=== PATIENT | female | born 1950 | race Caucasian/White ===

== ENCOUNTER 2019-09-03 08:31 | Outpatient (RCR) | payer MEDICARE, SELFPAY | END 2019-09-28 00:01 | LOC: SPT 08:31 | PROVIDERS: Family Provider Internal Medicine; Visit Provider Specialist | DX: Z47.1 Aftercare following joint replacement surgery (principal); Z96.652 Presence of left artificial knee joint | CPT/HCPCS: 97110 ×5; 97161; 97530 ==

== ENCOUNTER 2019-09-29 06:00 | Outpatient (RCR) | payer MEDICARE, SELFPAY | END 2019-10-29 23:59 | disposition home or self-care (01) | LOC: SPT 06:00 | PROVIDERS: Family Provider Internal Medicine; PCP Internal Medicine; Visit Provider Specialist | DX: Z47.1 Aftercare following joint replacement surgery (principal); Z96.652 Presence of left artificial knee joint | CPT/HCPCS: 97110 ==

== ENCOUNTER → 2019-10-13 12:12 | Outpatient (BNVA) | payer MEDICARE, SELFPAY | PROVIDERS: Family Provider Internal Medicine; PCP Internal Medicine; Visit Provider Specialist | DX: Z48.89 Encounter for other specified surgical aftercare (principal); Z96.652 Presence of left artificial knee joint; M25.469 Effusion, unspecified knee | CPT/HCPCS: 73560; 73565 ==

== ENCOUNTER 2019-10-30 06:00 | Outpatient (RCR) | payer MEDICARE, SELFPAY | END 2019-11-27 23:59 | disposition home or self-care (01) | LOC: SPT 06:00 | PROVIDERS: Family Provider Internal Medicine; PCP Internal Medicine; Visit Provider Specialist | DX: Z47.1 Aftercare following joint replacement surgery (principal); Z96.652 Presence of left artificial knee joint; R26.9 Unspecified abnormalities of gait and mobility; M25.362 Other instability, left knee; M25.562 Pain in left knee; M25.662 Stiffness of left knee, not elsewhere classified | CPT/HCPCS: 97110 ==

== ENCOUNTER → 2019-11-11 12:07 | Outpatient (BNVA) | payer MEDICARE, SELFPAY | PROVIDERS: Family Provider Internal Medicine; PCP Internal Medicine; Visit Provider Specialist | DX: Z48.89 Encounter for other specified surgical aftercare (principal); Z96.659 Presence of unspecified artificial knee joint; M17.0 Bilateral primary osteoarthritis of knee | CPT/HCPCS: 73560; 73565 ==

== ENCOUNTER → 2020-02-24 08:37 | Outpatient (BNVA) | payer MEDICARE, SELFPAY | PROVIDERS: Family Provider Internal Medicine; PCP Internal Medicine; Visit Provider Specialist | DX: Z96.652 Presence of left artificial knee joint (principal) | CPT/HCPCS: 73560; 73565 ==

== ENCOUNTER 2020-02-24 11:37 | Outpatient (CLI) | payer MEDICARE, SELFPAY | END 2020-02-24 11:38 | disposition home or self-care (01) | LOC: SPT 11:38 | PROVIDERS: Family Provider Internal Medicine; PCP Internal Medicine; Visit Provider Specialist | DX: Z46.89 Encounter for fitting and adjustment of other specified devices (principal); Z47.1 Aftercare following joint replacement surgery; Z96.652 Presence of left artificial knee joint | CPT/HCPCS: 73560; 73565; 97760; L1812 ==

== ENCOUNTER 2020-04-06 13:11 | Outpatient (CLI) | payer MEDICARE, SELFPAY ==
--- NOTE | 2020-04-06 13:21 | XRR_ITS ---
NOTE: Report was unsigned for reason: Order was edited. Original Signature date and time was: 04/06/20 1410 PROCEDURE INFORMATION: Exam: XR Chest, 2 Views Exam date and time: 04/06/2020 1:35 PM Age: 69 years old Clinical indication: Cough and shortness of breath; Patient HX: Cough, shortness of breath. Has had to have thoracentesis before in past; Additional info: Cough, shortness of breath TECHNIQUE: Imaging protocol: XR of the chest Views: 2 views. COMPARISON: CR Chest 1 [place] [id number] 06/08/2019 9:22 PM FINDINGS: Lungs: Unremarkable. No consolidation. Pleural space: Unremarkable. No pleural effusion. No pneumothorax. Heart/Mediastinum: Unremarkable. No cardiomegaly. Bones/joints: There is severe dorsal spine osteopenia with compression deformities. [facility] XR/XR chest 2V* [id number] IMPRESSION: 1. No acute cardiac or pulmonary findings. 2. Dorsal spine osteopenia and compression deformities
== END 2020-04-06 13:12 | disposition home or self-care (01) ==
LOC: RAD 13:17
PROVIDERS: PCP Internal Medicine; Visit Provider Specialist
DX: R05 Cough (principal); R06.02 Shortness of breath; M85.89 Other specified disorders of bone density and structure, multiple sites; M43.8X9 Other specified deforming dorsopathies, site unspecified
CPT/HCPCS: 71046

== ENCOUNTER → 2020-05-15 10:18 | Outpatient (BNVA) | payer MEDICARE, SELFPAY | PROVIDERS: PCP Internal Medicine; Visit Provider Specialist | DX: Z47.1 Aftercare following joint replacement surgery (principal); Z96.651 Presence of right artificial knee joint; E11.9 Type 2 diabetes mellitus without complications; I48.20 Chronic atrial fibrillation, unspecified; K75.81 Nonalcoholic steatohepatitis (NASH); E78.00 Pure hypercholesterolemia, unspecified; Z79.4 Long term (current) use of insulin; K90.9 Intestinal malabsorption, unspecified | CPT/HCPCS: 36415; 73560; 73565; 80053; 80061; 83036; 84443; 85025 ==

== ENCOUNTER 2020-08-03 09:52 | Outpatient (CLI) | payer MEDICARE, SELFPAY ==
--- NOTE | 2020-08-03 10:00 | CT_ITS ---
WS: [id number] CT scan of the chest with IV contrast, additional two-dimensional coronal and sagittal reconstruction was performed. 08/03/2020 Clinical Data: fsda Comparison: CTA chest, 06/08/2019. DLP: 983.[address] scans at [facility] use at least one of these dose optimization techniques: automat ed exposure control; mA and/or kV adjustment per patient size (includes targeted exams where dose is matched to clinical indication); or iterative reconstruction. Findings: The density noted in the right upper lobe on image 21 of 61 of the axial scan has not changed in siz e or configuration. This has the appearance of a small parenchymal scar. No masses or effusions are seen. The heart size is normal with no pericardial effusion. There is cor onary artery calcification. No pneumonia or pneumothorax is present. The pulmonary arterial system an d thoracic aorta demonstrate no abnormalities or dilatations. The trachea bifurcates normally into th e bronchi. There is no axillary or significant mediastinal adenopathy. The upper abdomen shows no change from before. Degenerative arthritis of the thoracic vertebral jolie s is seen. CT/CT chest w con* [id number] Impression: 1. Right upper lobe density, probably a parenchymal scar unchanged. 2. Recommend no further follow-up. 3. Negative for active cardiopulmonary disease.
[2020-08-03 10:39] LABS: Blood Urea Nitrogen 16 mg/dL (8-23)
[2020-08-03] MEDS: iohexol 300 mg/mL 100 mL Btl IV (10:52)
== END 2020-08-03 09:53 | disposition home or self-care (01) ==
PROVIDERS: PCP Internal Medicine; Visit Provider Internal Medicine
DX: M25.511 Pain in right shoulder (principal)
CPT/HCPCS: 71260; 82565; 84520; Q9967

== ENCOUNTER → 2020-09-06 09:30 | Outpatient (BNVA) | payer MEDICARE, SELFPAY | PROVIDERS: PCP Internal Medicine; Referring Provider Internal Medicine; Visit Provider Anesthesiology Pain Medicine | DX: M54.6 Pain in thoracic spine (principal); M47.814 Spondylosis without myelopathy or radiculopathy, thoracic region; Z79.891 Long term (current) use of opiate analgesic | CPT/HCPCS: 99205 ==

== ENCOUNTER → 2020-09-07 09:32 | Outpatient (BNVA) | payer MEDICARE, SELFPAY | PROVIDERS: PCP Internal Medicine; Visit Provider Internal Medicine Cardiovascular Disease | DX: E78.00 Pure hypercholesterolemia, unspecified (principal); E78.5 Hyperlipidemia, unspecified | CPT/HCPCS: 80061 ==

== ENCOUNTER → 2020-09-12 13:53 | Outpatient (BNVA) | payer MEDICARE, SELFPAY | PROVIDERS: PCP Internal Medicine; Visit Provider Anesthesiology Pain Medicine | DX: M47.814 Spondylosis without myelopathy or radiculopathy, thoracic region (principal); M54.6 Pain in thoracic spine | CPT/HCPCS: 64490; 64491; 64492; J1030; J3490 ==

== ENCOUNTER → 2020-09-26 09:38 | Outpatient (BNVA) | payer MEDICARE, SELFPAY | PROVIDERS: PCP Internal Medicine; Visit Provider Anesthesiology Pain Medicine | DX: M54.9 Dorsalgia, unspecified (principal); M54.6 Pain in thoracic spine; M47.814 Spondylosis without myelopathy or radiculopathy, thoracic region; M47.812 Spondylosis without myelopathy or radiculopathy, cervical region; M54.16 Radiculopathy, lumbar region; M54.5 Low back pain; G89.29 Other chronic pain | CPT/HCPCS: 99214 ==

== ENCOUNTER → 2020-10-20 10:55 | Outpatient (BNVA) | payer MEDICARE, SELFPAY | PROVIDERS: PCP Internal Medicine; Visit Provider Anesthesiology Pain Medicine | DX: G89.29 Other chronic pain (principal); M54.9 Dorsalgia, unspecified; M47.814 Spondylosis without myelopathy or radiculopathy, thoracic region; M47.812 Spondylosis without myelopathy or radiculopathy, cervical region; M54.16 Radiculopathy, lumbar region; M47.816 Spondylosis without myelopathy or radiculopathy, lumbar region; M48.54XA Collapsed vertebra, not elsewhere classified, thoracic region, initial encounter for fracture; X58.XXXA Exposure to other specified factors, initial encounter | CPT/HCPCS: 72114; 99214 ==

== ENCOUNTER 2020-10-20 11:51 | Outpatient (CLI) | payer MEDICARE, SELFPAY ==
--- NOTE | 2020-10-20 11:59 | XR_ITS ---
WS: [id number] LUMBAR SPINE TECHNIQUE: 5 views of the lumbar spine CLINICAL INFORMATION: M47.816 - Spondylosis without myelopathy or radiculopathy, lumbar region COMPARISON: None. FINDINGS: Five clz-iwc-gvzcxik lumbar vertebral bodies. Pedicle screw fixation L4-5. Disc space narrowing worse at L3-L4, L4-L5 and L5-S1. Slight retrolisthesis L3 on L4. Slight anterolisthesis L4 on L5. Chronic anterior wedging T11,T12 and L1 XR/XR lumbar spine min 4V [id number] IMPRESSION: 1. Pedicle screw fixation L4-5. Dorsal lateral bone graft material. Hardware a ppears in good position. Slight anterolisthesis L4 on L5. 2. Disc space narrowing worse at L3-L4 L4-L5 and L5-S1. 3. Chronic anterior wedging in the lower thoracic spine.
== END 2020-10-20 11:52 | disposition home or self-care (01) ==
LOC: RADWPI 11:56
PROVIDERS: PCP Internal Medicine; Visit Provider Anesthesiology Pain Medicine
DX: M47.816 Spondylosis without myelopathy or radiculopathy, lumbar region (principal); M48.54XA Collapsed vertebra, not elsewhere classified, thoracic region, initial encounter for fracture; X58.XXXA Exposure to other specified factors, initial encounter
CPT/HCPCS: 72114

== ENCOUNTER 2020-11-01 06:00 | Outpatient (RCR) | payer MEDICARE, SELFPAY | END 2020-11-26 23:59 | disposition home or self-care (01) | LOC: SPT 06:00 | PROVIDERS: PCP Internal Medicine; Referring Provider Anesthesiology Pain Medicine; Visit Provider Anesthesiology Pain Medicine | DX: M54.5 Low back pain (principal); G89.29 Other chronic pain | CPT/HCPCS: 97110; 97161; 97530 ==

== ENCOUNTER → 2020-11-06 08:37 | Outpatient (BNVA) | payer MEDICARE, SELFPAY | PROVIDERS: PCP Internal Medicine; Visit Provider Anesthesiology Pain Medicine | DX: G89.29 Other chronic pain (principal); M47.814 Spondylosis without myelopathy or radiculopathy, thoracic region; M47.816 Spondylosis without myelopathy or radiculopathy, lumbar region; M47.812 Spondylosis without myelopathy or radiculopathy, cervical region; M54.16 Radiculopathy, lumbar region; M54.9 Dorsalgia, unspecified | CPT/HCPCS: 99213 ==

== ENCOUNTER 2020-11-23 11:54 | Observation (INO) | payer MEDICARE, SELFPAY ==
[2020-11-23] VITALS (11 sets, daily range): BP systolic 122–172; BP diastolic 60–116; PULSE 73–91; RESP 12–18; TEMP 36.1–36.7; O2SAT 91–98; BMI 32.8
--- NOTE | 2020-11-23 12:03 | PC.NURSE ---
Spoke with the [facility] crisis center regarding pt making suicidal statements while at [facility]. Per [facility] staff, a 96 hr hold was faxed to the court but has not yet been approved. Pt told the [facility] staff that she had a plan to drive her car into something and she also has a firearm in her possession that she threatened to use. Pt refused to go to [facility] to sign a safety contract and refused any kind of treatment. Law enforcement was called to escort pt to ER for evaluation and treatment.
--- NOTE | 2020-11-23 12:09 | XR_ITS ---
WS: [id number] Exam: XR chest 1V portable [id number] Date/Time of Exam: 11/23/2020 12:09 PM Reason For Exam: Psych eval Comparison 04/06/2020. The lungs are fully expanded. There are fibrous changes in the upper right lung zones. There are no i nfiltrates or pleural effusions. Cardiomediastinal structures are unremarkable. Bony structures are i ntact. XR/XR chest 1V portable [id number] IMPRESSION: 1. Chronic interstitial changes in the upper lobe of the right lung. No acute p rocess identified.
--- NOTE | 2020-11-23 12:09 | ECG_ITS ---
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 Measurements Intervals [place] Rate: 71 P: OR: QRS: 72 QRSD: 88 T: 78 QT: 394 QTc: 429 Interpretive Statements ATRIAL FIBRILLATION ANTEROSEPTAL MYOCARDIAL INFARCTION , OF INDETERMINATE AGE [40+ ms Q WAVE IN V1-V4] Compared to ECG 11/23/2020 12:31:35 No significant changes Electronically Signed On 11-23-2020 20:08:01 REFUSE COLLECTOR by Leonardo Nix M.D. [email or web address] [email or web address]/[id number]
--- NOTE | 2020-11-23 12:17 | ECG_ITS ---
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 Measurements Intervals [place] Rate: 70 P: [place]: QRS: 57 QRSD: 87 T: 65 QT: 399 QTc: 433 Interpretive Statements ATRIAL FIBRILLATION SEPTAL MYOCARDIAL INFARCTION , PROBABLY OLD [40+ ms Q WAVE IN V1/V2] No previous ECG available for comparison Electronically Signed On 11-23-2020 20:07:34 ART HISTORY PROFESSOR by Leonardo Nix M.D. [id number]
[2020-11-23 12:48] LABS: Basophils # 0.1 10^3/uL (0.0-0.1); Basophils % 1.2 %; Eosinophils # 0.2 10^3/uL (0.0-0.8); Hematocrit 43.2 % (37.0-47.0); Hemoglobin 13.8 g/dL (11.5-15.3); Lymphocytes # 2.8 10^3/uL (0.8-4.8); Lymphocytes % 34.9 %; Mean Corpuscular HGB Conc 31.9 g/dL (30.0-36.0); Mean Corpuscular Hemoglobin 31.7 pg (28.0-34.0); Mean Corpuscular Volume 99.3 fL (81-99); Mean Platelet Volume 10.4 fL (7.4-10.4); Monocytes # 0.6 10^3/uL (0.2-0.9); Monocytes % 7.8 %; Neutrophils # 4.38 10^3/uL (1.8-7.7); Neutrophils % 53.9 %; Nucleated Red Blood Cells % 0 %; Platelet Count 207 10^3/cmm (130-400); Red Blood Count 4.35 10^6/uL (4.1-5.3); Red Cell Distribution Width 12.5 % (12.1-15.1); White Blood Count 8.1 10^3/uL (4.0-10.0)
[2020-11-23 13:02] LABS: Troponin(5th) Baseline 6 ng/L (0-10)
--- NOTE | 2020-11-23 13:04 | ED_ITS ---
HPI - Psych General: Chief Complaint: Psychiatric Symptoms Stated Complaint: DEPRESSION, SI Time Seen by Provider: 11/23/20 12:07 Source: patient Mode of arrival: other (law enforcement) Limitations: no limitations History of Present Illness: HPI Narrative: Patient is a 70-year-old female with a longstanding history of depression presents to the emergency department with complaints of suicidal ideation. She said her depression has been worsening over the last few days and today she drove all the way to [place] looking for a ditch to drive her car into. She felt she did not find any deep enough so she did not drive her car off. She also feels some prescription medications today and thought about overdosing on those medications also. She told her physical therapist who had her call behavioral health and they advised that she call mental health for help. The patient did not want to and so law enforcement was called and she was brought here to be evaluated. She developed chest pain when she arrived in the ED, about 5/10, sharp, left sided, non radiating. MD complaint: suicidal ideation Onset (ago): day(s) Duration: constant and getting worse History of same: No Relieving factors: none Exacerbating factors: other (isolation from family) Associated psychiatric symptoms: depression and suicidal ideation Associated symptoms: Reports depression and suicidal ideation; Deny auditory hallucinations, visual hallucinations, delusions or homicidal ideation Treatments prior to arrival: none If self harm: admits thoughts of self harm and has plan Review of Systems General: Reports: 10 or more systems reviewed and unremarkable except in HPI and below Const: Denies: fever(s), chills or body aches Eyes: Denies: change in vision or blurry vision ENMT: Denies: throat pain, enlarged tonsils, odynophagia, hoarseness, mouth pain or swelling of lips/tongue Card: Reports: chest pain; Denies: palpitations, irregular heart rhythm, edema or swelling of feet/ankles Resp: Denies: dyspnea, productive cough or non-productive cough GI: Denies: abdominal pain, nausea or vomiting : Denies: flank pain, difficulty voiding, dysuria, urinary frequency, urinary urgency or urinary hesitancy Musc: Denies: neck pain, back pain or extremity swelling Skin/Breast: Denies: rash, pruritus or erythema Neuro: Denies: headache(s), numbness in extremities or weakness in extremities Psych: Reports: depression and suicidal ideation; Denies: visual hallucinations, auditory hallucinations or homicidal ideation Endo: Denies: polyuria, polydipsia or tired all the time PFSH ED PFSH: Medical History (Reviewed 11/23/20 @ 13:19 by Tamanna Vaughn MD, [facility] [place]) ASHD (arteriosclerotic heart disease) Chronic episodic atrial fibrillation Encounter for weight loss counseling Discussed close follow-up due to episodes of hypoglycemia in the past when starting a weight loss program. Hypercholesterolemia Recent weight gain Surgical History Gastric bypass status for obesity H/O cataract extraction H/O hernia repair H/O tubal ligation History of oral surgery Hx of appendectomy Hx of cholecystectomy S/P knee replacement Family History (Updated 11/23/20 @ 17:05 by Jacob Sanchez MD) Father Emphysema lung Mother COPD (chronic obstructive pulmonary disease) Other CAD (coronary artery disease) CHF (congestive heart failure) Diabetes Hyperlipidemia Hypertension Social History Smoking and tobacco status: former smoker Alcohol intake: current Alcohol intake frequency: holidays/special occasions only Substance/Drug Use: current Substance/Drug use frequency: daily Substance/Drug use type: Marijuana History of recent travel: No Physical Exam Const: COMMON NORMALS: no acute distress, average body habitus, patient oriented x3, no limitations, healthy appearing, alert and well nourished HENMT: COMMON NORMALS: normocephalic, atraumatic and moist oral mucous membranes HEAD & SCALP: normocephalic and atraumatic Eye: COMMON NORMALS: Equal, round and reactive pupils present, EOMs intact bilaterally, conjunctivae normal and no scleral icterus CONJUNCTIVA: Yes conjunctivae normal PUPIL: Yes Equal, round and reactive pupils present Neck/C-Spine: COMMON NORMALS: no meningeal signs and no JVD Resp: COMMON NORMALS: normal respiratory effort, No retractions, No use of accessory muscles, clear to auscultation bilaterally and percussion normal AUSCULTATION: clear to auscultation bilaterally PERCUSSION: percussion normal Cardio: COMMON NORMALS: no JVD, regular rate, regular rhythm, S1 normal heart sound present, S2 normal heart sound present, No gallops present (Cardio), No clicks present (Cardio), No murmurs present (Cardio), No rub (Cardio) and Peripheral pulses 2+ throughout RATE: regular rate RHYTHM: regular rhythm HEART SOUNDS: S1 normal heart sound present and S2 normal heart sound present PERIPHERAL PULSES: Peripheral pulses 2+ throughout GI: COMMON NORMALS: Normal to inspection, nondistended, normoactive bowel sounds present, Soft to palpation, non-tender, No hepatosplenomegaly present, no masses and no bruits PALPATION: Yes Soft to palpation and Yes No hepatosplenomegaly present Extremity: COMMON NORMALS: normal to inspection, full ROM, capillary refill normal, no calf tenderness and no pedal edema Neuro: COMMON NORMALS: patient oriented x3 SENSORIUM/ORIENTATION: Yes alert MENINGEAL SIGNS: Yes no meningeal signs Psych: THOUGHT CONTENT: No delusions Skin: COMMON NORMALS: no rashes or lesions noted, no wounds, turgor normal, no jaundice, no petechiae and no mottling GENERAL SKIN EXAM: no rashes or lesions noted and turgor normal MDM - Psych MDM Narrative: Medical decision making narrative: 70-year-old female patient who came into the emergency department for suicidal ideation. She has a longstanding history of depression and has had suicidal thoughts most of her life. She did say that she was not going to act on her suicidal thoughts. She was evaluated by the psychiatrist and he felt she was safe to be discharged home. When she arrived in the emergency department, during evaluation she developed chest pain and so she was worked up for that. Her initial troponin was normal, however her 2-hour troponin was significantly elevated with a delta of greater than 20. She is therefore being managed as a case of a non-STEMI and is admitted to the hospital for further evaluation and management. Chest pain was difficult to control, morphine did not help, Nitropaste was not improving her pain. She had to be placed on a nitroglycerin drip. Medical Records: Attestation: I reviewed the patient's medical records. Lab Data: Attestation: I reviewed the patient's lab results. Labs: Lab Results 11/23/20 11/23/20 11/23/20 Range/Units 12:20 12:20 12:20 WBC 8.1 (4.0-10.0) 10^3/ uL RBC 4.35 (4.1-5.3) 10^6/u L Hgb 13.8 (11.5-15.3) g/dL Hct 43.2 (37.0-47.0) % MCV 99.3 H (81-99) fL MCH 31.7 (28.0-34.0) pg MCHC 31.9 (30.0-36.0) g/dL RDW 12.5 (12.1-15.1) % Plt Count 207 (130-400) 10^3/c mm MPV 10.4 (7.4-10.4) fL Neut % (Auto) 53.9 % Lymph % (Auto) 34.9 % Jones % (Auto) 7.8 % Eos % (Auto) 2.0 % Baso % (Auto) 1.2 % Neut # (Auto) 4.38 (1.8-7.7) 10^3/u L Lymph # (Auto) 2.8 (0.8-4.8) 10^3/u L Jones # (Auto) 0.6 (0.2-0.9) 10^3/u L Eos # (Auto) 0.2 (0.0-0.8) 10^3/u L Baso # (Auto) 0.1 (0.0-0.1) 10^3/u L Nucleated RBC % (a uto) 0 % Nucleated RBCs # 0.0 /100WBC Sodium 133 L (136-145) mmol/L Potassium 4.1 (3.5-5.1) mmol/L Chloride 98 (98-107) mmol/L Carbon Dioxide 25 (22-29) mmol/L Anion Gap 14.1 (5-19) BUN 15 (8-23) mg/dL Creatinine 0.7 (0.5-0.9) mg/dL GFR Calculation Not Reportable Glucose 170 H (65-115) mg/dL Calculated Osmolal ity 281 L (285-295) mOsm/k g Calcium 8.8 (8.5-10.5) mg/dL Total Bilirubin 0.3 (0.15-1.2) mg/dL AST 12 (0-32) U/L ALT 9 (0-33) U/L Alkaline Phosphata se 53 (35-105) IU/L Troponin T Baselin e 6 (0-10) ng/L Troponin T 120 Min torres martinez (0-10) ng/L Delta Troponin T (0-10) ABS# Troponin T Hi Sens 6Hr Troponin T Hi Sens 6Hr Delta Total Protein 6.4 L (6.6-8.7) g/dL Albumin 3.7 (3.5-5.2) g/dL Globulin 2.7 (1.3-4.6) g/dL TSH 2.16 (0.27-4.20) uIU/ mL Urine Color (Yellow) Urine Appearance (CLEAR) Urine pH (5-7) Ur Specific Gravit y (1.005-1.030) Urine Protein (Negative) Urine Glucose (UA) (Normal) Urine Ketones (Negative) Urine Blood (Negative) Urine Nitrate (Negative) Urine Bilirubin (Negative) Urine Urobilinogen (Negative) mg/dL Ur Leukocyte Dawna ase (Negative) Urine RBC (0-2) /hpf Urine WBC (0-5) /hpf Ur Squamous Epith Cells (0-5) /hpf Amorphous Sediment Urine Bacteria (NONE) /hpf Salicylates < 0.3 L (3-10) mg/dL Urine Opiates Scre en (Negative) ng/mL Acetaminophen 6.9 L (10-30) ug/mL Ur Barbiturates Sc reen (Negative) ng/mL Ur Phencyclidine S crn (Negative) ng/mL Ur Amphetamines Sc reen (Negative) ng/mL U Benzodiazepines Scrn (Negative) ng/mL Urine Cocaine Scre en (Negative) ng/mL U Marijuana (THC) Screen (Negative) ng/mL Ethyl Alcohol < 10 (0-10) mg/dL 11/23/20 11/23/20 11/23/20 Range/Units 13:25 13:25 14:43 WBC (4.0-10.0) 10^3/ uL RBC (4.1-5.3) 10^6/u L Hgb (11.5-15.3) g/dL Hct (37.0-47.0) % MCV (81-99) fL MCH (28.0-34.0) pg MCHC (30.0-36.0) g/dL RDW (12.1-15.1) % Plt Count (130-400) 10^3/c mm MPV (7.4-10.4) fL Neut % (Auto) % Lymph % (Auto) % Jones % (Auto) % Eos % (Auto) % Baso % (Auto) % Neut # (Auto) (1.8-7.7) 10^3/u L Lymph # (Auto) (0.8-4.8) 10^3/u L Jones # (Auto) (0.2-0.9) 10^3/u L Eos # (Auto) (0.0-0.8) 10^3/u L Baso # (Auto) (0.0-0.1) 10^3/u L Nucleated RBC % (a uto) % Nucleated RBCs # /100WBC Sodium (136-145) mmol/L Potassium (3.5-5.1) mmol/L Chloride (98-107) mmol/L Carbon Dioxide (22-29) mmol/L Anion Gap (5-19) BUN (8-23) mg/dL Creatinine (0.5-0.9) mg/dL GFR Calculation Glucose (65-115) mg/dL Calculated Osmolal ity (285-295) mOsm/k g Calcium (8.5-10.5) mg/dL Total Bilirubin (0.15-1.2) mg/dL AST (0-32) U/L ALT (0-33) U/L Alkaline Phosphata se (35-105) IU/L Troponin T Baselin e (0-10) ng/L Troponin T 120 Min torres martinez 29.54 H (0-10) ng/L Delta Troponin T 23.54 H* (0-10) ABS# Troponin T Hi Sens 6Hr Troponin T Hi Sens 6Hr Delta Total Protein (6.6-8.7) g/dL Albumin (3.5-5.2) g/dL Globulin (1.3-4.6) g/dL TSH (0.27-4.20) uIU/ mL Urine Color Yellow (Yellow) Urine Appearance Clear (CLEAR) Urine pH 6 (5-7) Ur Specific Gravit y 1.005 (1.005-1.030) Urine Protein Neg (Negative) Urine Glucose (UA) Norm (Normal) Urine Ketones Negative (Negative) Urine Blood Neg (Negative) Urine Nitrate Negative (Negative) Urine Bilirubin Neg (Negative) Urine Urobilinogen Norm (Negative) mg/dL Ur Leukocyte Dawna ase Trace H (Negative) Urine RBC None (0-2) /hpf Urine WBC 15-25 H (0-5) /hpf Ur Squamous Epith Cells Rare (0-5) /hpf Amorphous Sediment Not Reportable Urine Bacteria 4+ H (NONE) /hpf Salicylates (3-10) mg/dL Urine Opiates Scre en Negative (Negative) ng/mL Acetaminophen (10-30) ug/mL Ur Barbiturates Sc reen Negative (Negative) ng/mL Ur Phencyclidine S crn Negative (Negative) ng/mL Ur Amphetamines Sc reen Negative (Negative) ng/mL U Benzodiazepines Scrn Negative (Negative) ng/mL Urine Cocaine Scre en Negative (Negative) ng/mL U Marijuana (THC) Screen Positive H (Negative) ng/mL Ethyl Alcohol (0-10) mg/dL 11/23/20 Range/Units 18:18 WBC (4.0-10.0) 10^3/ uL RBC (4.1-5.3) 10^6/u L Hgb (11.5-15.3) g/dL Hct (37.0-47.0) % MCV (81-99) fL MCH (28.0-34.0) pg MCHC (30.0-36.0) g/dL RDW (12.1-15.1) % Plt Count (130-400) 10^3/c mm MPV (7.4-10.4) fL Neut % (Auto) % Lymph % (Auto) % Jones % (Auto) % Eos % (Auto) % Baso % (Auto) % Neut # (Auto) (1.8-7.7) 10^3/u L Lymph # (Auto) (0.8-4.8) 10^3/u L Jones # (Auto) (0.2-0.9) 10^3/u L Eos # (Auto) (0.0-0.8) 10^3/u L Baso # (Auto) (0.0-0.1) 10^3/u L Nucleated RBC % (a uto) % Nucleated RBCs # /100WBC Sodium (136-145) mmol/L Potassium (3.5-5.1) mmol/L Chloride (98-107) mmol/L Carbon Dioxide (22-29) mmol/L Anion Gap (5-19) BUN (8-23) mg/dL Creatinine (0.5-0.9) mg/dL GFR Calculation Glucose (65-115) mg/dL Calculated Osmolal ity (285-295) mOsm/k g Calcium (8.5-10.5) mg/dL Total Bilirubin (0.15-1.2) mg/dL AST (0-32) U/L ALT (0-33) U/L Alkaline Phosphata se (35-105) IU/L Troponin T Baselin e (0-10) ng/L Troponin T 120 Min torres martinez (0-10) ng/L Delta Troponin T (0-10) ABS# Troponin T Hi Sens 6Hr Cancelled Troponin T Hi Sens 6Hr Delta Cancelled Total Protein (6.6-8.7) g/dL Albumin (3.5-5.2) g/dL Globulin (1.3-4.6) g/dL TSH (0.27-4.20) uIU/ mL Urine Color (Yellow) Urine Appearance (CLEAR) Urine pH (5-7) Ur Specific Gravit y (1.005-1.030) Urine Protein (Negative) Urine Glucose (UA) (Normal) Urine Ketones (Negative) Urine Blood (Negative) Urine Nitrate (Negative) Urine Bilirubin (Negative) Urine Urobilinogen (Negative) mg/dL Ur Leukocyte Dawna ase (Negative) Urine RBC (0-2) /hpf Urine WBC (0-5) /hpf Ur Squamous Epith Cells (0-5) /hpf Amorphous Sediment Urine Bacteria (NONE) /hpf Salicylates (3-10) mg/dL Urine Opiates Scre en (Negative) ng/mL Acetaminophen (10-30) ug/mL Ur Barbiturates Sc reen (Negative) ng/mL Ur Phencyclidine S crn (Negative) ng/mL Ur Amphetamines Sc reen (Negative) ng/mL U Benzodiazepines Scrn (Negative) ng/mL Urine Cocaine Scre en (Negative) ng/mL U Marijuana (THC) Screen (Negative) ng/mL Ethyl Alcohol (0-10) mg/dL Imaging Data^: CXR: Attestation: I personally reviewed and interpreted this imaging study as follows: Radiologist's impression: [address] [address] XRay Report Signed Patient: Chiqui Rizzo #: [id number] : 9Acct#:[id number] Age/Sex: 70 / FADM Date: 11/23/20 Loc: ERRoom/Bed: Attending Dr: Ordering Provider/Ordering MD: Tamanna Vaughn MD, [facility] [place] Date of Service: 11/23/20 Procedure(s): XR chest 1V portable [id number] Accession Number(s): [id number] Report Number: [id number] WS: [id number] Exam: XR chest 1V portable [id number] Date/Time of Exam: 11/23/2020 12:09 PM Reason For Exam: Psych eval Comparison 04/06/2020. The lungs are fully expanded. There are fibrous changes in the upper right lung zones. There are no infiltrates or pleural effusions. Cardiomediastinal structures are unremarkable. Bony structures are intact. XR/XR chest 1V portable [id number] IMPRESSION: 1. Chronic interstitial changes in the upper lobe of the right lung. No acute process identified. Dictated By:Boyd Theodore DO Signed By:Coby Frederick Date/Time:11/23/20 1233 DD/ 1228 EKG Data^: EKG 1: Attestation: I personally reviewed and interpreted this EKG as follows: EKG interpretation date: 11/23/20 EKG interpretation time: 12:31 Prior EKG tracings: not available for review Interpretation: Atrial fibrillation. Heart rate [address] changes. EKG 2: Attestation: I personally reviewed and interpreted this EKG as follows: EKG interpretation date: 11/23/20 EKG interpretation time: 14:28 Prior EKG tracings: available for review Interpretation: Atrial fibrillation heart rate [address] changes. No significant change from earlier. EKG 3: Attestation: I personally reviewed and interpreted this EKG as follows: EKG interpretation date: 11/23/20 EKG interpretation time: 16:37 Prior EKG tracings: available for review Interpretation: Atrial fibrillation. Heart rate [address] changes. No significant change from earlier EKG 4: Attestation: I personally reviewed and interpreted this EKG as follows: EKG interpretation date: 11/23/20 EKG interpretation time: 18:17 Prior EKG tracings: available for review Interpretation: Atrial fibrillation. Heart rate [address] changes. No significant changes from earlier Critical Care Time Critical Care Time: Critical Care Time: Yes Total Critical Care Time: 30 Attestation: This case had a high probability of a clinically significant, sudden, or life threatening deterioration of this patient's condition which required my full and direct attention, intervention and personal management. Discharge Plan Discharge Patient Disposition: Admitted As Inpatient Admit Provider: Jacob Sanchez Clinical Impression: Non-ST elevated myocardial infarction (non-STEMI) Depression Qualifiers: Depression Type: major depressive disorder Major depression recurrence: recurrent Active/Remission status: currently active Major depression episode severity: unspecified Qualified Code(s): F33.9 - Major depressive disorder, recurrent, unspecified Condition: Stable Discharge Diet: Usual diet Discharge Activity: Increase activity as tolerated Coding Level of Care Code ED Certified Court/Medical Interpreter for Chg Fwd Exam Comprehensive
[2020-11-23 13:11] LABS: Acetaminophen 6.9 ug/mL (10-30); Alanine Aminotransferase 9 U/L (0-33); Albumin Level 3.7 g/dL (3.5-5.2); Alkaline Phosphatase 53 IU/L (35-105); Anion Gap 14.1 (5-19); Aspartate Amino Transferase 12 U/L (0-32); Blood Urea Nitrogen 15 mg/dL (8-23); Calcium 8.8 mg/dL (8.5-10.5); Carbon Dioxide 25 mmol/L (22-29); Chloride 98 mmol/L (98-107); Globulin 2.7 g/dL (1.3-4.6); Glucose 170 mg/dL (65-115); Osmolality Calculated 281 mOsm/kg (285-295); Potassium 4.1 mmol/L (3.5-5.1); Sodium 133 mmol/L (136-145); Thyroid Stimulating Hormone 2.16 uIU/mL (0.27-4.20); Total Bilirubin 0.3 mg/dL (0.15-1.2); Total Protein 6.4 g/dL (6.6-8.7)
[2020-11-23 13:12] LABS: Alcohol Level < 10 mg/dL (0-10); Salicylate < 0.3 mg/dL (3-10)
[2020-11-23] MEDS: aspirin 81 mg Chew Tablet 324 MG PO (13:47)
[2020-11-23] MEDS: nitroglycerin 1 gm/inch oint Pkt 1 INCH TOPICAL (13:51)
[2020-11-23 14:08] LABS: Amphetamines Screen Urine Negative (Negative); Barbiturates Screen Urine Negative (Negative); Benzodiazepines Screen Urine Negative (Negative); Cocaine Screen Urine Negative (Negative); Opiate Screen Urine Negative (Negative); PCP Screen Urine Negative (Negative); THC Screen Urine Positive (Negative)
--- NOTE | 2020-11-23 14:17 | ECG_ITS ---
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 Measurements Intervals [place] Rate: 79 P: [place]: QRS: 88 QRSD: 102 T: 81 QT: 386 QTc: 444 Interpretive Statements ATRIAL FIBRILLATION INDETERMINATE AXIS ANTEROLATERAL MYOCARDIAL INFARCTION , OF INDETERMINATE AGE [40+ ms Q WAVE IN I/aVL/V3-V6] Compared to ECG 11/23/2020 14:28:26 Indeterminate axis now present Myocardial infarct finding still present Electronically Signed On 11-23-2020 20:12:53 PRODUCT DEVELOPMENT DIRECTOR by Leonardo Nix M.D. [email or web address]/store/[id number]
--- NOTE | 2020-11-23 14:31 | PC.NURSE ---
EKG done at 1430 and shown to ER doctor
--- NOTE | 2020-11-23 14:32 | PC.NURSE ---
Sitter is at bedside with patient.
[2020-11-23 14:34] LABS: Glucose Urine UA Norm (Normal); Ketones Urine Negative (Negative); Protein Urine Neg (Negative); Specific Gravity, Urine 1.005 (1.005-1.030); Urine Appearance Clear (CLEAR); Urine Color Yellow (Yellow); pH Urine 6 (5-7)
[2020-11-23 14:35] LABS: Add Urine Microscopic? YES; Bilirubin Urine Neg (Negative); Blood Urine Neg (Negative); Leukocyte Esterase Urine Trace (Negative); Nitrate Urine Negative (Negative); Urobilinogen Urine Norm (Negative)
[2020-11-23 14:36] LABS: Bacteria Urine 4+ /hpf; Squamous Epithelial Cell Urine RARE /hpf (0-5); WBC Urine 15-25 /hpf (0-5)
[2020-11-23 14:37] LABS: Add Urine Culture? Yes
[2020-11-23 15:32] LABS: Troponin 5 2HR 29.54 ng/L (0-10)
[2020-11-23 15:47] LABS: Troponin 5 2HR Delta 23.54 ABS# (0-10)
--- NOTE | 2020-11-23 16:10 | P.CONIM_ITS ---
Providers/Reason for Consult Consulting Physican/Specialty*: Juan Sellers MD. Psychiatry. Reason for Consult*: Safety for discharge. Requesting Physcian: Tamanna Vaughn MD Attending Physician: Jacob Sanchez MD Primary Care Provider: Regan Contreras MD Psych Consult HPI History of Present Illness Chiqui Arias is a 70 year old female who presented to the emergency department with the following report: Chief Complaint: Psychiatric Symptoms Stated Complaint: DEPRESSION, SI Time Seen by Provider: 11/23/20 12:07 Source: patient Mode of arrival: other (law enforcement) Limitations: no limitations History of Present Illness: HPI Narrative: Patient is a 70-year-old female with a longstanding history of depression presents to the emergency department with complaints of suicidal ideation. She said her depression has been worsening over the last few days and today she drove all the way to [place] looking for a ditch to drive her car into. She felt she did not find any deep enough so she did not drive her car off. She also feels some prescription medications today and thought about overdosing on those medications also. She told her physical therapist who had her call behavioral health and they advised that she call mental health for help. The patient did not want to and so law enforcement was called and she was brought here to be evaluated. She developed chest pain when she arrived in the ED, about 5/10, sharp, left sided, non radiating. complaint: suicidal ideation Onset (ago): day(s) Duration: constant and getting worse History of same: No Relieving factors: none Exacerbating factors: other (isolation from family) Associated psychiatric symptoms: depression and suicidal ideation Associated symptoms: Reports depression and suicidal ideation; Deny auditory hallucinations, visual hallucinations, delusions or homicidal ideation Treatments prior to arrival: none If self harm: admits thoughts of self harm and has plan. A psychiatric consult was requested to evaluate these concerns and specifically see if she would be appropriate for the neuropsychiatric unit here at [facility]. Unfortunately the girl cut off for inpatient services here is 64 that was explained to the physician and Chiqui. She presents today reporting that she has struggled with depression her entire life. She reports intermittent suicidal thoughts for basically the entirety of her life. She reports that she is dealt with a 5 and not had any time she had inpatient hospitalization but she has been on medication and currently is on Cymbalta. She reports that she been dealing with medical issues and got really frustrated with how things are going and just felt tired of it and found herself going for a drive which is not unheard of but she ended up in [place]. She endorsed while in [place] that she did occasionally glance over it deep breaths are reviewed at this the road and had thoughts of driving into 1. She denies that she ever do it she reports that she has to leave things to live for and she has great fear that she would end up messing up any attempt like that and fighting herself in a worse more depressed state. The emergency room doctor reached out to her and discussed the plan which we discussed the risk benefits and alternatives of initiating Lexapro 10 mg p.o. every morning and allowing her to go home with her support she understood and agreed proceed as is documented in this note and her was also agreeable that this would be a reasonable plan and he was not fearful that she would act on these thoughts that she was just frustrated. She was having some chest pain was reported to the emergency room doctor and were being explored but we agreed that inpatient psychiatric care at a geriatric facility was not necessary at this point. Psychiatric history: As above. Substance abuse history: She reports to be a former cigarette smoker, drinks alcohol rarely maybe 1 special occasions, reports marijuana use regularly but denies any other illicit drug use history of rehab or DUIs. Family history: She denies any contributory history for the situation. Developmental history: There were no problems with the , or delivery, learned to walk and talk and met developmental milestones on time, and denies need for speech therapy, learning support, emotional support or special education classes. Psychosocial history: She reports that she lives with her and that there are no issues or problems they are financially or otherwise. Legal history: Denied. Medical history: Please see ED note for definitive details. Currently reporting chest pain. Meds Current Medications: Current Medications Generic Name Dose Route Start Last Admin Trade Name Freq PRN Reason Stop Dose Admin Diclofenac Sodium 4 applic 11/23/20 19:56 11/23/20 22:22 Diclofenac 1% To pical Gel 100 Gm TOPICAL Not Given QID@09,13,17,21 S CH Hydralazine HCl 100 mg 11/23/20 22:00 11/23/20 21:19 Hydralazine 50 M g Tablet PO 100 mg BID@0900,2200 JORGE LUIS Administration Nitroglycerin/Dext adalid 50 mg in 250 mls @ 0 mls/hr 11/23/20 18:30 11/23/20 18:[address] ip IV 5 mcg/min .Q0M JORGE LUIS 1.5 mls/hr Administration Protocol Per Protocol Insulin Aspart 0 unit 11/23/20 19:56 11/23/20 20:34 Insulin Aspart 1 00 Unit/1 Ml SUBCUT 2 unit TIDWM JORGE LUIS Administration Protocol Pantoprazole Sodiu m 40 mg 11/23/20 22:00 11/23/20 21:[address] 40 Mg Tablet PO 40 mg BID@0900,2200 JORGE LUIS Administration Ranolazine 500 mg 11/23/20 22:00 11/23/20 21:19 Ranolazine (12hr ) 500 Mg Tablet PO 500 mg BID@0900,2200 JORGE LUIS Administration PFSH NPU PFSH: Medical History ASHD (arteriosclerotic heart disease) Chronic episodic atrial fibrillation Encounter for weight loss counseling Discussed close follow-up due to episodes of hypoglycemia in the past when starting a weight loss program. Hypercholesterolemia Recent weight gain Surgical History Gastric bypass status for obesity H/O cataract extraction H/O hernia repair H/O tubal ligation History of oral surgery Hx of appendectomy Hx of cholecystectomy S/P knee replacement Family History (Updated 11/23/20 @ 17:05 by Jacob Sanchez MD) Father Emphysema lung Mother COPD (chronic obstructive pulmonary disease) Other CAD (coronary artery disease) CHF (congestive heart failure) Diabetes Hyperlipidemia Hypertension Social History Smoking and tobacco status: former smoker Alcohol intake: current Alcohol intake frequency: holidays/special occasions only Substance/Drug Use: current Substance/Drug use frequency: daily Substance/Drug use type: Marijuana History of recent travel: No Mental Status Exam MSE Comments: This is a overweight versus obese elderly white female cooperative with exam in no acute distress. Speech was decreased rate and volume. Mood described as tired affect congruent. Thought process organized. Thought content: Patient denied active suicidal or homicidal ideation, there were no delusions reported or noted, she denied any auditory or visualizations. Attention and concentration were intact and memory appeared reliable but none were formally tested. She is alert and oriented x3. Insight and judgment are fair impulse control is limited but improving. Vitals/I&O/Wt Last Vital Signs Temp 97.0 F L 11/23/20 16:00 Pulse 73 11/23/20 16:00 Resp 14 11/23/20 16:00 BP 145/116 11/23/20 16:00 Pulse Ox 97 11/23/20 16:00 11/23/20 14:59 Intake Total Output Total Balance Weight last 48 hrs Weight 97.749 kg A&P Assessment and plan (1) Suicidal ideation: Status: Acute (2) Depression: Status: Acute Qualifiers: Active/Remission status: currently active Depression Type: major depressive disorder Major depression episode severity: unspecified Major depression recurrence: recurrent Qualified Code(s): F33.9 - Major depressive disorder, recurrent, unspecified (3) Obesity (BMI 30.0-34.9): Status: Acute (4) A-fib: Status: Acute Qualifiers: Atrial fibrillation type: unspecified chronic Qualified Code(s): I48.20 - Chronic atrial fibrillation, unspecified (5) Diabetes type 2, controlled: Status: Acute Qualifiers: Diabetes mellitus long-term insulin use: with long-term use Diabetes mellitus complication status: with hyperglycemia Qualified Code(s): E11.65 - Type 2 diabetes mellitus with hyperglycemia; 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 1. Continue current medication. Recommend starting Lexapro 10 mg p.o. every mo rning. 2. Suicidal thinking is not new and although have concerns with thoughts while in [place], going for a drive is not new for her and concurs that with the assistance of some new medication that he feels she will be safe at home. 3. Recommend connecting to outpatient mental health services as she currently gets her medications just from her PCP. 4. Explore whether cannabis use has any negative elements and consider recovery services if so. 5. Agree with discharge to home without need for inpatient psychiatric services once the medical clearance for discharge is complete. Attestations NPU Medical Necessity Statement*: N/A. Please see ED doctor note for medical necessity, however no identified need for inpatient psychiatric services at this time. Make sure patient has numbers for crisis services upon discharge. Coding Level of Care Code Acute Stand In for [facility] Fwd Diagnoses Suicidal ideation R45.851 Depression F33.9 Active/Remission status: currently active Depression Type: major depressive disorder Major depression episode severity: unspecified Major depression recurrence: recurrent Obesity (BMI 30.0-34.9) E66.9 A-fib I48.20 Atrial fibrillation type: unspecified chronic Diabetes type 2, controlled E11.65; Z79.4 Diabetes mellitus long-term insulin use: with long-term use Diabetes mellitus complication status: with hyperglycemia Cannabis abuse F12.10
--- NOTE | 2020-11-23 16:42 | PC.NURSE ---
EKG done at 1640 and shown to ER doctor
[2020-11-23] MEDS: enoxaparin 100 mg/mL Syringe SUBCUT (16:48)
--- NOTE | 2020-11-23 16:58 | P.HP_ITS ---
Providers/Chief Complaint Admitting Physician: Jacob Sanchez MD Primary Care Provider: Regan Contreras MD Chief Complaint: DEPRESSION, SI History of Present Illness Chiqui Arias is a 70 year old female with past medical history of CAD, atrial fibrillation on Xarelto, [id number] type 2 diabetes mellitus, hypertension, hyperlipidemia, depression anxiety, who presents to [facility] for suicidal ideation. Patient states that she has been having suicidal ideation, because she has been having a lot of family problems, her sons have been very critical of her and very needy, so she does not take her car and drive up to [place] and drive it into a ditch, she was seen by psychiatry colleagues, and I was told by the ER physician that she was deemed that she is not a threat to her self, or threatening others, and she was going to be discharged home. Currently patient denies any active suicidal homicidal ideation, no plan, denies hearing or seeing things are not there. Her 96-hour hold was rescinded by psychiatry I was told. However when she was in the emergency room, she developed left substernal chest pain radiating to the left shoulder she describes the pain as a pressure-like pain, she was given a nitro patch, the pain improved, but is persisting to some degree, no lightheadedness, dizziness, no diaphoresis, no shortness of breath, no palpitations. She tells me that she has chest pain on and off, for some time, usually resolves with nitro. Currently she tells me that the pain is minimal, but still there, pressure-like pain, her baseline troponin was 6, heart 120 minutes 29.54 with a positive delta 14.54, EKG shows atrial fibrillation no acute ST-T wave changes, denies any alcohol use, previous history smoker, no history of methamphetamine use or cocaine use. But does report that she uses a hit of marijuana every night before she falls asleep. Review of Systems Const: Denies: fever(s), chills, fatigue or malaise Eyes: Denies: change in vision or blurry vision ENMT: Denies: nasal congestion Card: Reports: chest pain and irregular heart rhythm; Denies: edema, lightheadedness, syncope, pre-syncope or orthopnea Resp: Denies: dyspnea, productive cough, non-productive cough or wheezing GI: Denies: abdominal pain, nausea, vomiting, hematemesis, diarrhea, constipation, hematochezia or melena : Denies: flank pain, dysuria or urinary frequency Musc: Denies: neck pain or back pain Skin/Breast: Denies: rash Neuro: Denies: headache(s), dizziness or vertigo Psych: Reports: anxiety and depression; Denies: visual hallucinations, auditory hallucinations, tactile hallucinations, suicidal ideation or homicidal ideation Endo: Denies: polyuria or polydipsia Medications/Allergies Home Medications Medication Instructions Recorded Confirmed Last Taken Type aspirin 81 mg tablet,delayed 81 mg PO DAILY@0900 10/13/19 11/23/20 11/23/20 History release albuterol sulfate 90 mcg/actuation 90 mcg INHALATION Q6H PRN 02/24/20 11/23/20 Unknown History breath activated powder inhaler,sensor Shoe Inserts #1 ea 05/15/20 11/23/20 Unknown Rx nitroglycerin 0.4 mg sublingual 0.4 mg SUBLINGUAL Q5M PRN #30 tab 07/17/20 11/23/20 Unknown Rx tablet tizanidine 2 mg capsule 2 mg PO BID PRN #30 cap 10/26/20 11/23/20 11/22/20 Rx Crestor 5 mg PO DAILY@89911/23/20 11/23/20 11/23/20 History Vitamin C 1 tab PO DAILY@0911/23/20 11/23/20 11/23/20 History Voltaren 2 gm TOPICAL QID@09,,,11/23/20 11/23/20 Unknown History Xarelto 10 mg PO DAILY@219911/23/20 11/23/20 11/22/20 History duloxetine 60 mg PO DAILY@89911/23/20 11/23/20 11/23/20 History escitalopram oxalate [Lexapro] 10 mg PO DAILY #30 tab 11/23/20 Unknown Rx hydralazine 100 mg PO BID@0900,0 11/23/20 11/23/20 11/23/20 History metoprolol succinate 100 mg PO DAILY@0900 11/23/20 11/23/20 11/23/20 History multivitamin 1 tab PO DAILY@89911/23/20 11/23/20 11/23/20 History olmesartan 20 mg PO DAILY@0900 11/23/20 11/23/20 11/23/20 History pantoprazole 40 mg PO BID@0900,0 11/23/20 11/23/20 11/23/20 History ranolazine 500 mg PO BID@0900,2200 11/23/20 11/23/20 11/23/20 History Allergies Allergy/AdvReac Type Severity Reaction Status Date / Time amlodipine Allergy edema Verified 11/06/20 08:55 Sulfa (Sulfonamide Allergy ALGY-Difficulty Verified 11/06/20 08:55 Antibiotics) Breathing PFSH Acute PFSH: Medical History ASHD (arteriosclerotic heart disease) Chronic episodic atrial fibrillation Encounter for weight loss counseling Discussed close follow-up due to episodes of hypoglycemia in the past when starting a weight loss program. Hypercholesterolemia Recent weight gain Surgical History Gastric bypass status for obesity H/O cataract extraction H/O hernia repair H/O tubal ligation History of oral surgery Hx of appendectomy Hx of cholecystectomy S/P knee replacement Family History (Updated 11/23/20 @ 17:05 by Jacob Sanchez MD) Father Emphysema lung Mother COPD (chronic obstructive pulmonary disease) Other CAD (coronary artery disease) CHF (congestive heart failure) Diabetes Hyperlipidemia Hypertension Social History Smoking and tobacco status: former smoker Alcohol intake: current Alcohol intake frequency: holidays/special occasions only Substance/Drug Use: current Substance/Drug use frequency: daily Substance/Drug use type: Marijuana History of recent travel: No Vitals/I&O/Wt Last Vital Signs Temp 97.0 F L 11/23/20 11:59 Pulse 73 11/23/20 16:00 Resp 14 11/23/20 16:00 BP 145/116 11/23/20 16:00 Pulse Ox 97 11/23/20 16:00 Weight last 48 hrs Weight 97.749 kg Physical Exam Const: COMMON NORMALS: no acute distress and patient oriented x3 GENERAL APPEARANCE: cooperative and comfortable HENMT: COMMON NORMALS: normocephalic HEAD & SCALP: normocephalic Eye: COMMON NORMALS: Equal, round and reactive pupils present and EOMs intact bilaterally GENERAL EYE: appearance normal, both eyes and all related structures PUPIL: Yes Equal, round and reactive pupils present Neck/C-Spine: COMMON NORMALS: full ROM, no lymphadenopathy, no JVD and Thyroid normal THYROID: Thyroid normal Lymph: LYMPHATIC: no lymphadenopathy noted Resp: COMMON NORMALS: normal respiratory effort, No retractions, No use of accessory muscles and clear to auscultation bilaterally AUSCULTATION: clear to auscultation bilaterally Cardio: COMMON NORMALS: no JVD, regular rate, regular rhythm, S1 normal heart sound present, S2 normal heart sound present, No gallops present (Cardio), No clicks present (Cardio) and No murmurs present (Cardio) RATE: regular rate RHYTHM: regular rhythm HEART SOUNDS: S1 normal heart sound present and S2 normal heart sound present GI: COMMON NORMALS: Normal to inspection, nondistended, normoactive bowel sounds present, Soft to palpation, non-tender and No hepatosplenomegaly present PALPATION: Yes Soft to palpation and Yes No hepatosplenomegaly present Extremity: COMMON NORMALS: normal to inspection, full ROM and no pedal edema Neuro: COMMON NORMALS: patient oriented x3, CN's II-XII intact bilaterally, moves all extremities and no focal motor deficits Psych: COMMON NORMALS: mental status grossly normal, Normal thought process present and cooperative ATTITUDE: Yes calm ACTIVITY/MOTOR BEHAVIOR: Yes appropriate eye contact SPEECH: Yes normal speech THOUGHT PROCESS: Normal thought process present THOUGHT CONTENT: No Suicidality present, No Homicidality present, No delusions and No Hallucination(s) present Data : 11/23/20 12:20 11/23/20 12:20 A&P Assessment and plan (1) Unstable angina: -Cardiac catheterization in 2015: LMCA: No significant stenotic lesions LAD: Mild diffuse disease is noted in the proximal LAD with mild to moderate calcification. There is a 40% segmental narrowing in the proximal LAD Right after the second diagonal branch, there is a tubular narrowing of around 40- 50%. The second diagonal branch also was found to have an ostial narrowing of 50%. The distal artery was found to have minimal intimal irregularities LCx: Medium caliber vessel It gives off a high obtuse marginal branch which appears to be trifurcating proximally. Around the origin of the second obtuse marginal artery, there is minimal diffuse narrowing. The second obtuse marginal artery was found to have 50% ostial narrowing. The distal circumflex, which continues in the AV groove was found to have minimal intimal irregularities RCA: Medium caliber dominant vessel . Mild diffuse disease was noted throughout the vessel. Present 40% segmental narrowing, right after the second RV branch. The PLV branch was found to have multiple disease. The PDA branch appears to be a bifurcating at the mid segment. One of the bifurcation branches was found to have a 90% stenosis proximally. No other significant stenotic lesions Minimal calcification was noted in the proximal RCA -Stress testing October 2016 showed Small area of fixed perfusion defect was noted in the mid anteroseptal wall on both rest and stress images which showed moderate reversibility suggestive of small area of old myocardial infarction versus scarring surrounded by moderate area of sandor-infarct ischemia extending into the apex consistent with mid to distal LAD lesion. 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 -On aspirin, statin, Ranexa -Chest pain is typical cardiac in nature, is persistent -First troponin , second troponin 29, with a positive delta of 23.54 PLAN: -Continue aspirin, statin, Ranexa, beta-ana -Patient received therapeutic Lovenox in the emergency room, she does take Xarelto, hold off on giving her Xarelto tonight due to high risk of bleeding, monitor hemoglobin every 6 hours, either risk of bleeding with double anticoagulants, monitor for for bloody black stools, resume Xarelto at roughly noon tomorrow -Serial EKGs, serial troponins, complete chest pain -Currently chest pain is present, minimal, with Nitropaste on, may require a n itro drip if chest pain worsens or persists -I will follow 6-hour troponin, if it continues to increase, will contact cardiology -However a troponin stabilizes or decreases, will complete cardiac stress test tomorrow morning -Urine toxicology screen -N.p.o. midnight -Full code -Lovenox, Xarelto for DVT prophylaxis SCDs Status: Acute (2) Suicidal ideation: -Currently no suicidal or homicidal ideation, no plan, denies hearing or seeing things are not there -Has been seen by our psychiatry colleagues -Deemed not a threat to herself or others -96-hour hold has been rescinded -She actually was discharged from the ER by our psychiatry colleagues, but now having chest pain Status: Acute (3) GERD (gastroesophageal reflux disease): Status: Acute (4) HTN (hypertension): Status: Acute Qualifiers: Hypertension type: essential hypertension Qualified Code(s): I10 - Essential (primary) hypertension (5) Diabetes type 2, controlled: Check hemoglobin A1c, insulin sliding scale Status: Acute Qualifiers: 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: with mcc use Diabetes mellitus complication status: with hyperglycemia Qualified Code(s): E11.65 - Type 2 diabetes mellitus with hyperglycemia; Z79.4 - retirement (current) use of insulin (6) ASHD (arteriosclerotic heart disease): Status: Acute (7) Hypercholesterolemia: Status: Acute (8) Obesity (BMI 30.0-34.9): Status: Acute Attestations Medical Necessity Statement*: Patient requires hospitalization, outpatient with observation, for chest pain, NSTEMI Coding Level of Care Code Acute [facility] [employer] Fwd Diagnoses Unstable angina I20.0 Suicidal ideation R45.851 GERD (gastroesophageal reflux disease) K21.9 HTN (hypertension) I10 Hypertension type: essential hypertension Diabetes type 2, controlled E11.65; Z79.4 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
[2020-11-23] MEDS: morphine 4 mg/mL SDV 1 mL IVP (17:28)
--- NOTE | 2020-11-23 18:17 | ECG_ITS ---
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 Measurements Intervals [place] Rate: 79 P: ND: QRS: 70 QRSD: 96 T: 75 QT: 392 QTc: 451 Interpretive Statements ATRIAL FIBRILLATION ANTERIOR MYOCARDIAL INFARCTION , OF INDETERMINATE AGE [40+ ms Q WAVE AND/OR ST/T ABNORMALITY IN V3/V4] Compared to ECG 11/23/2020 16:37:28 Indeterminate axis no longer present Myocardial infarct finding still present Electronically Signed On 11-23-2020 20:13:57 NURSE LIAISON by Leonardo Nix M.D. [id number]
--- NOTE | 2020-11-23 18:21 | PC.NURSE ---
EKG done at 1820 and shown to ER doctor
[2020-11-23] MEDS: nitroglycerin drip 50 MG/250 ML PREMIX IV (18:27)
[2020-11-23 20:12] LABS: Glucose Point of Care 159 mg/dL (70-110)
[2020-11-23 20:42] LABS: Hematocrit 41.5 % (37.0-47.0); Hemoglobin 13.4 g/dL (11.5-15.3)
[2020-11-23] MEDS: pantoprazole DR 40 mg Tablet PO (21:18)
[2020-11-23] MEDS: ranolazine (12HR) 500 mg Tablet PO (21:19)
[2020-11-23] MEDS: hyDRALAzine 50 mg Tablet 100 MG PO (21:19)
[2020-11-23 21:20] LABS: NT Pro B Type Natriuretic Pept 1331 pg/mL (0-125)
[2020-11-24] VITALS (28 sets, daily range): BP systolic 104–152; BP diastolic 51–95; PULSE 72–110; RESP 0–21; TEMP 36.4–37.1; O2SAT 90–913
[2020-11-24 02:11] LABS: Basophils # 0.1 10^3/uL (0.0-0.1); Basophils % 0.9 %; Eosinophils # 0.1 10^3/uL (0.0-0.8); Eosinophils % 1.9 %; Hematocrit 39.3 % (37.0-47.0); Hemoglobin 12.7 g/dL (11.5-15.3); Lymphocytes % 39.4 %; Mean Corpuscular HGB Conc 32.3 g/dL (30.0-36.0); Mean Corpuscular Hemoglobin 31.7 pg (28.0-34.0); Mean Platelet Volume 10.5 fL (7.4-10.4); Monocytes # 0.5 10^3/uL (0.2-0.9); Monocytes % 6.9 %; Neutrophils # 3.82 10^3/uL (1.8-7.7); Neutrophils % 50.5 %; Nucleated Red Blood Cells % 0 %; Platelet Count 173 10^3/cmm (130-400); Red Blood Count 4.01 10^6/uL (4.1-5.3); Red Cell Distribution Width 12.5 % (12.1-15.1); White Blood Count 7.6 10^3/uL (4.0-10.0)
[2020-11-24 02:20] LABS: INR 1.19 (0.8-1.2)
[2020-11-24 02:32] LABS: Chol HDL Ratio 1.96 mg/dL (0.0-4.40); Cholesterol 104 mg/dL (0-200); HDL Cholesterol 53 mg/dL (60-100); LDL Cholesterol Calculated 26 mg/dL (50-129); LDL HDL Ratio 0.49 RATIO (0.00-3.22); Triglycerides 127 mg/dL (0-150)
[2020-11-24 02:33] LABS: Alanine Aminotransferase 8 U/L (0-33); Albumin Level 3.4 g/dL (3.5-5.2); Alkaline Phosphatase 46 IU/L (35-105); Aspartate Amino Transferase 15 U/L (0-32); Blood Urea Nitrogen 12 mg/dL (8-23); Carbon Dioxide 30 mmol/L (22-29); Chloride 98 mmol/L (98-107); Globulin 2.3 g/dL (1.3-4.6); Glucose 180 mg/dL (65-115); Magnesium 1.6 mg/dL (1.7-2.3); Osmolality Calculated 284 mOsm/kg (285-295); Phosphorus 3.8 mg/dL (2.5-4.5); Sodium 135 mmol/L (136-145); Total Bilirubin 0.4 mg/dL (0.15-1.2); Total Protein 5.7 g/dL (6.6-8.7)
[2020-11-24 02:36] LABS: Estmated Average Glucose 134; Hemoglobin A1C 6.3 % (4.0-6.0)
[2020-11-24 06:36] LABS: Glucose Point of Care 180 mg/dL (70-110)
--- NOTE | 2020-11-24 08:00 | PC.NURSE ---
Chest pain Pt has off and on chest pressure. on Nitro drip at 10 mcg. Increased to 15 mcg at bedside. Morphine 2 mg given IVP PRN as ordered. EKG taken. Notified
[2020-11-24] MEDS: morphine 4 mg/mL SDV 1 mL 2 MG IVP ×2 (08:03→16:26)
--- NOTE | 2020-11-24 08:13 | ECG_ITS ---
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 Measurements Intervals [place] Rate: 84 P: [place]: QRS: 2 QRSD: 101 T: 152 QT: 408 QTc: 484 Interpretive Statements ATRIAL FIBRILLATION ANTERIOR MYOCARDIAL INFARCTION, OF INDETERMINATE AGE MODERATE T-WAVE ABNORMALITY, CONSIDER LATERAL ISCHEMIA Compared to ECG 11/23/2020 18:17:33 T-wave abnormality now present Possible ischemia now present Myocardial infarct finding still present Electronically Signed On 11-25-2020 11:14:19 GROUP SEGMENT CONSULTANT by Alysa Marrufo M.D. [id number]
--- NOTE | 2020-11-24 09:00 | PC.NURSE ---
EKG Taken/[employer] Membership Advisors at bedside Pt EKG taken and noticed T wave abnormalities. Dr. Márquez at bedside. Informed him on pt's chest pain and ekg changes. Informed him pt just received 600 mg of loading Plavix as ordered by Dr. Sanchez.
[2020-11-24 09:04] LABS: Troponin(5th) Baseline 50 ng/L (0-10)
[2020-11-24] MEDS: aspirin 81 mg EC Tablet PO (09:10)
[2020-11-24] MEDS: pantoprazole DR 40 mg Tablet PO ×2 (09:10→21:51)
[2020-11-24] MEDS: multivitamin therapeutic Tablet 1 TAB PO (09:10)
[2020-11-24] MEDS: clopidogrel 300 mg Tablet 600 MG PO (09:10)
[2020-11-24] MEDS: duloxetine 60 mg Capsule PO (09:10)
[2020-11-24] MEDS: atorvastatin 40 mg Tablet 20 MG PO (09:10)
[2020-11-24] MEDS: ascorbic acid 500 mg Tablet PO (09:10)
[2020-11-24] MEDS: ranolazine (12HR) 500 mg Tablet PO ×2 (09:31→21:51)
--- NOTE | 2020-11-24 10:02 | PC.CHAP ---
Pastoral Care Encounter/Spiritual Assessment Type of Contact [] Declined cable testers helper visit [] Patient/Family/Request visit [] Outpatient visit [] Follow-up visit [] Physician referral [] Code/Alert [x] Routine visit [] Staff referral [] Actively dying [] Patient sleeping [] Family support [] [] Out of room [] Palliative care [] [] Receiving care in room [] Pre-surgical visit [] Trauma [] Long length of stay [] ICU visit [] Other: Relational/Emotional Strength [] Patient feels connected with others/family/visitors/staff [] Distress [] Loneliness/isolation [] Abandonment Spirituality of Patient [x] Person of Tejal [] Attends Caodaism of their Tejal [] Believes in Prayer [] Reads Bible or Quaker materials [] There are Spiritual issues to be addressed Die Repairer Trimmer Dies Interventions [x] Prayer [x] Active listening [x] Non-anxious presence [x] Spiritual/emotional support [] Crisis/trauma care [] Spiritual counseling [] Bereavement support [] Provided bereavement packet [] Provided Bible/devotional materials [] Provided toy/stuffed animal, coloring book to patient or family member [] Provided Communion [] Anointing/Supai [] Salvation [x] Completed spiritual assessment [] Other: Impact on Illness or Injury [] Angry [] Fearful [] Anxious [] Often cries [] Exhaustion [] Unable to work [] Unable to attend rastafarian [] Unable to walk/stand [] Unable to read [] Unable to drive [] Unable to eat/drink [] Unable to sleep [] Unable to be with family [] Patient intubated [] Other: Summary patient having issues with heart... having tests today.. Time spent with patient 15 min
--- NOTE | 2020-11-24 10:13 | ECG_ITS ---
[facility] Test Date: 2020-11-24 Pat Name: Chiqui Arias Department: Room: [facility] Gender: Female Occupational Health Rn: : 1950 Requested By: Jacob Sanchez Order Number: [id number] Elver MD: Alysa Marrufo M.D. Measurements Intervals [place] Rate: 81 P: [place]: QRS: 29 QRSD: 118 T: 158 QT: 444 QTc: 516 Interpretive Statements ATRIAL FIBRILLATION MODERATE INTRAVENTRICULAR CONDUCTION DELAY [110+ ms QRS DURATION] MODERATE T-WAVE ABNORMALITY, CONSIDER ANTEROLATERAL ISCHEMIA [-0.1+ mV T WAVE IN V3-V6] Compared to ECG 11/24/2020 08:57:53 Intraventricular conduction delay now present Myocardial infarct finding no longer present T-wave abnormality still present Possible ischemia still present Electronically Signed On 11-25-2020 11:32:25 MANAGER ENTERPRISE by Alysa Marrufo M.D. [id number]
[2020-11-24 11:17] LABS: Glucose Point of Care 180 mg/dL (70-110)
--- NOTE | 2020-11-24 12:14 | P.CONIM_ITS ---
Providers/Reason For Consult Consulting Physican/Specialty*: Jett Márquez MD/Cardiology Reason for Consult*: NSTEMI Requesting Physcian: Jacob Sanchez MD Attending Physician: Jacob Sanchez MD Primary Care Provider: Regan Contreras MD History of Present Illness History of Present Illness Chiqui Arias is a 70 year old female with PMH of coronary artery disease, atrial fibrillation on Xarelto, hypertension, diabetes who had presented to hospital with suicidal ideation. She was cleared by psychiatry, however in the ER she developed chest pain. On and off. Substernal and severe. There was troponin elevation with a significant delta of 91 at 6 hours. EKG showed anterolateral dynamic st changes but no st elevations. Patient was started on ACS protocol. ECHO showed moderately reduced LV systolic function with EF of 35-40% and hypokinesis of the apical segements with preserved function of basal segment, features consistent with LAD disease vs stress cardiomyopathy. NT Pro BNP is elevated >1300. Patient is on nitro gtt right now with resolution of chest pain. She had coronary angiogram in the past showing moderate diffuse disease and was managed medically. Review of Systems Const: Denies: fever(s), chills, fatigue or malaise Eyes: Denies: change in vision or blurry vision ENMT: Denies: nasal congestion Card: Reports: chest pain and irregular heart rhythm; Denies: edema, lightheadedness, syncope, pre-syncope or orthopnea Resp: Denies: dyspnea, productive cough, non-productive cough or wheezing GI: Denies: abdominal pain, nausea, vomiting, hematemesis, diarrhea, constipation, hematochezia or melena : Denies: flank pain, dysuria or urinary frequency Musc: Denies: neck pain or back pain Skin/Breast: Denies: rash Neuro: Denies: headache(s), dizziness or vertigo Psych: Reports: anxiety and depression; Denies: visual hallucinations, auditory hallucinations, tactile hallucinations, suicidal ideation or homicidal ideation Endo: Denies: polyuria or polydipsia Meds/Allergies Home Medications and Allergies Home Medications Medication Instructions Recorded Confirmed Last Taken Type aspirin 81 mg tablet,delayed 81 mg PO DAILY@0900 10/13/19 11/23/20 11/23/20 History release albuterol sulfate 90 mcg/actuation 90 mcg INHALATION Q6H PRN 02/24/20 11/23/20 Unknown History breath activated powder inhaler,sensor Shoe Inserts #1 ea 05/15/20 11/23/20 Unknown Rx nitroglycerin 0.4 mg sublingual 0.4 mg SUBLINGUAL Q5M PRN #30 tab 07/17/20 11/23/20 Unknown Rx tablet tizanidine 2 mg capsule 2 mg PO BID PRN #30 cap 10/26/20 11/23/20 11/22/20 Rx Crestor 5 mg PO DAILY@0900 11/23/20 11/23/20 11/23/20 History Vitamin C 1 tab PO DAILY@0900 11/23/20 11/23/20 11/23/20 History Voltaren 2 gm TOPICAL QID@,11/23/20 11/23/20 Unknown History Xarelto 10 mg PO DAILY@219911/23/20 11/23/20 11/22/20 History duloxetine 60 mg PO DAILY@0900 11/23/20 11/23/20 11/23/20 History escitalopram oxalate [Lexapro] 10 mg PO DAILY #30 tab 11/23/20 Unknown Rx hydralazine 100 mg PO BID@0900,2200 11/23/20 11/23/20 11/23/20 History metoprolol succinate 100 mg PO DAILY@0900 11/23/20 11/23/20 11/23/20 History multivitamin 1 tab PO DAILY@0900 11/23/20 11/23/20 11/23/20 History olmesartan 20 mg PO DAILY@0900 11/23/20 11/23/20 11/23/20 History pantoprazole 40 mg PO BID@0900,2200 11/23/20 11/23/20 11/23/20 History ranolazine 500 mg PO BID@0900,2200 11/23/20 11/23/20 11/23/20 History Allergies Allergy/AdvReac Type Severity Reaction Status Date / Time amlodipine Allergy edema Verified 11/06/20 08:55 Sulfa (Sulfonamide Allergy ALGY-Difficulty Verified 11/06/20 08:55 Antibiotics) Breathing Current Medications Current Medications Generic Name Dose Route Start Last Admin Trade Name Freq PRN Reason Stop Dose Admin Ascorbic Acid 500 mg 11/24/20 09:00 11/24/20 09:10 Ascorbic Acid 500 Mg Tablet PO 500 mg DAILY@0900 [facility] Administration Aspirin 81 mg 11/24/20 09:00 11/24/20 09:10 Aspirin 81 Mg Ec Tablet PO 81 mg DAILY@0900 [facility] Administration Atorvastatin Calcium 20 mg 11/24/20 09:00 11/24/20 09:10 Atorvastatin 40 Mg Tablet PO 20 mg DAILY@0900 [facility] Administration Diclofenac Sodium 4 applic 11/23/20 19:56 11/24/20 10:28 Diclofenac 1% Topical Gel 100 Gm TOPICAL Not Given QID@, [facility] Duloxetine HCl 60 mg 11/24/20 09:00 11/24/20 09:10 Duloxetine 60 Mg Capsule PO 60 mg DAILY@0900 [facility] Administration Hydralazine HCl 100 mg 11/23/20 22:00 11/24/20 10:28 Hydralazine 50 Mg Tablet PO Not Given BID@00,2199 [facility] Nitroglycerin/Dextrose 50 mg in 250 mls @ 0 mls/hr 11/23/20 18:30 11/24/20 07:59 Nitroglycerin Drip IV 15 mcg/min .Q0M [facility] 4.5 mls/hr Titration Protocol Per Protocol Insulin Aspart 0 unit 11/23/20 19:56 11/24/20 08:37 Insulin Aspart 100 Unit/1 Ml SUBCUT Not Given TIDWM [facility] Protocol Losartan Potassium 50 mg 11/24/20 09:00 11/24/20 10:28 Losartan 50 Mg Tablet PO Not Given DAILY@0900 [facility] Metoprolol Succinate 100 mg 11/24/20 09:00 11/24/20 10:28 Metoprolol Succinate Er (24 Hr) 100 Mg Tablet PO Not Given DAILY@0900 [facility] Morphine Sulfate 2 mg 11/23/20 19:56 11/24/20 08:03 Morphine 4 Mg/Ml Sdv 1 Ml IVP 2 mg Q4H PRN Administration SEVERE PAIN Multivitamins Therapeutic 1 tab 11/24/20 09:00 11/24/20 09:10 Multivitamin Therapeutic Tablet PO 1 tab DAILY@0900 [facility] Administration Pantoprazole Sodium 40 mg 11/23/20 22:00 11/24/20 09:[address] 40 Mg Tablet PO 40 mg BID@0900,2199 [facility] Administration Ranolazine 500 mg 11/23/20 22:00 11/24/20 09:31 Ranolazine (12hr) 500 Mg Tablet PO 500 mg BID@0900,2200 [facility] Administration PFSH Acute PFSH: Medical History ASHD (arteriosclerotic heart disease) Chronic episodic atrial fibrillation Encounter for weight loss counseling Discussed close follow-up due to episodes of hypoglycemia in the past when starting a weight loss program. Hypercholesterolemia Recent weight gain Surgical History Gastric bypass status for obesity H/O cataract extraction H/O hernia repair H/O tubal ligation History of oral surgery Hx of appendectomy Hx of cholecystectomy S/P knee replacement Family History Father Emphysema lung Mother COPD (chronic obstructive pulmonary disease) Other CAD (coronary artery disease) CHF (congestive heart failure) Diabetes Hyperlipidemia Hypertension Social History Smoking and tobacco status: former smoker Alcohol intake: current Alcohol intake frequency: holidays/special occasions only Substance/Drug Use: current Substance/Drug use frequency: daily Substance/Drug use type: Marijuana History of recent travel: No Vitals/I&O/Wt Last Vital Signs Temp 97.7 F 11/24/20 07:42 Pulse 95 11/24/20 11:58 Resp 14 11/24/20 11:58 BP 139/67 11/24/20 11:58 Pulse Ox 94 11/24/20 11:58 11/23/20 11/24/20 11/24/20 22:59 06:59 14:59 Intake Total 240 / 240 418.65 / 658.65 3.3 / 3.3 Output Total 0 / 0 Balance 240 / 240 418.65 / 658.65 3.3 / 3.3 Weight last 48 hrs Weight 215 lb 8 oz Physical Exam Const: COMMON NORMALS: no acute distress and patient oriented x3 HENMT: COMMON NORMALS: normocephalic HEAD & SCALP: normocephalic Neck/C-Spine: COMMON NORMALS: no JVD Resp: COMMON NORMALS: normal respiratory effort, No retractions, No use of accessory muscles and clear to auscultation bilaterally AUSCULTATION: clear to auscultation bilaterally Cardio: COMMON NORMALS: no JVD, regular rate, regular rhythm, S1 normal heart sound present and S2 normal heart sound present RATE: regular rate RHYTHM: regular rhythm HEART SOUNDS: S1 normal heart sound present and S2 normal heart sound present GI: COMMON NORMALS: Normal to inspection, nondistended, normoactive bowel sounds present, Soft to palpation, non-tender, No hepatosplenomegaly present, no masses and no bruits PALPATION: Yes Soft to palpation and Yes No hepatosplenomegaly present Extremity: COMMON NORMALS: capillary refill normal, no clubbing, cyanosis or edema, no calf tenderness and no pedal edema Neuro: COMMON NORMALS: patient oriented x3 Psych: COMMON NORMALS: mental status grossly normal A&P Assessment and plan (1) Non-ST elevated myocardial infarction (non-STEMI): Status: Acute (2) A-fib: Status: Acute Qualifiers: Atrial fibrillation type: unspecified chronic Qualified Code(s): I48.20 - Chronic atrial fibrillation, unspecified (3) GERD (gastroesophageal reflux disease): Status: Acute (4) HTN (hypertension): Status: Acute Qualifiers: Hypertension type: essential hypertension Qualified Code(s): I10 - Essential (primary) hypertension Patient has typical chest pain with troponin elevation and EKG changes. ECHO shows apical segment hypokinesis with good wall motion of basal segments, features consistent with stress cardiomyopathy vs LAD disease. We will proceed with coronary angiogram with possible percutaneous coronary intervention. NPO Alvaro Orta Thank you for involving us with care of patient. We will continue to follow. Pl ease call with questions. Coding Level of Care Code Acute Engraver Ornamental Design for Chg Fwd Diagnoses Non-ST elevated myocardial infarction (non-STEMI) I21.4 A-fib I48.20 Atrial fibrillation type: unspecified chronic GERD (gastroesophageal reflux disease) K21.9 HTN (hypertension) I10 Hypertension type: essential hypertension
--- NOTE | 2020-11-24 14:13 | ECG_ITS ---
[facility] Test Date: 2020-11-24 Pat Name: Chiqui Arias Department: Room: 101 Gender: Female Community Placement Worker: : 1950 Requested By: Jacob Sanchez Order Number: [id number] Elver MD: Alysa Marrufo M.D. Measurements Intervals [place] Rate: 75 P: [place]: QRS: 27 QRSD: 102 T: 172 QT: 452 QTc: 507 Interpretive Statements ATRIAL FIBRILLATION SEPTAL MYOCARDIAL INFARCTION [40+ ms Q WAVE IN V1/V2], OF INDETERMINATE AGE MARKED T-WAVE ABNORMALITY, CONSIDER ANTEROLATERAL ISCHEMIA [-0.5+ mV T WAVE IN I/aVL/V3-V6] Compared to ECG 11/24/2020 09:24:32 Myocardial infarct finding now present Intraventricular conduction delay no longer present T-wave abnormality still present Possible ischemia still present Electronically Signed On 11-25-2020 11:29:48 POUNCING MACHINE OPERATOR by Alysa Marrufo M.D. [id number]
[2020-11-24 14:51] LABS: Troponin 5 6HR 75.86 ng/L (0-10)
[2020-11-24 15:01] LABS: Troponin 5 6HR Delta 25.86 ng/L (0-12)
[2020-11-24] MEDS: metoprolol succinate ER (24 HR) 100 mg Tablet PO (15:42)
[2020-11-24] MEDS: losartan 50 mg Tablet PO (15:42)
--- NOTE | 2020-11-24 17:02 | ECG_ITS ---
[facility] Test Date: 2020-11-24 Pat Name: Chiqui Arias Department: Room: 101 Gender: Female Mill Oiler: : 1950 Requested By: Jacob Sanchez Order Number: [id number] Elver MD: Alysa Marrufo M.D. Measurements Intervals [place] Rate: 115 P: [place]: QRS: -32 QRSD: 105 T: 124 QT: 370 QTc: 512 Interpretive Statements ATRIAL FIBRILLATION WITH RAPID VENTRICULAR RESPONSE WITH ABERRANT CONDUCTION OR VENTRICULAR PREMATURE COMPLEXES MARKED LEFT AXIS DEVIATION [QRS AXIS < -30] LOW QRS VOLTAGE IN EXTREMITY LEADS [QRS DEFLECTION < 0.5 mV IN LIMB LEADS] MODERATE T-WAVE ABNORMALITY, CONSIDER ANTEROLATERAL ISCHEMIA Compared to ECG 11/24/2020 14:35:07 Left-axis deviation now present Low QRS voltage now present Myocardial infarct finding no longer present T-wave abnormality still present Possible ischemia still present Electronically Signed On 11-25-2020 11:25:01 BRAND PROTECTION MANAGER by Alysa Marrufo M.D. [id number]
[2020-11-24 17:13] LABS: Glucose Point of Care 168 mg/dL (70-110)
[2020-11-24] MEDS: diphenhydrAMINE 25 mg Capsule 50 MG PO (17:40)
[2020-11-24] MEDS: sodium chloride 0.9% 1,000 ML 50 ML IV (17:40)
--- NOTE | 2020-11-24 17:42 | PM.PN ---
Subjective Subjective: Interval history: patient countinued to have chest pain overnight, requiring nitro drip, chest pain is minimal with nitro now but now going into left shoulder as she describes, her 6 hour trop in over 90, stress test has been cancelled, spoke to Dr. Márquez, he rounded and saw patient, i was present, she was given loading plavix dose, decision to take her to cork slabs sawyer today was made, patient was advised if pain suddenly worsened to notify us Vitals/I&O/Wt Last Vital Signs Temp 97.5 F L 11/24/20 12:31 Pulse 95 11/24/20 11:58 Resp 14 11/24/20 16:26 BP 139/67 11/24/20 11:58 Pulse Ox 92 11/24/20 16:26 11/24/20 11/24/20 11/24/20 06:59 14:59 22:59 Intake Total 418.65 / 658.65 240.3 / 240.3 48.075 / 288.375 Balance 418.65 / 658.65 240.3 / 240.3 48.075 / 288.375 Weight last 48 hrs Weight 97.749 kg Physical Exam Const: COMMON NORMALS: no acute distress and patient oriented x3 HENMT: COMMON NORMALS: normocephalic HEAD & SCALP: normocephalic Neck/C-Spine: COMMON NORMALS: no JVD Resp: COMMON NORMALS: normal respiratory effort, No retractions, No use of accessory muscles and clear to auscultation bilaterally AUSCULTATION: clear to auscultation bilaterally Cardio: COMMON NORMALS: no JVD, regular rate, regular rhythm, S1 normal heart sound present and S2 normal heart sound present RATE: regular rate RHYTHM: regular rhythm HEART SOUNDS: S1 normal heart sound present and S2 normal heart sound present GI: COMMON NORMALS: Normal to inspection, nondistended, normoactive bowel sounds present, Soft to palpation, non-tender, No hepatosplenomegaly present, no masses and no bruits PALPATION: Yes Soft to palpation and Yes No hepatosplenomegaly present Extremity: COMMON NORMALS: capillary refill normal, no clubbing, cyanosis or edema, no calf tenderness and no pedal edema Neuro: COMMON NORMALS: patient oriented x3 Psych: COMMON NORMALS: mental status grossly normal Data : 11/24/20 01:51 11/24/20 01:51 Micro: Microbiology 11/23/20 13:25 Urine Culture - Preliminary Urine,Clean Catch Gram Negative Rods A&P Assessment and plan (1) Unstable angina: -Cardiac catheterization in 2015: LMCA: No significant stenotic lesions LAD: Mild diffuse disease is noted in the proximal LAD with mild to moderate calcification. There is a 40% segmental narrowing in the proximal LAD Right after the second diagonal branch, there is a tubular narrowing of around 40-50%. The second diagonal branch also was found to have an ostial narrowing of 50%. The distal artery was found to have minimal intimal irregularities LCx: Medium caliber vessel It gives off a high obtuse marginal branch which appears to be trifurcating proximally. Around the origin of the second obtuse marginal artery, there is minimal diffuse narrowing. The second obtuse marginal artery was found to have 50% ostial narrowing. The distal circumflex, which continues in the AV groove was found to have minimal intimal irregularities RCA: Medium caliber dominant vessel . Mild diffuse disease was noted throughout the vessel. Present 40% segmental narrowing, right after the second RV branch. The PLV branch was found to have multiple disease. The PDA branch appears to be a bifurcating at the mid segment. One of the bifurcation branches was found to have a 90% stenosis proximally. No other significant stenotic lesions Minimal calcification was noted in the proximal RCA -Stress testing October 2016 showed Small area of fixed perfusion defect was noted in the mid anteroseptal wall on both rest and stress images which showed moderate reversibility suggestive of small area of old myocardial infarction versus scarring surrounded by moderate area of sandor-infarct ischemia extending into the apex consistent with mid to distal LAD lesion. 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 -On aspirin, statin, Ranexa -Chest pain is typical cardiac in nature, is persistent -6 hour troponin elevated at 96, positive delta, ekg with st twave changes in lateral leads PLAN: -Continue aspirin, statin, Ranexa, beta-ana -plavix loading dose -hold xarelto -Serial EKGs, serial troponins, monitor for chest pain -Currently chest pain is present, minimal, withnitro drip, -to [facility] slabs [facility] today -cardiology on consult -N.p.o. -Full code - DVT prophylaxis SCDs Status: Acute (2) Suicidal ideation: -Currently no suicidal or homicidal ideation, no plan, denies hearing or seeing things are not there -Has been seen by our psychiatry colleagues -Deemed not a threat to herself or others -96-hour hold has been rescinded -She actually was discharged from the ER by our psychiatry colleagues, but now having chest pain Status: Acute (3) GERD (gastroesophageal reflux disease): Status: Acute (4) HTN (hypertension): Status: Acute Qualifiers: Hypertension type: essential hypertension Qualified Code(s): I10 - Essential (primary) hypertension (5) Diabetes type 2, controlled: Check hemoglobin A1c, insulin sliding scale Status: Acute Qualifiers: Diabetes mellitus laborer marine terminal insulin use: with penitentiary use Diabetes mellitus complication status: with hyperglycemia Qualified Code(s): E11.65 - Type 2 diabetes mellitus with hyperglycemia; Z79.4 - manager intermediate (current) use of insulin (6) ASHD (arteriosclerotic heart disease): Status: Acute (7) Hypercholesterolemia: Status: Acute (8) Obesity (BMI 30.0-34.9): Status: Acute Additional A&P Information plan for today is to monitor for chest pain, will have cardiac cath today Attestations Medical Necessity Statement*: patient requires hospitalization for chest pain proceeding to cardiac cath Coding Level of Care Code Acute Farm Labor Contractor for [facility] Fwd Diagnoses Unstable angina I20.0 Suicidal ideation R45.851 GERD (gastroesophageal reflux disease) K21.9 HTN (hypertension) I10 Hypertension type: essential hypertension Diabetes type 2, controlled E11.65; Z79.4 Diabetes mellitus penitentiary insulin use: with penitentiary use Diabetes mellitus complication status: with hyperglycemia ASHD (arteriosclerotic heart disease) I25.10 Hypercholesterolemia E78.00 Obesity (BMI 30.0-34.9) E66.9
--- NOTE | 2020-11-24 17:44 | XACV_ITS ---
Wt: 98 kg BSA: 2.20 m2 Gender: Female : 1950 Any Known Allergies: Other Exam Priority: Routine Procedure(s): Procedure Description: Diagnostic procedure Procedure Description: Coronary Angiography Procedure Description: Pressure Wire Diagnostic Cath Status: Urgent Diagnostic Findings * LM has mild luminal irregularities. * RCA has no significant stenosis. * LAD arises from the left main artery and has moderate 40-50% from proximal to mid vessel. Proximal Left Anterior Descending Coronary Artery to mLAD: Moderate 50% stenosis, MINOO: 3 flow. * pCIRC: Mild 30% stenosis, MINOO: 3 flow. * Coronary angiography shows right dominance. Interventional Findings * Procedure detail: We decided to perform FFR of proximal to mid LAD. Left main artery was engaged using XB 3.5 guide catheter. After zeroing and equalization, the pressure wire was used to cross the proximal to mid LAD stenosis and was put in distal LAD. IV adenosine was administered. FFR was recorded and gave a non ischemic value of 0.87. At this time we removed the pressure wire and final angiogram was performed. Guide catheter was removed and we used angioseal to achieve hemostasis. Patient left the cardiac cath technician in a stable condition.. Conclusions 1. There is moderate LAD stenosis. FFR is normal with no ischemia noted. 2. Presentation consistent with Stress cardiomyopathy with recent stress, apical hypokinesis with hyperkinetic basal segments. Recommendations * Continue aspirin and Xarelto. * Statin therapy. * Beta ana and AMANDA inhibitor/ARB therapy. * Will need repeat echo in 3 months. * Out patient cardiology follow up. Interventional RX Recommendation: medical therapy and/or counseling Diagnostic RX Recommendation: medical therapy and/or counseling Pressures Phase:Rest AO : 104 / 65 ( 80 ) @ 12:49:00 PM 94 / 67 ( 78 ) @ 12:50:00 PM 104 / 64 ( 80 ) @ 12:56:00 PM Clinical Evaluation EBL: 5mL-10mL Procedural Details Procedure Consent Obtained. Pre-Procedure Time Out. Identified patient by full name and date of as verbalized by the patient/guarantor. Does the consent match the physician's order: Yes. Accurate & Complete Informed Consent: Yes. Inpatient/Outpatient History & Physical on Chart: Yes. If H&P is completed, is and addenduem needed: No; If yes, is the addendum complete: N/A. Visualize and Verify Site with Patient/Guarantor: N/A. Relevant Radiology Images available: N/A. Pre-op teaching completed and patient verbalized understanding. The risks, benefits, and alternatives of sedation and/or procedure were discussed by physician. The patient agrees to continue. Procedure started. [facility] Clinical Fraility Score: 3: Managing Well. 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 Chest Pain Symptom Assessment: Typical Angina Symptoms. Cardiovascular Instability: No. Correct patient, site and procedure confirmed by cath team. PERRLA. Strong, equal hand reweaver bilaterally. Lungs clear x 5 lobes. IV Site on Arrival: 20 gauge in the right anticubital. IV Fluids: 0.9% NaCl at KVO. 0 mL infused prior to cardiac cath technician. Pre Procedural Pulses: bilateral dorsalis pedis was Doppled. Pre Procedural Pulses: bilateral posterior tibial was Doppled. Oxygen started at 2liters/min via nasal canula. bilateral groins was prepped with chloroprep then draped in the usual sterile fashion. Baseline sample Acquired. HR: 100 BPM. Physician notified. Equipment: 6F - Femoral. Cardiac Cath Pack. ACIST Manifold Kit Model BT 2000. Heparinized Saline (2 units/mL), 1000 mL bag. Kit, Micropuncture. Physician arrived. Physician scrubbed in. Immediate Pre-Procedure Time Out. Correct Patient: Yes; Correct Procedure: Yes; Correct Site: Yes; Correct Patient Position: Yes; Correct Supplies: Yes; Dried Flammable Prep: Yes; Blood Products Available: N/A;. Hemodynamic monitoring system having technical issues. [employer] system had to be rebooted at 18:32 in order for hemodynamic system to work. System is now functioning. Lidocaine 1% infiltrated to the right groin. Arterial access obtained with micropuncture set. A 5 kazakh JL4 catheter in over wire. Procedure started. Multiple views taken of left coronary artery. Catheter removed over the standard wire. A 5 kazakh JR4 catheter in over wire. Multiple views taken of right coronary artery. Catheter removed over the standard wire. Inventory is CRD 6 FR XB 3.5 GUIDE. 6 kazakh XB 3.5 guide catheter was inserted over the wire. Guide catheter out. Inventory is CRD 6FR XB4 GUIDE. 6 kazakh XB 4 guide catheter was inserted over the wire. FFR guidewire was advanced through the guide catheter to lesion in the prox LAD. An FFR value of 0.92 was obtained for a lesion located at Prox LAD. Fractional flow reserve measurements obtained. Increased dose of adenosine from 140 mcg/kg/min to 180 mcg/kg/min and remeasuring FFR. Per Dr Márquez. An FFR value of 0.87 was obtained for a lesion located at Prox LAD. FFR repositioned to prox Circ. Wire out. Guide catheter out. Groin picture taken with hand injection. A Angio-Seal VIP was successful obtaining hemostatsis at the Right Femoral artery insertion site. Lot # [id number] exp date 08/28/2021 Dr Márquez. Post Procedure: Pulses reassessed and unchanged. PERRLA. Strong, equal hand reweaver bilaterally. No VTE prophylaxis required. Medication's Wasted: Lidocaine 1% = 8 mL. Medication's Wasted: Heparin = 1000 units. Medication's Wasted: Other = Adenosine 12 mL. Total IV fluids: 75 mL. Contrast type used: Omnipaque 300 mgI/mL, 500 mL bottle. Post-op diagnosis: moderate CAD. Complications: none. Estimated blood loss: 5mL-10mL. Procedure completed. Patient transferred by bed to 1st floor. Vital chart was stopped. Access Site Site: Right Femoral artery Sheath Size: 6 Fr Hemostasis Method: Angio-Seal VIP ([place]) Hemostasis Success: Successful Procedure Medications Start: 6:17 PM Stop: 6:17 PM Medication: Versed Amount: 1 mg Route: I.V. Start: 6:17 PM Stop: 6:17 PM Medication: Fentanyl Amount: 50 mcg Route: I.V. Start: 6:38 PM Stop: 6:38 PM Medication: Versed Amount: 1 mg Route: I.V. Start: 6:42 PM Stop: 6:42 PM Medication: Fentanyl Amount: 25 mcg Route: I.V. Start: 6:45 PM Stop: 6:45 PM Medication: Fentanyl Amount: 25 mcg Route: I.V. Start: 6:46 PM Stop: 6:46 PM Medication: Versed Amount: 1 mg Route: I.V. Start: 7:12 PM Stop: 7:12 PM Medication: Versed Amount: 1 mg Route: I.V. Start: 7:34 PM Stop: 7:34 PM Medication: Fentanyl Amount: 50 mcg Route: I.V. I, the attending physician, have reviewed and verified all procedure medications. Yes, all medications given per verbal order History/Risk Factors Hypertension: Yes Dyslipidemia: Yes Peripheral Arterial Disease (PAD): No Myocardial Infarction (FL): Yes Obesity: No Renal Disease: No Prior Interventions PCI: No CABG: No Valve Surgery: No Report Signatures Finalized by Jett Márquez MD on 12/03/2020 03:05 PM
--- NOTE | 2020-11-24 18:02 | PC.NURSE ---
off unit to central lab technician
--- NOTE | 2020-11-24 18:14 | W.PM.OPSUD ---
Surgery/Procedure H&P Update DATE OF PROCEDURE: November 24, 2020 DATE H&P PERFORMED: 11/24/20 H&P UPDATE INFORMATION: I have reviewed H&P completed within last 30 days, I have examined patient prior to procedure and No changes to prior documentation PREOP DIAGNOSIS: NSTEMI PRIMARY INDICATION FOR PROCEDURE: NSTEMI PLANNED PROCEDURE: Coronary angiography with possible percutaneous coronary intervention PATIENT REASSESSED PRIOR TO SEDATION, WITH NO CHANGE NOTED: Yes PHYSICAL EXAM: alert and oriented x 3 AIRWAY EVAL/ANESTHESIA PLAN: ASA III, Risks, benefits & alternatives of sedation and/or procedure discussed and Patient agrees to continue as planned
--- NOTE | 2020-11-24 19:23 | PC.NURSE ---
Received report from WOLF Ledezma. 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
--- NOTE | 2020-11-24 19:56 | USCV_ITS ---
Chiqui Rizzo Age: 70 Gender: F : 1950 Exam Date: 11/24/2020 05:52 Ordering Phys: Jacob Sanchez MD Technologist: Marisabel Lopes Exam Location: [facility] [place] Indication: CHEST PAIN BP: 104 / 51 HR: 81 Rhythm: Sinus Technical Quality: Adequate MEASUREMENTS (Male / Female) Normal Values 2D ECHO LV Diastolic Diameter PLAX 5.0 cm 4.2 - 5.9 / 3.9 - 5.3 cm LV Systolic Diameter PLAX 2.9 cm LV Chamber Size 3.3 cm IVS Diastolic Thickness 1.0 cm 0.6 - 1.0 / 0.6 - 0.9 cm IVS Systolic Thickness 2.1 cm LVPW Diastolic Thickness 1.1 cm 0.6 - 1.0 / 0.6 - 0.9 cm LVPW Systolic Thickness 1.7 cm RV Chamber Size 3.8 cm LVOT Diameter 2.0 cm LV Ejection Fraction 2D Teich 72.6 % LV Ejection Fraction MOD 2C 43.7 % LV Ejection Fraction 2C AL 44.5 % LA Diameter 3.7 cm LA Width 3.6 cm LA Height 4.7 cm RA Width 4.3 cm RA Height 4.9 cm Aorta at Sinotubular Diameter 3.1 cm M-MODE LV Diastolic Diameter MM 5.5 cm 4.2 - 5.9 / 3.9 - 5.3 cm LV Systolic Diameter MM 3.3 cm LV Ejection Fraction MM Teich 70.5 % IVS Diastolic Thickness MM 1.4 cm 0.6 - 1.0 / 0.6 - 0.9 cm IVS Systolic Thickness MM 2.1 cm LVPW Diastolic Thickness MM 1.3 cm 0.6 - 1.0 / 0.6 - 0.9 cm LVPW Systolic Thickness MM 2.2 cm RV Diastolic Diameter MM 1.4 cm Aortic Annulus Diameter 3.6 cm LA Ao Ratio MM 1.2 MV E Point Septal Separation 0.9 cm DOPPLER AV Peak Velocity 93.0 cm/s LVOT Peak Velocity 63.0 cm/s AV Area Cont Eq vti 2.6 cm squared AV Area Cont Eq pk 2.2 cm squared MV E' Velocity 11.0 cm/s TR Peak Velocity 377.6 cm/s TR Peak Gradient 57.0 mmHg TR Mean Velocity 286.4 cm/s TR Mean Gradient 35.3 mmHg TR Velocity Time Integral 112.2 cm TV Peak E Velocity 43.0 cm/s Right Atrial Pressure 3.0 mmHg Pulmonary Artery Systolic Pressu 60.0 mmHg PV Peak Velocity 56.0 cm/s RV Acceleration Time 0.2 s RV Ejection Time 0.4 s RV AcT/ET 0.5 FINDINGS Left Ventricle Normal left ventricular size. LV systolic function is moderately reduced with EF of 35-40%. There is severe hypokinesis of apical anterolateral, apical and mid to apical inferoseptal cleaning. Basal segments move well. Right Ventricle The right ventricle is normal in size and function. Right Atrium The right atrium is normal enlarged Left Atrium The left atrium is severely enlarged Mitral Valve Mild mitral annular calcification. No significant mitral stenosis There is mild to moderate mitral regurgitation. Aortic Valve Structurally normal aortic valve without significant sclerosis or stenosis. There is no aortic regurgitation. Tricuspid Valve Structurally normal tricuspid valve without significant stenosis. Mild tricuspid regurgitation. RVSP is 55-60mmHg. This is consistent with moderate pulmonary hypertension. Pulmonic Valve Grossly normal Pericardium Normal pericardium without effusion. Aorta Normal ascending aorta dimension. CONCLUSIONS LV systolic function is moderately reduced with LV EF of 35-40%. Above mentioned regional wall motion abnormalities Mild to moderate mitral regurgitation Biatrial enlargement Moderate pulmonary hypertension is seen Mild tricuspid regurgitation is noted Compared to prior echocardiogram from 11/08/2016, LV systolic is reduced with above mentioned regional wall motion abnormalities. Patient also has moderate pulmonary hypertension. Jett Márquez MD (Electronically Signed) Final Date: 04 December 2020 14:50 S
--- NOTE | 2020-11-24 20:02 | PC.NURSE ---
Received report from WOLF Erickson in construction craft laborer. Patient received to 101. Patient is s/p [facility] with right femoral access. Sheath has been removed in construction craft laborer and angioseal deployed. Dressing to site remains c,d,i. No s/s of bleeding or hematoma formation observed. Instructed site care and restrictions. Patient verbalized understanding. Patient denies any pain at this time. Meal provided. Telemetry placed. Dr Márquez in to see patient.
[2020-11-24 20:36] LABS: Glucose Point of Care 150 mg/dL (70-110)
[2020-11-24] MEDS: hyDRALAzine 50 mg Tablet 100 MG PO (21:51)
[2020-11-25] VITALS (8 sets, daily range): BP systolic 109–125; BP diastolic 59–84; PULSE 75–83; RESP 12–16; TEMP 36.7–36.9; O2SAT 92–98
[2020-11-25 06:39] LABS: Glucose Point of Care 184 mg/dL (70-110)
[2020-11-25 07:02] LABS: INR 1.05 (0.8-1.2)
[2020-11-25 07:15] LABS: Alanine Aminotransferase 7 U/L (0-33); Albumin Level 3.3 g/dL (3.5-5.2); Alkaline Phosphatase 51 IU/L (35-105); Aspartate Amino Transferase 13 U/L (0-32); Blood Urea Nitrogen 9 mg/dL (8-23); Carbon Dioxide 29 mmol/L (22-29); Chloride 101 mmol/L (98-107); Globulin 2.4 g/dL (1.3-4.6); Glucose 186 mg/dL (65-115); Magnesium 1.6 mg/dL (1.7-2.3); Osmolality Calculated 290 mOsm/kg (285-295); Phosphorus 4.1 mg/dL (2.5-4.5); Sodium 138 mmol/L (136-145); Total Bilirubin 0.6 mg/dL (0.15-1.2); Total Protein 5.7 g/dL (6.6-8.7)
[2020-11-25 07:39] LABS: Basophils # 0.1 10^3/uL (0.0-0.1); Basophils % 0.8 %; Eosinophils # 0.1 10^3/uL (0.0-0.8); Eosinophils % 1.1 %; Hematocrit 40.1 % (37.0-47.0); Hemoglobin 13.1 g/dL (11.5-15.3); Lymphocytes # 1.9 10^3/uL (0.8-4.8); Lymphocytes % 24.3 %; Mean Corpuscular HGB Conc 32.7 g/dL (30.0-36.0); Mean Corpuscular Hemoglobin 32.3 pg (28.0-34.0); Mean Platelet Volume 10.9 fL (7.4-10.4); Monocytes # 0.8 10^3/uL (0.2-0.9); Monocytes % 9.7 %; Neutrophils # 5.08 10^3/uL (1.8-7.7); Neutrophils % 63.8 %; Nucleated Red Blood Cells % 0 %; Platelet Count 156 10^3/cmm (130-400); Red Blood Count 4.05 10^6/uL (4.1-5.3); Red Cell Distribution Width 12.7 % (12.1-15.1)
[2020-11-25] MEDS: ranolazine (12HR) 500 mg Tablet PO (08:02)
[2020-11-25] MEDS: multivitamin therapeutic Tablet 1 TAB PO (08:02)
[2020-11-25] MEDS: duloxetine 60 mg Capsule PO (08:02)
[2020-11-25] MEDS: atorvastatin 40 mg Tablet 20 MG PO (08:02)
[2020-11-25] MEDS: metoprolol succinate ER (24 HR) 100 mg Tablet PO (08:02)
[2020-11-25] MEDS: losartan 50 mg Tablet PO (08:02)
[2020-11-25] MEDS: ascorbic acid 500 mg Tablet PO (08:02)
[2020-11-25] MEDS: aspirin 81 mg EC Tablet PO (08:02)
[2020-11-25] MEDS: pantoprazole DR 40 mg Tablet PO (08:48)
[2020-11-25] MEDS: FUROsemide 10 mg/mL SDV 4mL 40 MG IVP (08:48)
[2020-11-25 11:02] LABS: Glucose Point of Care 179 mg/dL (70-110)
--- NOTE | 2020-11-25 11:50 | P.DS_ITS ---
Discharge Providers Date of Admission: 11/23/20 15:59 Date of Discharge: November 25, 2020 Attending Provider at Admission: Jacob Sanchez MD Attending Provider at Discharge: Jacob Sanchez MD Primary Care Provider: Regan Contreras MD Diagnoses at Discharge Discharge Diagnosis (1) Non-ST elevated myocardial infarction (non-STEMI): Status: Acute (2) A-fib: Status: Acute Qualifiers: Atrial fibrillation type: unspecified chronic Qualified Code(s): I48.20 - Chronic atrial fibrillation, unspecified (3) GERD (gastroesophageal reflux disease): Status: Acute (4) HTN (hypertension): Status: Acute Qualifiers: Hypertension type: essential hypertension Qualified Code(s): I10 - Essential (primary) hypertension Reason for Visit Reason for Visit: DEPRESSION, SI Hospital Course Hospital Course Chiqui Arias is a 70 year old female with past medical history of CAD, atrial fibrillation on Xarelto, gjx-xrzjvaw-fwitkowwu type 2 diabetes mellitus, hypertension, hyperlipidemia, depression anxiety, who presents to [facility] for suicidal ideation and chest pain For patient suicidal ideation: -Currently not suicidal or homicidal ideation, no plan, denies hearing or seeing things are not there -96-hour hold was rescinded -Has been seen by our psychiatry colleagues -Deemed not a threat to herself or others -continue home medications -Discharge with close follow-up with [facility], Lexapro 10 mg every evening -Seems more like patient was trying to escape her family situation due to family stressors and stressors at home, by going to [place] Unstable angina: Cardiac catheterization in 2015: LMCA: No significant stenotic lesions LAD: Mild diffuse disease is noted in the proximal LAD with mild to moderate calcification. There is a 40% segmental narrowing in the proximal LAD Right after the second diagonal branch, there is a tubular narrowing of around 40- 50%. The second diagonal branch also was found to have an ostial narrowing of 50%. The distal artery was found to have minimal intimal irregularities LCx: Medium caliber vessel It gives off a high obtuse marginal branch which appears to be trifurcating proximally. Around the origin of the second obtuse marginal artery, there is minimal diffuse narrowing. The second obtuse marginal artery was found to have 50% ostial narrowing. The distal circumflex, which continues in the AV groove was found to have minimal intimal irregularities RCA: Medium caliber dominant vessel . Mild diffuse disease was noted throughout the vessel. Present 40% segmental narrowing, right after the second RV branch. The PLV branch was found to have multiple disease. The PDA branch appears to be a bifurcating at the mid segment. One of the bifurcation branches was found to have a 90% stenosis proximally. No other significant stenotic lesions Minimal calcification was noted in the proximal RCA -Stress testing October 2016 showed Small area of fixed perfusion defect was noted in the mid anteroseptal wall on both rest and stress images which showed moderate reversibility suggestive of small area of old myocardial infarction ve rsus scarring surrounded by moderate area of sandor-infarct ischemia extending into the apex consistent with mid to distal LAD lesion. 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 -On aspirin, statin, Ranexa -Chest pain is typical cardiac in nature, is persistent -6 hour troponin elevated at 96, positive delta, ekg with st twave changes in lateral leads -Cardiology was consulted -Underwent cardiac catheterization, which showed diffuse disease, no significant obstructive disease, no stent double lesions -Her echocardiogram did show an EF of 35 to 40%, wall motion abnormalities, moderate pulmonary hypertension -Likely patient has stress-induced cardiomyopathy from psychosocial stressors -She will be discharged on aspirin, Xarelto, statin, metoprolol, olmesartan, Lasix, potassium -I have discussed with Dr. Sellers, he advised to have patient follow-up with a therapist at [facility] sooner -I have discussed stress reduction with the patient, avoid stressors, family should be aware, take a break/vacation Physical Exam Const: COMMON NORMALS: no acute distress and patient oriented x3 HENMT: COMMON NORMALS: normocephalic HEAD & SCALP: normocephalic Neck/C-Spine: COMMON NORMALS: no JVD Resp: COMMON NORMALS: normal respiratory effort, No retractions, No use of accessory muscles and clear to auscultation bilaterally AUSCULTATION: clear to auscultation bilaterally Cardio: COMMON NORMALS: no JVD, regular rate, regular rhythm, S1 normal heart sound present and S2 normal heart sound present RATE: regular rate RHYTHM: regular rhythm HEART SOUNDS: S1 normal heart sound present and S2 normal heart sound present GI: COMMON NORMALS: Normal to inspection, nondistended, normoactive bowel sounds present, Soft to palpation, non-tender, No hepatosplenomegaly present, no masses and no bruits PALPATION: Yes Soft to palpation and Yes No hepatosplenomegaly present Extremity: COMMON NORMALS: capillary refill normal, no clubbing, cyanosis or edema, no calf tenderness and no pedal edema Neuro: COMMON NORMALS: patient oriented x3 Psych: COMMON NORMALS: mental status grossly normal Discharge Data Data Completed and Pending: Completed Studies During Hospitalization Category Date Time Status XR chest 1V reed ble [id number] Urgent Exams 11/23/20 12:09 Completed CV echo complete* [id number] Routine Ultrasound 11/24/20 19:56 Completed Pending at discharge Category Date Time Status TOBACCO SIZER request for service Routin e Exams 11/24/20 17:44 Taken Sestamibi Stress Test Request Routi ne Exams 11/23/20 19:56 Stop Req Complete Blood Co unt w/Auto AM LABS Lab 11/26/20 04:00 Ordered Comprehensive Met abolic Panel AM LA BS Lab 11/26/20 04:00 Ordered Magnesium AM LABS Lab 11/26/20 04:00 Ordered Phosphorus AM LAB S Lab 11/26/20 04:00 Ordered Prothrombin Time INR AM LABS Lab 11/26/20 04:00 Ordered Labs from last 24 hours 11/25/20 11/25/20 11/25/20 10:54 06:35 04:04 WBC RBC Hgb Hct MCV MCH MCHC RDW Plt Count MPV Neut % (Auto) Lymph % (Auto) Mills % (Auto) Eos % (Auto) Baso % (Auto) Neut # (Auto) Lymph # (Auto) Mills # (Auto) Eos # (Auto) Baso # (Auto) Nucleated RBC % (a uto) Nucleated RBCs # PT 14.10 INR 1.05 Sodium Potassium Chloride Carbon Dioxide Anion Gap BUN Creatinine GFR Calculation Glucose POC Glucose 179 H 184 H Calculated Osmolal ity Calcium Phosphorus Magnesium Total Bilirubin AST ALT Alkaline Phosphata se Troponin T Hi Sens 6Hr Troponin T Hi Sens 6Hr Delta Total Protein Albumin Globulin 11/25/20 11/25/20 11/24/20 04:04 04:04 20:21 WBC 8.0 RBC 4.05 L Hgb 13.1 Hct 40.1 MCV 99.0 MCH 32.3 MCHC 32.7 RDW 12.7 Plt Count 156 MPV 10.9 H Neut % (Auto) 63.8 Lymph % (Auto) 24.3 Mills % (Auto) 9.7 Eos % (Auto) 1.1 Baso % (Auto) 0.8 Neut # (Auto) 5.08 Lymph # (Auto) 1.9 Mills # (Auto) 0.8 Eos # (Auto) 0.1 Baso # (Auto) 0.1 Nucleated RBC % (a uto) 0 Nucleated RBCs # 0.0 PT INR Sodium 138 Potassium 4.0 Chloride 101 Carbon Dioxide 29 Anion Gap 12.0 BUN 9 Creatinine 0.7 GFR Calculation Not Reportable Glucose 186 H POC Glucose 150 H Calculated Osmolal ity 290 Calcium 9.0 Phosphorus 4.1 Magnesium 1.6 L Total Bilirubin 0.6 AST 13 ALT 7 Alkaline Phosphata se 51 Troponin T Hi Sens 6Hr Troponin T Hi Sens 6Hr Delta Total Protein 5.7 L Albumin 3.3 L Globulin 2.4 11/24/20 11/24/20 17:09 14:25 WBC RBC Hgb Hct MCV MCH MCHC RDW Plt Count MPV Neut % (Auto) Lymph % (Auto) Mills % (Auto) Eos % (Auto) Baso % (Auto) Neut # (Auto) Lymph # (Auto) Mills # (Auto) Eos # (Auto) Baso # (Auto) Nucleated RBC % (a uto) Nucleated RBCs # PT INR Sodium Potassium Chloride Carbon Dioxide Anion Gap BUN Creatinine GFR Calculation Glucose POC Glucose 168 H Calculated Osmolal ity Calcium Phosphorus Magnesium Total Bilirubin AST ALT Alkaline Phosphata se Troponin T Hi Sens 6Hr 75.86 H Troponin T Hi Sens 6Hr Delta 25.86 H* Total Protein Albumin Globulin Vitals: Last Vital Signs Temp 98.4 F 11/25/20 07:15 Pulse 78 11/25/20 09:20 Resp 16 11/25/20 09:20 BP 125/84 11/25/20 08:02 Pulse Ox 94 11/25/20 09:20 Discharge Plan Discharge Patient Disposition: Home Condition: Stable Prescriptions: New Lexapro 10 mg tablet 10 mg PO DAILY Qty: 30 RF: 0 Continued (DME) Shoe Inserts See Rx Instructions .Route .MEDSUPPLY Qty: 1 RF: 0 albuterol sulfate 90 mcg/actuation aero powdr breath act w/sensor 90 mcg INHALATION Q6H PRN (Reason: Shortness Of Breath) RF: 0 aspirin [Adult Low Dose Aspirin] 81 mg tablet,delayed release (DR/EC) 81 mg PO DAILY@0900 RF: 0 methylprednisolone acetate [Depo-Medrol] 80 mg/mL suspension 80 mg Infiltration ONCE Qty: 1 RF: 0 bupivacaine (PF) 0.25 % (2.5 mg/mL) solution 2.5 mg Infiltration ONCE Qty: 1 RF: 0 nitroglycerin [Nitrostat] 0.4 mg tablet, sublingual 0.4 mg SUBLINGUAL Q5M PRN (Reason: chest pain) Qty: 30 RF: 3 tizanidine 2 mg capsule 2 mg PO BID PRN (Reason: muscle spasticity) Qty: 30 RF: 2 Vitamin C 1 tab PO DAILY@0900 RF: 0 multivitamin 1 tab PO DAILY@0900 RF: 0 metoprolol succinate 100 mg tablet extended release 24 hr 100 mg PO DAILY@0900 RF: 0 pantoprazole 40 mg tablet,delayed release (DR/EC) 40 mg PO BID@0900,2200 RF: 0 hydralazine 50 mg tablet 100 mg PO BID@0900,2199 RF: 0 olmesartan 20 mg tablet 20 mg PO DAILY@0900 RF: 0 Crestor 5 mg tablet 5 mg PO DAILY@0900 RF: 0 duloxetine 60 mg capsule,delayed release(DR/EC) 60 mg PO DAILY@0900 RF: 0 ranolazine 500 mg tablet extended release 12 hr 500 mg PO BID@0900,2200 RF: 0 Voltaren 1 % gel 2 gm TOPICAL QID@09,13,17,21 RF: 0 Xarelto 10 mg tablet 10 mg PO DAILY@2200 RF: 0 Referrals: Regan Contreras MD [Primary Care Provider] - 1-3 days Discharge Diet: Usual diet Discharge Activity: Increase activity as tolerated Patient Instructions: Depression (ED), Suicide Prevention for Geriatrics (ED) Activity Restrictions/Additional Instructions: Return for any new or worsening symptoms. Follow-up with your primary care provider within 3 days. Follow-up with your mental health provider soon as you can get in. It is important that if you have the feelings of suicidality again you either return for help or call the crisis hotline. Take the new medication as prescribed as well as your home medications. Discharge Attestations Time Spent in Discharge Care*: greater than 30 min Quality Metrics Clinical Quality Measures During this hospital stay, did patient experience: None Coding Level of Care Code Acute Oceanography Professor for Chg Fwd Diagnoses Non-ST elevated myocardial infarction (non-STEMI) I21.4 A-fib I48.20 Atrial fibrillation type: unspecified chronic GERD (gastroesophageal reflux disease) K21.9 HTN (hypertension) I10 Hypertension type: essential hypertension
--- NOTE | 2020-11-25 12:19 | P.PN_ITS ---
Subjective Subjective: Interval history: Patient is overall doing well. She denies any further chest pain. She underwent coronary angiography yesterday which did not show severe coronary artery disease. FFR of LAD was performed that was nonischemic. Vitals/I&O/Wt Last Vital Signs Temp 98.4 F 11/25/20 07:15 Pulse 78 11/25/20 09:20 Resp 16 11/25/20 09:20 BP 125/84 11/25/20 08:02 Pulse Ox 94 11/25/20 09:20 11/24/20 11/25/20 11/25/20 22:59 06:59 14:59 Intake Total 64.575 / 304.875 575.833 / 880.708 562 / 562 Output Total 240 / 240 1000 / 1000 Balance -175.425 / 64.875 575.833 / 640.708 -438 / -438 Physical Exam Const: COMMON NORMALS: no acute distress and patient oriented x3 HENMT: COMMON NORMALS: normocephalic HEAD & SCALP: normocephalic Neck/C-Spine: COMMON NORMALS: no JVD Resp: COMMON NORMALS: normal respiratory effort, No retractions, No use of accessory muscles and clear to auscultation bilaterally AUSCULTATION: clear to auscultation bilaterally Cardio: COMMON NORMALS: no JVD, regular rate, regular rhythm, S1 normal heart sound present and S2 normal heart sound present RATE: regular rate RHYTHM: regular rhythm HEART SOUNDS: S1 normal heart sound present and S2 normal h eart sound present GI: COMMON NORMALS: Normal to inspection, nondistended, normoactive bowel sounds present, Soft to palpation, non-tender, No hepatosplenomegaly present, no masses and no bruits PALPATION: Yes Soft to palpation and Yes No hepatosplenomegaly present Extremity: COMMON NORMALS: capillary refill normal, no clubbing, cyanosis or edema, no calf tenderness and no pedal edema Neuro: COMMON NORMALS: patient oriented x3 Psych: COMMON NORMALS: mental status grossly normal Data : 11/25/20 04:04 11/25/20 04:04 Micro: Microbiology 11/23/20 13:25 Urine Culture - Final Urine,Clean Catch Escherichia coli A&P Assessment and plan (1) Non-ST elevated myocardial infarction (non-STEMI): Status: Acute (2) A-fib: Status: Acute Qualifiers: Atrial fibrillation type: unspecified chronic Qualified Code(s): I48.20 - Chronic atrial fibrillation, unspecified (3) GERD (gastroesophageal reflux disease): Status: Acute (4) HTN (hypertension): Status: Acute Qualifiers: Hypertension type: essential hypertension Qualified Code(s): I10 - Essential (primary) hypertension Patient has typical chest pain with troponin elevation and EKG changes. ECHO shows apical segment hypokinesis with good wall motion of basal segments, features consistent with stress cardiomyopathy vs LAD disease. Coronary angiography performed showed moderate disease of LAD. We performed FFR of the LAD that was nonischemic. Her presentation is consistent with a stress cardiomyopathy. Continue aspirin and Xarelto. Beta-ana therapy. Statin therapy. She is requiring 1 L oxygen, will initiate low-dose Lasix. Follow-up with cardiology office. If patient stays asymptomatic today, she can be discharged home. Thank you for involving us with care of patient. We will continue to follow. Please call with questions. Attestations Medical Necessity Statement*: Care expected to cross 2 midnights. Coding Level of Care Code Acute Quarter Section Iron[facility] for [facility] Fwd Diagnoses Non-ST elevated myocardial infarction (non-STEMI) I21.4 A-fib I48.20 Atrial fibrillation type: unspecified chronic GERD (gastroesophageal reflux disease) K21.9 HTN (hypertension) I10 Hypertension type: essential hypertension
--- NOTE | 2020-11-25 16:37 | PC.NURSE ---
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 provided pt with contact # at [facility]. Educated pt on her new meds actions, dosing, timing and possible side effects. Education reinforcement to pt on disease process about stress induced Cardiomyopathy per doctor discussion today on her diagnosis. Pt verbalizes understanding. Discharge packet provided to pt.
== END 2020-11-25 16:16 | disposition home or self-care (01) ==
LOC: ER 15:44 → MEDSURG 16:21 → CSU 22:47
PROVIDERS: Internal Medicine; Admitting Provider Family Medicine; Emergency Provider Family Medicine; PCP Internal Medicine; Visit Provider Family Medicine
DX: I21.4 Non-ST elevation (NSTEMI) myocardial infarction (principal); I20.0 Unstable angina; I48.20 Chronic atrial fibrillation, unspecified; K21.9 Gastro-esophageal reflux disease without esophagitis; I10 Essential (primary) hypertension; F17.210 Nicotine dependence, cigarettes, uncomplicated; R45.851 Suicidal ideations; E11.65 Type 2 diabetes mellitus with hyperglycemia; Z79.4 Long term (current) use of insulin; E78.00 Pure hypercholesterolemia, unspecified; E66.9 Obesity, unspecified; Z68.32 Body mass index [BMI] 32.0-32.9, adult
CPT/HCPCS: 36415; 36416; 71045; 80053; 80061; 80306; 80307; 81001; 82962; 83036; 83735; 83880; 84100; 84443; 84484; 85014; 85018; 85025; 85610; 87077; 87086; 87186; 93005; 93306; 93454; 93571; 96361; 96365; 96366; 96372; 99285; C1760; C1769; C1887; C1894; G0378; J0153; J1644; J1650; J1815; J1940; J2250; J2270; J3010; J3490; J7030; Q9967

== ENCOUNTER → 2020-12-12 11:09 | Outpatient (BNVA) | payer MEDICARE, SELFPAY | PROVIDERS: PCP Internal Medicine; Visit Provider Internal Medicine Cardiovascular Disease | DX: I51.81 Takotsubo syndrome (principal); I48.20 Chronic atrial fibrillation, unspecified; E78.00 Pure hypercholesterolemia, unspecified; I25.10 Atherosclerotic heart disease of native coronary artery without angina pectoris; I31.3 Pericardial effusion (noninflammatory) | CPT/HCPCS: 80048; 83880 ==

== ENCOUNTER → 2020-12-27 09:05 | Outpatient (BNVA) | payer MEDICARE, SELFPAY | PROVIDERS: PCP Internal Medicine; Visit Provider Internal Medicine Cardiovascular Disease | DX: E11.65 Type 2 diabetes mellitus with hyperglycemia (principal); E78.00 Pure hypercholesterolemia, unspecified; I10 Essential (primary) hypertension; I51.81 Takotsubo syndrome; Z79.4 Long term (current) use of insulin | CPT/HCPCS: 80048; 83880 ==

== ENCOUNTER 2021-02-21 09:09 | Emergency (ER) | payer MEDICARE, MEDICAID, SELFPAY ==
[2021-02-21 09:20] VITALS: BP 172/83; PULSE 86; RESP 16; TEMP 36.8; O2SAT 94; BMI 33.0
--- NOTE | 2021-02-21 09:20 | XR_ITS ---
WS: [id number] Exam: XR chest 1V portable [id number] Date/Time of Exam: 02/21/2021 9:20 AM Reason For Exam: chest pain There is mild infiltrate in the left upper lobe suspicious for pneumonia. There are chronic changes i n the right upper lobe. The lungs are fully inflated. Normal cardiomediastinal structures. Regional b jax elements are intact. Monitoring leads superimpose the chest. XR/XR chest 1V portable [id number] IMPRESSION: 1. Mild left upper lobe infiltrate suspicious for pneumonia. 2. Chronic changes in the right upper lobe.
--- NOTE | 2021-02-21 09:20 | ECG_ITS ---
[facility] Test Date: 2021-02-21 Pat Name: Chiqui Arias Department: Room: Gender: Female Affiliate Marketing Coordinator: : 1950 Requested By: Ofe Young Order Number: [id number] Elver MD: Jett Márquez M.D. Measurements Intervals [place] Rate: 74 P: [place]: QRS: 73 QRSD: 96 T: 51 QT: 366 QTc: 408 Interpretive Statements ATRIAL FIBRILLATION WITH ABERRANT CONDUCTION OR VENTRICULAR PREMATURE COMPLEXES Compared to ECG 11/24/2020 17:36:15 Left-axis deviation no longer present T-wave abnormality no longer present Possible ischemia no longer present Electronically Signed On 02-21-2021 17:34:56 CDT by Jett Márquez M.D. [id number]
--- NOTE | 2021-02-21 09:35 | ED_ITS ---
HPI - Chest Pain General: Chief Complaint: Chest Pain Stated Complaint: chest pain Time Seen by Provider: 02/21/21 09:22 History of Present Illness: HPI narrative: 70-year-old female presents emergency room with complaint of chest discomfort onset while at rest. She has known history of coronary artery disease cardiology notes reviewed in 2015 she had PCTA with stenting. Follow-up stress testing in 2017 showed sandor-infarct ischemia just managed medically. Earlier this year she was admitted on a 96- hour psychiatry hold and was complaining of chest pain ultimately cardiology took her back to the angiography she did not have any significant disease mode rate diffuse disease no in-stent stenosis. She returns today complaining of chest pain. She does have some ischemic cardiomyopathy with a hypokinesis at the apex with 35 to 40% ejection fraction on most recent echocardiogram. She is diabetic hypertensive and has a history of hyperlipidemia medications reviewed. She not having any chest pain at this time. Patient did take 3 nitroglycerin this point is complaining of a headache at this time. MD complaint: chest pain Pertinent past history: coronary artery disease Onset (ago): minute(s) Timing of current episode: episodic Prior episodes: Yes Onset: during rest Pain location: left chest Severity: moderate Quality: tightness Relieving factors: nothing Exacerbating factors: nothing Associated symptoms: Reports palpitations; Deny abdominal pain, diaphoresis, dyspnea, fever(s), leg edema, nausea, sense of impending doom, syncope or vomiting Treatment prior to arrival: nitroglycerin (X3) Review of Systems Const: Denies: fever(s) or diaphoresis ENMT: Denies: throat pain, ear or mastoid pain, nasal discharge or nasal congestion Card: Reports: palpitations; Denies: syncope Resp: Denies: dyspnea GI: Denies: abdominal pain, nausea or vomiting : Denies: flank pain, difficulty voiding, dysuria, urinary frequency or urinary urgency Skin/Breast: Denies: rash or pruritus PFSH ED PFSH: Medical History ASHD (arteriosclerotic heart disease) Cannabis abuse Chronic episodic atrial fibrillation Encounter for weight loss counseling Discussed close follow-up due to episodes of hypoglycemia in the past when starting a weight loss program. Hypercholesterolemia Recent weight gain Surgical History Gastric bypass status for obesity H/O cataract extraction H/O hernia repair H/O tubal ligation History of oral surgery Hx of appendectomy Hx of cholecystectomy S/P knee replacement Family History Father Emphysema lung Mother COPD (chronic obstructive pulmonary disease) Other CAD (coronary artery disease) CHF (congestive heart failure) Diabetes Hyperlipidemia Hypertension Social History Smoking and tobacco status: former smoker Alcohol intake: current Alcohol intake frequency: holidays/special occasions only History of recent travel: No Physical Exam Const: COMMON NORMALS: no acute distress GENERAL APPEARANCE: cooperative and comfortable ORIENTATION/CONSCIOUSNESS: Yes awake, Yes oriented to person, Yes oriented to place and Yes oriented to time HENMT: COMMON NORMALS: normocephalic, atraumatic and hearing grossly normal bilaterally HEAD & SCALP: normocephalic and atraumatic Neck/C-Spine: COMMON NORMALS: no JVD Resp: COMMON NORMALS: normal respiratory effort, No retractions, No use of accessory muscles and clear to auscultation bilaterally AUSCULTATION: clear to auscultation bilaterally Cardio: COMMON NORMALS: no JVD, regular rate, regular rhythm and No murmurs present (Cardio) RATE: regular rate RHYTHM: regular rhythm GI: COMMON NORMALS: Soft to palpation and No hepatosplenomegaly present AUSCULTATION: Yes normoactive bowel sounds PALPATION: Yes Soft to palpation, No Tenderness to palpation present (GI), No Guarding due to palpation present (GI) and Yes No hepatosplenomegaly present Extremity: COMMON NORMALS: normal to inspection, capillary refill normal, no clubbing, cyanosis or edema, no calf tenderness and no pedal edema Neuro: SENSORIUM/ORIENTATION: Yes oriented to person, Yes oriented to place and Yes oriented to time Skin: COMMON NORMALS: no rashes or lesions noted GENERAL SKIN EXAM: no rashes or lesions noted Course Vital Signs: Vital signs: Vital Signs Temperature 98.3 F 02/21/21 09:20 Pulse Rate 56 L 02/21/21 14:59 Respiratory Rate 18 02/21/21 14:59 Blood Pressure 136/98 02/21/21 14:59 Pulse Oximetry 96 02/21/21 14:59 MDM - Chest Pain MDM Narrative: Medical decision making narrative: Discussed with Dr. Barrow. Patient is not having any EKG changes. Reviewed the case with her and the previous interventions. She recommended that we add amlodipine however patient has had in the past and had swelling did not want to take it again. Instead we will add isosorbide mononitrate will decrease her her hydralazine. Discharge patient patient that she was still having discomfort reviewed again with the second conversation with Dr. Roblero she still recommended as previous. Also add Carafate. Patient to return if has further problems recommend short- term follow-up with cardiology. Lab Data: Labs: Lab Results 02/21/21 02/21/21 02/21/21 Range/Units 09:45 09:45 09:45 WBC 12.6 H (4.0-10.0) 10^3/ uL RBC 4.00 L (4.1-5.3) 10^6/u L Hgb 12.8 (11.5-15.3) g/dL Hct 38.1 (37.0-47.0) % MCV 95.3 (81-99) fL MCH 32.0 (28.0-34.0) pg MCHC 33.6 (30.0-36.0) g/dL RDW 13.2 (12.1-15.1) % Plt Count 198 (130-400) 10^3/c mm MPV 10.4 (7.4-10.4) fL Neut % (Auto) 76.3 % Lymph % (Auto) 16.4 % [place] % (Auto) 6.4 % Eos % (Auto) 0.4 % Baso % (Auto) 0.3 % Neut # (Auto) 9.62 H (1.8-7.7) 10^3/u L Lymph # (Auto) 2.1 (0.8-4.8) 10^3/u L [place] # (Auto) 0.8 (0.2-0.9) 10^3/u L Eos # (Auto) 0.1 (0.0-0.8) 10^3/u L Baso # (Auto) 0.0 (0.0-0.1) 10^3/u L Nucleated RBC % (a uto) 0 % Nucleated RBCs # 0.0 /100WBC Sodium Cancelled Potassium Cancelled Chloride Cancelled Carbon Dioxide Cancelled Anion Gap Cancelled BUN Cancelled Creatinine Cancelled GFR Calculation Cancelled Glucose Cancelled Calculated Osmolal ity Cancelled Calcium Cancelled Total Bilirubin Cancelled AST Cancelled ALT Cancelled Alkaline Phosphata se Cancelled Troponin T Baselin e Cancelled Troponin T 120 Min vincenzo (0-10) ng/L Delta Troponin T (0-10) ABS# Total Protein Cancelled Albumin Cancelled Globulin Cancelled 02/21/21 02/21/21 02/21/21 Range/Units 10:30 10:30 12:30 WBC (4.0-10.0) 10^3/ uL RBC (4.1-5.3) 10^6/u L Hgb (11.5-15.3) g/dL Hct (37.0-47.0) % MCV (81-99) fL MCH (28.0-34.0) pg MCHC (30.0-36.0) g/dL RDW (12.1-15.1) % Plt Count (130-400) 10^3/c mm MPV (7.4-10.4) fL Neut % (Auto) % Lymph % (Auto) % [place] % (Auto) % Eos % (Auto) % Baso % (Auto) % Neut # (Auto) (1.8-7.7) 10^3/u L Lymph # (Auto) (0.8-4.8) 10^3/u L [place] # (Auto) (0.2-0.9) 10^3/u L Eos # (Auto) (0.0-0.8) 10^3/u L Baso # (Auto) (0.0-0.1) 10^3/u L Nucleated RBC % (a uto) % Nucleated RBCs # /100WBC Sodium 137 Potassium 4.2 Chloride 98 Carbon Dioxide 30 H Anion Gap 13.2 BUN 9 Creatinine 0.6 GFR Calculation Not Reportable Glucose 122 H Calculated Osmolal ity 284 L Calcium 9.1 Total Bilirubin 0.6 AST 11 ALT 6 Alkaline Phosphata se 80 Troponin T Baselin e 7 Troponin T 120 Min vincenzo 6.00 (0-10) ng/L Delta Troponin T -1.00 L (0-10) ABS# Total Protein 6.6 Albumin 4.1 Globulin 2.5 EKG Data^: EKG 1: EKG interpretation date: 02/21/21 EKG interpretation time: 09:30 Other EKG comments: A. fib significant artifact at the baseline. Rate is contr olled at 74. QT interval [address] changes noted EKG 2: EKG interpretation date: 02/21/21 EKG interpretation time: 12:03 Other EKG comments: A. fib with a rate of 77. QT interval 409. No acute ST changes noted rate well controlled Discharge Plan Discharge Patient Disposition: Home Clinical Impression: ASHD (arteriosclerotic heart disease), Atypical chest pain, Diabetes type 2, controlled Condition: Stable Prescriptions: New Carafate 1 gram tablet 1 g PO BID 56 Days Qty: 112 RF: 0 isosorbide mononitrate 30 mg tablet extended release 24 hr 30 mg PO DAILY Qty: 30 RF: 0 Changed hydralazine 50 mg tablet 50 mg PO BID@0900,1500,2200 Qty: 0 RF: 0 No Action nitroglycerin [Nitrostat] 0.4 mg tablet, sublingual 0.4 mg SUBLINGUAL Q5M PRN (Reason: chest pain) Qty: 30 RF: 3 Lasix 20 mg tablet 20 mg PO DIRECTED Qty: 45 RF: 3 Klor-Con 10 10 mEq tablet extended release 10 meq PO DIRECTED Qty: 45 RF: 3 pantoprazole 40 mg tablet,delayed release (DR/EC) 40 mg PO BID@0900,2200 Qty: 180 RF: 3 aspirin [Adult Low Dose Aspirin] 81 mg tablet,delayed release (DR/EC) 81 mg PO DAILY@0900 Qty: 90 RF: 3 metoprolol succinate 100 mg tablet extended release 24 hr 100 mg PO DAILY@0900 Qty: 90 RF: 3 olmesartan 20 mg tablet 20 mg PO DAILY@0900 Qty: 90 RF: 3 ranolazine 500 mg tablet extended release 12 hr 500 mg PO BID@0900,2200 Qty: 180 RF: 3 Xarelto 10 mg tablet 10 mg PO DAILY@2200 Qty: 90 RF: 3 Crestor 5 mg tablet 5 mg PO DAILY@0900 Qty: 90 RF: 3 duloxetine 60 mg capsule,delayed release(DR/EC) 60 mg PO DAILY@0900 Qty: 90 RF: 3 diclofenac sodium [Voltaren] 1 % gel 2 g TOPICAL QID@09,13,17,21 Qty: 100 RF: 3 glimepiride [Amaryl] 4 mg tablet 4 mg PO BID Qty: 180 RF: 0 Vitamin C 1 tab PO DAILY@0900 RF: 0 multivitamin 1 tab PO DAILY@0900 RF: 0 Lexapro 10 mg tablet 10 mg PO DAILY@0900 RF: 0 tizanidine 2 mg capsule 2 mg PO BEDTIME PRN (Reason: muscle spasticity) RF: 0 Discharge Orders: Discharge ED (Routine); Ordered 02/21/21 Ordered By: Mendoza Corona Referrals: Regan Contreras MD [Primary Care Provider] - Discharge Diet: Usual diet Discharge Activity: Resume usual activity Patient Instructions: Opioid Safety Activity Restrictions/Additional Instructions: Start Imdur 30 mg daily in addition to your other medications. Decrease your hydralizine to 50mg BID. We will have you follow-up with Dr. Nxi later this week or early next week, case managemnet will assist you in getting an appointmentfor an appointment. If any recurrent symptoms return to the emergency room. Coding Level of Care Code ED Manager Restaurant for [employer] Fwmichele Exam Comprehensive
[2021-02-21 09:56] LABS: Basophils % 0.3 %; Eosinophils # 0.1 10^3/uL (0.0-0.8); Eosinophils % 0.4 %; Hematocrit 38.1 % (37.0-47.0); Hemoglobin 12.8 g/dL (11.5-15.3); Lymphocytes # 2.1 10^3/uL (0.8-4.8); Lymphocytes % 16.4 %; Mean Corpuscular HGB Conc 33.6 g/dL (30.0-36.0); Mean Corpuscular Volume 95.3 fL (81-99); Mean Platelet Volume 10.4 fL (7.4-10.4); Monocytes # 0.8 10^3/uL (0.2-0.9); Monocytes % 6.4 %; Neutrophils # 9.62 10^3/uL (1.8-7.7); Neutrophils % 76.3 %; Nucleated Red Blood Cells % 0 %; Platelet Count 198 10^3/cmm (130-400); Red Cell Distribution Width 13.2 % (12.1-15.1); White Blood Count 12.6 10^3/uL (4.0-10.0)
[2021-02-21 11:07] LABS: Alanine Aminotransferase 6 U/L (0-33); Albumin Level 4.1 g/dL (3.5-5.2); Alkaline Phosphatase 80 IU/L (35-105); Anion Gap 13.2 (5-19); Aspartate Amino Transferase 11 U/L (0-32); Blood Urea Nitrogen 9 mg/dL (8-23); Calcium 9.1 mg/dL (8.5-10.5); Carbon Dioxide 30 mmol/L (22-29); Chloride 98 mmol/L (98-107); Globulin 2.5 g/dL (1.3-4.6); Glucose 122 mg/dL (65-115); Osmolality Calculated 284 mOsm/kg (285-295); Potassium 4.2 mmol/L (3.5-5.1); Sodium 137 mmol/L (136-145); Total Bilirubin 0.6 mg/dL (0.15-1.2); Total Protein 6.6 g/dL (6.6-8.7)
[2021-02-21 11:08] LABS: Troponin(5th) Baseline 7 ng/L (0-10)
--- NOTE | 2021-02-21 11:20 | ECG_ITS ---
[facility] Test Date: 2021-02-21 Pat Name: Chiqui rAias Department: Room: Gender: Female Family Law Legal Assistant: : 1950 Requested By: Ofe Young Order Number: [id number] Elver MD: Jett Márquez M.D. Measurements Intervals [place] Rate: 77 P: [place]: QRS: 44 QRSD: 103 T: 39 QT: 409 QTc: 464 Interpretive Statements ATRIAL FIBRILLATION WITH ABERRANT CONDUCTION OR VENTRICULAR PREMATURE COMPLEXES Compared to ECG 11/24/2020 17:36:15 Left-axis deviation no longer present T-wave abnormality no longer present Possible ischemia no longer present Electronically Signed On 02-21-2021 17:44:42 CDT by Jett Márquez M.D. [id number]
[2021-02-21 14:10] VITALS: BP 136/89; PULSE 82; RESP 18; O2SAT 96
[2021-02-21 14:59] VITALS: BP 136/98; PULSE 56; RESP 18; O2SAT 96
--- NOTE | 2021-02-22 09:58 | DCPLANNER ---
manager lean had message to schedule a follow up appointment for patient with heart care. manager lean called heart care, spoke with Kim, gave clinic patients information. A follow up appointment is scheduled for Friday, March 07, 2021 at 10:[address] Nix. Clinic will call patient with appointment information.
--- NOTE | 2021-04-18 07:55 | DCPLANNER ---
Patient had a follow up appointment scheduled for 03.07.[address] Nix at [facility] - patient did attend appointment.
== END 2021-02-21 15:00 | disposition home or self-care (01) ==
PROVIDERS: Physician Assistant; Emergency Provider Family Medicine; PCP Internal Medicine
DX: I25.10 Atherosclerotic heart disease of native coronary artery without angina pectoris (principal); Z87.891 Personal history of nicotine dependence; R07.9 Chest pain, unspecified; E11.9 Type 2 diabetes mellitus without complications; Z79.84 Long term (current) use of oral hypoglycemic drugs; Z79.01 Long term (current) use of anticoagulants; I48.20 Chronic atrial fibrillation, unspecified
CPT/HCPCS: 36415; 71045; 80053; 84484; 85025; 93005; 99284

== ENCOUNTER 2021-03-02 09:45 | Outpatient (CLI) | payer MEDICARE, MEDICAID, SELFPAY ==
--- NOTE | 2021-03-02 09:56 | USCV_ITS ---
Chiqui Arias Age: 70 Gender: F : 1950 Exam Date: 03/02/2021 10:26 Ordering Phys: Leonardo Nix MD ([email or web address]) Technologist: MARIANNA Exam Location: [facility] Indication: PERICARDIAL EFFUSION BP: 126 / 63 HR: 66 Rhythm: Sinus Technical Quality: Adequate MEASUREMENTS (Male / Female) Normal Values 2D ECHO LV Diastolic Diameter PLAX 4.4 cm 4.2 - 5.9 / 3.9 - 5.3 cm LV Systolic Diameter PLAX 3.1 cm IVS Diastolic Thickness 1.8 cm 0.6 - 1.0 / 0.6 - 0.9 cm IVS Systolic Thickness 2.1 cm LVPW Diastolic Thickness 1.4 cm 0.6 - 1.0 / 0.6 - 0.9 cm LVPW Systolic Thickness 1.6 cm LVOT Diameter 2.0 cm LV Ejection Fraction 2D Teich 57.6 % LV Ejection Fraction MOD 2C 51.7 % LV Ejection Fraction 2C AL 56.6 % LA Diameter 4.2 cm LA Width 4.4 cm LA Height 6.3 cm RA Width 4.3 cm RA Height 5.5 cm Aorta at Sinotubular Diameter 2.5 cm M-MODE Aortic Annulus Diameter 3.5 cm LA Ao Ratio MM 1.4 FINDINGS Left Ventricle Normal LV size with borderline normal ejection fraction 50-55%. Mild diffuse hypokinesia of the left ventricle Right Ventricle Normal right ventricular size and systolic function. Right Atrium Moderately increased right atrial size. Left Atrium Moderately increased left atrial size. Mitral Valve Mild mitral annular calcification. Aortic Valve No aortic valve stenosis. Tricuspid Valve No gross abnormalities noted Pulmonic Valve No gross abnormalities noted Pericardium No significant pericardial effusion Aorta Normal aortic annulus size. CONCLUSIONS Normal LV size with borderline normal ejection fraction 50-55%. Mild diffuse hypokinesia of the left ventricle. Moderate biatrial enlargement Mild mitral annular calcification. There is no pericardial effusion. There are no intracardiac masses. Compared to the previous study from 11/24/2020, there is significant improvement of the LV ejection fraction Dr Leonardo Nix MD [facility] (Electronically Signed) Final Date: 05 March 2021 09:41 S
== END 2021-03-02 09:46 | disposition home or self-care (01) ==
LOC: RAD 09:46
PROVIDERS: PCP Internal Medicine; Visit Provider Internal Medicine Cardiovascular Disease
DX: I31.3 Pericardial effusion (noninflammatory) (principal); I05.8 Other rheumatic mitral valve diseases
CPT/HCPCS: 93308

== ENCOUNTER → 2021-03-07 10:55 | Outpatient (BNVA) | payer MEDICARE, SELFPAY | PROVIDERS: PCP Internal Medicine; Visit Provider Internal Medicine Cardiovascular Disease | DX: R06.02 Shortness of breath (principal); I51.81 Takotsubo syndrome; I50.33 Acute on chronic diastolic (congestive) heart failure; I10 Essential (primary) hypertension | CPT/HCPCS: 80048; 83880 ==

== ENCOUNTER → 2021-04-05 09:13 | Outpatient (BNVA) | payer MEDICARE, SELFPAY | PROVIDERS: PCP Internal Medicine; Visit Provider Internal Medicine Cardiovascular Disease | DX: I25.118 Atherosclerotic heart disease of native coronary artery with other forms of angina pectoris (principal); E78.00 Pure hypercholesterolemia, unspecified; I10 Essential (primary) hypertension | CPT/HCPCS: 80048; 83880 ==

== ENCOUNTER 2021-04-26 07:00 | Outpatient (CLI) | payer MEDICARE, SELFPAY ==
--- NOTE | 2021-04-26 07:15 | MR_ITS ---
WS: [id number] MRI THORACIC SPINE WITHOUT CONTRAST TECHNIQUE: Sagittal T1, T2 and STIR imaging. Axial T2 imaging. Noncontrast imaging obtained. CLINICAL INFORMATION: severe thoracic pain COMPARISON: None. FINDINGS: Mild thoracic curve. Moderate thoracic kyphosis. Chronic anterior wedging in the mid thoracic spine. Endplate Schmorl's nodes. No acute compression fractures. Disc bulging worse lower thoracic and upper lumbar spine with small central protrusions and slight effacement of ventral thecal sac. This is mor e prominent at T10-T12. No high-grade central canal stenosis. Tiny syrinx in the central cord at T6-T11. Cord signal otherwise normal. Syrinx measures 14 mm in max imum AP dimension. Moderate facet arthropathy lower thoracic spine. Mild to moderate bony foraminal n arrowing right T6-T7, left T9-T10, bilateral T10-T11, bilateral T11-T12 right greater than left T12-L 1. Normal paravertebral soft tissues. MR/MR thoracic spin wo con* [id number] IMPRESSION: 1. Small syrinx in the thoracic cord extending from T6 through T11 with a maxi mum AP dimension of 14 mm. Cord signal is otherwise normal. 2. No high-grade central canal narrowing. 3. Moderate facet arthropathy lower thoracic spine. 4. Small disc protrusions in the lower thoracic spine at T10-T12. 5. Mild to moderate bony foraminal narrowing right T6-T7, left T9-T10, bilater al T10-T11, bilateral T11-T12 right greater than left T12-L1.
== END 2021-04-26 07:01 | disposition home or self-care (01) ==
PROVIDERS: PCP Internal Medicine; Visit Provider Internal Medicine
DX: M47.814 Spondylosis without myelopathy or radiculopathy, thoracic region (principal); M51.24 Other intervertebral disc displacement, thoracic region
CPT/HCPCS: 72146

== ENCOUNTER 2021-04-28 12:50 | Emergency (ER) | payer MEDICARE, SELFPAY ==
[2021-04-28] VITALS (11 sets, daily range): BP systolic 109–158; BP diastolic 62–93; PULSE 55–76; RESP 15–20; TEMP 36.6; O2SAT 92–97; BMI 34.8
--- NOTE | 2021-04-28 13:01 | XRR_ITS ---
PROCEDURE INFORMATION: Exam: XR Chest Exam date and time: 04/28/2021 1:01 PM Age: 70 years old Clinical indication: Chest pain/pressure. TECHNIQUE: Imaging protocol: XR of the chest. Views: 1 view. COMPARISON: CR XR chest 1V portable [id number] 02/21/2021 9:40 AM FINDINGS: Lungs: There are foci of subsegmental atelectasis or scarring in the right upper lobe. Pleural spaces: No pleural effusion.; No pneumothorax. Heart/Mediastinum: The cardiac silhouette is unchanged. No gross evidence of pneumomediastinum. Bones/joints: No gross fracture. XR/XR chest 1V portable [id number] IMPRESSION: No acute cardiopulmonary abnormality identified.
--- NOTE | 2021-04-28 13:02 | ECG_ITS ---
[facility] ED Test Date: 2021-04-28 Pat Name: Chiqui Arias Department: Room: Gender: Female Diet Attendant: : 1950 Requested By: Ofe Yuong Order Number: [id number] Elver MD: Alysa Marrufo M.D. Measurements Intervals [place] Rate: 73 P: [place]: QRS: 19 QRSD: 98 T: 45 QT: 400 QTc: 441 Interpretive Statements ATRIAL FIBRILLATION ABNORMAL RHYTHM ECG Compared to ECG 02/21/2021 12:03:49 Ventricular premature complex(es) no longer present Aberrant conduction of supraventricular beat(s) no longer present Electronically Signed On 05-03-2021 12:34:36 CDT by Alysa Marrufo M.D. [email or web address] [id number]
[2021-04-28] MEDS: aspirin 81 mg Chew Tablet 324 MG PO (14:29)
[2021-04-28] MEDS: nitroglycerin 0.4 mg sublingual Tablet SUBLINGUAL ×2 (14:30→14:35)
--- NOTE | 2021-04-28 14:30 | ED_ITS ---
HPI - Chest Pain General: Chief Complaint: Chest Pain Stated Complaint: CHEST PAINS Time Seen by Provider: 04/28/21 13:49 History of Present Illness: HPI narrative: The patient is a 70-year-old female with past medical history diabetes, hypertension, A. fib on Xarelto, neck and back pain with chronic injections and coronary artery disease with known moderate LAD stenosis. She comes to the ER complaining of left-sided chest pain that comes and squeezing episodes and last for several seconds. She is taken 4 nitroglycerin at home which did mild to moderately improve her symptoms. She had a cardiac catheterization November 24 which showed moderate LAD stenosis, likely stress cardiomyopathy, apical hypokinesis with ejection fraction of 35 to 40%. She was seen here on February 21 for chest pain again with decrease in hydralazine and started on isosorbide mononitrate. This did not change her pains and she has been having them at home. She followed up with Dr. Nix on February and an echocardiogram was done in between on March 02 which showed ejection fraction of 50 to 55%. Mild diffuse hypokinesia of the left ventricle. MD complaint: chest pain Pertinent past history: coronary artery disease Timing of current episode: episodic Onset: during rest Pain location: left chest Pain radiation: none Severity: moderate Quality: other (squeezing) Relieving factors: nothing Exacerbating factors: nothing Associated symptoms: Reports no associated symptoms; Deny abdominal pain, dyspnea or palpitations Review of Systems General: Reports: 10 or more systems reviewed and unremarkable except in HPI and below Const: Denies: fatigue Eyes: Denies: change in vision, blurry vision or eye redness ENMT: Denies: throat pain, swelling of lips/tongue, ear or mastoid pain or nasal congestion Card: Reports: chest pain; Denies: palpitations, irregular heart rhythm, edema, dyspnea on exertion or orthopnea Resp: Denies: dyspnea, productive cough or non-productive cough GI: Denies: abdominal pain, diarrhea or GI cramping : Denies: flank pain, difficulty voiding, urinary frequency or urinary urgency Musc: Denies: neck pain, back pain, extremity pain, joint pain, joint redness, limited range of motion or muscle weakness Skin/Breast: Denies: rash, pruritus, erythema, skin pain or skin tenderness Neuro: Denies: headache(s), numbness in extremities, weakness in extremities, sensory changes, difficulty walking, dizziness, confusion or Slurred speech present Psych: Denies: anxiety or depression Endo: Denies: polyuria All/Imm: Denies: urticaria, throat swelling or tongue swelling PFSH ED PFSH: Medical History ASHD (arteriosclerotic heart disease) Cannabis abuse Chronic episodic atrial fibrillation Encounter for weight loss counseling Discussed close follow-up due to episodes of hypoglycemia in the past when starting a weight loss program. Hypercholesterolemia Recent weight gain Surgical History Gastric bypass status for obesity H/O cataract extraction H/O hernia repair H/O tubal ligation History of oral surgery Hx of appendectomy Hx of cholecystectomy S/P knee replacement Family History Father Emphysema lung Mother COPD (chronic obstructive pulmonary disease) Brother Cancer Emphysema lung Lung disease Chronic kidney disease (CKD) Family/Other Cancer Stroke Other CAD (coronary artery disease) CHF (congestive heart failure) Diabetes Hyperlipidemia Hypertension Denies family history of Clotting disorder Dementia Suicide Anesthesia complication Bleeding disorder Social History Smoking and tobacco status: former smoker Alcohol intake: current Alcohol intake frequency: holidays/special occasions only History of recent travel: No Physical Exam Const: COMMON NORMALS: no acute distress, average body habitus, patient oriented x3, no limitations, healthy appearing, alert and well nourished GENERAL APPEARANCE: cooperative, comfortable, well kempt and well developed ORIENTATION/CONSCIOUSNESS: Yes awake, Yes oriented to person, Yes oriented to place and Yes oriented to time HENMT: COMMON NORMALS: normocephalic, external ears normal and Normal external nose present HEAD & SCALP: normal to inspection and normocephalic NOSE: Normal external nose present EXTERNAL EAR: Yes external ears normal MOUTH: Normal oral and palatal mucosa present THROAT: posterior oropharynx normal Eye: COMMON NORMALS: Equal, round and reactive pupils present and EOMs intact bilaterally GENERAL EYE: appearance normal, both eyes and all related s tructures PUPIL: Yes Equal, round and reactive pupils present Neck/C-Spine: COMMON NORMALS: full ROM, no lymphadenopathy, no meningeal signs and no JVD GENERAL: Yes normal visual inspection Lymph: LYMPHATIC: no lymphadenopathy noted Chest: COMMONS NORMALS: normal inspection of the chest and normal palpation of entire chest wall Resp: COMMON NORMALS: normal respiratory effort, No retractions, No use of accessory muscles, clear to auscultation bilaterally and percussion normal EFFORT & INSPECTION: Yes able to speak in complete sentences AUSCULTATION: clear to auscultation bilaterally PERCUSSION: percussion normal Cardio: COMMON NORMALS: no JVD, regular rate, S1 normal heart sound present, S2 normal heart sound present and Peripheral pulses 2+ throughout RATE: regular rate RHYTHM: abnormal rhythm (a fib. regular rate.) irregularly irregular HEART SOUNDS: S1 normal heart sound present and S2 normal heart sound present PERIPHERAL PULSES: Peripheral pulses 2+ throughout GI: COMMON NORMALS: Normal to inspection, nondistended, normoactive bowel sounds present, Soft to palpation, non-tender and no masses INSPECTION: Yes normal to inspection PALPATION: Yes Soft to palpation : COMMON NORMALS: Yes no CVA tenderness BLADDER/KIDNEY EXAM: Yes no CVA tenderness Back/Pelvis: COMMON NORMALS: no CVA tenderness, thoracic and lumbar spine normal to inspection, no thoracic nor lumbar tenderness and thoraco-lumbar ROM normal Extremity: COMMON NORMALS: normal to inspection, full ROM, capillary refill normal, no joint enlargement and no pedal edema GENERAL: Yes normal exam except as noted Neuro: COMMON NORMALS: patient oriented x3, CN's II-XII intact bilaterally, moves all extremities, no focal motor deficits, no sensory deficits noted and gait normal SENSORIUM/ORIENTATION: Yes alert, Yes oriented to person, Yes oriented to place and Yes oriented to time MENINGEAL SIGNS: Yes no meningeal signs Psych: COMMON NORMALS: mental status grossly normal, Normal thought process present, cooperative, normal affect and speech normal APPEARANCE: Yes well kempt ATTITUDE: Yes calm SPEECH: Yes normal speech THOUGHT PROCESS: Normal thought process present Skin: COMMON NORMALS: no rashes or lesions noted GENERAL SKIN EXAM: no ra shes or lesions noted Course Vital Signs: Vital signs: Vital Signs Temperature 97.8 F 04/28/21 13:07 Pulse Rate 66 04/28/21 14:45 Respiratory Rate 18 04/28/21 15:19 Blood Pressure 112/85 04/28/21 14:45 Pulse Oximetry 94 07/31/21 15:19 MDM - Chest Pain MDM Narrative: Medical decision making narrative: The patient is a 70-year-old female who comes in complaining of left-sided chest pain. Not exertional related. She has a history of broken heart syndrome and cardiac catheterization from October notes only moderate disease. Discussed with Dr. Renteria who recommended increasing the isosorbide mononitrate to 60 mg extended release tablet once a day. I also recommended with her to follow-up with the Dr. Márquez nurse practitioner next week. ER with worsening symptoms or return of chest pain at any time. Initially she was telling me she is depressed because she has chronic pain. She was not suicidal on arrival and never mentioned suicide ideations including on discharge she denied thoroughly. She is not even depressed on discharge. I said if her depression worsens she may return to the ER at anytime for evaluation. She understands and accepts Lab Data: Labs: Lab Results 04/28/21 04/28/21 04/28/21 Range/Units 14:30 14:30 14:30 WBC 8.9 (4.0-10.0) 10^3/ uL RBC 4.62 (4.1-5.3) 10^6/u L Hgb 14.4 (11.5-15.3) g/dL Hct 44.0 (37.0-47.0) % MCV 95.2 (81-99) fL MCH 31.2 (28.0-34.0) pg MCHC 32.7 (30.0-36.0) g/dL RDW 13.5 (12.1-15.1) % Plt Count 224 (130-400) 10^3/c mm MPV 10.4 (7.4-10.4) fL Neut % (Auto) 53.6 % Lymph % (Auto) 36.4 % [place] % (Auto) 7.4 % Eos % (Auto) 1.6 % Baso % (Auto) 0.8 % Neut # (Auto) 4.80 (1.8-7.7) 10^3/u L Lymph # (Auto) 3.3 (0.8-4.8) 10^3/u L [place] # (Auto) 0.7 (0.2-0.9) 10^3/u L Eos # (Auto) 0.1 (0.0-0.8) 10^3/u L Baso # (Auto) 0.1 (0.0-0.1) 10^3/u L Nucleated RBC % (a uto) 0 % Nucleated RBCs # 0.0 /100WBC D-Dimer (0-0.59) ug/mIFE U Sodium 134 L (136-145) mmol/L Potassium 4.9 (3.5-5.1) mmol/L Chloride 96 L (98-107) mmol/L Carbon Dioxide 25 (22-29) mmol/L Anion Gap 17.9 (5-19) BUN 16 (8-23) mg/dL Creatinine 0.8 (0.5-0.9) mg/dL GFR Calculation Not Reportable Glucose 106 (65-115) mg/dL Calculated Osmolal ity 280 L (285-295) mOsm/k g Calcium 9.0 (8.5-10.5) mg/dL Total Bilirubin 0.3 (0.15-1.2) mg/dL AST 19 (0-32) U/L ALT 10 (0-33) U/L Alkaline Phosphata se 74 (35-105) IU/L Troponin T Baselin e 6 (0-10) ng/L Troponin T 120 Min [place] (0-10) ng/L Delta Troponin T (0-10) ABS# NT-Pro-B Natriuret Pep 612 H (0-125) pg/mL Total Protein 6.1 L (6.6-8.7) g/dL Albumin 3.9 (3.5-5.2) g/dL Globulin 2.2 (1.3-4.6) g/dL 04/28/21 04/28/21 Range/Units 16:15 16:15 WBC (4.0-10.0) 10^3/ uL RBC (4.1-5.3) 10^6/u L Hgb (11.5-15.3) g/dL Hct (37.0-47.0) % MCV (81-99) fL MCH (28.0-34.0) pg MCHC (30.0-36.0) g/dL RDW (12.1-15.1) % Plt Count (130-400) 10^3/c mm MPV (7.4-10.4) fL Neut % (Auto) % Lymph % (Auto) % [place] % (Auto) % Eos % (Auto) % Baso % (Auto) % Neut # (Auto) (1.8-7.7) 10^3/u L Lymph # (Auto) (0.8-4.8) 10^3/u L [place] # (Auto) (0.2-0.9) 10^3/u L Eos # (Auto) (0.0-0.8) 10^3/u L Baso # (Auto) (0.0-0.1) 10^3/u L Nucleated RBC % (a uto) % Nucleated RBCs # /100WBC D-Dimer <= 0.27 (0-0.59) ug/mIFE U Sodium (136-145) mmol/L Potassium (3.5-5.1) mmol/L Chloride (98-107) mmol/L Carbon Dioxide (22-29) mmol/L Anion Gap (5-19) BUN (8-23) mg/dL Creatinine (0.5-0.9) mg/dL GFR Calculation Glucose (65-115) mg/dL Calculated Osmolal ity (285-295) mOsm/k g Calcium (8.5-10.5) mg/dL Total Bilirubin (0.15-1.2) mg/dL AST (0-32) U/L ALT (0-33) U/L Alkaline Phosphata se (35-105) IU/L Troponin T Baselin e (0-10) ng/L Troponin T 120 Min [place] 6.00 (0-10) ng/L Delta Troponin T 0 (0-10) ABS# NT-Pro-B Natriuret Pep (0-125) pg/mL Total Protein (6.6-8.7) g/dL Albumin (3.5-5.2) g/dL Globulin (1.3-4.6) g/dL Discharge Plan Discharge Patient Disposition: Home Clinical Impression: Chest pain Condition: Stable Prescriptions: New isosorbide mononitrate 60 mg tablet extended release 24 hr 60 mg PO DAILY Qty: 30 RF: 0 Discontinued isosorbide mononitrate 30 mg tablet extended release 24 hr 30 mg PO QAM RF: 0 No Action biotin 10,000 mcg capsule 10,000 mcg PO QAM RF: 0 ascorbate calcium (vitamin C) 500 mg tablet 500 mg PO QAM RF: 0 hydralazine 50 mg tablet 50 mg PO TID@,, RF: 0 hydrocodone-acetaminophen 5-325 mg tablet 1 tab PO Q8H PRN (Reason: pain) 30 Days Qty: 30 RF: 0 nitroglycerin [Nitrostat] 0.4 mg tablet, sublingual 0.4 mg SUBLINGUAL Q5M PRN (Reason: chest pain) Qty: 30 RF: 3 pantoprazole 40 mg tablet,delayed release (DR/EC) 40 mg PO BID@0900,2200 Qty: 180 RF: 3 aspirin [Adult Low Dose Aspirin] 81 mg tablet,delayed release (DR/EC) 81 mg PO DAILY@0900 Qty: 90 RF: 3 metoprolol succinate 100 mg tablet extended release 24 hr 100 mg PO DAILY@0900 Qty: 90 RF: 3 olmesartan 20 mg tablet 20 mg PO DAILY@0900 Qty: 90 RF: 3 ranolazine 500 mg tablet extended release 12 hr 500 mg PO BID@0900,2200 Qty: 180 RF: 3 Xarelto 10 mg tablet 10 mg PO DAILY@2200 Qty: 90 RF: 3 Crestor 5 mg tablet 5 mg PO DAILY@0900 Qty: 90 RF: 3 duloxetine 60 mg capsule,delayed release(DR/EC) 60 mg PO DAILY@0900 Qty: 90 RF: 3 glimepiride [Amaryl] 4 mg tablet 4 mg PO BID Qty: 180 RF: 0 multivitamin Tablet 1 tab PO QAM RF: 0 tizanidine 2 mg tablet 2 mg PO BEDTIME RF: 0 ProAir HFA 90 mcg/actuation Hfa Aerosol Inhaler 2 puff INHALATION Q6H PRN (Reason: Shortness Of Breath) RF: 0 Klor-Con 10 10 mEq tablet extended release 30 meq PO QAM RF: 0 Lasix 20 mg tablet 60 mg PO QAM RF: 0 diclofenac sodium 1 % gel 2 g TOPICAL QID@09,,17,21 PRN (Reason: Pain) RF: 0 escitalopram oxalate [Lexapro] 10 mg tablet 10 mg PO DAILY@0900 RF: 0 Discharge Orders: Discharge ED (Routine); Ordered 04/28/21 Ordered By: Abimael Mtz Referrals: Regan Contreras MD [Primary Care Provider] - Discharge Diet: Advance as tolerated Discharge Activity: Resume usual activity Patient Instructions: Chest Pain (ED), Opioid Safety Activity Restrictions/Additional Instructions: You have had chest pain. Your previous cardiac catheterization shows only moderate disease and your troponins have been normal today as well as EKGs. You have chronic atrial fibrillation which is unchanged. I have discussed with Dr. Renteria and he recommended increasing your Imdur dose to 60 mg in the morning which is an extended release tablet taken just once a day. Please continue to check your blood pressure a few times a day to make sure it is not dropping too low. If you feel lightheaded or weak please return to the ER at any time or return to the ER with any worsening symptoms at all including return of your chest pain. He recommended calling Dr. Márquez's office Friday and getting in with Liane the nurse practitioner sometime within a week. Again please return with any worsening symptoms including return of your chest pain. Coding Level of Care Code ED Assisted Living Coordinator for Hattie Toro
--- NOTE | 2021-04-28 15:02 | ECG_ITS ---
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: : 1950 Requested By: Ofe Young Order Number: [id number] Elver MD: ANTHONY CORONA Measurements Intervals [place] Rate: 52 P: TN: QRS: 23 QRSD: 100 T: 57 QT: 437 QTc: 410 Interpretive Statements ATRIAL FIBRILLATION WITH SLOW VENTRICULAR RESPONSE WITH ABERRANT CONDUCTION OR VENTRICULAR PREMATURE COMPLEXES ABNORMAL RHYTHM ECG Compared to ECG 04/28/2021 13:11:47 Ventricular premature complex(es) now present Aberrant conduction of supraventricular beat(s) now present Electronically Signed On 04-28-2021 20:30:28 CDT by ANTHONY CORONA [id number]
[2021-04-28 15:13] LABS: Basophils # 0.1 10^3/uL (0.0-0.1); Basophils % 0.8 %; Eosinophils # 0.1 10^3/uL (0.0-0.8); Eosinophils % 1.6 %; Hemoglobin 14.4 g/dL (11.5-15.3); Lymphocytes # 3.3 10^3/uL (0.8-4.8); Lymphocytes % 36.4 %; Mean Corpuscular HGB Conc 32.7 g/dL (30.0-36.0); Mean Corpuscular Hemoglobin 31.2 pg (28.0-34.0); Mean Corpuscular Volume 95.2 fL (81-99); Mean Platelet Volume 10.4 fL (7.4-10.4); Monocytes # 0.7 10^3/uL (0.2-0.9); Monocytes % 7.4 %; Neutrophils % 53.6 %; Nucleated Red Blood Cells % 0 %; Platelet Count 224 10^3/cmm (130-400); Red Blood Count 4.62 10^6/uL (4.1-5.3); Red Cell Distribution Width 13.5 % (12.1-15.1); White Blood Count 8.9 10^3/uL (4.0-10.0)
[2021-04-28 15:18] LABS: Alanine Aminotransferase 10 U/L (0-33); Albumin Level 3.9 g/dL (3.5-5.2); Alkaline Phosphatase 74 IU/L (35-105); Blood Urea Nitrogen 16 mg/dL (8-23); Carbon Dioxide 25 mmol/L (22-29); Chloride 96 mmol/L (98-107); Globulin 2.2 g/dL (1.3-4.6); Glucose 106 mg/dL (65-115); NT Pro B Type Natriuretic Pept 612 pg/mL (0-125); Osmolality Calculated 280 mOsm/kg (285-295); Sodium 134 mmol/L (136-145); Total Bilirubin 0.3 mg/dL (0.15-1.2); Total Protein 6.1 g/dL (6.6-8.7)
[2021-04-28] MEDS: morphine 4 mg/mL SDV 1 mL 2 MG IVP (15:19)
[2021-04-28 15:21] LABS: Troponin(5th) Baseline 6 ng/L (0-10)
[2021-04-28 15:42] LABS: Anion Gap 17.9 (5-19); Aspartate Amino Transferase 19 U/L (0-32); Potassium 4.9 mmol/L (3.5-5.1)
[2021-04-28 17:05] LABS: D Dimer <= 0.27 ug/mIFEU (0-0.59)
[2021-04-28 17:14] LABS: Troponin 5 2HR Delta 0 ABS# (0-10)
== END 2021-04-28 20:15 | disposition home or self-care (01) ==
PROVIDERS: Physician Assistant; Emergency Provider Family Medicine; PCP Internal Medicine
DX: R07.9 Chest pain, unspecified (principal); I48.20 Chronic atrial fibrillation, unspecified; E78.00 Pure hypercholesterolemia, unspecified; E11.9 Type 2 diabetes mellitus without complications; I10 Essential (primary) hypertension; I25.10 Atherosclerotic heart disease of native coronary artery without angina pectoris; Z79.01 Long term (current) use of anticoagulants; Z79.82 Long term (current) use of aspirin; Z87.891 Personal history of nicotine dependence; Z79.84 Long term (current) use of oral hypoglycemic drugs
CPT/HCPCS: 71045; 80053; 83880; 84484; 85025; 85378; 93005; 96374; 99284; J2270

== ENCOUNTER → 2021-05-02 08:50 | Outpatient (BNVA) | payer MEDICARE, SELFPAY | PROVIDERS: PCP Internal Medicine; Visit Provider Internal Medicine Cardiovascular Disease | DX: E78.00 Pure hypercholesterolemia, unspecified (principal); I25.118 Atherosclerotic heart disease of native coronary artery with other forms of angina pectoris | CPT/HCPCS: 80048; 83880 ==

== ENCOUNTER → 2021-05-10 11:37 | Outpatient (BNVA) | payer MEDICARE, SELFPAY | PROVIDERS: PCP Internal Medicine; Visit Provider Internal Medicine Cardiovascular Disease | DX: I25.118 Atherosclerotic heart disease of native coronary artery with other forms of angina pectoris (principal); I48.20 Chronic atrial fibrillation, unspecified; R07.9 Chest pain, unspecified | CPT/HCPCS: 80048; 83735; 83880 ==

== ENCOUNTER → 2021-05-23 11:00 | Outpatient (BNVA) | payer MEDICARE, MEDICAID, SELFPAY | PROVIDERS: PCP Internal Medicine; Referring Provider Internal Medicine; Visit Provider Anesthesiology Pain Medicine | DX: G89.29 Other chronic pain (principal); M47.814 Spondylosis without myelopathy or radiculopathy, thoracic region; M54.16 Radiculopathy, lumbar region; M47.816 Spondylosis without myelopathy or radiculopathy, lumbar region; M47.812 Spondylosis without myelopathy or radiculopathy, cervical region; Z79.891 Long term (current) use of opiate analgesic | CPT/HCPCS: 99214 ==

== ENCOUNTER → 2021-06-18 09:48 | Outpatient (BNVA) | payer MEDICARE, MEDICAID, SELFPAY | PROVIDERS: PCP Internal Medicine; Visit Provider Internal Medicine Cardiovascular Disease | DX: I25.118 Atherosclerotic heart disease of native coronary artery with other forms of angina pectoris (principal); E78.00 Pure hypercholesterolemia, unspecified; I10 Essential (primary) hypertension | CPT/HCPCS: 80048; 83880 ==

== ENCOUNTER → 2021-07-03 09:44 | Outpatient (BNVA) | payer MEDICARE, MEDICAID, SELFPAY | PROVIDERS: PCP Internal Medicine; Visit Provider Internal Medicine Cardiovascular Disease | DX: I25.118 Atherosclerotic heart disease of native coronary artery with other forms of angina pectoris (principal); E11.65 Type 2 diabetes mellitus with hyperglycemia; I48.20 Chronic atrial fibrillation, unspecified; I25.10 Atherosclerotic heart disease of native coronary artery without angina pectoris; I10 Essential (primary) hypertension | CPT/HCPCS: 80048; 83880 ==

== ENCOUNTER → 2021-09-26 11:49 | Outpatient (BNVA) | payer MEDICARE, MEDICAID, SELFPAY | PROVIDERS: PCP Internal Medicine; Visit Provider Internal Medicine | DX: E11.65 Type 2 diabetes mellitus with hyperglycemia (principal); B18.2 Chronic viral hepatitis C | CPT/HCPCS: 82550; 82607; 82746; 83036; 83550; 84443; 85651; 86140; 87902 ==

== ENCOUNTER → 2022-01-10 11:16 | Outpatient (BNVA) | payer MEDICARE, MEDICAID, SELFPAY | PROVIDERS: PCP Internal Medicine; Visit Provider Internal Medicine Cardiovascular Disease | DX: I25.118 Atherosclerotic heart disease of native coronary artery with other forms of angina pectoris (principal); E11.65 Type 2 diabetes mellitus with hyperglycemia; I11.0 Hypertensive heart disease with heart failure; I50.32 Chronic diastolic (congestive) heart failure; I48.20 Chronic atrial fibrillation, unspecified; Z79.01 Long term (current) use of anticoagulants; E78.00 Pure hypercholesterolemia, unspecified; Z87.891 Personal history of nicotine dependence; Z79.82 Long term (current) use of aspirin; Z79.84 Long term (current) use of oral hypoglycemic drugs | CPT/HCPCS: 36415; 80048; 83880; 99214 ==

== ENCOUNTER → 2022-07-18 11:09 | Outpatient (BNVA) | payer MEDICARE, MEDICAID, SELFPAY | PROVIDERS: PCP Internal Medicine; Visit Provider Internal Medicine Cardiovascular Disease | DX: I25.118 Atherosclerotic heart disease of native coronary artery with other forms of angina pectoris (principal); I48.20 Chronic atrial fibrillation, unspecified; Z79.01 Long term (current) use of anticoagulants; M54.6 Pain in thoracic spine; G89.29 Other chronic pain; E11.65 Type 2 diabetes mellitus with hyperglycemia; Z79.84 Long term (current) use of oral hypoglycemic drugs; I10 Essential (primary) hypertension; Z87.891 Personal history of nicotine dependence | CPT/HCPCS: 93005; 99214 ==

== ENCOUNTER 2022-10-26 15:17 | Emergency (ER) | payer MEDICARE, MEDICAID, SELFPAY ==
[2022-10-26] VITALS (8 sets, daily range): BP systolic 100–141; BP diastolic 64–81; PULSE 57–68; RESP 12–17; TEMP 36.6; O2SAT 92–98
--- NOTE | 2022-10-26 16:17 | ECG_ITS ---
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 Measurements Intervals [place] Rate: 56 P: 0 SC: 0 QRS: 30 QRSD: 100 T: 51 QT: 450 QTc: 435 Interpretive Statements ATRIAL FIBRILLATION WITH SLOW VENTRICULAR RESPONSE Compared to ECG 04/28/2021 14:58:20 Aberrant conduction of supraventricular beat(s) no longer present Ventricular premature complex(es) no longer present Electronically Signed On 10-27-2022 11:20:55 PENOLOGY TEACHER by Jett Márquez M.D. [id number]
[2022-10-26 17:01] LABS: Basophils # 0.1 10^3/uL (0.0-0.1); Basophils % 0.7 %; Eosinophils # 0.4 10^3/uL (0.0-0.8); Eosinophils % 4.3 %; Hematocrit 42.4 % (37.0-47.0); Hemoglobin 13.8 g/dL (11.5-15.3); Lymphocytes % 34.4 %; Mean Corpuscular HGB Conc 32.5 g/dL (30.0-36.0); Mean Corpuscular Hemoglobin 32.3 pg (28.0-34.0); Mean Corpuscular Volume 99.3 fl (81-99); Mean Platelet Volume 10.6 fL (7.4-10.4); Monocytes # 0.6 10^3/uL (0.2-0.9); Monocytes % 6.6 %; Neutrophils # 4.69 10^3/uL (1.8-7.7); Neutrophils % 53.8 %; Nucleated Red Blood Cells % 0 %; Platelet Count 205 10^3/cmm (130-400); Red Blood Count 4.27 10^6/uL (4.1-5.3); Red Cell Distribution Width 13.7 % (12.1-15.1); White Blood Count 8.7 10^3/uL (4.0-10.0)
[2022-10-26 17:27] LABS: Alanine Aminotransferase 14 U/L (0-33); Albumin Level 3.7 g/dL (3.5-5.2); Alkaline Phosphatase 77 U/L (35-105); Aspartate Amino Transferase 20 U/L (0-32); Blood Urea Nitrogen 24 mg/dL (8-23); Calcium 9.1 mg/dL (8.5-10.5); Carbon Dioxide 33 mmol/L (22-29); Chloride 95 mmol/L (98-107); Glucose 144 mg/dL (65-115); Lipase 37 U/L (13-60); Osmolality Calculated 289 mOsm/kg (285-295); Sodium 136 mmol/L (136-145); Total Bilirubin 0.3 mg/dL (0.15-1.2); Total Protein 6.7 g/dL (6.6-8.7)
[2022-10-26 17:31] LABS: Anion Gap 12.4 (5-19); Potassium 4.4 mmol/L (3.5-5.1)
--- NOTE | 2022-10-26 19:40 | XRR_ITS ---
PROCEDURE INFORMATION: Exam: XR Chest Exam date and time: 10/26/2022 8:09 PM Age: 71 years old Clinical indication: Other: Weakness TECHNIQUE: Imaging protocol: Radiologic exam of the chest. Views: 1 view. COMPARISON: CR XR chest 1V portable [id number] 04/28/2021 1:58 PM FINDINGS: Lungs: Lungs are clear bilaterally. Pleural spaces: No pleural effusion. No pneumothorax. Heart/Mediastinum: Stable mild enlargement of the cardiac silhouette. Mediastinal contours are unremarkable. Bones/joints: Unremarkable for age. XR/XR chest 1V portable [id number] IMPRESSION: 1. No acute cardiopulmonary process. 2. Incidental/nonacute findings are listed in the report.
--- NOTE | 2022-10-26 19:40 | CTR_ITS ---
PROCEDURE INFORMATION: Exam: CT Head Without Contrast Exam date and time: 10/26/2022 8:16 PM Age: 71 years old Clinical indication: Pain; Weakness, extremity; Bilateral; Headache not specified; Patient HX: Elevated BP; Additional info: Weakness, headache TECHNIQUE: Imaging protocol: Computed tomography of the head without contrast. Sagittal and coronal reformatted images were created and reviewed. Radiation optimization: All CT scans at this facility use at least one of these dose optimization techniques: automated exposure control; mA and/or kV adjustment per patient size (includes targeted exams where dose is matched to clinical indication); or iterative reconstruction. Other protocol: This patient has received 0 known CTs and 0 known cardiac nuclear medicine studies in the 12 months prior to the current study. COMPARISON: CT head wo con* [id number] 05/03/2019 1:50 AM RADIATION DOSE METRICS: Total DLP (mGy-cm): 1206.48 FINDINGS: Brain: Stable moderate atrophy of the brain parenchyma. Stable moderately decreased attenuation in the deep white matter, consistent with moderate chronic microangiopathic change. Cerebral ventricles: No ventriculomegaly. Paranasal sinuses: Visualized paranasal sinuses are clear. Mastoid air cells: Small amount of fluid in the right and left mastoid air cells. Orbital cavities: Globes and lenses, extraocular muscles, and optic nerves are intact bilaterally. No acute intraorbital abnormality. Bones/joints: No acute fracture. Soft tissues: No acute abnormality of the extracranial soft tissues. Vasculature: .Atherosclerotic changes in the visualized arteries. Small amount of air in the left cavernous sinus that may be due to a previous injection. CT/CT head wo con* [id number] IMPRESSION: 1. Acute intracranial hemorrhage or infarct. 2. Small amount of air in the left cavernous sinus that may be due to a previous injection. 3. Stable moderate atrophy of the brain parenchyma. 4. 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 5. Small amount of fluid in the right and left mastoid air cells. 6. Incidental/nonacute findings are listed in the report.
--- NOTE | 2022-10-26 19:48 | ED_ITS ---
HPI - General Adult General: Chief complaint: General Medical Stated complaint: low bp Time Seen by Provider: 10/26/22 19:16 Source: patient and family History of Present Illness: 71-year-old female with generalized weakness, and unsteadiness, for the last couple of days. She notes that her blood pressure was quite low this morning in the 60s and 70s systolic. It has normalized now. She has a history of atrial fibrillation and diastolic heart failure. She denies any fever, but notes that she has been chilled today. No increased cough. No dysuria. No focal weakness or numbness. No language problems. Onset (ago): day(s) Severity: moderate Quality: other Pain Consistency: other Relieving factors: none Exacerbating factors: none Associated symptoms: Reports confusion (Mild), decreased appetite, fevers/chills, headache(s) and weakness; Deny chest pain, cough, dyspnea, seizures, short of breath or vomiting Treatments prior to arrival: none Review of Systems Const: Reports: chills; Denies: fever(s) Eyes: Denies: change in vision ENMT: Denies: throat pain Card: Denies: chest pain Resp: Denies: dyspnea GI: Denies: vomiting Neuro: Reports: headache(s), difficulty walking, dizziness and confusion (Mild) PFSH ED PFSH: Medical History ASHD (arteriosclerotic heart disease) Cannabis abuse Chronic episodic atrial fibrillation Encounter for weight loss counseling Discussed close follow-up due to episodes of hypoglycemia in the past when starting a weight loss program. Hypercholesterolemia Recent weight gain Surgical History Gastric bypass status for obesity H/O cataract extraction H/O hernia repair H/O tubal ligation History of oral surgery Hx of appendectomy Hx of cholecystectomy S/P knee replacement Family History Father Emphysema lung Mother COPD (chronic obstructive pulmonary disease) Brother Cancer Emphysema lung Lung disease Chronic kidney disease (CKD) Family/Other Cancer Stroke Other CAD (coronary artery disease) CHF (congestive heart failure) Diabetes Hyperlipidemia Hypertension Denies family history of Clotting disorder Dementia Suicide Anesthesia complication Bleeding disorder Social History Smoking and tobacco status: former smoker Alcohol intake: current Alcohol intake frequency: holidays/special occasions only History of recent travel: No Physical Exam Const: COMMON NORMALS: alert GENERAL APPEARANCE: cooperative and frail appearing (mildly) HENMT: COMMON NORMALS: normocephalic and Normal external nose present HEAD & SCALP: normocephalic FACE & SINUS: normal facial exam and face symmetric NOSE: Normal external nose present Eye: COMMON NORMALS: Equal, round and reactive pupils present and EOMs intact bilaterally PUPIL: Yes Equal, round and reactive pupils present Neck/C-Spine: GENERAL: Yes trachea midline Chest: CHEST: Yes Symmetrical chest wall rise Resp: COMMON NORMALS: normal respiratory effort, No use of accessory muscles and clear to auscultation bilaterally AUSCULTATION: clear to auscultation bilaterally Cardio: COMMON NORMALS: regular rate RATE: regular rate RHYTHM: abnormal rhythm irregularly irregular GI: COMMON NORMALS: Normal to inspection, nondistended, normoactive bowel sounds present, Soft to palpation and non-tender PALPATION: Yes Soft to palpation Extremity: COMMON NORMALS: no pedal edema Neuro: KEYLA COMA SCALE: document GCS findings Keyla coma scale eye opening: Spontaneous Keyla coma scale verbal response: Orientated [place] coma scale motor response: Obey commands Keyla coma scale total score: 15 SENSORIUM/ORIENTATION: Yes alert CRANIAL NERVES: Yes CN normal except as noted SPEECH: speech normal MOTOR EXAM: Pronator motor function not present and Normal motor muscle tone present throughout Psych: COMMON NORMALS: mental status grossly normal and cooperative Course Vital Signs: Vital signs: Vital Signs Temperature 97.8 F 10/26/22 15:22 Pulse Rate 64 10/26/22 21:30 Respiratory Rate 15 10/26/22 21:30 Blood Pressure 119/67 10/26/22 21:30 Pulse Oximetry 95 10/26/22 21:30 Oxygen Delivery Me thod 10/26/22 19:41 [facility] - General Adult Medical Decision Making 71-year-old lady with generalized weakness. CBC is normal. BMP is not remarkable. Liver enzymes are not remarkable. Head CT shows a small amount of air in the left cavernous sinus likely due to injection. No acute intracranial infarct or hemorrhage. Urinalysis shows 1+ leukocyte esterase with 50-25 whites and 2+ bacteria. Swabs for flu and COVID are negative. Chest x-ray is negative. She is given a gram of Rocephin for the UTI here. She had a previous culture that grew E. coli that was resistant to some medications but not ceftriaxone. She will be released on cefdinir. She knows to return for worsening symptoms Lab Data 10/26/22 16:53 10/26/22 16:53 Radiology Impressions Chest X-Ray 10/26/22 19:40 IMPRESSION: 1. No acute cardiopulmonary process. 2. Incidental/nonacute findings are listed in the report. Head CT 10/26/22 19:40 IMPRESSION: 1. Acute intracranial hemorrhage or infarct. 2. Small amount of air in the left cavernous sinus that may be due to a previous injection. 3. Stable moderate atrophy of the brain parenchyma. 4. 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 5. Small amount of fluid in the right and left mastoid air cells. 6. Incidental/nonacute findings are listed in the report. Laboratory Results WBC 8.7 10^3/uL (4.0-10.0) 10/26/22 16:53 RBC 4.27 10^6/uL (4.1-5.3) 10/26/22 16:53 Hgb 13.8 g/dL (11.5-15.3) 10/26/22 16:53 Hct 42.4 % (37.0-47.0) 10/26/22 16:53 MCV 99.3 fl (81-99) H 10/26/22 16:53 MCH 32.3 pg (28.0-34.0) 10/26/22 16:53 MCHC 32.5 g/dL (30.0-36.0) 10/26/22 16:53 RDW 13.7 % (12.1-15.1) 10/26/22 16:53 Plt Count 205 10^3/cmm (130-400) 10/26/22 16:53 MPV 10.6 fL (7.4-10.4) H 10/26/22 16:53 Neut % (Auto) 53.8 % 10/26/22 16:53 Lymph % (Auto) 34.4 % 10/26/22 16:53 [place] % (Auto) 6.6 % 10/26/22 16:53 Eos % (Auto) 4.3 % 10/26/22 16:53 Baso % (Auto) 0.7 % 10/26/22 16:53 Neut # (Auto) 4.69 10^3/uL (1.8-7.7) 10/26/22 16:53 Lymph # (Auto) 3.0 10^3/uL (0.8-4.8) 10/26/22 16:53 Baldwin # (Auto) 0.6 10^3/uL (0.2-0.9) 10/26/22 16:53 Eos # (Auto) 0.4 10^3/uL (0.0-0.8) 10/26/22 16:53 Baso # (Auto) 0.1 10^3/uL (0.0-0.1) 10/26/22 16:53 Nucleated RBC % (auto) 0 % 10/26/22 16:53 Nucleated RBCs # 0.0 /100WBC 10/26/22 16:53 Sodium 136 mmol/L (136-145) 10/26/22 16:53 Potassium 4.4 mmol/L (3.5-5.1) 10/26/22 16:53 Chloride 95 mmol/L (98-107) L 10/26/22 16:53 Carbon Dioxide 33 mmol/L (22-29) H 10/26/22 16:53 Anion Gap 12.4 (5-19) 10/26/22 16:53 BUN 24 mg/dL (8-23) H 10/26/22 16:53 Creatinine 1.0 mg/dL (0.5-0.9) H 10/26/22 16:53 GFR Calculation Not Reportable 10/26/22 16:53 Glucose 144 mg/dL (65-115) H 10/26/22 16:53 Calculated Osmolality 289 mOsm/kg (285-295) 10/26/22 16:53 Calcium 9.1 mg/dL (8.5-10.5) 10/26/22 16:53 Total Bilirubin 0.3 mg/dL (0.15-1.2) 10/26/22 16:53 AST 20 U/L (0-32) 10/26/22 16:53 ALT 14 U/L (0-33) 10/26/22 16:53 Alkaline Phosphatase 77 U/L (35-105) 10/26/22 16:53 NT-Pro-B Natriuret Pep 964 pg/mL (0-125) H 10/26/22 16:53 Total Protein 6.7 g/dL (6.6-8.7) 10/26/22 16:53 Albumin 3.7 g/dL (3.5-5.2) 10/26/22 16:53 Globulin 3.0 g/dL (1.3-4.6) 10/26/22 16:53 Lipase 37 U/L (13-60) 10/26/22 16:53 Urine Color Yellow (Yellow) 10/26/22 20:00 Urine Appearance Clear (CLEAR) 10/26/22 20:00 Urine pH 6 (5-7) 10/26/22 20:00 Ur Specific [place] 1.010 (1.005-1.030) 10/26/22 20:00 Urine Protein Neg (Negative) 10/26/22 20:00 Urine Glucose (UA) Norm (Normal) 10/26/22 20:00 Urine Ketones Negative (Negative) 10/26/22 20:00 Urine Blood Neg (Negative) 10/26/22 20:00 Urine Nitrate Negative (Negative) 10/26/22 20:00 Urine Bilirubin Neg (Negative) 10/26/22 20:00 Urine Urobilinogen Neg mg/dL (Negative) 10/26/22 20:00 Ur Leukocyte Esterase 1+ (Negative) H 10/26/22 20:00 Urine RBC 0-4 /hpf (0-2) H 10/26/22 20:00 Urine WBC 15-25 /hpf (0-5) H 10/26/22 20:00 Ur Squamous Epith Cells 0-4 /hpf (0-5) H 10/26/22 20:00 Amorphous Sediment Not Reportable 10/26/22 20:00 Urine Bacteria 2+ /hpf (NONE) H 10/26/22 20:00 Urine Mucus Trace /hpf 10/26/22 20:00 Influenza Type A Ag negative (Negative) 10/26/22 21:01 Influenza Type B Ag negative (Negative) 10/26/22 21:01 SARS-CoV-2 Ag (Rapid) Negative (Negative) 10/26/22 21:01 Discharge Plan Discharge Patient Disposition: Home Clinical Impression: Urinary tract infection Condition: Stable Prescriptions: New cefdinir 300 mg capsule 300 mg PO BID Qty: 14 0RF No Action biotin 10,000 mcg capsule 10,000 mcg PO QAM ascorbate calcium (vitamin C) 500 mg tablet 500 mg PO QAM hydralazine 100 mg tablet 100 mg PO TID Qty: 270 3RF aspirin [Adult Low Dose Aspirin] 81 mg tablet,delayed release (DR/EC) 81 mg PO DAILY@0900 Qty: 90 3RF glimepiride 4 mg tablet See Rx Instructions .ROUTE .COMPLEX Qty: 180 3RF Dose Instruction: TAKE 1 TABLET BY MOUTH TWICE A DAY Rx Instructions: TAKE 1 TABLET BY MOUTH TWICE A DAY olmesartan 20 mg tablet 20 mg PO DAILY@0900 Qty: 90 3RF metoprolol succinate 100 mg tablet extended release 24 hr 100 mg PO DAILY@0900 Qty: 90 3RF ranolazine 500 mg tablet extended release 12 hr 500 mg PO BID@0900,2200 Qty: 180 3RF pantoprazole 40 mg tablet,delayed release (DR/EC) 40 mg PO BID@0900,2200 Qty: 180 3RF nitroglycerin [Nitrostat] 0.4 mg tablet, sublingual 0.4 mg SUBLINGUAL Q5M PRN (Reason: chest pain) Qty: 30 3RF Xarelto 10 mg tablet 10 mg PO DAILY@2200 Qty: 90 3RF Crestor 5 mg tablet 5 mg PO DAILY@0900 Qty: 90 3RF escitalopram oxalate 20 mg tablet 20 mg PO DAILY Qty: 90 3RF isosorbide mononitrate 60 mg tablet extended release 24 hr 60 mg PO DAILY Qty: 90 3RF Rx Instructions: 1 yr refill sent on 12/21/21 & again on 01/17/22; please update your records! duloxetine 60 mg capsule,delayed release(DR/EC) 60 mg PO DAILY@0900 Qty: 90 3RF furosemide 80 mg tablet 80 mg PO QAM Qty: 135 3RF Rx Instructions: Take 1 tab daily; *may take extra dose as needed for wt gain > 3lbs Klor-Con 10 10 mEq tablet extended release 20 meq PO QAM Qty: 180 3RF Rx Instructions: Take 2 tabs daily; *take additional dose w/Furosemide as needed for wt gain > 3lbs tizanidine 2 mg tablet 2 mg PO BEDTIME Qty: 90 1RF hydrocodone-acetaminophen 5-325 mg tablet 1 tab PO Q8H PRN (Reason: pain) 30 Days Qty: 30 0RF multivitamin Tablet 1 tab PO QAM ProAir HFA 90 mcg/actuation Hfa Aerosol Inhaler 2 puff INHALATION Q6H PRN (Reason: Shortness Of Breath) diclofenac sodium 1 % gel 2 g TOPICAL QID@09,13,17,21 PRN (Reason: Pain) Discharge Orders: Discharge ED (Routine); Ordered 10/26/22 Ordered By: Donnell Ponce Referrals: Regan Contreras MD [Primary Care Provider] - Patient Instructions: Urinary Tract Infection in Older Adults (ED), Opioid Safety, Pain Management Activity Restrictions/Additional Instructions: Stay hydrated. Monitor for fever at least 3 times daily. Treat accordingly. Return for vomiting liquids or medications, worsening weakness or lethargy despite treatment, fever greater than 100 despite 2-3 doses of antibiotics, any other concerning symptoms. Antibiotics as directed. Coding Level of Care Code ED Shredded Filler Hopper Feeder for Chg Fwd Exam Comprehensive
[2022-10-26] MEDS: sodium chloride 0.9% 1,000 ML 999 ML IV (20:01)
[2022-10-26 20:27] LABS: NT Pro B Type Natriuretic Pept 964 pg/mL (0-125)
[2022-10-26 20:31] LABS: Add Urine Microscopic? YES; Bilirubin Urine Neg (Negative); Blood Urine Neg (Negative); Glucose Urine UA Norm (Normal); Ketones Urine Negative (Negative); Leukocyte Esterase Urine 1+ (Negative); Nitrate Urine Negative (Negative); Protein Urine Neg (Negative); Urine Appearance Clear (CLEAR); Urine Color Yellow (Yellow); Urobilinogen Urine Neg (Negative); pH Urine 6 (5-7)
[2022-10-26 20:33] LABS: RBC Urine 0-4 /hpf (0-2)
[2022-10-26 20:34] LABS: Add Urine Culture? Yes; Bacteria Urine 2+ /hpf; Mucus Urine TRACE /hpf; Squamous Epithelial Cell Urine 0-4 /hpf (0-5); WBC Urine 15-25 /hpf (0-5)
[2022-10-26] MEDS: cefTRIAXone 1,000 MG in sodium chloride 0.9% (plus) 50 ML 100 MG IV (21:25)
[2022-10-26 21:30] LABS: Influenza A by IFA negative (Negative); Influenza B by IFA negative (Negative)
[2022-10-26 21:33] LABS: SARS Covid-2 Antigen Negative (Negative)
== END 2022-10-26 21:59 | disposition home or self-care (01) ==
PROVIDERS: Emergency Medicine; Emergency Provider Emergency Medicine; PCP Internal Medicine
DX: N39.0 Urinary tract infection, site not specified (principal); Z79.82 Long term (current) use of aspirin; Z79.84 Long term (current) use of oral hypoglycemic drugs; Z20.822 Contact with and (suspected) exposure to COVID-19; Z87.891 Personal history of nicotine dependence
CPT/HCPCS: 36415; 70450; 71045; 80053; 81001; 83690; 83880; 85025; 87077; 87086; 87186; 87426; 87804; 93005; 96365; 99285; J0696; J7030

== ENCOUNTER → 2022-11-01 11:58 | Outpatient (BNVA) | payer MEDICARE, MEDICAID, SELFPAY | PROVIDERS: PCP Internal Medicine; Visit Provider Family Medicine | DX: I48.20 Chronic atrial fibrillation, unspecified (principal); E11.65 Type 2 diabetes mellitus with hyperglycemia; F32.1 Major depressive disorder, single episode, moderate; I95.1 Orthostatic hypotension; I95.9 Hypotension, unspecified; I50.32 Chronic diastolic (congestive) heart failure; I25.10 Atherosclerotic heart disease of native coronary artery without angina pectoris; K21.9 Gastro-esophageal reflux disease without esophagitis; G89.29 Other chronic pain; I20.8 Other forms of angina pectoris | CPT/HCPCS: 80053; 80061; 83036; 85025 ==

== ENCOUNTER 2022-11-04 07:28 | Outpatient (CLI) | payer MEDICARE, MEDICAID, SELFPAY ==
[2022-11-04 07:33] VITALS: BMI 35.1
--- NOTE | 2022-11-04 07:35 | ECG_ITS ---
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 Interpretive Statements NAME OF STUDY: LEXISCAN SESTAMIBI STRESS TEST INDICATION: Chest Pain; ASHD RESULTS TO DANELLE KIM PROCEDURE: At the baseline, the EKG revealed atrial fibrillation with a diffuse nonspecific ST-T changes.. The baseline heart was 78 bpm with a blood pressue of 147/57 mm of Hg Lexiscan was infused over a period of 20 seconds. A total of 0.4 milligrams of Lexiscan was infused. The stress phase was continued for a total of 5 minutes. Heart rate at the end of the stress phase was 89 bpm with a blood pressure 124/69 mm of Hg. The EKG at the peak infusion revealed no significant changes. Sestamibi was injected 20 seconds after the Lexiscan infusion. Heart rate at the end of the recovery phase was 82 bpm with a blood pressure of 128/78 mm of Hg. CONCLUSION: 1. No significant EKG changes with the LexiScan infusion 2. No LexiScan induced chest pain or cardiac arrhythmia 3. Normal blood pressure and heart rate response 4. Sestamibi/sestamibi perfusion scan pending; see separate report. Electronically Signed On 11-09-2022 13:16:06 PROOF SORTER by Leonardo Nix M.D. [id number]
--- NOTE | 2022-11-04 07:35 | NMCV_ITS ---
NM tano perf SPECT r/s* [id number] Chiqui Arias Age: 71 Gender: F : 1950 Exam Date: 11/04/2022 08:28 Ordering Phys: Leonardo Nix MD ([email or web address]) Technologist: JESSICA Groves Exam Location: [facility] Indications: CORONARY ANGIOPLASTY STATUS STRESS TEST Please see separate stress test report in [facility] for full findings IMAGE PROTOCOL Rest/Stress 1 Lexiscan Day Radiopharmaceutical Dose (mCi) Administration Site Administered by Rest: Tc-99m 10.7 IV JESSICA King Sestamibi Stress:Tc-99m 32.7 IV JESSICA King Sestamibi Rest: 04-Nov-2022 60 Discovery 630 Stress: 04-Nov-2022 30 Discovery 630 0.4mg Lexiscan. Images obtained in supine and prone position. SPECT RESULTS Technical Quality: Excellent Raw Data Analysis: Normal Image Corrections: No attenuation or motion correction applied Summed Stress Score: 1 Summed Rest Score: 4 Summed Difference Score: 0 PERFUSION FINDINGS Small area of slightly decreased trace of blood was noted in the mid inferolateral region with no significant reversibility FUNCTIONAL RESULTS (calculated via Gated SPECT) Stress Image LV EF (%): 73 Stress EDV (mL):94 TID: 1.18 Stress ESV (mL):25 FUNCTIONAL FINDINGS: Segmental wall motion analysis revealing no gross wall motion normalities. The transient ischemic dilatation ratio was slightly elevated at 1.18. IMPRESSIONS 1. Myocardial perfusion imaging revealing small area of slightly decreased persistent tracer uptake in the mid inferolateral region suggestive of myocardial scarring versus attritional artifact. The elevated transient ischemic dilatation ratio, may suggest endocardial ischemia. However the positive predictive value of this finding is limited especially in the absence of any other abnormal objective findings. 2. Normal LV ejection fraction of 73%. 3. LV wall motion analysis revealing no gross wall motion abnormalities. 4. Normal LV volume. No similar previous studies are available for comparison Dr Leonardo Nix MD FACC (Electronically Signed) Final Date: 04 November 2022 13:44 S
[2022-11-04] MEDS: regadenoson 0.4 Mg/5 ml Syringe IVP (09:13)
[2022-11-04 09:30] VITALS: BP 132/84; PULSE 82
== END 2022-11-04 07:29 | disposition home or self-care (01) ==
LOC: CDL 07:30
PROVIDERS: PCP Family Medicine; Visit Provider Internal Medicine Cardiovascular Disease
DX: Z98.61 Coronary angioplasty status (principal)
CPT/HCPCS: 36415; 78452; 93017; 96374; A9500; J2785

== ENCOUNTER 2022-11-05 06:57 | Inpatient (IN) | payer MEDICARE, MEDICAID, SELFPAY ==
[2022-11-05] VITALS (12 sets, daily range): BP systolic 104–172; BP diastolic 76–122; PULSE 80–130; RESP 16–28; TEMP 37.1–38; O2SAT 89–95; BMI 34.8
--- NOTE | 2022-11-05 07:11 | ECG_ITS ---
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 [email or web address] [email or web address] [facility].[employer]/store/[id number]
--- NOTE | 2022-11-05 07:11 | XRR_ITS ---
PROCEDURE INFORMATION: Exam: XR Chest Exam date and time: 11/05/2022 7:25 AM Age: 71 years old Clinical indication: Cough and dyspnea and shortness of breath; Additional info: Dyspnea/cough TECHNIQUE: Imaging protocol: Radiologic exam of the chest. Views: 1 view. COMPARISON: CR (CHEST, ) 10/26/2022 8:09 PM FINDINGS: Lungs: Hazy interstitial infiltrates are developing in the mid and lower lung zones greater on the left side. Pleural spaces: Unremarkable. No pleural effusion. No pneumothorax. Heart/Mediastinum: The cardiac silhouette is enlarged but unchanged. Bones/joints: Unremarkable. XR/XR chest 1V portable [id number] IMPRESSION: There are developing hazy interstitial infiltrates in the mid and lower lung zones greater on the left side. Though this could be due to interstitial edema from heart failure a interstitial pneumonia should also be considered.
--- NOTE | 2022-11-05 07:40 | ED_ITS ---
Documented by User: MEHUL Stein 11/05/22 09:13 HPI - SOB/Dyspnea General: Chief Complaint: ER Hold Stated Complaint: SOB Time Seen by Provider: 11/05/22 07:08 Source: patient Mode of arrival: EMS Limitations: no limitations History of Present Illness: HPI Narrative: Patient is a 71-year-old female with an extensive medical history including CAD, HTN, DM2, GERD, HLD, atrial fibrillation currently on Xarelto, and heart failure (last echo 02/2021 with an EF of 50 to 55%) here for complaints of chest pain, shortness of breath, difficulty breathing. Patient states she had a chemical stress test yesterday and states she began feeling bad when she got home. She states she normally does not wear oxygen but had to wear her 's oxygen secondary to her shortness of breath. She states she began coughing yesterday evening. This morning she noticed a low-grade fever of 99.5. Patient states she is on many medications some of which were recently adjusted by her PCP and now states I am not sure what I am supposed to be taking . Patient was hypoxic when EMS arrived to her residence. She is currently on 3L satting around 93%. She is a-fib with RVR on the monitor currently. MD elicited complaint: shortness of breath and chest pain Pertinent past history: congestive heart failure Onset (ago): day(s) Timing: constant Severity: severe Exacerbating factors: exertion and coughing Relieving factors: oxygen Known history of: congestive heart failure Associated symptoms: Reports chest congestion, chest pain and fever(s) (reports low grade of 99.5); Deny abdominal pain, dizziness, extremity pain, hemoptysis, lightheadedness, nausea, syncope or vomiting Treatment prior to arrival: oxygen Related Data: Home oxygen amount: none Review of Systems Const: Reports: fever(s) (reports low grade of 99.5) and fatigue; Denies: chills or body aches ENMT: Denies: throat pain, odynophagia, nasal discharge or nasal congestion Card: Reports: chest pain, irregular heart rhythm (reports chronic atrial fib) and dyspnea on exertion; Denies: edema, lightheadedness, syncope or pre-syncope Resp: Reports: dyspnea, productive cough and chest congestion; Denies: wheezing or hemoptysis GI: Denies: abdominal pain, nausea, vomiting or change in bowel habits : Denies: flank pain, dysuria or hematuria Musc: Denies: neck pain, back pain, extremity pain or joint pain Skin/Breast: Denies: rash Neuro: Denies: headache(s), numbness in extremities, weakness in extremities, sensory changes or dizziness PFSH ED PFSH: Medical History (Updated 11/05/22 @ 12:10 by Mendoza Corona DO) ASHD (arteriosclerotic heart disease) Last angiogram with LAD 40-50 percent narrowing Cannabis abuse Cardiomyopathy Chronic atrial fibrillation Chronic pain Chronic thoracic back pain COPD (chronic obstructive pulmonary disease) Diabetes type 2, controlled Encounter for weight loss counseling Discussed close follow-up due to episodes of hypoglycemia in the past when starting a weight loss program. GERD (gastroesophageal reflux disease) HTN (hypertension) Hypercholesterolemia Moderate major depression Recent weight gain Surgical History Gastric bypass status for obesity H/O cataract extraction H/O hernia repair H/O tubal ligation History of back surgery History of foot surgery History of oral surgery Hx of appendectomy Hx of cholecystectomy S/P knee replacement Family History Father Emphysema lung Mother COPD (chronic obstructive pulmonary disease) Brother Cancer lung nodule Emphysema lung Lung disease Chronic kidney disease (CKD) Family/Other Cancer Nephew--jaw Stroke Other CAD (coronary artery disease) CHF (congestive heart failure) Diabetes Hyperlipidemia Hypertension Psychiatric illness Denies family history of Clotting disorder Dementia Suicide Anesthesia complication Bleeding disorder Social History (Updated 11/05/22 @ 10:16 by Galen Alcala MD) Smoking and tobacco status: former smoker Quit status (tobacco): has quit using tobacco Alcohol intake: current Alcohol intake frequency: 0-2 Drinks per Day Lives independently: Yes Household members: spouse Marital status: Number of children: 3 Current occupational status: retired and disabled History of recent travel: No Tejal/Holiness: Congregational Special tejal needs: No Physical Exam Const: COMMON NORMALS: patient oriented x3, no limitations, alert and well nourished GENERAL APPEARANCE: cooperative and in distress (acute respiratory distress with hypoxia ) ORIENTATION/CONSCIOUSNESS: Yes awake, Yes oriented to person, Yes oriented to place and Yes oriented to time HENMT: COMMON NORMALS: normocephalic and atraumatic HEAD & SCALP: normal to inspection, normocephalic and atraumatic Neck/C-Spine: COMMON NORMALS: full ROM GENERAL: Yes normal visual inspection, No anterior neck swelling and No submandibular swelling Chest: COMMONS NORMALS: normal inspection of the chest and normal palpation of entire chest wall Resp: EFFORT & INSPECTION: Yes labored, No grunting, No stridor, No retractions and Yes uses accessory muscles AUSCULTATION: rhonchi and wheezes Cardio: RATE: tachycardic RHYTHM: abnormal rhythm irregularly irregular GI: COMMON NORMALS: Normal to inspection, nondistended, normoactive bowel sounds present, Soft to palpation and non-tender PALPATION: Yes Soft to palpation Neuro: RAZ COMA SCALE: document GCS findings Raz coma scale eye opening: Spontaneous [place] coma scale verbal response: Orientated Raz coma scale motor response: Obey commands Raz coma scale total score: 15 COMMON NORMALS: patient oriented x3 SENSORIUM/ORIENTATION: Yes alert, Yes oriented to person, Yes oriented to place and Yes oriented to time Course ED course: I initiated patient's care upon arrival to the ED. Dr. Corona was made aware of status/need for admission and he will assume care at this time. ES Vital Signs: Vital signs: Vital Signs Temperature 99.5 F 11/05/22 06:57 Pulse Rate 130 H 11/05/22 10:57 Respiratory Rate 18 11/05/22 09:33 Blood Pressure 138/76 11/05/22 10:57 Pulse Oximetry 95 11/05/22 09:33 Oxygen Delivery Me thod 11/05/22 09:33 Oxygen Flow Rate 4 11/05/22 09:33 MDM - SOB/Dyspnea Medical Decision Making Care assumed by Dr. Corona ES Lab Data 11/05/22 07:25 11/05/22 07:25 Labs/Radiology: Radiology Impressions Chest X-Ray 11/05/22 07:11 IMPRESSION: There are developing hazy interstitial infiltrates in the mid and lower lung zones greater on the left side. Though this could be due to interstitial edema from heart failure a interstitial pneumonia should also be considered. Laboratory Results WBC 11.8 10^3/uL (4.0-10.0) H 11/05/22 07:25 RBC 4.08 10^6/uL (4.1-5.3) L 11/05/22 07:25 Hgb 13.4 g/dL (11.5-15.3) 11/05/22 07:25 Hct 41.0 % (37.0-47.0) 11/05/22 07:25 MCV 100.5 fl (81-99) H 11/05/22 07:25 MCH 32.8 pg (28.0-34.0) 11/05/22 07:25 MCHC 32.7 g/dL (30.0-36.0) 11/05/22 07:25 RDW 14.3 % (12.1-15.1) 11/05/22 07:25 Plt Count 156 10^3/cmm (130-400) 11/05/22 07:25 MPV 10.0 fL (7.4-10.4) 11/05/22 07:25 Neut % (Auto) 81.3 % 11/05/22 07:25 Lymph % (Auto) 11.8 % 11/05/22 07:25 [place] % (Auto) 5.4 % 11/05/22 07:25 Eos % (Auto) 0.6 % 11/05/22 07:25 Baso % (Auto) 0.4 % 11/05/22 07:25 Neut # (Auto) 9.56 10^3/uL (1.8-7.7) H 11/05/22 07:25 Lymph # (Auto) 1.4 10^3/uL (0.8-4.8) 11/05/22 07:25 [place] # (Auto) 0.6 10^3/uL (0.2-0.9) 11/05/22 07:25 Eos # (Auto) 0.1 10^3/uL (0.0-0.8) 11/05/22 07:25 Baso # (Auto) 0.1 10^3/uL (0.0-0.1) 11/05/22 07:25 Nucleated RBC % (auto) 0 % 11/05/22 07:25 Nucleated RBCs # 0.0 /100WBC 11/05/22 07:25 Specimen Type Arterial 11/05/22 08:17 Sample Site Brachial, right 11/05/22 08:17 ABG pH 7.44 (7.35-7.45) 11/05/22 08:17 ABG pCO2 40.6 mmHg (35-45) 11/05/22 08:17 ABG pO2 71.4 mmHg (80.0-100.0) L 11/05/22 08:17 ABG HCO3 27.6 mmol/L (22-26) H 11/05/22 08:17 ABG O2 Saturation 96.3 11/05/22 08:17 ABG Base Excess 3.1 mmol/L (-2.0-2.0) H 11/05/22 08:17 Adolfo Test N/a 11/05/22 08:17 A-a O2 Gradient 17.6 mmHg (5-10) H 11/05/22 08:17 Hematocrit 42.0 % (37-47) 11/05/22 08:17 Hgb O2 Saturation 93.9 % (95-100) L 11/05/22 08:17 Carboxyhemoglobin 1.8 %THgb (0.4-20.1) 11/05/22 08:17 Methemoglobin 0.6 % (0.4-1.5) 11/05/22 08:17 Total Hemoglobin 13.7 g/dL (12-16) 11/05/22 08:17 Sodium 140.0 mmol/L (131-143) 11/05/22 08:17 Potassium 3.8 mmol/L (3.5-5.0) 11/05/22 08:17 Glucose 153.0 mg/dL (70-115) H 11/05/22 08:17 Ionized Calcium 1.2 mmol/L (1.1-1.4) 11/05/22 08:17 O2 Delivery Device Nc 11/05/22 08:17 O2 Liters/Min 4.0 % 11/05/22 08:17 FiO2 36.0 % 11/05/22 08:17 Die Casting Machine Maintainer ID [email or web address] 11/05/22 08:17 Sodium 140 mmol/L (136-145) 11/05/22 07:25 Potassium 3.7 mmol/L (3.5-5.1) 11/05/22 07:25 Chloride 101 mmol/L (98-107) 11/05/22 07:25 Carbon Dioxide 26 mmol/L (22-29) 11/05/22 07:25 Anion Gap 16.7 (5-19) 11/05/22 07:25 BUN 9 mg/dL (8-23) 11/05/22 07:25 Creatinine 0.8 mg/dL (0.5-0.9) 11/05/22 07:25 GFR Calculation Not Reportable 11/05/22 07:25 Glucose 133 mg/dL (65-115) H 11/05/22 07:25 Calculated Osmolality 291 mOsm/kg (285-295) 11/05/22 07:25 Calcium 8.4 mg/dL (8.5-10.5) L 11/05/22 07:25 Magnesium 1.8 mg/dL (1.7-2.3) 11/05/22 07:25 Total Bilirubin 0.8 mg/dL (0.15-1.2) 11/05/22 07:25 AST 19 U/L (0-32) 11/05/22 07:25 ALT 11 U/L (0-33) 11/05/22 07:25 Alkaline Phosphatase 73 U/L (35-105) 11/05/22 07:25 Troponin T Baseline 22 ng/L (0-10) H 11/05/22 07:25 Troponin T 120 Minute 45.05 ng/L (0-10) H 11/05/22 09:35 Delta Troponin T 23.05 ABS# (0-10) H* 11/05/22 09:35 NT-Pro-B Natriuret Pep 3523 pg/mL (0-125) H 11/05/22 07:25 Total Protein 5.7 g/dL (6.6-8.7) L 11/05/22 07:25 Albumin 3.5 g/dL (3.5-5.2) 11/05/22 07:25 Globulin 2.2 g/dL (1.3-4.6) 11/05/22 07:25 Procalcitonin 0.05 ng/mL (0-0.5) 11/05/22 08:08 TSH 1.75 uIU/mL (0.27-4.20) 11/05/22 07:25 Urine Color Yellow (Yellow) 11/05/22 08:55 Urine Appearance Clear (CLEAR) 11/05/22 08:55 Urine pH 6 (5-7) 11/05/22 08:55 Ur Specific [place] 1.010 (1.005-1.030) 11/05/22 08:55 Urine Protein 1+ (Negative) H 11/05/22 08:55 Urine Glucose (UA) Norm (Normal) 11/05/22 08:55 Urine Ketones 1+ (Negative) H 11/05/22 08:55 Urine Blood Neg (Negative) 11/05/22 08:55 Urine Nitrate Negative (Negative) 11/05/22 08:55 Urine Bilirubin Neg (Negative) 11/05/22 08:55 Urine Urobilinogen Norm mg/dL (Negative) 11/05/22 08:55 Ur Leukocyte Esterase Negative (Negative) 11/05/22 08:55 Urine RBC 0-4 /hpf (0-2) H 11/05/22 08:55 Urine WBC 0-4 /hpf (0-5) H 11/05/22 08:55 Ur Squamous Epith Cells 10-15 /hpf (0-5) H 11/05/22 08:55 Amorphous Sediment Not Reportable 11/05/22 08:55 Urine Bacteria Trace /hpf (NONE) 11/05/22 08:55 Coarse Granular Casts 0-4 /lpf H 11/05/22 08:55 Coronavirus 229E (PCR) Not detected (NOT DETECT) 11/05/22 08:43 Human Metapneumovir PCR Detected (NOT DETECT) A 11/05/22 11:12 Entero/Rhino (PCR) Not detected (NOT DETECT) 11/05/22 11:12 SARS-CoV-2 (PCR) Not detected (NOT DETECT) 11/05/22 08:43 Discharge Plan Discharge Patient Disposition: Admitted As Inpatient Clinical Impression: Acute combined systolic and diastolic heart failure, ASHD (arteriosclerotic heart disease), HTN (hypertension), Atrial fibrillation with rapid ventricular response, Elevated troponin Condition: Stable Prescriptions: No Action biotin 10,000 mcg capsule 10,000 mcg PO QAM ascorbate calcium (vitamin C) 500 mg tablet 500 mg PO QAM Medical Marijuana See Rx Instructions .ROUTE .COMPLEX Rx Instructions: prn aspirin [Adult Low Dose Aspirin] 81 mg tablet,delayed release (DR/EC) 81 mg PO DAILY@0900 Qty: 90 3RF olmesartan 20 mg tablet 20 mg PO DAILY@0900 Qty: 90 3RF metoprolol succinate 100 mg tablet extended release 24 hr 100 mg PO DAILY@0900 Qty: 90 3RF ranolazine 500 mg tablet extended release 12 hr 500 mg PO BID@0900,2200 Qty: 180 3RF pantoprazole 40 mg tablet,delayed release (DR/EC) 40 mg PO BID@0900,2200 Qty: 180 3RF nitroglycerin [Nitrostat] 0.4 mg tablet, sublingual 0.4 mg SUBLINGUAL Q5M PRN (Reason: chest pain) Qty: 30 3RF Xarelto 10 mg tablet 10 mg PO DAILY@2200 Qty: 90 3RF Crestor 5 mg tablet 5 mg PO DAILY@0900 Qty: 90 3RF duloxetine 60 mg capsule,delayed release(DR/EC) 60 mg PO DAILY@0900 Qty: 90 3RF furosemide 80 mg tablet 80 mg PO QAM Qty: 135 3RF Rx Instructions: *may take extra dose as needed for wt gain > 3lbs Klor-Con 10 10 mEq tablet extended release 20 meq PO QAM Qty: 180 3RF Rx Instructions: *take additional dose w/Furosemide as needed for wt gain > 3lbs hydrocodone-acetaminophen 5-325 mg tablet 1 tab PO Q8H PRN (Reason: pain) 30 Days Qty: 30 0RF multivitamin Tablet 1 tab PO QAM albuterol sulfate [ProAir HFA] 90 mcg/actuation Hfa Aerosol Inhaler 2 puff INHALATION Q6H PRN (Reason: Shortness Of Breath) diclofenac sodium 1 % gel 2 g TOPICAL QID@09,13,17,21 PRN (Reason: Pain) cefdinir 300 mg capsule 300 mg PO BID Qty: 14 0RF Rx Instructions: rx filled 10/28/ 7d/s isosorbide mononitrate 60 mg tablet extended release 24 hr 60 mg PO QAM glimepiride 4 mg tablet 4 mg PO BID escitalopram oxalate 20 mg tablet 20 mg PO QAM Referrals: Bobby Ingram MD [Primary Care Provider] - Coding Level of Care Code ED Stain Wiper for Chg Fwd Documented by User: Mendoza Corona DO 11/05/22 12:10 HPI - SOB/Dyspnea General: Chief Complaint: ER Hold Stated Complaint: SOB Time Seen by Provider: 11/05/22 07:08 PFSH ED PFSH: Medical History (Updated 11/05/22 @ 12:10 by Mendoza Corona DO) ASHD (arteriosclerotic heart disease) Last angiogram with LAD 40-50 percent narrowing Cannabis abuse Cardiomyopathy Chronic atrial fibrillation Chronic pain Chronic thoracic back pain COPD (chronic obstructive pulmonary disease) Diabetes type 2, controlled Encounter for weight loss counseling Discussed close follow-up due to episodes of hypoglycemia in the past when starting a weight loss program. GERD (gastroesophageal reflux disease) HTN (hypertension) Hypercholesterolemia Moderate major depression Recent weight gain Surgical History Gastric bypass status for obesity H/O cataract extraction H/O hernia repair H/O tubal ligation History of back surgery History of foot surgery History of oral surgery Hx of appendectomy Hx of cholecystectomy S/P knee replacement Family History Father Emphysema lung Mother COPD (chronic obstructive pulmonary disease) Brother Cancer lung nodule Emphysema lung Lung disease Chronic kidney disease (CKD) Family/Other Cancer Nephew--jaw Stroke Other CAD (coronary artery disease) CHF (congestive heart failure) Diabetes Hyperlipidemia Hypertension Psychiatric illness Denies family history of Clotting disorder Dementia Suicide Anesthesia complication Bleeding disorder Social History (Updated 11/05/22 @ 10:16 by Galen Alcala MD) Smoking and tobacco status: former smoker Quit status (tobacco): has quit using tobacco Alcohol intake: current Alcohol intake frequency: 0-2 Drinks per Day Lives independently: Yes Household members: spouse Marital status: Number of children: 3 Current occupational status: retired and disabled History of recent travel: No Tejal/Holiness: Congregational Special tejal needs: No Physical Exam Neuro: RAZ COMA SCALE: document GCS findings Raz coma scale total score: 15 Course Vital Signs: Vital signs: Vital Signs Temperature 99.5 F 11/05/22 06:57 Pulse Rate 130 H 11/05/22 10:57 Respiratory Rate 18 11/05/22 09:33 Blood Pressure 138/76 11/05/22 10:57 Pulse Oximetry 95 11/05/22 09:33 Oxygen Delivery Me thod 11/05/22 09:33 Oxygen Flow Rate 4 11/05/22 09:33 MDM - SOB/Dyspnea Medical Decision Making Care assumed by Dr. Cj PAEZ Patient care handoff received from Ofe Young continuation of ED evaluation. I personally saw and evaluated patient and reperformed neil portions of E/M. Patient seen and examined and interviewed. She is still having chest pain lung sounds have crackles at the bases she appears to be in acute congestive heart failure stress test from day prior was not that significant her previous echocardiogram from 2 years ago showed an EF of 35 to 40% she was given Lasix. She has not A-fib with some moderate rapid response with a rate at most in the 120s to 130s with any kind of effort when she was just lying still in bed it was around 110. When we had started her on Cardizem also give hydralazine and labetalol for her blood pressure. She had not taken any of her morning blood pressure medications those medicines were ordered her first troponin is 22 her BNP is significantly elevated second troponin pending she is get also given morphine for her pain. Reviewed previous angiography from 2 years ago she had some 40 to 50% LAD lesions. Discussed with hospitalist orders written. After discussing the hospitalist her second troponin came back with a positive delta troponin of 23, Dr. Roberts will be addressing that. Medical Records I reviewed the patient's medical records. Lab Data I reviewed the patient's lab results. 11/05/22 07:25 11/05/22 07:25 Labs/Radiology: Radiology Impressions Chest X-Ray 11/05/22 07:11 IMPRESSION: There are developing hazy interstitial infiltrates in the mid and lower lung zones greater on the left side. Though this could be due to interstitial edema from heart failure a interstitial pneumonia should also be considered. Laboratory Results WBC 11.8 10^3/uL (4.0-10.0) H 11/05/22 07:25 RBC 4.08 10^6/uL (4.1-5.3) L 11/05/22 07:25 Hgb 13.4 g/dL (11.5-15.3) 11/05/22 07:25 Hct 41.0 % (37.0-47.0) 11/05/22 07:25 MCV 100.5 fl (81-99) H 11/05/22 07:25 MCH 32.8 pg (28.0-34.0) 11/05/22 07:25 MCHC 32.7 g/dL (30.0-36.0) 11/05/22 07:25 RDW 14.3 % (12.1-15.1) 11/05/22 07:25 Plt Count 156 10^3/cmm (130-400) 11/05/22 07:25 MPV 10.0 fL (7.4-10.4) 11/05/22 07:25 Neut % (Auto) 81.3 % 11/05/22 07:25 Lymph % (Auto) 11.8 % 11/05/22 07:25 [place] % (Auto) 5.4 % 11/05/22 07:25 Eos % (Auto) 0.6 % 11/05/22 07:25 Baso % (Auto) 0.4 % 11/05/22 07:25 Neut # (Auto) 9.56 10^3/uL (1.8-7.7) H 11/05/22 07:25 Lymph # (Auto) 1.4 10^3/uL (0.8-4.8) 11/05/22 07:25 [place] # (Auto) 0.6 10^3/uL (0.2-0.9) 11/05/22 07:25 Eos # (Auto) 0.1 10^3/uL (0.0-0.8) 11/05/22 07:25 Baso # (Auto) 0.1 10^3/uL (0.0-0.1) 11/05/22 07:25 Nucleated RBC % (auto) 0 % 11/05/22 07:25 Nucleated RBCs # 0.0 /100WBC 11/05/22 07:25 Specimen Type Arterial 11/05/22 08:17 Sample Site Brachial, right 11/05/22 08:17 ABG pH 7.44 (7.35-7.45) 11/05/22 08:17 ABG pCO2 40.6 mmHg (35-45) 11/05/22 08:17 ABG pO2 71.4 mmHg (80.0-100.0) L 11/05/22 08:17 ABG HCO3 27.6 mmol/L (22-26) H 11/05/22 08:17 ABG O2 Saturation 96.3 11/05/22 08:17 ABG Base Excess 3.1 mmol/L (-2.0-2.0) H 11/05/22 08:17 Adolfo Test N/a 11/05/22 08:17 A-a O2 Gradient 17.6 mmHg (5-10) H 11/05/22 08:17 Hematocrit 42.0 % (37-47) 11/05/22 08:17 Hgb O2 Saturation 93.9 % (95-100) L 11/05/22 08:17 Carboxyhemoglobin 1.8 %THgb (0.4-20.1) 11/05/22 08:17 Methemoglobin 0.6 % (0.4-1.5) 11/05/22 08:17 Total Hemoglobin 13.7 g/dL (12-16) 11/05/22 08:17 Sodium 140.0 mmol/L (131-143) 11/05/22 08:17 Potassium 3.8 mmol/L (3.5-5.0) 11/05/22 08:17 Glucose 153.0 mg/dL (70-115) H 11/05/22 08:17 Ionized Calcium 1.2 mmol/L (1.1-1.4) 11/05/22 08:17 O2 Delivery Device Nc 11/05/22 08:17 O2 Liters/Min 4.0 % 11/05/22 08:17 FiO2 36.0 % 11/05/22 08:17 Die Casting Machine Maintainer ID [email or web address] 11/05/22 08:17 Sodium 140 mmol/L (136-145) 11/05/22 07:25 Potassium 3.7 mmol/L (3.5-5.1) 11/05/22 07:25 Chloride 101 mmol/L (98-107) 11/05/22 07:25 Carbon Dioxide 26 mmol/L (22-29) 11/05/22 07:25 Anion Gap 16.7 (5-19) 11/05/22 07:25 BUN 9 mg/dL (8-23) 11/05/22 07:25 Creatinine 0.8 mg/dL (0.5-0.9) 11/05/22 07:25 GFR Calculation Not Reportable 11/05/22 07:25 Glucose 133 mg/dL (65-115) H 11/05/22 07:25 Calculated Osmolality 291 mOsm/kg (285-295) 11/05/22 07:25 Calcium 8.4 mg/dL (8.5-10.5) L 11/05/22 07:25 Magnesium 1.8 mg/dL (1.7-2.3) 11/05/22 07:25 Total Bilirubin 0.8 mg/dL (0.15-1.2) 11/05/22 07:25 AST 19 U/L (0-32) 11/05/22 07:25 ALT 11 U/L (0-33) 11/05/22 07:25 Alkaline Phosphatase 73 U/L (35-105) 11/05/22 07:25 Troponin T Baseline 22 ng/L (0-10) H 11/05/22 07:25 Troponin T 120 Minute 45.05 ng/L (0-10) H 11/05/22 09:35 Delta Troponin T 23.05 ABS# (0-10) H* 11/05/22 09:35 NT-Pro-B Natriuret Pep 3523 pg/mL (0-125) H 11/05/22 07:25 Total Protein 5.7 g/dL (6.6-8.7) L 11/05/22 07:25 Albumin 3.5 g/dL (3.5-5.2) 11/05/22 07:25 Globulin 2.2 g/dL (1.3-4.6) 11/05/22 07:25 Procalcitonin 0.05 ng/mL (0-0.5) 11/05/22 08:08 TSH 1.75 uIU/mL (0.27-4.20) 11/05/22 07:25 Urine Color Yellow (Yellow) 11/05/22 08:55 Urine Appearance Clear (CLEAR) 11/05/22 08:55 Urine pH 6 (5-7) 11/05/22 08:55 Ur Specific [place] 1.010 (1.005-1.030) 11/05/22 08:55 Urine Protein 1+ (Negative) H 11/05/22 08:55 Urine Glucose (UA) Norm (Normal) 11/05/22 08:55 Urine Ketones 1+ (Negative) H 11/05/22 08:55 Urine Blood Neg (Negative) 11/05/22 08:55 Urine Nitrate Negative (Negative) 11/05/22 08:55 Urine Bilirubin Neg (Negative) 11/05/22 08:55 Urine Urobilinogen Norm mg/dL (Negative) 11/05/22 08:55 Ur Leukocyte Esterase Negative (Negative) 11/05/22 08:55 Urine RBC 0-4 /hpf (0-2) H 11/05/22 08:55 Urine WBC 0-4 /hpf (0-5) H 11/05/22 08:55 Ur Squamous Epith Cells 10-15 /hpf (0-5) H 11/05/22 08:55 Amorphous Sediment Not Reportable 11/05/22 08:55 Urine Bacteria Trace /hpf (NONE) 11/05/22 08:55 Coarse Granular Casts 0-4 /lpf H 11/05/22 08:55 Coronavirus 229E (PCR) Not detected (NOT DETECT) 11/05/22 08:43 Human Metapneumovir PCR Detected (NOT DETECT) A 11/05/22 11:12 Entero/Rhino (PCR) Not detected (NOT DETECT) 11/05/22 11:12 SARS-CoV-2 (PCR) Not detected (NOT DETECT) 11/05/22 08:43 Discharge Plan Discharge Patient Disposition: Admitted As Inpatient Clinical Impression: Acute combined systolic and diastolic heart failure, ASHD (arteriosclerotic heart disease), HTN (hypertension), Atrial fibrillation with rapid ventricular response, Elevated troponin Condition: Stable Prescriptions: No Action biotin 10,000 mcg capsule 10,000 mcg PO QAM ascorbate calcium (vitamin C) 500 mg tablet 500 mg PO QAM Medical Marijuana See Rx Instructions .ROUTE .COMPLEX Rx Instructions: prn aspirin [Adult Low Dose Aspirin] 81 mg tablet,delayed release (DR/EC) 81 mg PO DAILY@0900 Qty: 90 3RF olmesartan 20 mg tablet 20 mg PO DAILY@0900 Qty: 90 3RF metoprolol succinate 100 mg tablet extended release 24 hr 100 mg PO DAILY@0900 Qty: 90 3RF ranolazine 500 mg tablet extended release 12 hr 500 mg PO BID@0900,2200 Qty: 180 3RF pantoprazole 40 mg tablet,delayed release (DR/EC) 40 mg PO BID@0900,2200 Qty: 180 3RF nitroglycerin [Nitrostat] 0.4 mg tablet, sublingual 0.4 mg SUBLINGUAL Q5M PRN (Reason: chest pain) Qty: 30 3RF Xarelto 10 mg tablet 10 mg PO DAILY@2200 Qty: 90 3RF Crestor 5 mg tablet 5 mg PO DAILY@0900 Qty: 90 3RF duloxetine 60 mg capsule,delayed release(DR/EC) 60 mg PO DAILY@0900 Qty: 90 3RF furosemide 80 mg tablet 80 mg PO QAM Qty: 135 3RF Rx Instructions: *may take extra dose as needed for wt gain > 3lbs Klor-Con 10 10 mEq tablet extended release 20 meq PO QAM Qty: 180 3RF Rx Instructions: *take additional dose w/Furosemide as needed for wt gain > 3lbs hydrocodone-acetaminophen 5-325 mg tablet 1 tab PO Q8H PRN (Reason: pain) 30 Days Qty: 30 0RF multivitamin Tablet 1 tab PO QAM albuterol sulfate [ProAir HFA] 90 mcg/actuation Hfa Aerosol Inhaler 2 puff INHALATION Q6H PRN (Reason: Shortness Of Breath) diclofenac sodium 1 % gel 2 g TOPICAL QID@09,13,17,21 PRN (Reason: Pain) cefdinir 300 mg capsule 300 mg PO BID Qty: 14 0RF Rx Instructions: rx filled 10/28/ 7d/s isosorbide mononitrate 60 mg tablet extended release 24 hr 60 mg PO QAM glimepiride 4 mg tablet 4 mg PO BID escitalopram oxalate 20 mg tablet 20 mg PO QAM Referrals: Bobby Ingram MD [Primary Care Provider] - Coding Level of Care Code ED Stain Wiper for Hattie Toro
[2022-11-05 07:50] LABS: Basophils # 0.1 10^3/uL (0.0-0.1); Basophils % 0.4 %; Eosinophils # 0.1 10^3/uL (0.0-0.8); Eosinophils % 0.6 %; Hemoglobin 13.4 g/dL (11.5-15.3); Lymphocytes # 1.4 10^3/uL (0.8-4.8); Lymphocytes % 11.8 %; Mean Corpuscular HGB Conc 32.7 g/dL (30.0-36.0); Mean Corpuscular Hemoglobin 32.8 pg (28.0-34.0); Mean Corpuscular Volume 100.5 fl (81-99); Monocytes # 0.6 10^3/uL (0.2-0.9); Monocytes % 5.4 %; Neutrophils # 9.56 10^3/uL (1.8-7.7); Neutrophils % 81.3 %; Nucleated Red Blood Cells % 0 %; Platelet Count 156 10^3/cmm (130-400); Red Blood Count 4.08 10^6/uL (4.1-5.3); Red Cell Distribution Width 14.3 % (12.1-15.1); White Blood Count 11.8 10^3/uL (4.0-10.0)
[2022-11-05] MEDS: dilTIAZem 5 mg/mL SDV 5 mL 10 MG IVP (08:03)
[2022-11-05 08:08] LABS: Troponin(5th) Baseline 22 ng/L (0-10)
[2022-11-05 08:13] LABS: Alanine Aminotransferase 11 U/L (0-33); Albumin Level 3.5 g/dL (3.5-5.2); Alkaline Phosphatase 73 U/L (35-105); Anion Gap 16.7 (5-19); Aspartate Amino Transferase 19 U/L (0-32); Blood Urea Nitrogen 9 mg/dL (8-23); Calcium 8.4 mg/dL (8.5-10.5); Carbon Dioxide 26 mmol/L (22-29); Chloride 101 mmol/L (98-107); Globulin 2.2 g/dL (1.3-4.6); Glucose 133 mg/dL (65-115); NT Pro B Type Natriuretic Pept 3523 pg/mL (0-125); Osmolality Calculated 291 mOsm/kg (285-295); Potassium 3.7 mmol/L (3.5-5.1); Sodium 140 mmol/L (136-145); Total Bilirubin 0.8 mg/dL (0.15-1.2); Total Protein 5.7 g/dL (6.6-8.7)
[2022-11-05 08:28] LABS: ABG PCO2 40.6 mmHg (35-45); ABG PH Result 7.44 (7.35-7.45); Alveolar-Arterial Oxygen Gradi 17.6 mmHg (5-10); Base Excess ABG 3.1 mmol/L (-2.0-2.0); Blood Gas Operator Identificat AMH; Blood Gas Sample Site Brachial, right; Blood Gas Sample Type Arterial; Carboxyhemoglobin 1.8 %THgb (0.4-20.1); HCO3 ABG 27.6 mmol/L (22-26); HGB O2 Sat 93.9 % (95-100); Ionized Calcium Level - ABG 1.2 mmol/L (1.1-1.4); Methemoglobin 0.6 % (0.4-1.5); Oxygen Device NC; Oxygen Saturation ABG 96.3; PO2 ABG 71.4 mmHg (80.0-100.0); Potassium Level - ABG 3.8 mmol/L (3.5-5.0); Total Hemoglobin 13.7 g/dL (12-16)
[2022-11-05] MEDS: hyDRALAzine 20 mg/mL INJ 1 mL 10 MG IVP (08:39)
[2022-11-05] MEDS: FUROsemide 10 mg/mL SDV 4mL 40 MG IVP ×2 (08:40→19:48)
[2022-11-05 08:45] LABS: Procalcitonin 0.05 ng/mL (0-0.5)
--- NOTE | 2022-11-05 09:12 | ECG_ITS ---
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 Measurements Intervals [place] Rate: 118 P: 0 DE: 0 QRS: 70 QRSD: 102 T: 56 QT: 352 QTc: 494 Interpretive Statements ATRIAL FIBRILLATION WITH RAPID VENTRICULAR RESPONSE WITH ABERRANT CONDUCTION OR VENTRICULAR PREMATURE COMPLEXES SEPTAL MYOCARDIAL INFARCTION , PROBABLY OLD [40+ ms Q WAVE IN V1/V2] Compared to ECG 11/05/2022 07:14:59 Ventricular premature complex(es) now present Aberrant conduction of supraventricular beat(s) now present Myocardial infarct finding still present Electronically Signed On 11-05-2022 18:12:40 SUPERVISOR STERILE PROCESSING by Jett Márquez M.D. [id number]
[2022-11-05] MEDS: ipratropium-albuterol 3 mL Neb INHALATION ×2 (09:26→20:22)
[2022-11-05 09:36] LABS: Bilirubin Urine Neg (Negative); Blood Urine Neg (Negative); Glucose Urine UA Norm (Normal); Ketones Urine 1+ (Negative); Leukocyte Esterase Urine Negative (Negative); Nitrate Urine Negative (Negative); Protein Urine 1+ (Negative); Urine Appearance Clear (CLEAR); Urine Color Yellow (Yellow); Urobilinogen Urine Norm (Negative); pH Urine 6 (5-7)
[2022-11-05 09:39] LABS: Add Urine Culture? No; Add Urine Microscopic? YES; Bacteria Urine TRACE /hpf; Coarse Granular Casts Urine 0-4 /lpf; RBC Urine 0-4 /hpf (0-2); WBC Urine 0-4 /hpf (0-5)
--- NOTE | 2022-11-05 09:52 | PC.PHAR ---
pt states she takes care of her own medications-pt states the dr dced her tizanidine 2mg hs filled 10/04/22 90d/s and states dr also dced hydralazine 100mg tid filled 10/18/22 90d/s-
[2022-11-05 10:06] LABS: Troponin 5 2HR 45.05 ng/L (0-10)
[2022-11-05] MEDS: metoprolol succinate ER (24 HR) 100 mg Tablet PO (10:11)
[2022-11-05] MEDS: enoxaparin 100 mg/mL Syringe SUBCUT ×2 (10:11→21:43)
--- NOTE | 2022-11-05 10:11 | P.HP_ITS ---
Providers/Chief Complaint Primary Care Provider: Bobby Ingram MD Chief Complaint: SOB History of Present Illness Chiqui Arias is a 71 year old female presenting to the emergency department with significant shortness of breath and chest discomfort. She has been evaluated for chest discomfort recently with a nuclear stress test yesterday. She states after the stress test she had worsening chest discomfort and significant shortness of breath. This seemed to come and go through the evening, but then was worse this morning. She had to use some of her husbands oxygen, feeling very short of breath. She is not for sure what her heart rate has been, but it was elevated consistent with A-fib with RVR in the emergency department. She recently had her hydralazine discontinued and her muscle relaxant discontinued by her primary care provider. She reports she now feels better after treatment given in the ER but still is short of breath. She reports she had slight temperature elevation of 99 which is unusual for her. She has been coughing, which is occasional productive. Review of Systems General: Reports: 10 or more systems reviewed and unremarkable except in HPI and below Const: Reports: fatigue; Denies: chills Eyes: Denies: change in vision ENMT: Denies: throat pain Card: Reports: chest pain Resp: Reports: dyspnea GI: Denies: abdominal pain, hematochezia or melena : Denies: flank pain Musc: Denies: neck pain Medications/Allergies Home Medications Medication Instructions Recorded Confirmed Last Taken Type aspirin 81 mg tablet,delayed 81 mg PO DAILY@0900 #90 tabs 12/20/20 11/05/22 04/28/21 09:00 Rx release (Adult Low Dose Aspirin) ascorbate calcium (vitamin C) 500 500 mg PO QAM 03/07/21 11/05/22 04/28/21 09:00 History mg tablet biotin 10,000 mcg capsule 10,000 mcg PO QAM 03/07/21 11/05/22 04/28/21 09:00 History albuterol sulfate 90 mcg/actuation 2 puff inhalation Q6H PRN 04/28/21 11/05/22 Unknown History aerosol inhaler (ProAir HFA) Shortness Of Breath diclofenac sodium 1 % topical gel 2 g topical QID@09,,17,21 PRN 04/28/21 11/05/22 Unknown History Pain multivitamin 1 tab PO QAM 04/28/21 11/05/22 04/28/21 History metoprolol succinate 100 mg 100 mg PO DAILY@0900 #90 tabs 12/13/21 11/05/22 Unknown Rx tablet,extended release 24 hr olmesartan 20 mg tablet 20 mg PO DAILY@0900 #90 tabs 12/13/21 11/05/22 Unknown Rx ranolazine 500 mg tablet,extended 500 mg PO BID@0900,2200 #180 tabs 12/17/21 11/05/22 Unknown Rx release,12 hr pantoprazole 40 mg tablet,delayed 40 mg PO BID@0900,2200 #180 tabs 12/19/21 11/05/22 Unknown Rx release nitroglycerin 0.4 mg sublingual 0.4 mg sublingual Q5M PRN chest 01/21/22 11/05/22 Unknown Rx tablet (Nitrostat) pain #30 tabs rivaroxaban 10 mg tablet (Xarelto) 10 mg PO DAILY@2200 #90 tabs 01/21/22 11/05/22 Unknown Rx rosuvastatin 5 mg tablet (Crestor) 5 mg PO DAILY@0900 #90 tabs 03/01/22 11/05/22 Unknown Rx duloxetine 60 mg capsule,delayed 60 mg PO DAILY@0900 #90 caps 05/17/22 11/05/22 Unknown Rx release furosemide 80 mg tablet 80 mg PO QAM #135 tabs 06/05/22 11/05/22 11/04/22 Rx potassium chloride 10 mEq 20 meq PO QAM #180 tabs 06/05/22 11/05/22 Unknown Rx tablet,extended release (Klor-Con) hydrocodone 5 mg-acetaminophen 325 1 tab PO Q8H PRN pain 1 month #30 08/05/22 11/05/22 Unknown Rx mg tablet tabs cefdinir 300 mg capsule 300 mg PO BID #14 caps 10/26/22 11/05/22 11/04/22 Rx finished 11/04/22 Medical Marijuana See Rx Instructions .Route .COMPLEX 11/01/22 11/05/22 Unknown History escitalopram oxalate 20 mg tablet 20 mg PO QAM 11/05/22 11/05/22 Unknown History glimepiride 4 mg tablet 4 mg PO BID 11/05/22 11/05/22 Unknown History isosorbide mononitrate 60 mg 60 mg PO QAM 11/05/22 11/05/22 Unknown History tablet,extended release 24 hr Allergies Allergy/AdvReac Type Severity Reaction Status Date / Time amlodipine Allergy edema Verified 11/05/22 09:45 Sulfa (Sulfonamide Allergy ALGY-Difficulty Verified 11/05/22 09:45 Antibiotics) Breathing PFSH Acute PFSH: Medical History (Updated 11/05/22 @ 10:23 by Galen Alcala MD) ASHD (arteriosclerotic heart disease) Last angiogram with LAD 40-50 percent narrowing Cannabis abuse Cardiomyopathy Chronic atrial fibrillation Chronic pain Chronic thoracic back pain COPD (chronic obstructive pulmonary disease) Diabetes type 2, controlled Encounter for weight loss counseling Discussed close follow-up due to episodes of hypoglycemia in the past when starting a weight loss program. GERD (gastroesophageal reflux disease) HTN (hypertension) Hypercholesterolemia Moderate major depression Recent weight gain Surgical History Gastric bypass status for obesity H/O cataract extraction H/O hernia repair H/O tubal ligation History of back surgery History of foot surgery History of oral surgery Hx of appendectomy Hx of cholecystectomy S/P knee replacement Family History Father Emphysema lung Mother COPD (chronic obstructive pulmonary disease) Brother Cancer lung nodule Emphysema lung Lung disease Chronic kidney disease (CKD) Family/Other Cancer Nephew--jaw Stroke Other CAD (coronary artery disease) CHF (congestive heart failure) Diabetes Hyperlipidemia Hypertension Psychiatric illness Denies family history of Clotting disorder Dementia Suicide Anesthesia complication Bleeding disorder Social History (Updated 11/05/22 @ 10:16 by Galen Alcala MD) Smoking and tobacco status: former smoker Quit status (tobacco): has quit using tobacco Alcohol intake: current Alcohol intake frequency: 0-2 Drinks per Day Lives independently: Yes Household members: spouse Marital status: Number of children: 3 Current occupational status: retired and disabled History of recent travel: No Tejal/Confucianism: Confucianist Special tejal needs: No Vitals/I&O/Wt Last Vital Signs Temp 99.5 F 11/05/22 06:57 Pulse 119 H 11/05/22 09:33 Resp 18 11/05/22 09:33 BP 172/122 11/05/22 06:57 Pulse Ox 95 02/07/23 09:33 O2 Del Method 11/05/22 09:33 O2 Flow Rate 4 11/05/22 09:33 Weight last 48 hrs Weight 103.873 kg Physical Exam Narrative: General exam is an anxious white female, concerned that she is not taken seriously. HEENT: Atraumatic normocephalic. Oropharynx clear and edentulous Neck is supple no lymphadenopathy thyromegaly Cardiovascular tachycardic, irregular, no audible murmur Lungs managed breath sounds bilaterally. No wheezing Abdomen is soft with positive bowel sounds. No obvious organomegaly exam was deferred Extremities no cyanosis clubbing or edema, cap refill brisk Skin no rash Neuro no obvious focal deficits. Data 11/05/22 07:25 11/05/22 07:25 Micro: Microbiology 11/05/22 08:14 Blood Culture - Preliminary Blood SPECIMEN COLLECTED 11/05/22 08:08 Blood Culture - Preliminary Blood SPECIMEN COLLECTED Other data: Recent nuclear stress test demonstrated elevated 3 times daily ratio. No large areas of reversible ischemia. EKG demonstrated atrial fibrillation with rapid ventricular rate, initially rate around 120. Normal axis. No acute changes. I reviewed this myself. Chest x-ray demonstrates interstitial changes at the bases. Borderline cardiomegaly. I reviewed this myself. ABG demonstrates pH of 7.44, PCO2 40, PO2 of 71 on 4 L Calcium 8.4 LFTs normal Troponin 22 with repeat of 45 BNP 3523 TSH which I ordered is 1.75, within normal limits Procalcitonin 0.05 Urine with 0-4 reds and 0-4 whites with 10-15 squamous Coronavirus PCR was ordered A&P Assessment and plan (1) Atrial fibrillation with rapid ventricular response: Patient presents with atrial fibrillation with rapid ventricular rate. This can certainly drive worsening heart failure, although she has a concern of recurrent chest discomfort. She had been given Cardizem. Will initiate a diltiazem drip. Titrate as needed We will go ahead and give her her home metoprolol Full admission to the [facility] for close monitoring Check TSH, magnesium (2) Acute combined systolic and diastolic heart failure: Lasix 40 mg IV given in the emergency department. Continue 40 mg IV every 12 hours, monitoring blood pressure and electrolytes closely BMP tomorrow Has associated hypoxia, requiring 4 L of oxygen. Wean as tolerated. This is likely secondary to her heart failure. (3) Chest pain: Patient has recurrent chest discomfort. She has known disease with an angiogram in 2020 demonstrating LAD disease. It was 40-50 percent at that time. Aspirin, beta-ana, continue full dose anticoagulation, statin Monitor on telemetry Nitroglycerin paste Cardiology consultation (4) COPD (chronic obstructive pulmonary disease): Doubt exacerbation currently but patient having productive sputum slight elevation in white count Budesonide twice daily DuoNebs every 6 hours Doxycycline 100 mg twice daily for possible bronchitis (5) Diabetes type 2, controlled: Initiate sliding scale insulin Qualifiers: Diabetes mellitus custodial insulin use: without custodial use Diabetes mellitus complication status: with hyperglycemia Qualified Code(s): E11.65 - Type 2 diabetes mellitus with hyperglycemia (6) Chronic low back pain: Continue patient's chronic home pain medications Plan Multiple other medical problems as addressed in past medical history Full code Lovenox for DVT prophylaxis Attestations Medical Necessity Statement*: Will need greater than 2 midnight stay for evaluation and treatment of congestive heart failure, A-fib with RVR, chest discomfort Coding Level of Care Code 62559 High MDM includes risk/complexity, reviewing test results, ordering lab/other test(s), speaking with independent historian (other than patient), independently interpretating test(s) (not separately recorded) and discussion of management or test(s) w/ other healthcare professional Diagnoses Atrial fibrillation with rapid ventricular response I48.91 Acute combined systolic and diastolic heart failure I50.41 Chest pain R07.9 COPD (chronic obstructive pulmonary disease) J44.9 Diabetes type 2, controlled E11.65 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
[2022-11-05] MEDS: pantoprazole DR 40 mg Tablet PO ×2 (10:12→21:43)
[2022-11-05] MEDS: nitroglycerin 1 gm/inch oint Pkt 1 INCH TOPICAL ×3 (10:12→23:40)
[2022-11-05] MEDS: ondansetron 2 mg/ML SDV 2 mL 4 MG IVP (10:12)
[2022-11-05] MEDS: dilTIAZem 100 MG in sodium chloride 0.9% (add-van) 100 ML IV (10:12)
[2022-11-05 10:15] LABS: Troponin 5 2HR Delta 23.05 ABS# (0-10)
[2022-11-05 10:17] LABS: Thyroid Stimulating Hormone 1.75 uIU/mL (0.27-4.20)
[2022-11-05 10:45] LABS: Adenovirus Not Detected (NOT DETECT); Chlamydia Pneumoniae Not Detected (NOT DETECT); Coronavirus 229E,HKU1,NL63,OC4 Not Detected (NOT DETECT); Human Metapneumovirus Detected (NOT DETECT); Human Rhinovirus/Enterovirus Not Detected (NOT DETECT); Influenza A Not Detected (NOT DETECT); Influenza A H1 Not Detected (NOT DETECT); Influenza A H1-2009 Not Detected (NOT DETECT); Influenza A H3 Not Detected (NOT DETECT); Influenza B Not Detected (NOT DETECT); Mycoplasma Pneumoniae Not Detected (NOT DETECT); Parainfluenza Virus Type 1 Not Detected (NOT DETECT); Parainfluenza Virus Type 2 Not Detected (NOT DETECT); Parainfluenza Virus Type 3 Not Detected (NOT DETECT); Parainfluenza Virus Type 4 Not Detected (NOT DETECT); Respiratory Syncytial Virus A Not Detected (NOT DETECT); Respiratory Syncytial Virus B Not Detected (NOT DETECT); SARS-COV-2 Not Detected (NOT DETECT)
[2022-11-05 11:12] LABS: Human Metapneumovirus Detected (NOT DETECT); Human Rhinovirus/Enterovirus Not Detected (NOT DETECT); Results from Genmark
[2022-11-05 11:14] LABS: Magnesium 1.8 mg/dL (1.7-2.3)
--- NOTE | 2022-11-05 13:12 | ECG_ITS ---
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 Measurements Intervals [place] Rate: 91 P: 0 DE: 0 QRS: 82 QRSD: 97 T: 26 QT: 380 QTc: 469 Interpretive Statements ATRIAL FIBRILLATION WITH ABERRANT CONDUCTION OR VENTRICULAR PREMATURE COMPLEXES INDETERMINATE AXIS SEPTAL MYOCARDIAL INFARCTION , PROBABLY OLD [40+ ms Q WAVE IN V1/V2] Compared to ECG 11/05/2022 10:34:30 Indeterminate axis now present Myocardial infarct finding still present Electronically Signed On 11-05-2022 18:11:12 CLAY SHOP SUPERVISOR by Jett Márquez M.D. [id number]
[2022-11-05 14:11] LABS: Troponin 5 6HR 111.7 ng/L (0-10); Troponin 5 6HR Delta 89.7 ng/L (0-12)
[2022-11-05 17:46] LABS: Glucose Point of Care 148 mg/dL (70-110)
[2022-11-05] MEDS: doxycycline 100 mg Tablet PO (17:55)
--- NOTE | 2022-11-05 19:44 | PM.CONSULT ---
Providers/Reason For Consult Consulting Physician/Specialty*: ANA Nix MD/cardiology Reason for Consult*: Patient with chest pain/shortness of breath/abnormal Myocardial perfusion imaging Requesting Physician: Dr. Alcala Attending Physician: Galen Alcala MD Primary Care Provider: Bobby Ingram MD History of Present Illness History of Present Illness Chiqui Arias is a 71 year old female with a history of chronic atrial fibrillation and heart failure is presenting with complaints of increasing shortness of breath and chest pain. Patient had a recent Myocardial perfusion imaging which was abnormal. Cardiology consult is requested for further cardiac evaluation and recommendations. This patient is known to have moderate coronary artery disease by angiogram in 2020. She also is known to have chronic atrial fibrillation and stress-induced cardiomyopathy. She has a history of chronic heart failure. She has a history of chronic chest pains. She underwent a Myocardial perfusion imaging yesterday. Since the Lexiscan infusion, she been having more or less constant chest pain. On a scale of 1-10, she grades the intensity of the chest pain at 3/10. She had a coronary angiogram 2 times in the past. The most recent one was in October 2020. She was found to have moderate disease in the left anterior descending artery. The IFR on this lesion was unremarkable. Based on this, it was opted to treat her medically at that time. The LV ejection fraction by echocardiogram was 35 to 40%. Patient has a history of chronic back pain. History of COPD/sleep apnea. Also has a history of anxiety/depressive illness. She is being followed up by the behavioral health clinic. Patient has a history of shortness of breath with exertion. But for the last few days, the symptoms are getting worse. She also has a cough with occasional productive sputum, yellowish phlegm. She had a low-grade fever yesterday. Currently she is afebrile. She was found to be in atrial fibrillation with rapid ventricular rate in the emergency room. She was started on IV Cardizem. Heart rate seems to be getting under control at this time. Review of Systems Narrative: CONSTITUTIONAL: No fever or chills. [] EYES: No blurring of vision or other visual disturbances lately. [] ENT: No hoarseness of voice, auditory disturbances or sore throat. [] CARDIOVASCULAR: As mentioned above. RESPIRATORY: Shortness of breath and cough GASTROINTESTINAL: No hematemesis or melena. GENITOURINARY: No dysuria or hematuria. INTEGUMENTARY: No skin rashes or history of skin cancer. NEURO: No transient ischemic attacks or amaurosis. PSYCHIATRIC: No history of psychosis or major depression. HEMATOLOGIC: No bleeding disorders or significant anemia. ENDOCRINE: No history of polyuria or polydipsia. MUSCULOSKELETAL: No recent joint pain or swelling. ALLERGY/IMMUNOLOGY: As mentioned above. Medications/Allergies Home Medications Medication Instructions Recorded Confirmed Last Taken Type aspirin 81 mg tablet,delayed 81 mg PO DAILY@0900 #90 tabs 12/20/20 11/05/22 04/28/21 09:00 Rx release (Adult Low Dose Aspirin) ascorbate calcium (vitamin C) 500 500 mg PO QAM 03/07/21 11/05/22 04/28/21 09:00 History mg tablet biotin 10,000 mcg capsule 10,000 mcg PO QAM 03/07/21 11/05/22 04/28/21 09:00 History albuterol sulfate 90 mcg/actuation 2 puff inhalation Q6H PRN 04/28/21 11/05/22 Unknown History aerosol inhaler (ProAir HFA) Shortness Of Breath diclofenac sodium 1 % topical gel 2 g topical QID@09,,, PRN 04/28/21 11/05/22 Unknown History Pain multivitamin 1 tab PO QAM 04/28/21 11/05/22 04/28/21 History metoprolol succinate 100 mg 100 mg PO DAILY@0900 #90 tabs 12/13/21 11/05/22 Unknown Rx tablet,extended release 24 hr olmesartan 20 mg tablet 20 mg PO DAILY@0900 #90 tabs 12/13/21 11/05/22 Unknown Rx ranolazine 500 mg tablet,extended 500 mg PO BID@0900,2200 #180 tabs 12/17/21 11/05/22 Unknown Rx release,12 hr pantoprazole 40 mg tablet,delayed 40 mg PO BID@0900,2200 #180 tabs 12/19/21 11/05/22 Unknown Rx release nitroglycerin 0.4 mg sublingual 0.4 mg sublingual Q5M PRN chest 01/21/22 11/05/22 Unknown Rx tablet (Nitrostat) pain #30 tabs rivaroxaban 10 mg tablet (Xarelto) 10 mg PO DAILY@2200 #90 tabs 01/21/22 11/05/22 Unknown Rx rosuvastatin 5 mg tablet (Crestor) 5 mg PO DAILY@0900 #90 tabs 03/01/22 11/05/22 Unknown Rx duloxetine 60 mg capsule,delayed 60 mg PO DAILY@0900 #90 caps 05/17/22 11/05/22 Unknown Rx release furosemide 80 mg tablet 80 mg PO QAM #135 tabs 06/05/22 11/05/22 11/04/22 Rx potassium chloride 10 mEq 20 meq PO QAM #180 tabs 06/05/22 11/05/22 Unknown Rx tablet,extended release (Klor-Con) hydrocodone 5 mg-acetaminophen 325 1 tab PO Q8H PRN pain 1 month #30 08/05/22 11/05/22 Unknown Rx mg tablet tabs cefdinir 300 mg capsule 300 mg PO BID #14 caps 10/26/22 11/05/22 11/04/22 Rx finished 11/04/22 Medical Marijuana See Rx Instructions .Route .COMPLEX 11/01/22 11/05/22 Unknown History escitalopram oxalate 20 mg tablet 20 mg PO QAM 11/05/22 11/05/22 Unknown History glimepiride 4 mg tablet 4 mg PO BID 11/05/22 11/05/22 Unknown History isosorbide mononitrate 60 mg 60 mg PO QAM 11/05/22 11/05/22 Unknown History tablet,extended release 24 hr Allergies Allergy/AdvReac Type Severity Reaction Status Date / Time amlodipine Allergy edema Verified 11/05/22 09:45 Sulfa (Sulfonamide Allergy ALGY-Difficulty Verified 11/05/22 09:45 Antibiotics) Breathing Current Medications Generic Name Dose Route Start Last Admin Trade Name Freq PRN Reason Stop Dose Admin Doxycycline Monohydrate 100 mg 11/05/22 18:00 11/05/22 17:55 Doxycycline 100 Mg Tablet PO 100 mg BID [facility] Administration Protocol Diltiazem HCl 100 mg/ Sodium 100 mls @ 0 mls/hr 11/05/22 09:00 11/05/22 12:09 Chloride IV 10 mg/hr .Q0M JORGE LUIS 10 mls/hr Titration Protocol Per Protocol Insulin Human Lispro 0 unit 11/05/22 17:30 11/05/22 18:00 Insulin Lispro 100 Unit/1 Ml SUBCUT Not Given WM&BEDTIME JORGE LUIS Protocol Nitroglycerin 1 inch 11/05/22 10:15 11/05/22 17:55 Nitroglycerin 1 Gm/Inch Oint Pkt TOPICAL 1 inch Q6H JORGE LUIS Administration PFSH Acute PFSH: Medical History (Updated 11/06/22 @ 06:35 by Leonardo Nix MD) ASHD (arteriosclerotic heart disease) Last angiogram with LAD 40-50 percent narrowing Cannabis abuse Cardiomyopathy Chronic atrial fibrillation Chronic pain Chronic thoracic back pain COPD (chronic obstructive pulmonary disease) Diabetes type 2, controlled Encounter for weight loss counseling Discussed close follow-up due to episodes of hypoglycemia in the past when starting a weight loss program. GERD (gastroesophageal reflux disease) HTN (hypertension) Hypercholesterolemia Moderate major depression Recent weight gain Surgical History Gastric bypass status for obesity H/O cataract extraction H/O hernia repair H/O tubal ligation History of back surgery History of foot surgery History of oral surgery Hx of appendectomy Hx of cholecystectomy S/P knee replacement Family History Father Emphysema lung Mother COPD (chronic obstructive pulmonary disease) Brother Cancer lung nodule Emphysema lung Lung disease Chronic kidney disease (CKD) Family/Other Cancer Nephew--jaw Stroke Other CAD (coronary artery disease) CHF (congestive heart failure) Diabetes Hyperlipidemia Hypertension Psychiatric illness Denies family history of Clotting disorder Dementia Suicide Anesthesia complication Bleeding disorder Social History (Updated 11/05/22 @ 10:16 by Galen Alcala MD) Smoking and tobacco status: former smoker Quit status (tobacco): has quit using tobacco Alcohol intake: current Alcohol intake frequency: 0-2 Drinks per Day Lives independently: Yes Household members: spouse Marital status: Number of children: 3 Current occupational status: retired and disabled History of recent travel: No Tejal/Sabianism: Shinto Special tejal needs: No Vitals/I&O/Wt Last Vital Signs Temp 99.5 F 11/05/22 06:57 Pulse 95 11/05/22 17:56 Resp 28 H 11/05/22 17:56 BP 130/93 11/05/22 17:56 Pulse Ox 89 L 11/05/22 17:56 O2 Del Method 11/05/22 17:53 O2 Flow Rate 3 11/05/22 16:00 11/05/22 11/05/22 11/05/22 06:59 14:59 22:59 Intake Total 9.75 / 9.75 Balance 9.75 / 9.75 Weight last 48 hrs Weight 229 lb Weight 229 lb Physical Exam Narrative: GENERAL: The patient is alert and oriented times three. Not in any acute distress. Somewhat anxious HEENT: No significant pallor, icterus or lymphadenopathy.Oral cavity: There are no mucous membrane lesions. NECK: Trachea appears to be central. No masses noted. No JVD or thyromegaly appreciated. RESPIRATORY: Chest is symmetrical. No intercostals muscle retraction or any accessory muscle activation. There is no chest wall tenderness. Breath sounds are heard bilaterally. Scattered coarse crackles and occasional expiratory wheeze BREASTS: Deferred. HEART: The heart sounds are normal. No S3 or S4. Short systolic murmur in the left sternal border. No pericardial rub ABDOMEN: No vessel pulsations or distention. No tenderness. No organomegaly appreciated. Bowel sounds are normally heard. : Deferred. RECTAL: Deferred. LYMPHATIC: No lymphadenopathy noted in the neck. EXTREMITIES: No edema or cyanosis. No clubbing. MUSCULOSKELETAL: No acute joint deformities or swelling SKIN: There are no significant rashes or ecchymosis NEUROPSYCHIATRIC: The patient is alert and oriented x3. Appears to be in a good mood. No tremors or rigidity noted. Data 11/05/22 07:25 11/05/22 07:25 Other Labs: Laboratory Last Values WBC 11.0 10^3/uL (4.0-10.0) H 11/06/22 04:26 RBC 4.23 10^6/uL (4.1-5.3) 11/06/22 04:26 Hgb 13.7 g/dL (11.5-15.3) 11/06/22 04:26 Hct 42.2 % (37.0-47.0) 11/06/22 04:26 MCV 99.8 fl (81-99) H 11/06/22 04:26 MCH 32.4 pg (28.0-34.0) 11/06/22 04:26 MCHC 32.5 g/dL (30.0-36.0) 11/06/22 04:26 RDW 14.1 % (12.1-15.1) 11/06/22 04:26 Plt Count 139 10^3/cmm (130-400) 11/06/22 04:26 MPV 10.5 fL (7.4-10.4) H 11/06/22 04:26 Neut % (Auto) 77.1 % 11/06/22 04:26 Lymph % (Auto) 15.2 % 11/06/22 04:26 Nye % (Auto) 6.9 % 11/06/22 04:26 Eos % (Auto) 0.0 % 11/06/22 04:26 Baso % (Auto) 0.3 % 11/06/22 04:26 Neut # (Auto) 8.48 10^3/uL (1.8-7.7) H 11/06/22 04:26 Lymph # (Auto) 1.7 10^3/uL (0.8-4.8) 11/06/22 04:26 Nye # (Auto) 0.8 10^3/uL (0.2-0.9) 11/06/22 04:26 Eos # (Auto) 0.0 10^3/uL (0.0-0.8) 11/06/22 04:26 Baso # (Auto) 0.0 10^3/uL (0.0-0.1) 11/06/22 04:26 Nucleated RBC % (auto) 0 % 11/06/22 04: Nucleated RBCs # 0.0 /100WBC 11/06/22 04:26 Specimen Type Arterial 11/05/22 08:17 Sample Site Brachial, right 11/05/22 08:17 ABG pH 7.44 (7.35-7.45) 11/05/22 08:17 ABG pCO2 40.6 mmHg (35-45) 11/05/22 08:17 ABG pO2 71.4 mmHg (80.0-100.0) L 11/05/22 08:17 ABG HCO3 27.6 mmol/L (22-26) H 11/05/22 08:17 ABG O2 Saturation 96.3 11/05/22 08:17 ABG Base Excess 3.1 mmol/L (-2.0-2.0) H 11/05/22 08:17 Adolfo Test N/a 11/05/22 08:17 A-a O2 Gradient 17.6 mmHg (5-10) H 11/05/22 08:17 Hematocrit 42.0 % (37-47) 11/05/22 08:17 Hgb O2 Saturation 93.9 % (95-100) L 11/05/22 08:17 Carboxyhemoglobin 1.8 %THgb (0.4-20.1) 11/05/22 08:17 Methemoglobin 0.6 % (0.4-1.5) 11/05/22 08:17 Total Hemoglobin 13.7 g/dL (12-16) 11/05/22 08:17 Sodium 140.0 mmol/L (131-143) 11/05/22 08:17 Potassium 3.8 mmol/L (3.5-5.0) 11/05/22 08:17 Glucose 153.0 mg/dL (70-115) H 11/05/22 08:17 Ionized Calcium 1.2 mmol/L (1.1-1.4) 11/05/22 08:17 O2 Delivery Device Nc 11/05/22 08:17 O2 Liters/Min 4.0 % 11/05/22 08:17 FiO2 36.0 % 11/05/22 08:17 Certified Neurodiagnostic Technologist ID [facility] 11/05/22 08:17 Sodium 139 mmol/L (136-145) 11/06/22 04:26 Potassium 4.0 mmol/L (3.5-5.1) 11/06/22 04:26 Chloride 99 mmol/L (98-107) 11/06/22 04:26 Carbon Dioxide 26 mmol/L (22-29) 11/06/22 04:26 Anion Gap 18.0 (5-19) 11/06/22 04:26 BUN 13 mg/dL (8-23) 11/06/22 04:26 Creatinine 0.9 mg/dL (0.5-0.9) 11/06/22 04:26 GFR Calculation Not Reportable 11/06/22 04:26 Glucose 209 mg/dL (65-115) H 11/06/22 04:26 POC Glucose 191 mg/dL (70-110) H 11/05/22 20:37 Calculated Osmolality 294 mOsm/kg (285-295) 11/06/22 04:26 Calcium 8.5 mg/dL (8.5-10.5) 11/06/22 04:26 Magnesium 1.9 mg/dL (1.7-2.3) 11/06/22 04:26 Total Bilirubin 0.8 mg/dL (0.15-1.2) 11/05/22 07:25 AST 19 U/L (0-32) 11/05/22 07:25 ALT 11 U/L (0-33) 11/05/22 07:25 Alkaline Phosphatase 73 U/L (35-105) 11/05/22 07:25 Troponin T Baseline 22 ng/L (0-10) H 11/05/22 07:25 Troponin T 120 Minute 45.05 ng/L (0-10) H 11/05/22 09:35 Delta Troponin T 23.05 ABS# (0-10) H* 11/05/22 09:35 Troponin T Hi Sens 6Hr 111.7 ng/L (0-10) H 11/05/22 13:45 Troponin T Hi Sens 6Hr Delta 89.7 ng/L (0-12) H* 11/05/22 13:45 NT-Pro-B Natriuret Pep 3523 pg/mL (0-125) H 11/05/22 07:25 Total Protein 5.7 g/dL (6.6-8.7) L 11/05/22 07:25 Albumin 3.5 g/dL (3.5-5.2) 11/05/22 07:25 Globulin 2.2 g/dL (1.3-4.6) 11/05/22 07:25 Procalcitonin 0.05 ng/mL (0-0.5) 11/05/22 08:08 TSH 1.75 uIU/mL (0.27-4.20) 11/05/22 07:25 Urine Color Yellow (Yellow) 11/05/22 08:55 Urine Appearance Clear (CLEAR) 11/05/22 08:55 Urine pH 6 (5-7) 11/05/22 08:55 Ur Specific [place] 1.010 (1.005-1.030) 11/05/22 08:55 Urine Protein 1+ (Negative) H 11/05/22 08:55 Urine Glucose (UA) Norm (Normal) 11/05/22 08:55 Urine Ketones 1+ (Negative) H 11/05/22 08:55 Urine Blood Neg (Negative) 11/05/22 08:55 Urine Nitrate Negative (Negative) 11/05/22 08:55 Urine Bilirubin Neg (Negative) 11/05/22 08:55 Urine Urobilinogen Norm mg/dL (Negative) 11/05/22 08:55 Ur Leukocyte Esterase Negative (Negative) 11/05/22 08:55 Urine RBC 0-4 /hpf (0-2) H 11/05/22 08:55 Urine WBC 0-4 /hpf (0-5) H 11/05/22 08:55 Ur Squamous Epith Cells 10-15 /hpf (0-5) H 11/05/22 08:55 Amorphous Sediment Not Reportable 11/05/22 08:55 Urine Bacteria Trace /hpf (NONE) 11/05/22 08:55 Coarse Granular Casts 0-4 /lpf H 11/05/22 08:55 Coronavirus 229E (PCR) Not detected (NOT DETECT) 11/05/22 08:43 Human Metapneumovir PCR Detected (NOT DETECT) A 11/05/22 11:12 Entero/Rhino (PCR) Not detected (NOT DETECT) 11/05/22 11:12 SARS-CoV-2 (PCR) Not detected (NOT DETECT) 11/05/22 08:43 Micro: Microbiology 11/05/22 08:14 Blood Culture - Preliminary Blood SPECIMEN COLLECTED 11/05/22 08:08 Blood Culture - Preliminary Blood SPECIMEN COLLECTED EKG 1: My Interpretation: The EKG showed atrial fibrillation with a controlled ventricular response rate. Occasional PVCs. Diffuse nonspecific T wave changes. Poor R wave progression. Possible old anteroseptal GA A&P Assessment and plan (1) Atherosclerotic heart disease of [place] coronary artery with unstable angina pectoris: Patient is clinical features are suggestive of a non-ST elevation myocardial infarction. She also has some evidence of decompensated heart failure. We will hold off on the oral anticoagulation. Started on subcu Lovenox, beta-blockers, Plavix and other medications In view of the worsening chest pain, patient may benefit from a repeat cardiac catheterization to further evaluate the coronary status and decide on further management. The risk of bleeding, hematoma, vascular injury, myocardial infarction, tano we will hold ardial perforation, malignant cardiac arrhythmias ,CVA, renal failure and other concomitant complications were explained in detail. Patient understood this well and consented to proceed. (2) Atrial fibrillation with rapid ventricular response: Patient is on long-term oral anticoagulant. According to her, she has not taken the medication for the last couple of days. We will keep her n.p.o. Consider cardiac catheterization tomorrow. (3) Acute on chronic congestive heart failure: We will treat with IV diuretics and other symptomatic measures. Try to optimize medical treatment. A repeat echocardiogram would be helpful to reevaluate the LV ejection fraction (4) Hypercholesterolemia: Continue on the current management. Follow-up evaluation as scheduled. (5) COPD (chronic obstructive pulmonary disease): Continue on the bronchodilator treatment Plan Based on the results of the above tests and the patient's clinical progress, further recommendations will be made. Thank you for the opportunity to evaluate this patient make these recommendations Consult Attestations Medical Necessity Statement: Stay Coding Level of Care Code 52788 Diagnoses Atherosclerotic heart disease of [place] coronary artery with unstable angina pectoris I25.110 Atrial fibrillation with rapid ventricular response I48.91 Acute on chronic congestive heart failure I50.9 Hypercholesterolemia E78.00 COPD (chronic obstructive pulmonary disease) J44.9 Time Spent (min) 65
[2022-11-05] MEDS: dilTIAZem 100 MG in sodium chloride 0.9% (add-van) 100 ML 10 MG IV (19:51)
[2022-11-05] MEDS: budesonide 0.5 mg/2 mL Neb INHALATION (20:22)
[2022-11-05 20:43] LABS: Glucose Point of Care 191 mg/dL (70-110)
[2022-11-05] MEDS: insulin lispro 100 unit/1 mL SUBCUT (21:13)
[2022-11-06] VITALS (21 sets, daily range): BP systolic 100–145; BP diastolic 56–84; PULSE 63–101; RESP 14–24; TEMP 36.6–36.8; O2SAT 90–100
[2022-11-06] MEDS: ipratropium-albuterol 3 mL Neb INHALATION ×6 (03:03→23:04)
[2022-11-06 05:04] LABS: Basophils % 0.3 %; Hematocrit 42.2 % (37.0-47.0); Hemoglobin 13.7 g/dL (11.5-15.3); Lymphocytes # 1.7 10^3/uL (0.8-4.8); Lymphocytes % 15.2 %; Mean Corpuscular HGB Conc 32.5 g/dL (30.0-36.0); Mean Corpuscular Hemoglobin 32.4 pg (28.0-34.0); Mean Corpuscular Volume 99.8 fl (81-99); Mean Platelet Volume 10.5 fL (7.4-10.4); Monocytes # 0.8 10^3/uL (0.2-0.9); Monocytes % 6.9 %; Neutrophils # 8.48 10^3/uL (1.8-7.7); Neutrophils % 77.1 %; Nucleated Red Blood Cells % 0 %; Platelet Count 139 10^3/cmm (130-400); Red Blood Count 4.23 10^6/uL (4.1-5.3); Red Cell Distribution Width 14.1 % (12.1-15.1)
[2022-11-06] MEDS: dilTIAZem 100 MG in sodium chloride 0.9% (add-van) 100 ML 10 MG IV (05:05)
[2022-11-06] MEDS: sodium chloride 0.9% 1,000 ML 50 ML IV (05:07)
[2022-11-06] MEDS: nitroglycerin 1 gm/inch oint Pkt 1 INCH TOPICAL (05:10)
[2022-11-06 05:23] LABS: Blood Urea Nitrogen 13 mg/dL (8-23); Calcium 8.5 mg/dL (8.5-10.5); Carbon Dioxide 26 mmol/L (22-29); Chloride 99 mmol/L (98-107); Glucose 209 mg/dL (65-115); Magnesium 1.9 mg/dL (1.7-2.3); Osmolality Calculated 294 mOsm/kg (285-295); Sodium 139 mmol/L (136-145)
--- NOTE | 2022-11-06 06:26 | USCV_ITS ---
Chiqui Arias Age: 71 Gender: F : 1950 Exam Date: 11/06/2022 09:36 Ordering Phys: Leonardo Nix MD ([email or web address]) Technologist: MARIANNA Exam Location: [facility] [place] Indication: UAP, CARDIOMYOPATHY, CHRONIC HEART FAILURE BP: 148 / 90 HR: 99 Rhythm: Atrial fibrillation Technical Quality: Suboptimal MEASUREMENTS (Male / Female) Normal Values 2D ECHO LVOT Diameter 2.0 cm LV Ejection Fraction MOD 2C 37.0 % LV Ejection Fraction 2C AL 37.5 % LA Diameter 3.5 cm LA Width 3.6 cm LA Height 5.0 cm RA Width 4.0 cm RA Height 4.6 cm Aorta at Sinotubular Diameter 2.2 cm IVC Diameter 1.4 cm M-MODE Aortic Annulus Diameter 3.6 cm LA Ao Ratio MM 1.0 MV E Point Septal Separation 0.7 cm DOPPLER AV Peak Velocity 111.0 cm/s LVOT Peak Velocity 54.7 cm/s AV Area Cont Eq vti 1.7 cm squared AV Area Cont Eq pk 1.6 cm squared MV Peak Velocity 141.0 cm/s MV Area PHT 6.3 cm squared MV E' Velocity 75.5 cm/s Mitral E to MV E' Ratio 11.1 Mitral E to LV E' Lateral Ratio 9.9 Mitral E to LV E' Septal Ratio 12.7 TR Peak Velocity 221.6 cm/s TR Peak Gradient 19.6 mmHg TR Mean Velocity 200.4 cm/s TR Mean Gradient 15.9 mmHg TR Velocity Time Integral 64.3 cm TV Peak E Velocity 63.0 cm/s Right Atrial Pressure 3.0 mmHg Pulmonary Artery Systolic Pressu 22.6 mmHg PV Peak Velocity 113.0 cm/s RV Acceleration Time 0.1 s RV Ejection Time 0.3 s RV AcT/ET 0.3 FINDINGS Left Ventricle Moderate diffuse hypokinesia of the LV apex. LV ejection fraction around 40% Right Ventricle Right Atrium Mildly increased right atrial size. Left Atrium Mildly increased left atrial size. Mitral Valve Mild mitral annular calcification. Mild-moderate mitral valve regurgitation. Aortic Valve Thickened aortic valve. Tricuspid Valve Trace to mild tricuspid valve regurgitation. Pulmonic Valve Pulmonic valve not well visualized. Pericardium No pericardial effusion. Aorta Normal aortic annulus size. IVC Inferior vena cava not visualized. CONCLUSIONS Moderate diffuse hypokinesia of the LV apex. LV ejection fraction around 40%. Mild biatrial enlargement. Mild mitral annular calcification. Trace to mild tricuspid valve regurgitation. Mild-moderate mitral valve regurgitation. Thickened aortic valve. There is no pericardial effusion. There are no intracardiac masses. Compared to the study from 03/02/2021, the LV ejection fraction has dropped from 50- 55% to 40%. Dr Leonardo Nix MD FAC (Electronically Signed) Final Date: 06 November 2022 13:00 S
[2022-11-06 07:36] LABS: Glucose Point of Care 204 mg/dL (70-110)
[2022-11-06] MEDS: budesonide 0.5 mg/2 mL Neb INHALATION ×2 (08:11→20:27)
--- NOTE | 2022-11-06 09:05 | P.PN_ITS ---
Subjective Subjective: Chiqui is short of breath this morning. She is wheezing more. Occasional cough. Occasional productivity of sputum. Medications: Reviewed: Yes Vitals/I&O/Wt Last Vital Signs Temp 98.1 F 11/06/22 07:24 Pulse 92 11/06/22 08:12 Resp 14 11/06/22 08:12 BP 138/83 11/06/22 07:24 Pulse Ox 100 11/06/22 08:18 O2 Del Method 11/06/22 08:12 O2 Flow Rate 6 11/06/22 08:12 11/05/22 11/06/22 11/06/22 22:59 06:59 14:59 Intake Total 77 / 86.75 92.333 / 179.083 Output Total 350 / 350 Balance 77 / 86.75 92.333 / 179.083 -350 / -350 Weight last 48 hrs Weight 103.873 kg Weight 103.873 kg Physical Exam Narrative: General exam appears to have moderate respiratory distress, ins and outs not impressive with 170 negative Neck is supple no lymphadenopathy thyromegaly Cardiovascular tachycardic, irregular, no audible murmur Lungs diminished air movement bilaterally with bilateral wheezing Abdomen is soft with positive bowel sounds. No obvious organomegaly Extremities no cyanosis clubbing or edema, cap refill brisk Skin no rash Data 11/06/22 04:26 11/06/22 04:26 Micro: Microbiology 11/05/22 08:14 Blood Culture - Preliminary Blood NEGATIVE TO DATE 11/05/22 08:08 Blood Culture - Preliminary Blood NEGATIVE TO DATE A&P Assessment and plan (1) Atrial fibrillation with rapid ventricular response: Patient presents with atrial fibrillation with rapid ventricular rate. This can certainly drive worsening heart failure, although she has a concern of recurrent chest discomfort. She is still on a Cardizem drip. Wean as p.o. medicine takes effect Continue her metoprolol 100 mg daily Diltiazem 30 mg every 6 hours We will go ahead and give her her home metoprolol TSH and magnesium checked and normal (2) Acute combined systolic and diastolic heart failure: Lasix 40 mg IV given in the emergency department. With worsening of breathing increase Lasix to 80 mg IV every 12 hours Low-dose IV fluids was given in preparation for angiogram today. Discontinue those currently. (3) Chest pain: Patient has recurrent chest discomfort. She has known disease with an angiogram in 2020 demonstrating LAD disease. It was 40-50 percent at that time. Aspirin, beta-ana, continue full dose anticoagulation, statin, nitroglycerin paste Elevation his troponin is consistent with non-ST elevation myocardial infarction Monitor on telemetry Appreciate cardiology consultation, angiogram planned (4) COPD (chronic obstructive pulmonary disease): Patient with Brink pneumonia virus in her sputum. She is wheezing more. 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 Nix. Attestations Medical Necessity Statement*: Needs continued hospitalization for treatment of COPD exacerbation with steroids, frequent nebs, and further work-up of chest pain with angiogram. Also adjustment of medications for A-fib with RVR. 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
[2022-11-06] MEDS: dilTIAZem 30 mg Tablet PO ×3 (09:13→21:03)
[2022-11-06] MEDS: metoprolol succinate ER (24 HR) 100 mg Tablet PO (09:13)
[2022-11-06] MEDS: duloxetine 60 mg Capsule PO (09:13)
[2022-11-06] MEDS: doxycycline 100 mg Tablet PO ×2 (09:13→18:35)
[2022-11-06] MEDS: losartan 50 mg Tablet PO (09:14)
[2022-11-06] MEDS: FUROsemide 10 mg/mL SDV 4mL 80 MG IVP ×2 (09:14→21:03)
[2022-11-06] MEDS: atorvastatin 40 mg Tablet 20 MG PO (09:14)
[2022-11-06] MEDS: HYDROcodone-acetaminophen 5-325 mg Tablet 1 TAB PO (11:25)
[2022-11-06] MEDS: clopidogrel 300 mg Tablet PO (11:27)
[2022-11-06] MEDS: potassium chloride ER 20 mEq Tablet PO (11:27)
[2022-11-06 11:50] LABS: Glucose Point of Care 224 mg/dL (70-110)
--- NOTE | 2022-11-06 13:18 | ECG_ITS ---
[facility] Test Date: 2022-11-06 Pat Name: Chiqui Arias Department: Room: 104 Gender: Female Director Of Physician Practices: : 1950 Requested By: Galen Albarado Order Number: [id number] Elver MD: Leonardo Nix M.D. Measurements Intervals Dixon Rate: 88 P: 0 UT: 0 QRS: 42 QRSD: 98 T: 141 QT: 385 QTc: 467 Interpretive Statements ATRIAL FIBRILLATION WITH ABERRANT CONDUCTION OR VENTRICULAR PREMATURE COMPLEXES SEPTAL MYOCARDIAL INFARCTION , OF INDETERMINATE AGE [40+ ms Q WAVE IN V1/V2] Compared to ECG 11/05/2022 14:44:01 Indeterminate axis no longer present Myocardial infarct finding still present Electronically Signed On 11-07-2022 0:18:14 PUBLICATIONS DISTRIBUTION CLERK by Leonardo Nix M.D. [email or web address]
[2022-11-06] MEDS: dilTIAZem 100 MG in sodium chloride 0.9% (add-van) 100 ML IV (15:12)
[2022-11-06 17:10] LABS: Glucose Point of Care 367 mg/dL (70-110)
--- NOTE | 2022-11-06 18:08 | P.PN_ITS ---
Subjective Subjective: Patient is complaining of cough and shortness of breath. She is requiring 6 L of oxygen by nasal cannula to maintain the O2 saturation above 90%. May have some occasional chest pain. No fever or chills. No other specific complaints. Medications: Medication Review Details: Current Medications Acetaminophen (Acetaminophen 325 Mg Tablet) 650 mg PO Q6H PRN PRN Reason: Mild/Mod Pain Or Temp >/= 101 Hydrocodone Bitart/Acetaminophen (Hydrocodone-Acetaminophen 5-325 Mg Tablet) 1 tab PO Q8H PRN PRN Reason: pain Last Admin: 11/06/22 11:25 Dose: 1 tab Albuterol/Ipratropium (Ipratropium-Albuterol 3 Ml Neb) 3 ml INHALATION Q4H.RESPIRATORY JORGE LUIS Last Admin: 11/06/22 15:30 Dose: 3 ml Aspirin (Aspirin 81 Mg Ec Tablet) 81 mg PO DAILY@0900 [facility] Last Admin: 11/06/22 09:25 Dose: Not Given Atorvastatin Calcium (Atorvastatin 40 Mg Tablet) 20 mg PO DAILY@0900 [facility] Last Admin: 11/06/22 09:14 Dose: 20 mg Budesonide (Budesonide 0.5 Mg/2 Ml Neb) 0.5 mg INHALATION BID.RESPIRATORY JORGE LUIS Last Admin: 11/06/22 08:11 Dose: 0.5 mg Dextrose (Dextrose 50% Syringe 50 Ml) 25 ml IVP ONCE PRN; Protocol PRN Reason: hypoglycemia protocol Dextrose (Dextrose 50% Syringe 50 Ml) 50 ml IVP PRN PRN; Protocol PRN Reason: hypoglycemia protocol Diltiazem HCl (Diltiazem 30 Mg Tablet) 30 mg PO Q6H [facility] Last Admin: 11/06/22 14:42 Dose: 30 mg Doxycycline Monohydrate (Doxycycline 100 Mg Tablet) 100 mg PO BID JORGE LUIS; Protocol Last Admin: 11/06/22 09:13 Dose: 100 mg Duloxetine HCl (Duloxetine 60 Mg Capsule) 60 mg PO DAILY@0900 [facility] Last Admin: 11/06/22 09:13 Dose: 60 mg Enoxaparin Sodium (Enoxaparin 100 Mg/Ml Syringe) 100 mg SUBCUT Q12H JORGE LUIS Last Admin: 11/06/22 11:06 Dose: Not Given Furosemide (Furosemide 10 Mg/Ml Sdv 4ml) 80 mg IVP Q12H JORGE LUIS Last Admin: 11/06/22 09:14 Dose: 80 mg Glucagon (Glucagon 1 Mg/Ml Inj 1 Ml) 1 mg IM ONCE PRN; Protocol PRN Reason: Adult Acute Hypoglycemia Prot. Diltiazem HCl 100 mg/ Sodium (Chloride) 100 mls @ 0 mls/hr IV .Q0M [facility]; Protocol Last Admin: 11/06/22 15:12 Dose: 5 mg/hr, 5 mls/hr Dextrose (D5w) 500 mls @ 100 mls/hr IV ONCE PRN; Protocol PRN Reason: Adult Acute Hypoglycemia Prot Insulin Human Lispro (Insulin Lispro 100 Unit/1 Ml) 0 unit SUBCUT WM&BEDTIME [facility]; Protocol Last Admin: 11/06/22 14:25 Dose: Not Given Losartan Potassium (Losartan 50 Mg Tablet) 50 mg PO DAILY@0900 [facility] Last Admin: 11/06/22 09:14 Dose: 50 mg Metoprolol Succinate (Metoprolol Succinate Er (24 Hr) 100 Mg Tablet) 100 mg PO DAILY@0900 [facility] Last Admin: 11/06/22 09:13 Dose: 100 mg Nitroglycerin (Nitroglycerin 1 Gm/Inch Oint Pkt) 1 inch TOPICAL Q6H [facility] Last Admin: 11/06/22 05:10 Dose: 1 inch Ondansetron HCl (Ondansetron 2 Mg/Ml Sdv 2 Ml) 4 mg IVP Q6H PRN PRN Reason: vomiting, or N/V if npo Pantoprazole Sodium (Pantoprazole Dr 40 Mg Tablet) 40 mg PO BID@0900,2200 [facility] Last Admin: 11/06/22 11:24 Dose: Not Given Potassium Chloride (Potassium Chloride Er 20 Meq Tablet) 20 meq PO QAM [facility] Last Admin: 11/06/22 11:19 Dose: Not Given Prednisone (Prednisone 20 Mg Tablet) 40 mg PO DAILY [facility] Vitals/I&O/Wt Last Vital Signs Temp 98.0 F 11/06/22 11:23 Pulse 63 11/06/22 16:00 Resp 18 11/06/22 16:00 BP 101/56 11/06/22 16:00 Pulse Ox 92 11/06/22 16:00 O2 Del Method 11/06/22 16:00 O2 Flow Rate 5 11/06/22 15:30 11/06/22 11/06/22 11/06/22 06:59 14:59 22:59 Intake Total 92.333 / 179.083 64.333 / 64.333 1125.958 / 1190.291 Output Total 350 / 350 Balance 92.333 / 179.083 -285.667 / -259.501 5504.958 / 840.291 Weight last 48 hrs Weight 229 lb Weight 229 lb Physical Exam Narrative: GENERAL: The patient is alert and oriented times three. Not in any acute distress. Somewhat anxious HEENT: No significant pallor, icterus or lymphadenopathy.Oral cavity: There are no mucous membrane lesions. NECK: Trachea appears to be central. No masses noted. No JVD or thyromegaly appreciated. RESPIRATORY: Chest is symmetrical. No intercostals muscle retraction or any accessory muscle activation. There is no chest wall tenderness. Breath sounds are heard bilaterally, with diminished intensity of breath sounds at the bases. scattered coarse crackles and occasional expiratory wheeze BREASTS: Deferred. HEART: The heart sounds are normal. No S3 or S4. Short systolic murmur in the left sternal border. No pericardial rub ABDOMEN: No vessel pulsations or distention. No tenderness. No organomegaly appreciated. Bowel sounds are normally heard. : Deferred. RECTAL: Deferred. LYMPHATIC: No lymphadenopathy noted in the neck. EXTREMITIES: No edema or cyanosis. No clubbing. MUSCULOSKELETAL: No acute joint deformities or swelling SKIN: There are no significant rashes or ecchymosis NEUROPSYCHIATRIC: The patient is alert and oriented x3. Appears to be in a good mood. No tremors or rigidity noted. Data 11/06/22 04:26 11/06/22 04:26 Other Labs: Laboratory Last Values WBC 11.0 10^3/uL (4.0-10.0) H 11/06/22 04:26 RBC 4.23 10^6/uL (4.1-5.3) 11/06/22 04:26 Hgb 13.7 g/dL (11.5-15.3) 11/06/22 04:26 Hct 42.2 % (37.0-47.0) 11/06/22 04:26 MCV 99.8 fl (81-99) H 11/06/22 04:26 MCH 32.4 pg (28.0-34.0) 11/06/22 04:26 MCHC 32.5 g/dL (30.0-36.0) 11/06/22 04:26 RDW 14.1 % (12.1-15.1) 11/06/22 04:26 Plt Count 139 10^3/cmm (130-400) 11/06/22 04:26 MPV 10.5 fL (7.4-10.4) H 11/06/22 04:26 Neut % (Auto) 77.1 % 11/06/22 04:26 Lymph % (Auto) 15.2 % 11/06/22 04:26 [place] % (Auto) 6.9 % 11/06/22 04:26 Eos % (Auto) 0.0 % 11/06/22 04:26 Baso % (Auto) 0.3 % 11/06/22 04:26 Neut # (Auto) 8.48 10^3/uL (1.8-7.7) H 11/06/22 04:26 Lymph # (Auto) 1.7 10^3/uL (0.8-4.8) 11/06/22 04:26 [place] # (Auto) 0.8 10^3/uL (0.2-0.9) 11/06/22 04:26 Eos # (Auto) 0.0 10^3/uL (0.0-0.8) 11/06/22 04:26 Baso # (Auto) 0.0 10^3/uL (0.0-0.1) 11/06/22 04:26 Nucleated RBC % (auto) 0 % 11/06/22 04:26 Nucleated RBCs # 0.0 /100WBC 11/06/22 04:26 Specimen Type Arterial 11/05/22 08:17 Sample Site Brachial, right 11/05/22 08:17 ABG pH 7.44 (7.35-7.45) 11/05/22 08:17 ABG pCO2 40.6 mmHg (35-45) 11/05/22 08:17 ABG pO2 71.4 mmHg (80.0-100.0) L 11/05/22 08:17 ABG HCO3 27.6 mmol/L (22-26) H 11/05/22 08:17 ABG O2 Saturation 96.3 11/05/22 08:17 ABG Base Excess 3.1 mmol/L (-2.0-2.0) H 11/05/22 08:17 Adolfo Test N/a 11/05/22 08:17 A-a O2 Gradient 17.6 mmHg (5-10) H 11/05/22 08:17 Hematocrit 42.0 % (37-47) 11/05/22 08:17 Hgb O2 Saturation 93.9 % (95-100) L 11/05/22 08:17 Carboxyhemoglobin 1.8 %THgb (0.4-20.1) 11/05/22 08:17 Methemoglobin 0.6 % (0.4-1.5) 11/05/22 08:17 Total Hemoglobin 13.7 g/dL (12-16) 11/05/22 08:17 Sodium 140.0 mmol/L (131-143) 11/05/22 08:17 Potassium 3.8 mmol/L (3.5-5.0) 11/05/22 08:17 Glucose 153.0 mg/dL (70-115) H 11/05/22 08:17 Ionized Calcium 1.2 mmol/L (1.1-1.4) 11/05/22 08:17 O2 Delivery Device Nc 11/05/22 08:17 O2 Liters/Min 4.0 % 11/05/22 08:17 FiO2 36.0 % 11/05/22 08:17 Corrections Specialist ID Amh 11/05/22 08:17 Sodium 139 mmol/L (136-145) 11/06/22 04:26 Potassium 4.0 mmol/L (3.5-5.1) 11/06/22 04:26 Chloride 99 mmol/L (98-107) 11/06/22 04:26 Carbon Dioxide 26 mmol/L (22-29) 11/06/22 04:26 Anion Gap 18.0 (5-19) 11/06/22 04:26 BUN 13 mg/dL (8-23) 11/06/22 04:26 Creatinine 0.9 mg/dL (0.5-0.9) 11/06/22 04:26 GFR Calculation Not Reportable 11/06/22 04:26 Glucose 209 mg/dL (65-115) H 11/06/22 04:26 POC Glucose 367 mg/dL (70-110) H 11/06/22 17:02 Calculated Osmolality 294 mOsm/kg (285-295) 11/06/22 04:26 Calcium 8.5 mg/dL (8.5-10.5) 11/06/22 04:26 Magnesium 1.9 mg/dL (1.7-2.3) 11/06/22 04:26 Total Bilirubin 0.8 mg/dL (0.15-1.2) 11/05/22 07:25 AST 19 U/L (0-32) 11/05/22 07:25 ALT 11 U/L (0-33) 11/05/22 07:25 Alkaline Phosphatase 73 U/L (35-105) 11/05/22 07:25 Troponin T Baseline 22 ng/L (0-10) H 11/05/22 07:25 Troponin T 120 Minute 45.05 ng/L (0-10) H 11/05/22 09:35 Delta Troponin T 23.05 ABS# (0-10) H* 11/05/22 09:35 Troponin T Hi Sens 6Hr 111.7 ng/L (0-10) H 11/05/22 13:45 Troponin T Hi Sens 6Hr Delta 89.7 ng/L (0-12) H* 11/05/22 13:45 NT-Pro-B Natriuret Pep 3523 pg/mL (0-125) H 11/05/22 07:25 Total Protein 5.7 g/dL (6.6-8.7) L 11/05/22 07:25 Albumin 3.5 g/dL (3.5-5.2) 11/05/22 07:25 Globulin 2.2 g/dL (1.3-4.6) 11/05/22 07:25 Procalcitonin 0.05 ng/mL (0-0.5) 11/05/22 08:08 TSH 1.75 uIU/mL (0.27-4.20) 11/05/22 07:25 Urine Color Yellow (Yellow) 11/05/22 08:55 Urine Appearance Clear (CLEAR) 11/05/22 08:55 Urine pH 6 (5-7) 11/05/22 08:55 Ur Specific [place] 1.010 (1.005-1.030) 11/05/22 08:55 Urine Protein 1+ (Negative) H 11/05/22 08:55 Urine Glucose (UA) Norm (Normal) 11/05/22 08:55 Urine Ketones 1+ (Negative) H 11/05/22 08:55 Urine Blood Neg (Negative) 11/05/22 08:55 Urine Nitrate Negative (Negative) 11/05/22 08:55 Urine Bilirubin Neg (Negative) 11/05/22 08:55 Urine Urobilinogen Norm mg/dL (Negative) 11/05/22 08:55 Ur Leukocyte Esterase Negative (Negative) 11/05/22 08:55 Urine RBC 0-4 /hpf (0-2) H 11/05/22 08:55 Urine WBC 0-4 /hpf (0-5) H 11/05/22 08:55 Ur Squamous Epith Cells 10-15 /hpf (0-5) H 11/05/22 08:55 Amorphous Sediment Not Reportable 11/05/22 08:55 Urine Bacteria Trace /hpf (NONE) 11/05/22 08:55 Coarse Granular Casts 0-4 /lpf H 11/05/22 08:55 Coronavirus 229E (PCR) Not detected (NOT DETECT) 11/05/22 08:43 Human Metapneumovir PCR Detected (NOT DETECT) A 11/05/22 11:12 Entero/Rhino (PCR) Not detected (NOT DETECT) 11/05/22 11:12 SARS-CoV-2 (PCR) Not detected (NOT DETECT) 11/05/22 08:43 Micro: Microbiology 11/05/22 08:14 Blood Culture - Preliminary Blood NEGATIVE TO DATE 11/05/22 08:08 Blood Culture - Preliminary Blood NEGATIVE TO DATE A&P Assessment and plan (1) Atherosclerotic heart disease of [place] coronary artery with unstable angina pectoris: Patient is clinical features are suggestive of a non-ST elevation myocardial infarction. She also has some evidence of decompensated heart failure. We will hold off on the oral anticoagulation. Started on subcu Lovenox, beta-blockers, Plavix and other medications In view of the worsening chest pain, patient may benefit from a repeat cardiac catheterization to further evaluate the coronary status and decide on further management. The risk of bleeding, hematoma, vascular injury, myocardial infarction, tano we will hold ardial perforation, malignant cardiac arrhythmias ,CVA, renal failure and other concomitant complications were explained in detail. Patient understood this well and consented to proceed. Because of her worsening oxygenation, we may hold off on this till the respiratory status could stabilize (2) Atrial fibrillation with rapid ventricular response: May continue on the subcu Lovenox for the time being. Other medications may be continued. (3) Acute on chronic congestive heart failure: We will treat with IV diuretics and other symptomatic measures. Try to optimize medical treatment. The repeat echocardiogram revealed an LV ejection fraction of around 40%. We will continue to optimize the medical treatment. May consider Entresto (4) Hypercholesterolemia: Continue on the current management. Follow-up evaluation as scheduled. (5) COPD (chronic obstructive pulmonary disease): Continue on the bronchodilator treatment and the antibiotics. Careful IV diuresis also may be continued Plan Discussed with Dr. Alcala. Hold off on the angiogram for the time being. If the respiratory status improve, consider the angiogram tomorrow Attestations Medical Necessity Statement*: Patient requires continued hospital stay for close monitoring and further management Coding Level of Care Code 85745 Diagnoses Atherosclerotic heart disease of [place] coronary artery with unstable angina pectoris I25.110 Atrial fibrillation with rapid ventricular response I48.91 Acute on chronic congestive heart failure I50.9 Hypercholesterolemia E78.00 COPD (chronic obstructive pulmonary disease) J44.9
[2022-11-06] MEDS: insulin lispro 100 unit/1 mL SUBCUT ×2 (18:36→23:03)
--- NOTE | 2022-11-06 19:41 | PC.NURSE ---
Sumit thorne stopped at 1921. Patient rate is in the 60s
[2022-11-06 22:14] LABS: Glucose Point of Care 247 mg/dL (70-110)
[2022-11-06] MEDS: enoxaparin 100 mg/mL Syringe SUBCUT (23:02)
[2022-11-07] VITALS (26 sets, daily range): BP systolic 86–125; BP diastolic 47–84; PULSE 65–102; RESP 14–23; TEMP 36.6–37; O2SAT 91–97
[2022-11-07] MEDS: pantoprazole DR 40 mg Tablet PO ×3 (00:15→23:26)
[2022-11-07] MEDS: dilTIAZem 30 mg Tablet PO (03:07)
[2022-11-07 04:07] LABS: Basophils % 0.1 %; Hematocrit 36.9 % (37.0-47.0); Lymphocytes # 0.9 10^3/uL (0.8-4.8); Lymphocytes % 11.2 %; Mean Corpuscular HGB Conc 32.5 g/dL (30.0-36.0); Mean Corpuscular Volume 98.4 fl (81-99); Mean Platelet Volume 10.8 fL (7.4-10.4); Monocytes # 0.5 10^3/uL (0.2-0.9); Monocytes % 6.6 %; Neutrophils # 6.32 10^3/uL (1.8-7.7); Neutrophils % 81.6 %; Nucleated Red Blood Cells % 0 %; Platelet Count 148 10^3/cmm (130-400); Red Blood Count 3.75 10^6/uL (4.1-5.3); Red Cell Distribution Width 13.6 % (12.1-15.1); White Blood Count 7.8 10^3/uL (4.0-10.0)
[2022-11-07] MEDS: ipratropium-albuterol 3 mL Neb INHALATION ×5 (04:14→20:31)
[2022-11-07 04:20] LABS: Blood Urea Nitrogen 26 mg/dL (8-23); Calcium 8.9 mg/dL (8.5-10.5); Carbon Dioxide 28 mmol/L (22-29); Chloride 96 mmol/L (98-107); Glucose 206 mg/dL (65-115); Magnesium 1.9 mg/dL (1.7-2.3); Osmolality Calculated 291 mOsm/kg (285-295); Sodium 135 mmol/L (136-145)
[2022-11-07] MEDS: potassium chloride ER 20 mEq Tablet PO (05:55)
[2022-11-07 06:02] LABS: Glucose Point of Care 208 mg/dL (70-110)
--- NOTE | 2022-11-07 07:12 | P.PN_ITS ---
Subjective Subjective: Chiqui reports she is breathing much easier. Less wheezing. She is still short of breath when she gets up and around. No chest discomfort overnight. Plan is for angiogram today. Medications: Reviewed: Yes Vitals/I&O/Wt Last Vital Signs Temp 98.6 F 11/07/22 03:19 Pulse 67 11/07/22 06:00 Resp 16 11/07/22 04:05 BP 91/47 11/07/22 03:19 Pulse Ox 96 11/07/22 04:05 O2 Del Method 11/07/22 04:05 O2 Flow Rate 5 11/07/22 04:05 11/06/22 11/07/22 11/07/22 22:59 06:59 14:59 Intake Total 1268.375 / 1332.708 Output Total 340 / 690 Balance 928.375 / 642.708 Weight last 48 hrs Weight 103.873 kg Physical Exam Narrative: General exam appears no respiratory distress today Neck is supple no lymphadenopathy thyromegaly Cardiovascular tachycardic, irregular, no audible murmur Lungs much improved air movement, minimal wheezing Abdomen is soft with positive bowel sounds. No obvious organomegaly Extremities no cyanosis clubbing or edema, cap refill brisk Skin no rash Data 11/07/22 02:49 11/07/22 02:49 Micro: Microbiology 11/05/22 08:14 Blood Culture - Preliminary Blood NEGATIVE TO DATE 11/05/22 08:08 Blood Culture - Preliminary Blood NEGATIVE TO DATE A&P Assessment and plan (1) Atrial fibrillation with rapid ventricular response: Patient presents with atrial fibrillation with rapid ventricular rate. This can certainly drive worsening heart failure, although she has a concern of recurrent chest discomfort. Cardizem drip was able to be weaned off yesterday. She was placed on oral Cardizem. We will convert this to extended release Cardizem today Continue her metoprolol 100 mg daily TSH and magnesium checked and normal Rate currently under good control this morning. (2) Acute combined systolic and diastolic heart failure: Was placed on Lasix 80 mg IV twice daily yesterday secondary to concern of worsening failure. Blood pressure somewhat soft this morning. Patient appears much improved. Planning on angiogram today. Hold Lasix dose this morning and reassess pressures during angiogram. Following angiogram might need to restart Lasix depending on pressures CBC and BMP tomorrow to watch for any anemia post angiogram, kidney injury. (3) Chest pain: Patient has had recurrent chest discomfort. She has known disease with an angiogram in 2020 demonstrating LAD disease. It was 40-50 percent at that time. Continue aspirin, beta-ana, continue full dose anticoagulation, statin. Nitroglycerin paste discontinued secondary to lower blood pressures Elevation his troponin is consistent with non-ST elevation myocardial infarction Monitor on telemetry Appreciate cardiology consultation, angiogram planned today Discussed in detail with cardiology today. (4) COPD (chronic obstructive pulmonary disease): Patient with [place] pneumonia virus in her sputum. Currently having COPD exacerb ation. 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 Nix. Attestations Medical Necessity Statement*: Needs continued hospitalization for definitive evaluation of non-ST elevation myocardial infarction. Coding Level of Care Code 78612 High MDM includes risk/complexity, reviewing test results, ordering lab/other test(s) and discussion of management or test(s) w/ other healthcare professional Diagnoses Atrial fibrillation with rapid ventricular response I48.91 Acute combined systolic and diastolic heart failure I50.41 Chest pain R07.9 COPD (chronic obstructive pulmonary disease) J44.9 Diabetes type 2, controlled E11.65 Diabetes mellitus terminal operations supervisor insulin use: without terminal operations supervisor use Diabetes mellitus complication status: with hyperglycemia Chronic low back pain M54.5; G89.29 Time Spent (min) 31
[2022-11-07] MEDS: budesonide 0.5 mg/2 mL Neb INHALATION ×2 (07:57→20:31)
[2022-11-07] MEDS: nitroglycerin 1 gm/inch oint Pkt 1 INCH TOPICAL (09:22)
[2022-11-07] MEDS: dilTIAZem ER (24HR) 120 mg Capsule PO (09:23)
[2022-11-07] MEDS: doxycycline 100 mg Tablet PO ×2 (09:23→18:23)
[2022-11-07] MEDS: predniSONE 20 mg Tablet 40 MG PO (09:23)
[2022-11-07] MEDS: duloxetine 60 mg Capsule PO (09:23)
[2022-11-07] MEDS: atorvastatin 40 mg Tablet 20 MG PO (09:23)
[2022-11-07] MEDS: metoprolol succinate ER (24 HR) 100 mg Tablet PO (09:24)
--- NOTE | 2022-11-07 10:07 | PM.PN ---
Subjective Subjective: The patient is feeling better. Her breathing also seems to be better today. She is currently on 4 L of oxygen by nasal cannula. She is able to lie flat in the bed. Medications: Medication Review Details: Current Medications Acetaminophen (Acetaminophen 325 Mg Tablet) 650 mg PO Q6H PRN PRN Reason: Mild/Mod Pain Or Temp >/= 101 Hydrocodone Bitart/Acetaminophen (Hydrocodone-Acetaminophen 5-325 Mg Tablet) 1 tab PO Q8H PRN PRN Reason: pain Last Admin: 11/06/22 11:25 Dose: 1 tab Albuterol/Ipratropium (Ipratropium-Albuterol 3 Ml Neb) 3 ml INHALATION Q4H.RESPIRATORY JORGE LUIS Last Admin: 11/07/22 07:57 Dose: 3 ml Aspirin (Aspirin 81 Mg Ec Tablet) 81 mg PO DAILY@0900 [facility] Last Admin: 11/07/22 09:27 Dose: Not Given Atorvastatin Calcium (Atorvastatin 40 Mg Tablet) 20 mg PO DAILY@0900 [facility] Last Admin: 11/07/22 09:23 Dose: 20 mg Budesonide (Budesonide 0.5 Mg/2 Ml Neb) 0.5 mg INHALATION BID.RESPIRATORY JORGE LUIS Last Admin: 11/07/22 07:57 Dose: 0.5 mg Dextrose (Dextrose 50% Syringe 50 Ml) 25 ml IVP ONCE PRN; Protocol PRN Reason: hypoglycemia protocol Dextrose (Dextrose 50% Syringe 50 Ml) 50 ml IVP PRN PRN; Protocol PRN Reason: hypoglycemia protocol Diltiazem HCl (Diltiazem Er (24hr) 120 Mg Capsule) 120 mg PO DAILY JORGE LUIS Last Admin: 11/07/22 09:23 Dose: 120 mg Doxycycline Monohydrate (Doxycycline 100 Mg Tablet) 100 mg PO BID JORGE LUIS; Protocol Last Admin: 11/07/22 09:23 Dose: 100 mg Duloxetine HCl (Duloxetine 60 Mg Capsule) 60 mg PO DAILY@0900 [facility] Last Admin: 11/07/22 09:23 Dose: 60 mg Enoxaparin Sodium (Enoxaparin 100 Mg/Ml Syringe) 100 mg SUBCUT Q12H JORGE LUIS Last Admin: 11/07/22 09:28 Dose: Not Given Glucagon (Glucagon 1 Mg/Ml Inj 1 Ml) 1 mg IM ONCE PRN; Protocol PRN Reason: Adult Acute Hypoglycemia Prot. Dextrose (D5w) 500 mls @ 100 mls/hr IV ONCE PRN; Protocol PRN Reason: Adult Acute Hypoglycemia Prot Insulin Human Lispro (Insulin Lispro 100 Unit/1 Ml) 0 unit SUBCUT WM&BEDTIME [facility]; Protocol Last Admin: 11/07/22 09:27 Dose: Not Given Metoprolol Succinate (Metoprolol Succinate Er (24 Hr) 100 Mg Tablet) 100 mg PO DAILY@0900 [facility] Last Admin: 11/07/22 09:24 Dose: 100 mg Nitroglycerin (Nitroglycerin 1 Gm/Inch Oint Pkt) 1 inch TOPICAL Q6H [facility] Last Admin: 11/07/22 09:22 Dose: 1 inch Ondansetron HCl (Ondansetron 2 Mg/Ml Sdv 2 Ml) 4 mg IVP Q6H PRN PRN Reason: vomiting, or N/V if npo Pantoprazole Sodium (Pantoprazole Dr 40 Mg Tablet) 40 mg PO BID@0900,2200 [facility] Last Admin: 11/07/22 09:27 Dose: 40 mg Potassium Chloride (Potassium Chloride Er 20 Meq Tablet) 20 meq PO QAM [facility] Last Admin: 11/07/22 05:55 Dose: 20 meq Prednisone (Prednisone 20 Mg Tablet) 40 mg PO DAILY [facility] Last Admin: 11/07/22 09:23 Dose: 40 mg Vitals/I&O/Wt Last Vital Signs Temp 98 F 11/07/22 07:27 Pulse 78 11/07/22 08:03 Resp 18 11/07/22 07:58 BP 99/62 11/07/22 07:27 Pulse Ox 96 11/07/22 07:58 O2 Del Method 11/07/22 07:58 O2 Flow Rate 4 11/07/22 07:58 11/06/22 11/07/22 11/07/22 22:59 06:59 14:59 Intake Total 1268.375 / 1332.708 240 / 240 Output Total 340 / 690 Balance 928.375 / 642.708 240 / 240 Weight last 48 hrs Weight 229 lb Physical Exam Narrative: GENERAL: The patient is alert and oriented times three. Not in any acute distress. Somewhat anxious HEENT: No significant pallor, icterus or lymphadenopathy.Oral cavity: There are no mucous membrane lesions. NECK: Trachea appears to be central. No masses noted. No JVD or thyromegaly appreciated. RESPIRATORY: Chest is symmetrical. No intercostals muscle retraction or any accessory muscle activation. There is no chest wall tenderness. Breath sounds are heard bilaterally, with diminished intensity of breath sounds at the bases. Few scattered coarse crackles and occasional expiratory wheeze BREASTS: Deferred. HEART: The heart sounds are normal. No S3 or S4. Short systolic murmur in the left sternal border. No pericardial rub ABDOMEN: No vessel pulsations or distention. No tenderness. No organomegaly appreciated. Bowel sounds are normally heard. : Deferred. RECTAL: Deferred. LYMPHATIC: No lymphadenopathy noted in the neck. EXTREMITIES: No edema or cyanosis. No clubbing. MUSCULOSKELETAL: No acute joint deformities or swelling SKIN: There are no significant rashes or ecchymosis NEUROPSYCHIATRIC: The patient is alert and oriented x3. Appears to be in a good mood. No tremors or rigidity noted. Data 11/07/22 02:49 11/07/22 02:49 Other Labs: Laboratory Last Values WBC 7.8 10^3/uL (4.0-10.0) 11/07/22 02:49 RBC 3.75 10^6/uL (4.1-5.3) L 11/07/22 02:49 Hgb 12.0 g/dL (11.5-15.3) 11/07/22 02:49 Hct 36.9 % (37.0-47.0) L 11/07/22 02:49 MCV 98.4 fl (81-99) 11/07/22 02:49 MCH 32.0 pg (28.0-34.0) 11/07/22 02:49 MCHC 32.5 g/dL (30.0-36.0) 11/07/22 02:49 RDW 13.6 % (12.1-15.1) 11/07/22 02:49 Plt Count 148 10^3/cmm (130-400) 11/07/22 02:49 MPV 10.8 fL (7.4-10.4) H 11/07/22 02:49 Neut % (Auto) 81.6 % 11/07/22 02:49 Lymph % (Auto) 11.2 % 11/07/22 02:49 [place] % (Auto) 6.6 % 11/07/22 02:49 Eos % (Auto) 0.0 % 11/07/22 02:49 Baso % (Auto) 0.1 % 11/07/22 02:49 Neut # (Auto) 6.32 10^3/uL (1.8-7.7) 11/07/22 02:49 Lymph # (Auto) 0.9 10^3/uL (0.8-4.8) 11/07/22 02:49 [place] # (Auto) 0.5 10^3/uL (0.2-0.9) 11/07/22 02:49 Eos # (Auto) 0.0 10^3/uL (0.0-0.8) 11/07/22 02:49 Baso # (Auto) 0.0 10^3/uL (0.0-0.1) 11/07/22 02:49 Nucleated RBC % (auto) 0 % 11/07/22 02:49 Nucleated RBCs # 0.0 /100WBC 11/07/22 02:49 Specimen Type Arterial 11/05/22 08:17 Sample Site Brachial, right 11/05/22 08:17 ABG pH 7.44 (7.35-7.45) 11/05/22 08:17 ABG pCO2 40.6 mmHg (35-45) 11/05/22 08:17 ABG pO2 71.4 mmHg (80.0-100.0) L 11/05/22 08:17 ABG HCO3 27.6 mmol/L (22-26) H 11/05/22 08:17 ABG O2 Saturation 96.3 11/05/22 08:17 ABG Base Excess 3.1 mmol/L (-2.0-2.0) H 11/05/22 08:17 Adolfo Test N/a 11/05/22 08:17 A-a O2 Gradient 17.6 mmHg (5-10) H 11/05/22 08:17 Hematocrit 42.0 % (37-47) 11/05/22 08:17 Hgb O2 Saturation 93.9 % (95-100) L 11/05/22 08:17 Carboxyhemoglobin 1.8 %THgb (0.4-20.1) 11/05/22 08:17 Methemoglobin 0.6 % (0.4-1.5) 11/05/22 08:17 Total Hemoglobin 13.7 g/dL (12-16) 11/05/22 08:17 Sodium 140.0 mmol/L (131-143) 11/05/22 08:17 Potassium 3.8 mmol/L (3.5-5.0) 11/05/22 08:17 Glucose 153.0 mg/dL (70-115) H 11/05/22 08:17 Ionized Calcium 1.2 mmol/L (1.1-1.4) 11/05/22 08:17 O2 Delivery Device Nc 11/05/22 08:17 O2 Liters/Min 4.0 % 11/05/22 08:17 FiO2 36.0 % 11/05/22 08:17 Die Drawing Checker ID Amh 11/05/22 08:17 Sodium 135 mmol/L (136-145) L 11/07/22 02:49 Potassium 4.0 mmol/L (3.5-5.1) 11/07/22 02:49 Chloride 96 mmol/L (98-107) L 11/07/22 02:49 Carbon Dioxide 28 mmol/L (22-29) 11/07/22 02:49 Anion Gap 15.0 (5-19) 11/07/22 02:49 BUN 26 mg/dL (8-23) H 11/07/22 02:49 Creatinine 1.0 mg/dL (0.5-0.9) H 11/07/22 02:49 GFR Calculation Not Reportable 11/07/22 02:49 Glucose 206 mg/dL (65-115) H 11/07/22 02:49 POC Glucose 208 mg/dL (70-110) H 11/07/22 05:54 Calculated Osmolality 291 mOsm/kg (285-295) 11/07/22 02:49 Calcium 8.9 mg/dL (8.5-10.5) 11/07/22 02:49 Magnesium 1.9 mg/dL (1.7-2.3) 11/07/22 02:49 Total Bilirubin 0.8 mg/dL (0.15-1.2) 11/05/22 07:25 AST 19 U/L (0-32) 11/05/22 07:25 ALT 11 U/L (0-33) 11/05/22 07:25 Alkaline Phosphatase 73 U/L (35-105) 11/05/22 07:25 Troponin T Baseline 22 ng/L (0-10) H 11/05/22 07:25 Troponin T 120 Minute 45.05 ng/L (0-10) H 11/05/22 09:35 Delta Troponin T 23.05 ABS# (0-10) H* 11/05/22 09:35 Troponin T Hi Sens 6Hr 111.7 ng/L (0-10) H 11/05/22 13:45 Troponin T Hi Sens 6Hr Delta 89.7 ng/L (0-12) H* 11/05/22 13:45 NT-Pro-B Natriuret Pep 3523 pg/mL (0-125) H 11/05/22 07:25 Total Protein 5.7 g/dL (6.6-8.7) L 11/05/22 07:25 Albumin 3.5 g/dL (3.5-5.2) 11/05/22 07:25 Globulin 2.2 g/dL (1.3-4.6) 11/05/22 07:25 Procalcitonin 0.05 ng/mL (0-0.5) 11/05/22 08:08 TSH 1.75 uIU/mL (0.27-4.20) 11/05/22 07:25 Urine Color Yellow (Yellow) 11/05/22 08:55 Urine Appearance Clear (CLEAR) 11/05/22 08:55 Urine pH 6 (5-7) 11/05/22 08:55 Ur Specific [place] 1.010 (1.005-1.030) 11/05/22 08:55 Urine Protein 1+ (Negative) H 11/05/22 08:55 Urine Glucose (UA) Norm (Normal) 11/05/22 08:55 Urine Ketones 1+ (Negative) H 11/05/22 08:55 Urine Blood Neg (Negative) 11/05/22 08:55 Urine Nitrate Negative (Negative) 11/05/22 08:55 Urine Bilirubin Neg (Negative) 11/05/22 08:55 Urine Urobilinogen Norm mg/dL (Negative) 11/05/22 08:55 Ur Leukocyte Esterase Negative (Negative) 11/05/22 08:55 Urine RBC 0-4 /hpf (0-2) H 11/05/22 08:55 Urine WBC 0-4 /hpf (0-5) H 11/05/22 08:55 Ur Squamous Epith Cells 10-15 /hpf (0-5) H 11/05/22 08:55 Amorphous Sediment Not Reportable 11/05/22 08:55 Urine Bacteria Trace /hpf (NONE) 11/05/22 08:55 Coarse Granular Casts 0-4 /lpf H 11/05/22 08:55 Coronavirus 229E (PCR) Not detected (NOT DETECT) 11/05/22 08:43 Human Metapneumovir PCR Detected (NOT DETECT) A 11/05/22 11:12 Entero/Rhino (PCR) Not detected (NOT DETECT) 11/05/22 11:12 SARS-CoV-2 (PCR) Not detected (NOT DETECT) 11/05/22 08:43 Micro: Microbiology 11/05/22 08:14 Blood Culture - Preliminary Blood NEGATIVE TO DATE 11/05/22 08:08 Blood Culture - Preliminary Blood NEGATIVE TO DATE A&P Assessment and plan (1) Atherosclerotic heart disease of [place] coronary artery with unstable angina pectoris: Patient is clinical features are suggestive of a non-ST elevation myocardial infarction. She also has some evidence of decompensated heart failure. We will hold off on the oral anticoagulation. Started on subcu Lovenox, beta-blockers, Plavix and other medications In view of the worsening chest pain, patient may benefit from a repeat cardiac catheterization to further evaluate the coronary status and decide on further management. The risk of bleeding, hematoma, vascular injury, myocardial infarction, tano we will hold ardial perforation, malignant cardiac arrhythmias ,CVA, renal failure and other concomitant complications were explained in detail. Patient understood this well and consented to proceed. Currently the respiratory status seems to be stable. Discussed with Dr. Roberts. It was thought to be appropriate to go ahead with the procedure. We will try to go ahead and do this sometime today. She will be kept n.p.o. after nearly morning breakfast (2) Atrial fibrillation with rapid ventricular response: May continue on the subcu Lovenox for the time being. Other medications may be continued. (3) Acute on chronic congestive heart failure: We will treat with IV diuretics and other symptomatic measures. Try to optimize medical treatment. The repeat echocardiogram revealed an LV ejection fraction of around 40%. We will continue to optimize the medical treatment. May consider Entresto. Lasix is on hold today (4) Hypercholesterolemia: Continue on the current management. Follow-up evaluation as scheduled. (5) COPD (chronic obstructive pulmonary disease): Continue on the bronchodilator treatment and the antibiotics. Careful IV diuresis also may be continued Plan Based on the patient's clinical progress and the results of the above, further recommendations will be made. Attestations Medical Necessity Statement*: Patient requires continued hospital stay for close monitoring and further management Coding Level of Care Code 60451 Diagnoses Atherosclerotic heart disease of [place] coronary artery with unstable angina pectoris I25.110 Atrial fibrillation with rapid ventricular response I48.91 Acute on chronic congestive heart failure I50.9 Hypercholesterolemia E78.00 COPD (chronic obstructive pulmonary disease) J44.9
[2022-11-07 12:34] LABS: Glucose Point of Care 243 mg/dL (70-110)
[2022-11-07] MEDS: HYDROcodone-acetaminophen 5-325 mg Tablet 1 TAB PO ×2 (13:21→21:40)
--- NOTE | 2022-11-07 16:09 | XACV_ITS ---
Exam Room: 2 Ht: 173 cm Wt: 104 kg BSA: 2.27 m2 Gender: Female : 1950 Any Known Allergies: Other Exam Priority: Routine Procedure(s): Procedure Description: Diagnostic procedure Procedure Description: Left Heart Catheterization Procedure Description: Left ventriculography Procedure Description: Coronary Angiography Procedure Description: Pressure Wire Boyd CAMPOS; Diagnostic Cath Status: Urgent Diagnostic Findings * Left main is a medium caliber vessel with no significant stenotic lesions. * The left anterior descending artery is a medium caliber vessel which appears to taper off towards the LV apex. The proximal segment of the artery, at the takeoff of the first septal patient observer, was found to have around 50% segmental narrowing. The mid segment of the artery was found to have 20 to 30% diffuse irregular narrowing. Around the takeoff of the second diagonal branch, there was a long tubular narrowing of around 50% starting from the takeoff of the second diagonal branch. The ostium of the second diagonalbranch was found to have around 50% stenosis.. * The circumflex artery is a medium caliber vessel which was found to have tubular narrowing of around 50% at the mid segment. The first obtuse marginal has a high takeoff. The second obtuse marginal branch was found to have ostial narrowing of around 90%. It is relatively small caliber vessel. The distal circumflex was found to have minimal intimal irregularities.. * The right coronary artery is a medium to large caliber dominant vessel which was found to have moderate diffuse calcification in the proximal and the mid segment. There is around 20 to 30% diffuse irregular narrowing in this area. The PLV and the PDA branches also were found to have minimal intimal irregularities. The distal PDA was found to be bifurcating. One of the bifurcation branches were found to have around 50% tubular narrowing, proximally.. PCI LVEF Assessed: Yes Interventional Findings * I was asked to perform an IFR of the proximal LAD and proximal circumflex. The IFR of the proximal LAD is 1.03. The IFR of the proximal circumflex is 0.98. Conclusions 1. 71-year-old white female with history of chronic atrial fibrillation, congestive heart failure, cardiomyopathy, high blood pressure, dyslipidemia and multiple other medical problems, presents with complaints of chest pain and shortness of breath. She was found to be in atrial fibrillation with rapid ventricular rate and congestive heart failure. Her troponin T was found to be elevated with Significant delta. Possibility of non-ST elevation myocardial infarction complicated with heart failure was considered. Her LV ejection fraction was around 40% by echocardiogram. In order to further evaluate her coronary status, a cardiac catheterization was recommended. Patient underwent left heart catheterization with the left and right coronary angiogram and LV angiogram today. The findings are as follows. 2. Moderate disease in the proximal to mid LAD. Moderate disease in the mid circumflex artery. Mild to moderate diffuse disease in the other vessels. Moderate to heavy calcification in the proximal to mid segment of the left anterior descending artery and the right coronary artery. In view of the patient's presenting symptoms and the abnormal objective findings, to further evaluate the functional significance of the LAD and the circumflex artery lesions, an IFR was thought to be appropriate. I reviewed and discussed the cardiac catheterization data with Dr. Mcintosh. Dr. Mcintosh agreed with this plan and took over further management this patient at this point. . Diagnostic RX Recommendation: other cardiac therapy w/o CABG/PCI Ventriculography Ejection Fraction: 40.0 % LV EDP: 28 mmHg Left Ventriculography Findings: * The LV gram was performed in the HALLMAN view. The study was of suboptimal quality. Diffuse hypokinesia of the anteroapical region was noted. LV ejection fraction was around 40 to 45%. The LVEDP was 25 mmHg which went up to 28 following the LV angiogram. No severe mitral valve prolapse or mitral regurgitation were noted. Pressures Phase:Rest AO : 86 / 68 ( 76 ) @ 4:51:00 PM 81 / 63 ( 71 ) @ 4:52:00 PM 107 / 81 ( 94 ) @ 4:54:00 PM 107 / 81 ( 93 ) @ 4:57:00 PM 179 / 46 ( 64 ) @ 5:00:00 PM 103 / 76 ( 89 ) @ 5:01:00 PM 131 / 71 ( 93 ) @ 5:05:00 PM 130 / 71 ( 94 ) @ 5:05:00 PM 110 / 69 ( 86 ) @ 5:15:00 PM LV : 126 / 6 / 25 @ 5:04:00 PM 126 / 12 / 28 @ 5:04:00 PM 124 / 10 / 27 @ 5:05:00 PM Valves Phase:DefaultPhase AV : 0.0 @ 5:33:27 PM 0.0 @ 5:33:27 PM AV Mean Gradient: 0.0 @ 5:33:27 PM 0.0 @ 5:33:27 PM Clinical Evaluation EBL: 5mL-10mL Procedural Details Procedure Consent Obtained. Admit Source: In Patient. Pre-Procedure Time Out. Identified patient by full name and date of as verbalized by the patient/guarantor. Does the consent match the physician's order: Yes. Accurate & Complete Informed Consent: Yes. Inpatient/Outpatient History & Physical on Chart: Yes. If H&P is completed, is and addenduem needed: No; If yes, is the addendum complete: N/A. Visualize and Verify Site with Patient/Guarantor: N/A. Relevant Radiology Images available: Yes. Pre-op teaching completed and patient verbalized understanding. The risks, benefits, and alternatives of sedation and/or procedure were discussed by physician. The patient agrees to continue. Procedure started. Physician arrived. PERRLA. Strong, equal hand assembly line supervisor bilaterally. Lungs clear x 5 lobes. IV Site on Arrival: 18 gauge in the right anticubital. IV Fluids: 0.9% NaCl at KVO. 200 mL infused prior to dairy lab technician. Pre Procedural Pulses: right radial was 1+. Oxygen started at 3liters/min via nasal canula. right groin was prepped with chloroprep then draped in the usual sterile fashion. right radial was prepped with chloroprep then draped in the usual sterile fashion. Garment Worker Indications: ACS > 24 hours. Chest Pain Symptom Assessment: Atypical Angina. Correct patient, site and procedure confirmed by cath team. Current diagnosis: NSTEMI. Baseline sample Acquired. HR: 102 BPM. Physician scrubbed in. Immediate Pre-Procedure Time Out. Correct Patient: Yes; Correct Procedure: Yes; Correct Site: Yes; Correct Patient Position: Yes; Correct Supplies: Yes; Dried Flammable Prep: Yes; Blood Products Available: N/A;. Lidocaine 1% infiltrated to the right groin. Arterial access obtained with micropuncture set. A 5 greek JL4 catheter in over wire. Multiple views taken of left coronary artery. Physician review of cine films. Catheter removed over the exchange wire. A 5 greek JR4 catheter in over wire. Multiple views taken of right coronary artery. Catheter removed over the exchange wire. A 5 greek Angled Pig catheter in over wire. EDP Sample taken: LV 126/6,25; HR: 93 BPM; SpO2: 94%. LV gram performed in HALLMAN @ 10 mL/second for a total of 20 mL. EDP Sample taken: LV 126/12,28; HR: 90 BPM; SpO2: 93%. Pullback taken: LV 124/10,27; AO 131/71(93); Mean: 0mmHg, Peak to Peak: 0mmHg, SEP: 22sec/min; HR: 91 BPM; SpO2: 93%. Catheter removed over the exchange wire. Physician review of cine films. Physician scrubbed out. Dr. Mcintosh scrubbed in. Sheath upsized to a 6 Fr. 6 greek XB 3 guide catheter was inserted over the wire. FFR guidewire was advanced through the guide catheter to lesion in the prox LAD. IFR Results: 1.03. Wire redirected to the CX. IFR Results: 0.98. Wire out. Guide catheter out. A Suture was successful obtaining hemostatsis at the Right Femoral artery insertion site. Sheath(s) sutured into position with 2-0 silk and sterile 4x4's and Op-site applied over the site. No oozing or signs and symptoms of hematoma noted. Arterial sheath flushed and connected to tranducer and pressure bag with heparinized saline. Post Procedure: Pulses reassessed and unchanged. PERRLA. Strong, equal hand assembly line supervisor bilaterally. No VTE prophylaxis required. Medication's Wasted: Verapamil = 5 mg. Medication's Wasted: Nitro = 50 mg. Medication's Wasted: Heparin = 3500 units. Total IV fluids: 175 mL. Complications: None. Estimated blood loss: 5mL-10mL. Responsiveness - Normal response to verbal stimuli; alert and oriented, PERRLA. Airway - Unaffected, no intervention required; spontaneous ventilation. Vital chart was stopped. Circulation: W/N/L, pulses unchanged. Nausea/Vomiting: No. Procedure completed. Patient transferred by bed to 1st floor. Access Site Site: Right Femoral artery Sheath Size: 5 Fr Hemostasis Method: Suture Hemostasis Success: Successful Procedure Medications Start: 4:32 PM Stop: 4:32 PM Medication: Fentanyl Amount: 50 mcg Route: I.V. Start: 4:36 PM Stop: 4:36 PM Medication: Versed Amount: 1 mg Route: I.V. Start: 4:45 PM Stop: 4:45 PM Medication: Versed Amount: 1 mg Route: I.V. Start: 4:48 PM Stop: 4:48 PM Medication: Versed 1 mg and Fentanyl 25 mcg Amount: 1 Route: I.V. Start: 4:51 PM Stop: 4:51 PM Medication: 0.9% Saline Amount: 250 ml Route: I.V. bolus Start: 5:02 PM Stop: 5:02 PM Medication: Versed Amount: 1 mg Route: I.V. Start: 5:18 PM Stop: 5:18 PM Medication: Versed Amount: 1 mg Route: I.V. Start: 4:46 PM Stop: 4:46 PM Medication: Heparin Amount: 1500 units Route: I.V. Start: 5:23 PM Stop: 5:23 PM Medication: Fentanyl Amount: 25 mcg Route: I.V. I, the attending physician, have reviewed and verified all procedure medications. Yes, all medications given per verbal order History/Risk Factors Hypertension: Yes Dyslipidemia: Yes Peripheral Arterial Disease (PAD): No Myocardial Infarction (PA): No Obesity: No Renal Disease: No Tobacco Use: Former Prior Interventions PCI: No CABG: No Valve Surgery: No Report Signatures Diagnostic Workflow Finalized by Dr Leonardo Nix MD [facility] on 11/08/2022 03:43 PM Interventional Workflow Finalized by Dr. Dariel Mcintosh MD on 11/07/2022 05:41 PM
--- NOTE | 2022-11-07 16:30 | W.PM.OPSUD ---
Surgery/Procedure H&P Update DATE OF PROCEDURE: November 07, 2022 DATE H&P PERFORMED: 11/05/22 H&P UPDATE INFORMATION: I have reviewed H&P completed within last 30 days, I have examined patient prior to procedure and No changes to prior documentation PREOP DIAGNOSIS: NSTEMI PRIMARY INDICATION FOR PROCEDURE: NSTEMI/CHF PLANNED PROCEDURE: Operation Date: 11/06/22 16:30 Proposed Procedures p Cardiac Catheterization with coronary angiogram and poss pci(Not Applicable) - Leonardo Nix MD PATIENT REASSESSED PRIOR TO SEDATION, WITH NO CHANGE NOTED: Yes PHYSICAL EXAM: alert, oriented x 3, clear to auscultation bilaterally (occasional coarse crackles and expiratory wheeze), regular rate & rhythm and operative site marked AIRWAY EVAL/ANESTHESIA PLAN: normal airway, see other exam findings, ASA III, Monitored Anesthesia, Local Anesthesia, Risks, benefits & alternatives of sedation and/or procedure discussed and Patient agrees to continue as planned
[2022-11-07] MEDS: sodium chloride 0.9% 1,000 ML 100 ML IV (18:23)
[2022-11-07 19:50] LABS: Partial Thromboplastin Time 32.1 SECONDS (23.9-36.7)
--- NOTE | 2022-11-07 20:31 | PC.NURSE ---
Instructed patient on sheath removal and expectations. Patient verbalized undertanding. Initiated sheath removal per protocol at 2005. Hemostasis achieved immediately. No s/s of bleeding or hematoma formation observed. Pressure maintained for 20min. Cover site with 2x2 and bio-occlusive dressing. Patient tolerated procedure well. Instructed patient on site care and restrictions. Patient verbalized complete understanding.
[2022-11-07 21:09] LABS: Glucose Point of Care 401 mg/dL (70-110)
[2022-11-07] MEDS: insulin lispro 100 unit/1 mL SUBCUT (21:34)
[2022-11-08] VITALS (35 sets, daily range): BP systolic 99–131; BP diastolic 62–88; PULSE 73–120; RESP 13–29; TEMP 36.4–37.3; O2SAT 80–99
[2022-11-08] MEDS: ipratropium-albuterol 3 mL Neb INHALATION ×5 (00:22→21:01)
[2022-11-08 04:04] LABS: Hematocrit 35.4 % (37.0-47.0); Hemoglobin 11.7 g/dL (11.5-15.3); Lymphocytes # 0.6 10^3/uL (0.8-4.8); Mean Corpuscular HGB Conc 33.1 g/dL (30.0-36.0); Mean Corpuscular Hemoglobin 32.3 pg (28.0-34.0); Mean Corpuscular Volume 97.8 fl (81-99); Mean Platelet Volume 10.7 fL (7.4-10.4); Monocytes # 0.3 10^3/uL (0.2-0.9); Monocytes % 4.9 %; Neutrophils # 5.38 10^3/uL (1.8-7.7); Neutrophils % 84.9 %; Nucleated Red Blood Cells % 0 %; Platelet Count 146 10^3/cmm (130-400); Red Blood Count 3.62 10^6/uL (4.1-5.3); Red Cell Distribution Width 13.6 % (12.1-15.1); White Blood Count 6.3 10^3/uL (4.0-10.0)
[2022-11-08 04:27] LABS: Anion Gap 15.4 (5-19); Blood Urea Nitrogen 32 mg/dL (8-23); Calcium 8.6 mg/dL (8.5-10.5); Carbon Dioxide 26 mmol/L (22-29); Chloride 95 mmol/L (98-107); Glucose 305 mg/dL (65-115); Magnesium 1.9 mg/dL (1.7-2.3); Osmolality Calculated 292 mOsm/kg (285-295); Potassium 4.4 mmol/L (3.5-5.1); Sodium 132 mmol/L (136-145)
[2022-11-08 06:11] LABS: Glucose Point of Care 283 mg/dL (70-110)
[2022-11-08] MEDS: potassium chloride ER 20 mEq Tablet PO (06:20)
--- NOTE | 2022-11-08 06:28 | PC.NURSE ---
Patient c/o increased sob with wheezing and developing cough with horse sounding voice. Informed Dr Alcala and received telephone order for Lasix 80mg IVP x1 now. RBVO
[2022-11-08] MEDS: FUROsemide 10 mg/mL SDV 10mL 80 MG IVP (06:37)
--- NOTE | 2022-11-08 09:58 | P.PN_ITS ---
Subjective Subjective: The patient is feeling better. The chest pain is almost subsided. She had some respiratory difficulty this morning but after the nebulizer treatment, she is feeling much better. Medications: Medication Review Details: Current Medications Acetaminophen (Acetaminophen 325 Mg Tablet) 650 mg PO Q6H PRN PRN Reason: Mild/Mod Pain Or Temp >/= 101 Hydrocodone Bitart/Acetaminophen (Hydrocodone-Acetaminophen 5-325 Mg Tablet) 1 tab PO Q8H PRN PRN Reason: pain Last Admin: 11/07/22 21:40 Dose: 1 tab Albuterol/Ipratropium (Ipratropium-Albuterol 3 Ml Neb) 3 ml INHALATION Q4H.RESPIRATORY JORGE LUIS Last Admin: 11/08/22 09:05 Dose: 3 ml Alprazolam (Alprazolam 0.5 Mg Tablet) 0.25 mg PO TID PRN PRN Reason: ANXIETY Aspirin (Aspirin 81 Mg Ec Tablet) 81 mg PO DAILY@0900 [facility] Last Admin: 11/07/22 09:27 Dose: Not Given Atorvastatin Calcium (Atorvastatin 40 Mg Tablet) 20 mg PO DAILY@0900 [facility] Last Admin: 11/07/22 09:23 Dose: 20 mg Budesonide (Budesonide 0.5 Mg/2 Ml Neb) 0.5 mg INHALATION BID.RESPIRATORY JORGE LUIS Last Admin: 11/08/22 09:05 Dose: Not Given Dextrose (Dextrose 50% Syringe 50 Ml) 25 ml IVP ONCE PRN; Protocol PRN Reason: hypoglycemia protocol Dextrose (Dextrose 50% Syringe 50 Ml) 50 ml IVP PRN PRN; Protocol PRN Reason: hypoglycemia protocol Diltiazem HCl (Diltiazem Er (24hr) 120 Mg Capsule) 120 mg PO DAILY [facility] Last Admin: 11/07/22 09:23 Dose: 120 mg Doxycycline Monohydrate (Doxycycline 100 Mg Tablet) 100 mg PO BID [facility]; Protocol Last Admin: 11/07/22 18:23 Dose: 100 mg Duloxetine HCl (Duloxetine 60 Mg Capsule) 60 mg PO DAILY@0900 [facility] Last Admin: 11/07/22 09:23 Dose: 60 mg Glucagon (Glucagon 1 Mg/Ml Inj 1 Ml) 1 mg IM ONCE PRN; Protocol PRN Reason: Adult Acute Hypoglycemia Prot. Dextrose (D5w) 500 mls @ 100 mls/hr IV ONCE PRN; Protocol PRN Reason: Adult Acute Hypoglycemia Prot Sodium Chloride (Sodium Chloride 0.9%) 1,000 mls @ 100 mls/hr IV .Q10H [facility] Last Infusion: 11/08/22 05:00 Dose: Infused Insulin Human Lispro (Insulin Lispro 100 Unit/1 Ml) 0 unit SUBCUT WM&BEDTIME [facility]; Protocol Last Admin: 11/07/22 21:34 Dose: 14 unit Metoprolol Succinate (Metoprolol Succinate Er (24 Hr) 100 Mg Tablet) 100 mg PO DAILY@0900 [facility] Last Admin: 11/07/22 09:24 Dose: 100 mg Nitroglycerin (Nitroglycerin 1 Gm/Inch Oint Pkt) 1 inch TOPICAL Q6H [facility] Last Admin: 11/08/22 06:00 Dose: Not Given Ondansetron HCl (Ondansetron 2 Mg/Ml Sdv 2 Ml) 4 mg IVP Q6H PRN PRN Reason: vomiting, or N/V if npo Pantoprazole Sodium (Pantoprazole Dr 40 Mg Tablet) 40 mg PO BID@0900,2200 [facility] Last Admin: 11/07/22 23:26 Dose: 40 mg Potassium Chloride (Potassium Chloride Er 20 Meq Tablet) 20 meq PO QAM [facility] Last Admin: 11/08/22 06:20 Dose: 20 meq Prednisone (Prednisone 20 Mg Tablet) 40 mg PO DAILY [facility] Last Admin: 11/07/22 09:23 Dose: 40 mg Vitals/I&O/Wt Last Vital Signs Temp 98.9 F 11/08/22 03:47 Pulse 82 11/08/22 09:07 Resp 18 11/08/22 09:07 BP 114/64 11/08/22 03:47 Pulse Ox 98 11/08/22 09:07 O2 Del Method 11/08/22 09:07 O2 Flow Rate 1 11/08/22 09:07 11/07/22 11/08/22 11/08/22 22:59 06:59 14:59 Intake Total 120 / 360 1120 / 1480 240 / 240 Output Total 640 / 640 Balance 120 / 360 480 / 840 240 / 240 Physical Exam Narrative: GENERAL: The patient is alert and oriented times three. Not in any acute distress. HEENT: No significant pallor, icterus or lymphadenopathy.Oral cavity: There are no mucous membrane lesions. NECK: Trachea appears to be central. No masses noted. No JVD or thyromegaly appreciated. RESPIRATORY: Chest is symmetrical. No intercostals muscle retraction or any accessory muscle activation. There is no chest wall tenderness. Breath sounds are heard bilaterally. No rales or rhonchi heard. No evidence of any consolidation. BREASTS: Deferred. HEART: The heart sounds are normal. No S3 or S4. No significant murmurs. No pericardial rub ABDOMEN: No vessel pulsations or distention. No tenderness. No organomegaly appreciated. Bowel sounds are normally heard. : Deferred. RECTAL: Deferred. LYMPHATIC: No lymphadenopathy noted in the neck. EXTREMITIES: The right groin has no hematoma or bleeding MUSCULOSKELETAL: No acute joint deformities or swelling SKIN: There are no significant rashes or ecchymosis NEUROPSYCHIATRIC: The patient is alert and oriented x3. Appears to be in a good mood. No tremors or rigidity noted. Data 11/08/22 03:45 11/08/22 03:45 Other Labs: Laboratory Last Values WBC 6.3 10^3/uL (4.0-10.0) 11/08/22 03:45 RBC 3.62 10^6/uL (4.1-5.3) L 11/08/22 03:45 Hgb 11.7 g/dL (11.5-15.3) 11/08/22 03:45 Hct 35.4 % (37.0-47.0) L 11/08/22 03:45 MCV 97.8 fl (81-99) 11/08/22 03:45 MCH 32.3 pg (28.0-34.0) 11/08/22 03:45 MCHC 33.1 g/dL (30.0-36.0) 11/08/22 03:45 RDW 13.6 % (12.1-15.1) 11/08/22 03:45 Plt Count 146 10^3/cmm (130-400) 11/08/22 03:45 MPV 10.7 fL (7.4-10.4) H 11/08/22 03:45 Neut % (Auto) 84.9 % 11/08/22 03:45 Lymph % (Auto) 10.0 % 11/08/22 03:45 [place] % (Auto) 4.9 % 11/08/22 03:45 Eos % (Auto) 0.0 % 11/08/22 03:45 Baso % (Auto) 0.0 % 11/08/22 03:45 Neut # (Auto) 5.38 10^3/uL (1.8-7.7) 11/08/22 03:45 Lymph # (Auto) 0.6 10^3/uL (0.8-4.8) L 11/08/22 03:45 [place] # (Auto) 0.3 10^3/uL (0.2-0.9) 11/08/22 03:45 Eos # (Auto) 0.0 10^3/uL (0.0-0.8) 11/08/22 03:45 Baso # (Auto) 0.0 10^3/uL (0.0-0.1) 11/08/22 03:45 Nucleated RBC % (auto) 0 % 11/08/22 03:45 Nucleated RBCs # 0.0 /100WBC 11/08/22 03:45 APTT 32.1 SECONDS (23.9-36.7) 11/07/22 19:30 Specimen Type Arterial 11/05/22 08:17 Sample Site Brachial, right 11/05/22 08:17 ABG pH 7.44 (7.35-7.45) 11/05/22 08:17 ABG pCO2 40.6 mmHg (35-45) 11/05/22 08:17 ABG pO2 71.4 mmHg (80.0-100.0) L 11/05/22 08:17 ABG HCO3 27.6 mmol/L (22-26) H 11/05/22 08:17 ABG O2 Saturation 96.3 11/05/22 08:17 ABG Base Excess 3.1 mmol/L (-2.0-2.0) H 11/05/22 08:17 Adolfo Test N/a 11/05/22 08:17 A-a O2 Gradient 17.6 mmHg (5-10) H 11/05/22 08:17 Hematocrit 42.0 % (37-47) 11/05/22 08:17 Hgb O2 Saturation 93.9 % (95-100) L 11/05/22 08:17 Carboxyhemoglobin 1.8 %THgb (0.4-20.1) 11/05/22 08:17 Methemoglobin 0.6 % (0.4-1.5) 11/05/22 08:17 Total Hemoglobin 13.7 g/dL (12-16) 11/05/22 08:17 Sodium 140.0 mmol/L (131-143) 11/05/22 08:17 Potassium 3.8 mmol/L (3.5-5.0) 11/05/22 08:17 Glucose 153.0 mg/dL (70-115) H 11/05/22 08:17 Ionized Calcium 1.2 mmol/L (1.1-1.4) 11/05/22 08:17 O2 Delivery Device Nc 11/05/22 08:17 O2 Liters/Min 4.0 % 11/05/22 08:17 FiO2 36.0 % 11/05/22 08:17 Instructional Aide ID Amh 11/05/22 08:17 Sodium 132 mmol/L (136-145) L 11/08/22 03:45 Potassium 4.4 mmol/L (3.5-5.1) 11/08/22 03:45 Chloride 95 mmol/L (98-107) L 11/08/22 03:45 Carbon Dioxide 26 mmol/L (22-29) 11/08/22 03:45 Anion Gap 15.4 (5-19) 11/08/22 03:45 BUN 32 mg/dL (8-23) H 11/08/22 03:45 Creatinine 1.0 mg/dL (0.5-0.9) H 11/08/22 03:45 GFR Calculation Not Reportable 11/08/22 03:45 Glucose 305 mg/dL (65-115) H 11/08/22 03:45 POC Glucose 283 mg/dL (70-110) H 11/08/22 06:03 Calculated Osmolality 292 mOsm/kg (285-295) 11/08/22 03:45 Calcium 8.6 mg/dL (8.5-10.5) 11/08/22 03:45 Magnesium 1.9 mg/dL (1.7-2.3) 11/08/22 03:45 Total Bilirubin 0.8 mg/dL (0.15-1.2) 11/05/22 07:25 AST 19 U/L (0-32) 11/05/22 07:25 ALT 11 U/L (0-33) 11/05/22 07:25 Alkaline Phosphatase 73 U/L (35-105) 11/05/22 07:25 Troponin T Baseline 22 ng/L (0-10) H 11/05/22 07:25 Troponin T 120 Minute 45.05 ng/L (0-10) H 11/05/22 09:35 Delta Troponin T 23.05 ABS# (0-10) H* 11/05/22 09:35 Troponin T Hi Sens 6Hr 111.7 ng/L (0-10) H 11/05/22 13:45 Troponin T Hi Sens 6Hr Delta 89.7 ng/L (0-12) H* 11/05/22 13:45 NT-Pro-B Natriuret Pep 3523 pg/mL (0-125) H 11/05/22 07:25 Total Protein 5.7 g/dL (6.6-8.7) L 11/05/22 07:25 Albumin 3.5 g/dL (3.5-5.2) 11/05/22 07:25 Globulin 2.2 g/dL (1.3-4.6) 11/05/22 07:25 Procalcitonin 0.05 ng/mL (0-0.5) 11/05/22 08:08 TSH 1.75 uIU/mL (0.27-4.20) 11/05/22 07:25 Urine Color Yellow (Yellow) 11/05/22 08:55 Urine Appearance Clear (CLEAR) 11/05/22 08:55 Urine pH 6 (5-7) 11/05/22 08:55 Ur Specific [place] 1.010 (1.005-1.030) 11/05/22 08:55 Urine Protein 1+ (Negative) H 11/05/22 08:55 Urine Glucose (UA) Norm (Normal) 11/05/22 08:55 Urine Ketones 1+ (Negative) H 11/05/22 08:55 Urine Blood Neg (Negative) 11/05/22 08:55 Urine Nitrate Negative (Negative) 11/05/22 08:55 Urine Bilirubin Neg (Negative) 11/05/22 08:55 Urine Urobilinogen Norm mg/dL (Negative) 11/05/22 08:55 Ur Leukocyte Esterase Negative (Negative) 11/05/22 08:55 Urine RBC 0-4 /hpf (0-2) H 11/05/22 08:55 Urine WBC 0-4 /hpf (0-5) H 11/05/22 08:55 Ur Squamous Epith Cells 10-15 /hpf (0-5) H 11/05/22 08:55 Amorphous Sediment Not Reportable 11/05/22 08:55 Urine Bacteria Trace /hpf (NONE) 11/05/22 08:55 Coarse Granular Casts 0-4 /lpf H 11/05/22 08:55 Coronavirus 229E (PCR) Not detected (NOT DETECT) 11/05/22 08:43 Human Metapneumovir PCR Detected (NOT DETECT) A 11/05/22 11:12 Entero/Rhino (PCR) Not detected (NOT DETECT) 11/05/22 11:12 SARS-CoV-2 (PCR) Not detected (NOT DETECT) 11/05/22 08:43 A&P Assessment and plan (1) Atherosclerotic heart disease of [place] coronary artery with unstable angina pectoris: Patient had the cardiac catheterization yesterday. She was found to have mode rate disease in the left anterior sending artery and circumflex artery. IFR of these lesions were found to be around 1. Based on this, it was decided to treat her medically. (2) Atrial fibrillation with rapid ventricular response: Lovenox may be discontinued and be restarted on the Eliquis tomorrow (3) Acute on chronic congestive heart failure: Patient may be carefully treated with diuretics. Once the blood pressure improves, we may try to start her on the Entresto Since her blood pressure is running soft, I may hold off on this for the time being. Consider the Entresto as an outpatient. Apparently this patient had a some hypotensive episodes with hydralazine. (4) Hypercholesterolemia: Continue on the current management. Follow-up evaluation as scheduled. (5) COPD (chronic obstructive pulmonary disease): Continue on the bronchodilator treatment and the antibiotics. Careful IV diu resis also may be continued Plan May continue on the other current treatment as it is. Attestations Medical Necessity Statement*: Deferred to the primary Coding Level of Care Code 51521 Diagnoses Atherosclerotic heart disease of [place] coronary artery with unstable angina pectoris I25.110 Atrial fibrillation with rapid ventricular response I48.91 Acute on chronic congestive heart failure I50.9 Hypercholesterolemia E78.00 COPD (chronic obstructive pulmonary disease) J44.9
[2022-11-08] MEDS: aspirin 81 mg EC Tablet PO (10:15)
[2022-11-08] MEDS: metoprolol succinate ER (24 HR) 100 mg Tablet PO (10:15)
[2022-11-08] MEDS: dilTIAZem ER (24HR) 120 mg Capsule PO (10:15)
[2022-11-08] MEDS: atorvastatin 40 mg Tablet 20 MG PO (10:16)
[2022-11-08] MEDS: doxycycline 100 mg Tablet PO ×2 (10:16→18:02)
[2022-11-08] MEDS: duloxetine 60 mg Capsule PO (10:16)
[2022-11-08] MEDS: pantoprazole DR 40 mg Tablet PO ×2 (10:17→21:14)
[2022-11-08] MEDS: insulin lispro 100 unit/1 mL SUBCUT ×3 (10:17→20:20)
[2022-11-08] MEDS: predniSONE 20 mg Tablet 40 MG PO (10:17)
[2022-11-08 11:28] LABS: Glucose Point of Care 340 mg/dL (70-110)
--- NOTE | 2022-11-08 11:34 | PC.SOCIAL ---
IMM update IMM updated with patient and family at bedside. Copy Pg 2 provided. Verbalized an understanding. Initialled, dated, timed, and placed in chart.
[2022-11-08] MEDS: nitroglycerin 1 gm/inch oint Pkt 1 INCH TOPICAL ×3 (12:25→23:08)
--- NOTE | 2022-11-08 12:34 | PM.PN ---
Subjective Subjective: Candace reports she still feels weak and has some shortness of breath. Overall better than before. Angiogram results were discussed with her. Medications: Reviewed: Yes Vitals/I&O/Wt Last Vital Signs Temp 97.5 F L 11/08/22 08:00 Pulse 107 H 11/08/22 12:00 Resp 20 H 11/08/22 12:00 BP 131/80 11/08/22 12:00 Pulse Ox 94 11/08/22 12:00 O2 Del Method 11/08/22 12:00 O2 Flow Rate 1 11/08/22 12:00 11/07/22 11/08/22 11/08/22 22:59 06:59 14:59 Intake Total 120 / 360 1120 / 1480 240 / 240 Output Total 640 / 640 Balance 120 / 360 480 / 840 240 / 240 Physical Exam Narrative: General exam appears no respiratory distress today Neck is supple no lymphadenopathy thyromegaly Cardiovascular tachycardic, irregular, no audible murmur Lungs improved aeration. Occasional wheeze Abdomen is soft with positive bowel sounds. No obvious organomegaly Extremities no cyanosis clubbing or edema, cap refill brisk Skin no rash Data 11/08/22 03:45 11/08/22 03:45 A&P Assessment and plan (1) Atrial fibrillation with rapid ventricular response: Patient presents with atrial fibrillation with rapid ventricular rate. This can certainly drive worsening heart failure, although she has a concern of recurrent chest discomfort. Cardizem drip was able to be weaned off . She has been placed on extended release Cardizem Continue her metoprolol 100 mg daily TSH and magnesium checked and normal Rate currently under good control Resume her Xarelto (2) Acute combined systolic and diastolic heart failure: Lasix 80 mg IV x1 given this morning. Change to Lasix 40 mg p.o. daily starting tomorrow Angiogram was performed yesterday demonstrating no flow-limiting lesions BMP tomorrow, to check for any renal toxicity (3) Chest pain: Patient has had recurrent chest discomfort. She has known disease with an angiogram in 2020 demonstrating LAD disease. It was 40-50 percent at that time. Continue aspirin, beta-ana, continue full dose anticoagulation, statin. Nitroglycerin paste discontinued secondary to lower blood pressures Elevation his troponin is likely type II elevation considering angiogram results Monitor on telemetry Reviewed details and potential discharge plan with cardiology. They would like to see the patient in approximately 10 days, Liane Sanz. Lasix 40 mg p.o. daily can be initiated at discharge. (4) COPD (chronic obstructive pulmonary disease): Patient with [place] pneumonia virus in her sputum. Currently having COPD exacerbation. Continue prednisone 40 mg daily Continue DuoNeb to every 4 hours Budesonide twice daily Continue doxycycline Wean oxygen as tolerated. She is still requiring 1 L. (5) Diabetes type 2, controlled: Continue sliding scale insulin Qualifiers: Diabetes mellitus penitentiary insulin use: without penitentiary use Diabetes mellitus complication status: with hyperglycemia Qualified Code(s): E11.65 - Type 2 diabetes mellitus with hyperglycemia (6) Chronic low back pain: Continue patient's chronic home pain medications Plan Multiple other medical problems as addressed in past medical history Full code Lovenox for DVT prophylaxis Case discussed today with Dr. Nix. Jesus Medical Necessity Statement*: Needs continued hospitalization for pulmonary toilet, considering shortness of breath, close follow-up. Likely discharge tomorrow. Diagnoses Atrial fibrillation with rapid ventricular response I48.91 Acute combined systolic and diastolic heart failure I50.41 Chest pain R07.9 COPD (chronic obstructive pulmonary disease) J44.9 Diabetes type 2, controlled E11.65 Diabetes mellitus penitentiary insulin use: without terminal operator use Diabetes mellitus complication status: with hyperglycemia Chronic low back pain M54.5; G89.29
[2022-11-08 17:08] LABS: Glucose Point of Care 78 mg/dL (70-110)
[2022-11-08 20:12] LABS: Glucose Point of Care 181 mg/dL (70-110)
[2022-11-08] MEDS: rivaroxaban 10 mg Tablet PO (20:19)
[2022-11-08] MEDS: budesonide 0.5 mg/2 mL Neb INHALATION (21:01)
[2022-11-09] VITALS (35 sets, daily range): BP systolic 112–153; BP diastolic 71–100; PULSE 72–108; RESP 9–28; TEMP 36.6–36.9; O2SAT 80–98
[2022-11-09 04:31] LABS: Anion Gap 19.3 (5-19); Blood Urea Nitrogen 32 mg/dL (8-23); Calcium 9.3 mg/dL (8.5-10.5); Carbon Dioxide 25 mmol/L (22-29); Chloride 97 mmol/L (98-107); Glucose 265 mg/dL (65-115); Osmolality Calculated 300 mOsm/kg (285-295); Potassium 4.3 mmol/L (3.5-5.1); Sodium 137 mmol/L (136-145)
[2022-11-09] MEDS: potassium chloride ER 20 mEq Tablet PO (06:03)
[2022-11-09] MEDS: nitroglycerin 1 gm/inch oint Pkt 1 INCH TOPICAL ×3 (06:04→18:32)
[2022-11-09 06:13] LABS: Glucose Point of Care 297 mg/dL (70-110)
[2022-11-09] MEDS: ipratropium-albuterol 3 mL Neb INHALATION ×4 (08:14→19:36)
[2022-11-09] MEDS: budesonide 0.5 mg/2 mL Neb INHALATION ×2 (08:14→19:36)
[2022-11-09] MEDS: insulin lispro 100 unit/1 mL SUBCUT ×4 (09:17→21:10)
[2022-11-09] MEDS: metoprolol succinate ER (24 HR) 100 mg Tablet PO (09:18)
[2022-11-09] MEDS: FUROsemide 40 mg Tablet PO (09:19)
[2022-11-09] MEDS: predniSONE 20 mg Tablet 40 MG PO (09:19)
[2022-11-09] MEDS: duloxetine 60 mg Capsule PO (09:19)
[2022-11-09] MEDS: atorvastatin 40 mg Tablet 20 MG PO (09:20)
[2022-11-09] MEDS: aspirin 81 mg EC Tablet PO (09:21)
[2022-11-09] MEDS: dilTIAZem ER (24HR) 120 mg Capsule PO (09:22)
[2022-11-09] MEDS: metOLazone 5 MG Tablet 2.5 MG PO ×2 (09:33→10:11)
[2022-11-09] MEDS: pantoprazole DR 40 mg Tablet PO ×2 (09:33→21:10)
[2022-11-09] MEDS: doxycycline 100 mg Tablet PO ×2 (09:34→18:31)
[2022-11-09 12:05] LABS: Glucose Point of Care 318 mg/dL (70-110)
--- NOTE | 2022-11-09 13:51 | P.PN_ITS ---
Subjective Subjective: Patient was seen this morning, she is quite teary this morning, she continues to feel weak, she tells me that she does feel short of breath, she does not know how she got this way, everything is overwhelming, she tells me that she does not feel down depressed or sad, but does feel overwhelmed, she is worried about her heart, she is worried about going home, she has a lot of stressors at home she has no support structure around her, she is worried that she still needs oxygen, she just does not feel her normal self Vitals/I&O/Wt Last Vital Signs Temp 98.5 F 11/09/22 03:11 Pulse 85 11/09/22 11:43 Resp 25 H 11/09/22 11:43 BP 126/91 11/09/22 11:43 Pulse Ox 96 11/09/22 11:43 O2 Del Method 11/09/22 11:43 O2 Flow Rate 1 11/09/22 11:43 11/08/22 11/09/22 11/09/22 22:59 06:59 14:59 Intake Total 225 / 830 245 / 245 Balance 225 / 830 245 / 245 Physical Exam Const: COMMON NORMALS: no acute distress and patient oriented x3 Resp: COMMON NORMALS: normal respiratory effort, No retractions and No use of accessory muscles AUSCULTATION: crackles and wheezes Cardio: COMMON NORMALS: regular rate, regular rhythm, S1 normal heart sound present and S2 normal heart sound present RATE: regular rate RHYTHM: regular rhythm HEART SOUNDS: S1 normal heart sound present and S2 normal heart sound present GI: COMMON NORMALS: Normal to inspection, nondistended, normoactive bowel sounds present and non-tender Extremity: COMMON NORMALS: no pedal edema Neuro: COMMON NORMALS: patient oriented x3 Psych: COMMON NORMALS: mental status grossly normal Data 11/08/22 03:45 11/09/22 03:15 A&P Assessment and plan (1) Atrial fibrillation with rapid ventricular response: Patient presents with atrial fibrillation with rapid ventricular rate. This can certainly drive worsening heart failure, although she has a concern of recurrent chest discomfort. Continue p.o. Cardizem Continue her metoprolol 100 mg daily TSH and magnesium checked and normal Rate currently under good control Continue home Xarelto Xarelto (2) Acute combined systolic and diastolic heart failure: Continue Lasix 40 mg p.o. daily 1 dose of metolazone 2.5 mg Angiogram was performed yesterday demonstrating no flow-limiting lesions BMP tomorrow, to check for any renal toxicity (3) Chest pain: Patient has had recurrent chest discomfort. She has known disease with an angiogram in 2020 demonstrating LAD disease. It was 40-50 percent at that time. Continue aspirin, beta-ana, continue full dose anticoagulation, statin. Nitroglycerin paste discontinued secondary to lower blood pressures Elevation his troponin is likely type II elevation considering angiogram results Monitor on telemetry Reviewed details and potential discharge plan with cardiology. They would like to see the patient in approximately 10 days, Liane Sanz. Lasix 40 mg p.o. daily can be initiated at discharge. (4) COPD (chronic obstructive pulmonary disease): Patient with [place] pneumonia virus in her sputum. Currently having COPD exacerbation. Continue prednisone 40 mg daily Continue DuoNeb to every 4 hours Budesonide twice daily Continue doxycycline Wean oxygen as tolerated. She is still requiring 1 L. (5) Diabetes type 2, controlled: Continue sliding scale insulin Qualifiers: Diabetes mellitus long term care phlebotomist insulin use: without long term care phlebotomist use Diabetes mellitus complication status: with hyperglycemia Qualified Code(s): E11.65 - Type 2 diabetes mellitus with hyperglycemia (6) Chronic low back pain: Continue patient's chronic home pain medications Plan Multiple other medical problems as addressed in past medical history Full code Lovenox for DVT prophylaxis Case discussed today with Dr. Nix. Plan for today continue to ice his add metolazone, continue steroids, wean oxygen, PT OT evaluation Attestations Medical Necessity Statement*: Patient requires hospitalization for COPD exacerbation, CHF exacerbation, chest pain,, Coding Level of Care Code 63699 Diagnoses Atrial fibrillation with rapid ventricular response I48.91 Acute combined systolic and diastolic heart failure I50.41 Chest pain R07.9 COPD (chronic obstructive pulmonary disease) J44.9 Diabetes type 2, controlled E11.65 Diabetes mellitus long term care phlebotomist insulin use: without [facility] use Diabetes mellitus complication status: with hyperglycemia Chronic low back pain M54.5; G89.29
--- NOTE | 2022-11-09 17:36 | PC.OT ---
OT evaluation completed, services not indicated at this time, nursing notified.
[2022-11-09 18:11] LABS: Glucose Point of Care 226 mg/dL (70-110)
[2022-11-09] MEDS: insulin glargine 100 units/1 mL 5 UNIT SUBCUT (18:31)
[2022-11-09 20:32] LABS: Glucose Point of Care 326 mg/dL (70-110)
[2022-11-09] MEDS: rivaroxaban 10 mg Tablet PO (21:10)
[2022-11-10] VITALS (30 sets, daily range): BP systolic 112–156; BP diastolic 64–87; PULSE 73–119; RESP 12–22; TEMP 36.6–37.3; O2SAT 84–97
[2022-11-10] MEDS: nitroglycerin 1 gm/inch oint Pkt 1 INCH TOPICAL ×5 (00:21→23:50)
[2022-11-10 02:46] LABS: Basophils % 0.4 %; Eosinophils % 0.1 %; Hematocrit 41.5 % (37.0-47.0); Hemoglobin 12.9 g/dL (11.5-15.3); Lymphocytes # 1.6 10^3/uL (0.8-4.8); Lymphocytes % 19.5 %; Mean Corpuscular HGB Conc 31.1 g/dL (30.0-36.0); Mean Corpuscular Hemoglobin 32.4 pg (28.0-34.0); Mean Corpuscular Volume 104.3 fl (81-99); Mean Platelet Volume 10.5 fL (7.4-10.4); Monocytes # 0.6 10^3/uL (0.2-0.9); Monocytes % 6.9 %; Neutrophils # 5.88 10^3/uL (1.8-7.7); Neutrophils % 72.4 %; Nucleated Red Blood Cells % 0 %; Platelet Count 196 10^3/cmm (130-400); Red Blood Count 3.98 10^6/uL (4.1-5.3); Red Cell Distribution Width 13.9 % (12.1-15.1); White Blood Count 8.1 10^3/uL (4.0-10.0)
[2022-11-10 03:11] LABS: NT Pro B Type Natriuretic Pept 11512 pg/mL (0-125); Procalcitonin 0.08 ng/mL (0-0.5)
[2022-11-10 03:22] LABS: Blood Urea Nitrogen 28 mg/dL (8-23); C Reactive Protein 16.4 mg/L (0.0-4.9); Calcium 9.4 mg/dL (8.5-10.5); Carbon Dioxide 23 mmol/L (22-29); Chloride 94 mmol/L (98-107); Glucose 125 mg/dL (65-115); Osmolality Calculated 281 mOsm/kg (285-295); Sodium 132 mmol/L (136-145)
[2022-11-10 03:29] LABS: Anion Gap 19.7 (5-19); Potassium 4.7 mmol/L (3.5-5.1)
[2022-11-10 04:11] LABS: Slide Review Slide Review Perform
[2022-11-10] MEDS: potassium chloride ER 20 mEq Tablet PO (05:06)
[2022-11-10] MEDS: insulin glargine 100 units/1 mL 5 UNIT SUBCUT (06:22)
[2022-11-10 06:38] LABS: Glucose Point of Care 161 mg/dL (70-110)
[2022-11-10] MEDS: ipratropium-albuterol 3 mL Neb INHALATION ×4 (07:46→19:35)
[2022-11-10] MEDS: budesonide 0.5 mg/2 mL Neb INHALATION ×2 (07:46→19:35)
[2022-11-10] MEDS: insulin lispro 100 unit/1 mL SUBCUT ×3 (08:00→21:27)
[2022-11-10] MEDS: FUROsemide 40 mg Tablet PO (08:01)
[2022-11-10] MEDS: duloxetine 60 mg Capsule PO (09:00)
[2022-11-10] MEDS: dilTIAZem ER (24HR) 120 mg Capsule PO (09:00)
[2022-11-10] MEDS: doxycycline 100 mg Tablet PO (09:00)
[2022-11-10] MEDS: pantoprazole DR 40 mg Tablet PO ×2 (09:01→21:26)
[2022-11-10] MEDS: metoprolol succinate ER (24 HR) 100 mg Tablet PO (09:01)
[2022-11-10] MEDS: atorvastatin 40 mg Tablet 20 MG PO (09:01)
[2022-11-10] MEDS: predniSONE 20 mg Tablet 40 MG PO (09:02)
[2022-11-10] MEDS: aspirin 81 mg EC Tablet PO (09:02)
--- NOTE | 2022-11-10 10:23 | PC.SOCIAL ---
IMM IMM updated, copy given to patient and copy added to chart.
--- NOTE | 2022-11-10 10:55 | CTR_ITS ---
PROCEDURE INFORMATION: Exam: CTA Chest With Contrast Exam date and time: 11/10/2022 11:48 AM Age: 72 years old Clinical indication: Shortness of breath; Additional info: SOB, weheezing TECHNIQUE: Imaging protocol: Computed tomographic angiography of the chest with contrast. 3D rendering (Not supervised by radiologist): MIP and/or 3D reconstructed images were created by the technologist. Radiation optimization: All CT scans at this facility use at least one of these dose optimization techniques: automated exposure control; mA and/or kV adjustment per patient size (includes targeted exams where dose is matched to clinical indication); or iterative reconstruction. Contrast material: OMNI 350; Contrast volume: 100 ml; Contrast route: INTRAVENOUS (IV); Other protocol: This patient has received 2 known CTs and 0 known cardiac nuclear medicine studies in the 12 months prior to the current study. COMPARISON: CTA Chest-Pulmonary Emb [id number] 06/08/2019 10:24 PM RADIATION DOSE METRICS: Total DLP (mGy-cm): 457.6 FINDINGS: Pulmonary arteries: The pulmonary arteries are adequately opacified for evaluation to the subsegmental level. There is no filling defect to suggest embolism. Aorta: There is mild aortic atherosclerotic disease. Lungs: There is moderate severity ill-defined bilateral central lung predominant ground-glass opacity superimposed upon mild chronic stable patchy reticular and platelike opacity in the anterior upper lungs (present since 08/03/2020). Some component of atelectasis is present in the lower lungs. Pleural spaces: Moderate left simple pleural effusion. No pneumothorax. Heart: There is moderate cardiac enlargement. There is no pericardial effusion. Coronary arteries: There is severe coronary artery calcification. Lymph nodes: Right hilar lymph node measures 3.2 x 2.7 cm. This is new since 2020. Left hilar lymph node measures 2.3 x 1.3 cm on series 6, image 213. There are multiple normal size upper mediastinal lymph nodes. No axillary lymphadenopathy. Stomach and bowel: There is a suture line in the mid gastric body with a gastric band surrounding the gastric fundus, moderately narrowing the lumen. The band is positioned approximately 5 cm distal to the gastric cardia. This finding is stable since 08/03/2020. Bones/joints: Bones are unremarkable. Soft tissues: The extrathoracic soft tissues are unremarkable. CT/CT angio chest PE protcl [id number] IMPRESSION: 1. No pulmonary embolism. 2. Acute on chronic bilateral pulmonary opacity. Probable pulmonary edema versus infection superimposed upon chronic scarring in the upper lungs. Subsegmental atelectasis is also present. 3. Bilateral hilar lymphadenopathy, greater on the right, new since 2019. This may be reactive, neoplastic, or related to CHF. 4. Moderate left pleural effusion. 5. Cardiac enlargement and severe coronary calcification. 6. Malpositioned gastric band surrounding the gastric fundus, stable since 08/03/2020.
[2022-11-10 10:58] LABS: Glucose Point of Care 173 mg/dL (70-110)
[2022-11-10] MEDS: iohexol 350 mg/mL 500 mL Btl (per mL) IV (11:55)
--- NOTE | 2022-11-10 13:41 | PM.PN ---
Subjective Subjective: Patient continues to complain of shortness of breath, wheezing, shortness of breath or exertion, no chest pain, no palpitations, but does feel generalized weakness, malaise Vitals/I&O/Wt Last Vital Signs Temp 99.1 F 11/10/22 09:07 Pulse 87 11/10/22 11:15 Resp 16 11/10/22 11:15 BP 136/87 11/10/22 09:07 Pulse Ox 92 11/10/22 11:15 O2 Del Method 11/10/22 11:15 O2 Flow Rate 1 11/10/22 11:15 11/09/22 11/10/22 11/10/22 22:59 06:59 14:59 Intake Total 830 / 1320 480 / 480 Balance 830 / 1320 480 / 480 Physical Exam Const: COMMON NORMALS: no acute distress and patient oriented x3 Resp: COMMON NORMALS: normal respiratory effort, No retractions and No use of accessory muscles AUSCULTATION: crackles Cardio: COMMON NORMALS: regular rate, regular rhythm, S1 normal heart sound present and S2 normal heart sound present RATE: regular rate RHYTHM: regular rhythm HEART SOUNDS: S1 normal heart sound present and S2 normal heart sound present GI: COMMON NORMALS: Normal to inspection, nondistended, normoactive bowel sounds present and non-tender Extremity: COMMON NORMALS: no pedal edema Neuro: COMMON NORMALS: patient oriented x3 Psych: COMMON NORMALS: mental status grossly normal Data 11/10/22 02:25 11/10/22 02:25 Micro: Microbiology 11/05/22 08:14 Blood Culture - Final Blood NO GROWTH AFTER 5 DAYS 11/05/22 08:08 Blood Culture - Final Blood NO GROWTH AFTER 5 DAYS A&P Assessment and plan (1) Atrial fibrillation with rapid ventricular response: Overall clinically improving, heart rates better controlled Patient presents with atrial fibrillation with rapid ventricular rate. This can certainly drive worsening heart failure, although she has a concern of recurrent chest discomfort. Continue p.o. Cardizem Continue her metoprolol 100 mg daily TSH and magnesium checked and normal Rate currently under good control Continue home Xarelto Xarelto (2) Acute combined systolic and diastolic heart failure: - Continues to have elevated BNP evidence of fluid overload CT angiogram shows pulmonary edema, with bilateral pleural effusions -Switch to Lasix 40 IV twice daily, with metolazone once daily, daily dosing -Need to continually diuresis, monitor output monitor creatinine monitor BNP -Fluid restrictions 1500 cc (3) Chest pain: Patient has had recurrent chest discomfort. She has known disease with an angiogram in 2020 demonstrating LAD disease. It was 40-50 percent at that time. Continue aspirin, beta-ana,, statin. Nitroglycerin paste discontinued secondary to lower blood pressures Elevation his troponin is likely type II elevation considering angiogram results Monitor on telemetry Status post coronary angiography, no obstructive CAD. Cardiology they would like to see the patient in approximately 10 days, Liane Sanz. (4) COPD (chronic obstructive pulmonary disease): Patient with [place] pneumonia virus in her sputum. Currently having COPD exacerbation. Continue prednisone 40 mg daily Continue DuoNeb to every 4 hours Budesonide twice daily Continue doxycycline Wean oxygen as tolerated. She is still requiring 1 L. (5) Diabetes type 2, controlled: Continue sliding scale insulin Qualifiers: Diabetes mellitus fci insulin use: without buttermaker continuous churn use Diabetes mellitus complication status: with hyperglycemia Qualified Code(s): E11.65 - Type 2 diabetes mellitus with hyperglycemia (6) Chronic low back pain: Continue patient's chronic home pain medications (7) Bilateral pleural effusion: - Will consider thoracocentesis based on clinical progress (8) Opacity of lung on imaging study: - Bilateral pulmonary opacities seen on CT scan, could be fluid, could be malignant -We will adequately diuresis, have her follow with pulm as outpatient -Unlikely to be infectious as no significant Pro-Ricky or CRP elevation leukocytosis afebrile (9) Bilateral hilar adenopathy syndrome: - Will need to refer to hematology oncology and pulmonary as outpatient for further evaluation (10) Gastric band slippage: - Seen on CT scan -Possibly due to aspiration pneumonitis? -Speech therapy eval, aspiration precautions (11) Aspiration pneumonia: (12) Aspiration pneumonitis: Plan Concerns for aspiration pneumonitis aspiration pneumonia, currently on steroids switch to Augmentin Full code Lovenox for DVT prophylaxis Case discussed today with Dr. Nix. Plan for today continue to ice his add metolazone, continue steroids, wean oxygen, PT OT evaluation Attestations Medical Necessity Statement*: Patient requires hospitalization for acute on chronic systolic CHF exacerbation, fluid overload pulmonary edema requiring further diuresis, evidence of possible aspiration pneumonia aspiration pneumonitis Diagnoses Atrial fibrillation with rapid ventricular response I48.91 Acute combined systolic and diastolic heart failure I50.41 Chest pain R07.9 COPD (chronic obstructive pulmonary disease) J44.9 Diabetes type 2, controlled E11.65 Diabetes mellitus buttermaker continuous churn insulin use: without fci use Diabetes mellitus complication status: with hyperglycemia Chronic low back pain M54.5; G89.29 Bilateral pleural effusion J90 Opacity of lung on imaging study R91.8 Bilateral hilar adenopathy syndrome R59.0 Gastric band slippage K95.09 Aspiration pneumonia J69.0 Aspiration pneumonitis J69.0
[2022-11-10 17:08] LABS: Glucose Point of Care 509 mg/dL (70-110)
[2022-11-10] MEDS: FUROsemide 10 mg/mL SDV 4mL 40 MG IVP (17:33)
[2022-11-10] MEDS: metOLazone 5 MG Tablet PO (17:34)
[2022-11-10] MEDS: amoxicillin-clav 875-125 mg Tablet 1 TAB PO (17:34)
[2022-11-10 20:20] LABS: Glucose Point of Care 422 mg/dL (70-110)
[2022-11-10] MEDS: HYDROcodone-acetaminophen 5-325 mg Tablet 1 TAB PO (21:25)
[2022-11-10] MEDS: rivaroxaban 10 mg Tablet PO (21:26)
[2022-11-11] VITALS (17 sets, daily range): BP systolic 114–145; BP diastolic 68–79; PULSE 73–111; RESP 14–22; TEMP 36.6–37.3; O2SAT 92–98
[2022-11-11 05:11] LABS: Basophils % 0.2 %; Eosinophils % 0.1 %; Hematocrit 38.5 % (37.0-47.0); Hemoglobin 12.6 g/dL (11.5-15.3); Lymphocytes # 1.8 10^3/uL (0.8-4.8); Lymphocytes % 18.5 %; Mean Corpuscular HGB Conc 32.7 g/dL (30.0-36.0); Mean Corpuscular Hemoglobin 31.4 pg (28.0-34.0); Mean Platelet Volume 10.8 fL (7.4-10.4); Monocytes # 0.7 10^3/uL (0.2-0.9); Monocytes % 7.7 %; Neutrophils # 6.79 10^3/uL (1.8-7.7); Neutrophils % 71.8 %; Nucleated Red Blood Cells % 0 %; Platelet Count 205 10^3/cmm (130-400); Red Blood Count 4.01 10^6/uL (4.1-5.3); Red Cell Distribution Width 13.2 % (12.1-15.1); White Blood Count 9.5 10^3/uL (4.0-10.0)
[2022-11-11] MEDS: FUROsemide 10 mg/mL SDV 4mL 40 MG IVP ×2 (05:18→17:38)
[2022-11-11] MEDS: potassium chloride ER 20 mEq Tablet PO (05:19)
[2022-11-11] MEDS: nitroglycerin 1 gm/inch oint Pkt 1 INCH TOPICAL (05:20)
[2022-11-11 05:36] LABS: Blood Urea Nitrogen 26 mg/dL (8-23); Calcium 9.4 mg/dL (8.5-10.5); Carbon Dioxide 31 mmol/L (22-29); Chloride 90 mmol/L (98-107); Glucose 236 mg/dL (65-115); Osmolality Calculated 286 mOsm/kg (285-295); Sodium 132 mmol/L (136-145)
[2022-11-11] MEDS: insulin glargine 100 units/1 mL 5 UNIT SUBCUT (06:10)
[2022-11-11 06:15] LABS: Glucose Point of Care 258 mg/dL (70-110)
[2022-11-11] MEDS: budesonide 0.5 mg/2 mL Neb INHALATION ×2 (07:30→20:34)
[2022-11-11] MEDS: ipratropium-albuterol 3 mL Neb INHALATION ×4 (07:30→20:35)
[2022-11-11] MEDS: insulin lispro 100 unit/1 mL SUBCUT ×4 (07:51→20:04)
[2022-11-11] MEDS: atorvastatin 40 mg Tablet 20 MG PO (09:04)
[2022-11-11] MEDS: duloxetine 60 mg Capsule PO (09:05)
[2022-11-11] MEDS: metoprolol succinate ER (24 HR) 100 mg Tablet PO (09:05)
[2022-11-11] MEDS: aspirin 81 mg EC Tablet PO (09:05)
[2022-11-11] MEDS: dilTIAZem ER (24HR) 120 mg Capsule PO (09:05)
[2022-11-11] MEDS: amoxicillin-clav 875-125 mg Tablet 1 TAB PO ×2 (09:05→17:38)
[2022-11-11] MEDS: pantoprazole DR 40 mg Tablet PO ×2 (09:05→20:04)
[2022-11-11] MEDS: predniSONE 20 mg Tablet 40 MG PO (09:08)
[2022-11-11 11:06] LABS: Glucose Point of Care 289 mg/dL (70-110)
[2022-11-11] MEDS: benzonatate 100 mg Capsule PO ×2 (14:18→20:04)
--- NOTE | 2022-11-11 14:23 | P.PN_ITS ---
Subjective Subjective: Today she feels her breathing was worse. She had a lot of rattling in her chest. During my visit she is also having a coughing spell. She otherwise does not have chest pain. Worked with therapy. Medications: Reviewed: Yes Medication Review Details: Current Medications Acetaminophen (Acetaminophen 325 Mg Tablet) 650 mg PO Q6H PRN PRN Reason: Mild/Mod Pain Or Temp >/= 101 Hydrocodone Bitart/Acetaminophen (Hydrocodone-Acetaminophen 5-325 Mg Tablet) 1 tab PO Q8H PRN PRN Reason: pain Last Admin: 11/07/22 21:40 Dose: 1 tab Albuterol/Ipratropium (Ipratropium-Albuterol 3 Ml Neb) 3 ml INHALATION Q4H.RESPIRATORY JORGE LUIS Last Admin: 11/08/22 09:05 Dose: 3 ml Alprazolam (Alprazolam 0.5 Mg Tablet) 0.25 mg PO TID PRN PRN Reason: ANXIETY Aspirin (Aspirin 81 Mg Ec Tablet) 81 mg PO DAILY@0900 [facility] Last Admin: 11/07/22 09:27 Dose: Not Given Atorvastatin Calcium (Atorvastatin 40 Mg Tablet) 20 mg PO DAILY@0900 [facility] Last Admin: 11/07/22 09:23 Dose: 20 mg Budesonide (Budesonide 0.5 Mg/2 Ml Neb) 0.5 mg INHALATION BID.RESPIRATORY [facility] Last Admin: 11/08/22 09:05 Dose: Not Given Dextrose (Dextrose 50% Syringe 50 Ml) 25 ml IVP ONCE PRN; Protocol PRN Reason: hypoglycemia protocol Dextrose (Dextrose 50% Syringe 50 Ml) 50 ml IVP PRN PRN; Protocol PRN Reason: hypoglycemia protocol Diltiazem HCl (Diltiazem Er (24hr) 120 Mg Capsule) 120 mg PO DAILY [facility] Last Admin: 11/07/22 09:23 Dose: 120 mg Doxycycline Monohydrate (Doxycycline 100 Mg Tablet) 100 mg PO BID [facility]; Protocol Last Admin: 11/07/22 18:23 Dose: 100 mg Duloxetine HCl (Duloxetine 60 Mg Capsule) 60 mg PO DAILY@0900 [facility] Last Admin: 11/07/22 09:23 Dose: 60 mg Glucagon (Glucagon 1 Mg/Ml Inj 1 Ml) 1 mg IM ONCE PRN; Protocol PRN Reason: Adult Acute Hypoglycemia Prot. Dextrose (D5w) 500 mls @ 100 mls/hr IV ONCE PRN; Protocol PRN Reason: Adult Acute Hypoglycemia Prot Sodium Chloride (Sodium Chloride 0.9%) 1,000 mls @ 100 mls/hr IV .Q10H [facility] Last Infusion: 11/08/22 05:00 Dose: Infused Insulin Human Lispro (Insulin Lispro 100 Unit/1 Ml) 0 unit SUBCUT WM&BEDTIME [facility]; Protocol Last Admin: 11/07/22 21:34 Dose: 14 unit Metoprolol Succinate (Metoprolol Succinate Er (24 Hr) 100 Mg Tablet) 100 mg PO DAILY@0900 [facility] Last Admin: 11/07/22 09:24 Dose: 100 mg Nitroglycerin (Nitroglycerin 1 Gm/Inch Oint Pkt) 1 inch TOPICAL Q6H [facility] Last Admin: 11/08/22 06:00 Dose: Not Given Ondansetron HCl (Ondansetron 2 Mg/Ml Sdv 2 Ml) 4 mg IVP Q6H PRN PRN Reason: vomiting, or N/V if npo Pantoprazole Sodium (Pantoprazole Dr 40 Mg Tablet) 40 mg PO BID@0900,2200 [facility] Last Admin: 11/07/22 23:26 Dose: 40 mg Potassium Chloride (Potassium Chloride Er 20 Meq Tablet) 20 meq PO QAM [facility] Last Admin: 11/08/22 06:20 Dose: 20 meq Prednisone (Prednisone 20 Mg Tablet) 40 mg PO DAILY [facility] Last Admin: 11/07/22 09:23 Dose: 40 mg Vitals/I&O/Wt Last Vital Signs Temp 98.0 F 11/11/22 07:55 Pulse 106 H 11/11/22 11:40 Resp 18 11/11/22 11:40 BP 137/77 11/11/22 11:40 Pulse Ox 92 11/11/22 11:40 O2 Del Method 11/11/22 11:40 O2 Flow Rate 1 11/11/22 11:25 11/10/22 11/11/22 11/11/22 22:59 06:59 14:59 Intake Total 500 / 1580 840 / 840 Output Total 1900 / 1900 1850 / 1850 Balance 500 / 1580 -1900 / -320 -1010 / -1010 Physical Exam Narrative: Up in chair. Const: COMMON NORMALS: patient oriented x3 and alert GENERAL APPEARANCE: cooperative ORIENTATION/CONSCIOUSNESS: Yes awake HENMT: COMMON NORMALS: oropharynx normal Neck/C-Spine: COMMON NORMALS: no JVD Resp: COMMON NORMALS: normal respiratory effort AUSCULTATION: wheezes (Faint during cough) Cardio: COMMON NORMALS: no JVD, regular rhythm, S1 normal heart sound present, S2 normal heart sound present and No murmurs present (Cardio) RHYTHM: regular rhythm HEART SOUNDS: S1 normal heart sound present and S2 normal heart sound present GI: COMMON NORMALS: Normal to inspection, nondistended, normoactive bowel sounds present, Soft to palpation and non-tender PALPATION: Yes Soft to palpation Extremity: COMMON NORMALS: no joint enlargement and no pedal edema Neuro: COMMON NORMALS: patient oriented x3 and moves all extremities SENSORIUM/ORIENTATION: Yes alert Skin: COMMON NORMALS: no rashes or lesions noted GENERAL SKIN EXAM: no rashes or lesions noted Data 11/11/22 04:12 11/11/22 04:12 Micro: Microbiology 11/10/22 09:11 Sputum Culture - Preliminary Sputum - Expectorated Sputum Gram Negative Rods A&P Assessment and plan (1) COPD (chronic obstructive pulmonary disease): Still dyspneic, having bothersome cough. Cough is not helping her produce phlegm. Discussed with her antitussive. Add Tessalon Perles. Does not feel better. Requiring oxygen on review of vitals. Also with tachycardia. Continue DuoNebs, budesonide. Doxycycline. Continue prednisone. If not improving switch to IV steroid. CBC results appreciated. Vital signs reviewed. Patient with metapneumovirus in her sputum. Currently having COPD exacerbation. Prior hospitalist notes reviewed. (2) Atrial fibrillation with rapid ventricular response: Some worsening tachycardia with COPD exacerbation. Increase Cardizem dose to 180 mg daily. Vitals reviewed. Continue her metoprolol 100 mg daily Reviewed potassium, prior labs reviewed with TSH and magnesium checked and normal Continue home Xarelto (3) Acute combined systolic and diastolic heart failure: Volume status appears to be improving. Continue Lasix 40 mg IV twice daily. Monitor intake and output. Is in negative balance. Requested to measure weights. Monitor renal function and potassium and bicarb with IV diuresis. Requested BMP follow-up. Metolazone has been discontinued. -Need to continually diuresis, monitor output monitor creatinine monitor BNP -Fluid restrictions 1500 cc (4) Chest pain: Patient has had recurrent chest discomfort. She has known disease with an angiogram in 2020 demonstrating LAD disease. It was 40-50 percent at that time. Continue aspirin, beta-ana,, statin. Nitroglycerin paste discontinued secondary to lower blood pressures Elevation his troponin is likely type II elevation considering angiogram results Monitor on telemetry Status post coronary angiography, no obstructive CAD. Cardiology they would like to see the patient in approximately 10 days, Liane Sanz. Discussed with cardiology. (5) Diabetes type 2, controlled: Continue sliding scale insulin Qualifiers: Diabetes mellitus complication status: with hyperglycemia Diabetes mellitus mcfp insulin use: without mcfp use Qualified Code(s): E11.65 - Type 2 diabetes mellitus with hyperglycemia (6) Chronic low back pain: Continue patient's chronic home pain medications (7) Bilateral pleural effusion: - Will consider thoracocentesis based on clinical progress (8) Opacity of lung on imaging study: - Bilateral pulmonary opacities seen on CT scan, could be fluid, could be malignant -We will adequately diuresis, have her follow with pulm as outpatient -Unlikely to be infectious as no significant Pro-Ricky or CRP elevation leukocytosis afebrile (9) Bilateral hilar adenopathy syndrome: - Will need to refer to hematology oncology and pulmonary as outpatient for fu rther evaluation (10) Gastric band slippage: - Seen on CT scan Stable from 2019. Follow-up with PCP (11) Aspiration pneumonia: Question of possible aspiration. Continue Augmentin. ST note reviewed. She did well with speech apart from some difficulty with mastication due to poorly fitting dentures. Should be less likely for ongoing aspiration. (12) Aspiration pneumonitis: Plan Full code Lovenox for DVT prophylaxis Attestations Medical Necessity Statement*: Continue admission for assessment management of COPD exacerbation, optimization of control of A-fib with RVR. Diagnoses COPD (chronic obstructive pulmonary disease) J44.9 Atrial fibrillation with rapid ventricular response I48.91 Acute combined systolic and diastolic heart failure I50.41 Chest pain R07.9 Diabetes type 2, controlled E11.65 Diabetes mellitus complication status: with hyperglycemia Diabetes mellitus mcfp insulin use: without longwall headgate operator use Chronic low back pain M54.5; G89.29 Bilateral pleural effusion J90 Opacity of lung on imaging study R91.8 Bilateral hilar adenopathy syndrome R59.0 Gastric band slippage K95.09 Aspiration pneumonia J69.0 Aspiration pneumonitis J69.0
[2022-11-11 16:30] LABS: Glucose Point of Care 342 mg/dL (70-110)
[2022-11-11] MEDS: rivaroxaban 10 mg Tablet PO (20:04)
[2022-11-11 20:06] LABS: Glucose Point of Care 455 mg/dL (70-110)
[2022-11-12] VITALS (16 sets, daily range): BP systolic 110–146; BP diastolic 65–79; PULSE 87–138; RESP 12–21; TEMP 36.6–36.8; O2SAT 93–95
[2022-11-12 03:43] LABS: Blood Urea Nitrogen 29 mg/dL (8-23); Calcium 9.6 mg/dL (8.5-10.5); Carbon Dioxide 35 mmol/L (22-29); Chloride 86 mmol/L (98-107); Glucose 173 mg/dL (65-115); NT Pro B Type Natriuretic Pept 6893 pg/mL (0-125); Osmolality Calculated 286 mOsm/kg (285-295); Sodium 133 mmol/L (136-145)
[2022-11-12] MEDS: ipratropium-albuterol 3 mL Neb INHALATION ×4 (04:47→20:00)
[2022-11-12 06:24] LABS: Glucose Point of Care 200 mg/dL (70-110)
[2022-11-12] MEDS: potassium chloride ER 20 mEq Tablet PO (06:28)
[2022-11-12] MEDS: benzonatate 100 mg Capsule PO ×2 (06:28→17:37)
[2022-11-12] MEDS: FUROsemide 10 mg/mL SDV 4mL 40 MG IVP ×2 (06:29→17:37)
[2022-11-12] MEDS: insulin glargine 100 units/1 mL 5 UNIT SUBCUT (06:29)
[2022-11-12] MEDS: amoxicillin-clav 875-125 mg Tablet 1 TAB PO ×2 (08:32→17:37)
[2022-11-12] MEDS: duloxetine 60 mg Capsule PO (08:32)
[2022-11-12] MEDS: insulin lispro 100 unit/1 mL SUBCUT ×3 (08:32→21:43)
[2022-11-12] MEDS: dilTIAZem ER (24HR) 180 mg Capsule PO (08:38)
[2022-11-12] MEDS: aspirin 81 mg EC Tablet PO (08:38)
[2022-11-12] MEDS: pantoprazole DR 40 mg Tablet PO ×2 (08:39→21:43)
[2022-11-12] MEDS: atorvastatin 40 mg Tablet 20 MG PO (08:39)
[2022-11-12] MEDS: predniSONE 20 mg Tablet 40 MG PO (08:39)
[2022-11-12] MEDS: metoprolol succinate ER (24 HR) 100 mg Tablet PO (08:39)
--- NOTE | 2022-11-12 08:58 | PC.SOCIAL ---
Imm update Imm updated at bedside. Copy of page 2 provided. Patient verbalized understanding. Copy in chart initialed, dated and timed.
[2022-11-12 10:46] LABS: Glucose Point of Care 263 mg/dL (70-110)
[2022-11-12 17:05] LABS: Glucose Point of Care 172 mg/dL (70-110)
[2022-11-12] MEDS: ALPRAZolam 0.5 mg Tablet 0.25 MG PO (17:37)
[2022-11-12] MEDS: budesonide 0.5 mg/2 mL Neb INHALATION (20:00)
--- NOTE | 2022-11-12 20:05 | P.PN_ITS ---
Subjective Subjective: She is still coughing, still feels dyspneic, states he definitely does not feel ready to return home today. Cliff Price are helping with cough. Medications: Reviewed: Yes Medication Review Details: Current Medications Acetaminophen (Acetaminophen 325 Mg Tablet) 650 mg PO Q6H PRN PRN Reason: Mild/Mod Pain Or Temp >/= 101 Hydrocodone Bitart/Acetaminophen (Hydrocodone-Acetaminophen 5-325 Mg Tablet) 1 tab PO Q8H PRN PRN Reason: pain Last Admin: 11/07/22 21:40 Dose: 1 tab Albuterol/Ipratropium (Ipratropium-Albuterol 3 Ml Neb) 3 ml INHALATION Q4H.RESPIRATORY JORGE LUIS Last Admin: 11/08/22 09:05 Dose: 3 ml Alprazolam (Alprazolam 0.5 Mg Tablet) 0.25 mg PO TID PRN PRN Reason: ANXIETY Aspirin (Aspirin 81 Mg Ec Tablet) 81 mg PO DAILY@0900 [facility] Last Admin: 11/07/22 09:27 Dose: Not Given Atorvastatin Calcium (Atorvastatin 40 Mg Tablet) 20 mg PO DAILY@0900 [facility] Last Admin: 11/07/22 09:23 Dose: 20 mg Budesonide (Budesonide 0.5 Mg/2 Ml Neb) 0.5 mg INHALATION BID.RESPIRATORY [facility] Last Admin: 11/08/22 09:05 Dose: Not Given Dextrose (Dextrose 50% Syringe 50 Ml) 25 ml IVP ONCE PRN; Protocol PRN Reason: hypoglycemia protocol Dextrose (Dextrose 50% Syringe 50 Ml) 50 ml IVP PRN PRN; Protocol PRN Reason: hypoglycemia protocol Diltiazem HCl (Diltiazem Er (24hr) 120 Mg Capsule) 120 mg PO DAILY [facility] Last Admin: 11/07/22 09:23 Dose: 120 mg Doxycycline Monohydrate (Doxycycline 100 Mg Tablet) 100 mg PO BID [facility]; Protocol Last Admin: 11/07/22 18:23 Dose: 100 mg Duloxetine HCl (Duloxetine 60 Mg Capsule) 60 mg PO DAILY@0900 [facility] Last Admin: 11/07/22 09:23 Dose: 60 mg Glucagon (Glucagon 1 Mg/Ml Inj 1 Ml) 1 mg IM ONCE PRN; Protocol PRN Reason: Adult Acute Hypoglycemia Prot. Dextrose (D5w) 500 mls @ 100 mls/hr IV ONCE PRN; Protocol PRN Reason: Adult Acute Hypoglycemia Prot Sodium Chloride (Sodium Chloride 0.9%) 1,000 mls @ 100 mls/hr IV .Q10H [facility] Last Infusion: 11/08/22 05:00 Dose: Infused Insulin Human Lispro (Insulin Lispro 100 Unit/1 Ml) 0 unit SUBCUT WM&BEDTIME [facility]; Protocol Last Admin: 11/07/22 21:34 Dose: 14 unit Metoprolol Succinate (Metoprolol Succinate Er (24 Hr) 100 Mg Tablet) 100 mg PO DAILY@0900 [facility] Last Admin: 11/07/22 09:24 Dose: 100 mg Nitroglycerin (Nitroglycerin 1 Gm/Inch Oint Pkt) 1 inch TOPICAL Q6H [facility] Last Admin: 11/08/22 06:00 Dose: Not Given Ondansetron HCl (Ondansetron 2 Mg/Ml Sdv 2 Ml) 4 mg IVP Q6H PRN PRN Reason: vomiting, or N/V if npo Pantoprazole Sodium (Pantoprazole Dr 40 Mg Tablet) 40 mg PO BID@0900,2200 [facility] Last Admin: 11/07/22 23:26 Dose: 40 mg Potassium Chloride (Potassium Chloride Er 20 Meq Tablet) 20 meq PO QAM [facility] Last Admin: 11/08/22 06:20 Dose: 20 meq Prednisone (Prednisone 20 Mg Tablet) 40 mg PO DAILY [facility] Last Admin: 11/07/22 09:23 Dose: 40 mg Vitals/I&O/Wt Last Vital Signs Temp 98.3 F 11/12/22 19:05 Pulse 109 H 11/12/22 20:00 Resp 16 11/12/22 20:00 BP 146/79 11/12/22 19:05 Pulse Ox 94 11/12/22 20:00 O2 Del Method 11/12/22 20:00 O2 Flow Rate 1 11/12/22 20:00 11/12/22 11/12/22 11/12/22 06:59 14:59 22:59 Intake Total 240 / 1560 840 / 840 240 / 1080 Output Total 1150 / 5250 1200 / 1200 600 / 1800 Balance -910 / -3690 -360 / -360 -360 / -720 Weight last 48 hrs Weight 97.341 kg Physical Exam Narrative: Up in chair. Const: COMMON NORMALS: patient oriented x3 and alert GENERAL APPEARANCE: cooperative ORIENTATION/CONSCIOUSNESS: Yes awake HENMT: COMMON NORMALS: oropharynx normal Neck/C-Spine: COMMON NORMALS: no JVD Resp: COMMON NORMALS: normal respiratory effort AUSCULTATION: no wheezes and diminished lung sounds Cardio: COMMON NORMALS: no JVD, regular rhythm, S1 normal heart sound present, S2 normal heart sound present and No murmurs present (Cardio) RHYTHM: regular rhythm HEART SOUNDS: S1 normal heart sound present and S2 normal heart sound present GI: COMMON NORMALS: Normal to inspection, nondistended, normoactive bowel sounds present, Soft to palpation and non-tender PALPATION: Yes Soft to palpation Extremity: COMMON NORMALS: no joint enlargement and no pedal edema Neuro: COMMON NORMALS: patient oriented x3 and moves all extremities SENSORIUM/ORIENTATION: Yes alert Skin: COMMON NORMALS: no rashes or lesions noted GENERAL SKIN EXAM: no rashes or lesions noted Data 11/11/22 04:12 11/12/22 02:59 Micro: Microbiology 11/10/22 09:11 Sputum Culture - Final Sputum - Expectorated Sputum Klebsiella pneumonia esbl A&P Assessment and plan (1) COPD (chronic obstructive pulmonary disease): He sounds slightly better today. She is still requiring oxygen. Continue prednisone. As she does tend to be improving, will not change to IV steroids for now, reassess in the morning. Possible discharge in the morning if continues to improve. Continue DuoNebs, budesonide. Doxycycline. Continue prednisone. If Patient with metapneumovirus in her sputum. Currently having COPD exacerbation. Prior hospitalist notes reviewed. (2) Atrial fibrillation with rapid ventricular response: Some worsening tachycardia with COPD exacerbation. Increase Cardizem dose to 180 mg daily. Vitals reviewed. Continue her metoprolol 100 mg daily Reviewed potassium, prior labs reviewed with TSH and magnesium checked and normal Continue home Xarelto (3) Acute combined systolic and diastolic heart failure: Stop IV Lasix. Switch to oral 80 mg daily. Monitor intake and output. Is in negative balance. Continue GABRIELLA, measure weights. Follow-up chest x-ray. Monitor renal function and potassium and bicarb with IV diuresis. Requested BMP follow-up. Metolazone has been discontinued. -Need to continually diuresis, monitor output monitor creatinine monitor BNP -Fluid restrictions 1500 cc (4) Chest pain: Patient has had recurrent chest discomfort. She has known disease with an angiogram in 2020 demonstrating LAD disease. It was 40-50 percent at that time. Continue aspirin, beta-ana,, statin. Nitroglycerin paste discontinued secondary to lower blood pressures Elevation his troponin is likely type II elevation considering angiogram results Monitor on telemetry Status post coronary angiography, no obstructive CAD. Cardiology they would like to see the patient in approximately 10 days, Liane Sanz. Discussed with cardiology. (5) Diabetes type 2, controlled: Continue sliding scale insulin Qualifiers: Diabetes mellitus long distance operator insulin use: without half-way use Diabetes mellitus complication status: with hyperglycemia Qualified Code(s): E11.65 - Type 2 diabetes mellitus with hyperglycemia (6) Chronic low back pain: Continue patient's chronic home pain medications (7) Bilateral pleural effusion: - Will consider thoracocentesis based on clinical progress Follow-up chest x-ray requested. (8) Opacity of lung on imaging study: - Bilateral pulmonary opacities seen on CT scan, could be fluid, could be malignant -We will adequately diuresis, have her follow with pulm as outpatient -Unlikely to be infectious as no significant Pro-Ricky or CRP elevation leukocyto sis afebrile (9) Bilateral hilar adenopathy syndrome: - Will need to refer to hematology oncology and pulmonary as outpatient for further evaluation (10) Gastric band slippage: - Seen on CT scan Stable from 2019. Follow-up with PCP (11) Aspiration pneumonia: Question of possible aspiration. Continue Augmentin. ST note reviewed. She did well with speech apart from some difficulty with mastication due to poorly fitting dentures. Should be less likely for ongoing aspiration. (12) Aspiration pneumonitis: Plan Full code Lovenox for DVT prophylaxis Attestations Medical Necessity Statement*: Continue admission for assessment management of COPD exacerbation, reassessment of his atrial fibrillation, and de-escalation of diuretic, switch to oral, preparation for discharge. Diagnoses COPD (chronic obstructive pulmonary disease) J44.9 Atrial fibrillation with rapid ventricular response I48.91 Acute combined systolic and diastolic heart failure I50.41 Chest pain R07.9 Diabetes type 2, controlled E11.65 Diabetes mellitus half-way insulin use: without long distance operator use Diabetes mellitus complication status: with hyperglycemia Chronic low back pain M54.5; G89.29 Bilateral pleural effusion J90 Opacity of lung on imaging study R91.8 Bilateral hilar adenopathy syndrome R59.0 Gastric band slippage K95.09 Aspiration pneumonia J69.0 Aspiration pneumonitis J69.0
[2022-11-12 20:35] LABS: Glucose Point of Care 308 mg/dL (70-110)
[2022-11-12] MEDS: rivaroxaban 10 mg Tablet PO (21:43)
[2022-11-12] MEDS: ondansetron 2 mg/ML SDV 2 mL 4 MG IVP (21:51)
[2022-11-13] VITALS (15 sets, daily range): BP systolic 129–171; BP diastolic 71–90; PULSE 81–116; RESP 15–22; TEMP 36.3–37.4; O2SAT 93–99
--- NOTE | 2022-11-13 06:00 | XRR_ITS ---
PROCEDURE INFORMATION: Exam: XR Chest Exam date and time: 11/13/2022 6:20 AM Age: 72 years old Clinical indication: Shortness of breath; Additional info: Hypoxia TECHNIQUE: Imaging protocol: Radiologic exam of the chest. Views: 1 view. COMPARISON: CR XR chest 1V portable [id number] 11/05/2022 7:25 AM FINDINGS: Lungs: There is no consolidation. Opacities in both lungs visible on 11/05/2022 have resolved. Pleural spaces: There is no pleural effusion or pneumothorax. Heart/Mediastinum: The cardiac silhouette is within normal limits of size given AP technique. Bones/joints: There is mild degenerative disease at both shoulders. No acute fracture. XR/XR chest 1V portable [id number] IMPRESSION: 1. No acute findings. 2. Pulmonary opacity visible on 11/05/2022 has resolved.
[2022-11-13] MEDS: insulin glargine 100 units/1 mL 5 UNIT SUBCUT (06:19)
[2022-11-13] MEDS: potassium chloride ER 20 mEq Tablet PO (06:19)
[2022-11-13] MEDS: FUROsemide 40 mg Tablet 80 MG PO (06:19)
[2022-11-13 06:20] LABS: Glucose Point of Care 219 mg/dL (70-110)
[2022-11-13] MEDS: ipratropium-albuterol 3 mL Neb INHALATION ×3 (07:16→21:19)
[2022-11-13] MEDS: budesonide 0.5 mg/2 mL Neb INHALATION ×2 (07:16→21:18)
[2022-11-13 08:13] LABS: Blood Urea Nitrogen 37 mg/dL (8-23); Calcium 9.5 mg/dL (8.5-10.5); Carbon Dioxide 36 mmol/L (22-29); Chloride 85 mmol/L (98-107); Glucose 233 mg/dL (65-115); Osmolality Calculated 298 mOsm/kg (285-295); Sodium 136 mmol/L (136-145)
[2022-11-13] MEDS: duloxetine 60 mg Capsule PO (08:19)
[2022-11-13] MEDS: dilTIAZem ER (24HR) 180 mg Capsule PO (08:19)
[2022-11-13] MEDS: amoxicillin-clav 875-125 mg Tablet 1 TAB PO ×2 (08:19→18:08)
[2022-11-13] MEDS: aspirin 81 mg EC Tablet PO (08:19)
[2022-11-13] MEDS: predniSONE 20 mg Tablet 40 MG PO (08:20)
[2022-11-13] MEDS: atorvastatin 40 mg Tablet 20 MG PO (08:20)
[2022-11-13] MEDS: benzonatate 100 mg Capsule PO (08:20)
[2022-11-13] MEDS: metoprolol succinate ER (24 HR) 100 mg Tablet PO (08:20)
[2022-11-13] MEDS: insulin lispro 100 unit/1 mL SUBCUT ×4 (08:21→21:29)
[2022-11-13] MEDS: pantoprazole DR 40 mg Tablet PO ×2 (08:21→19:45)
[2022-11-13] MEDS: metoprolol tartrate 1 mg/1 mL SDV 5 mL 2.5 MG IVP (10:42)
[2022-11-13 11:36] LABS: Glucose Point of Care 308 mg/dL (70-110)
[2022-11-13] MEDS: ondansetron 2 mg/ML SDV 2 mL 4 MG IVP ×2 (12:03→18:56)
[2022-11-13] MEDS: dilTIAZem 5 mg/mL SDV 5 mL 10 MG IVP (12:14)
[2022-11-13 12:47] LABS: Magnesium 1.6 mg/dL (1.7-2.3)
--- NOTE | 2022-11-13 13:34 | PC.NURSE ---
at 1050 pt's heart rate noted to be 150's (afib).bp stable.pt sitting in chair.dr amin notified.he ordered 2.5 mg metoprolol to be given iv push.this was given as ordered.heart rate came down to 100-120's.but at 1200,heart rate increased to 150-160's while pt was on bedside commode .pt c/o nausea..zofran given.dr amin notified and he ordered 10 mg cardizem iv push.this was given at 1210.heart rate came down to below 110.bp stable.
--- NOTE | 2022-11-13 17:08 | P.PN_ITS ---
Subjective Subjective: States she is feeling generally weak, with difficulty breathing, coughing, wheezing, very miserable. Sits up in bed, leans forward in tripod position, coughing, cannot catch her breath. Tachypneic. Medications: Reviewed: Yes Medication Review Details: Current Medications Acetaminophen (Acetaminophen 325 Mg Tablet) 650 mg PO Q6H PRN PRN Reason: Mild/Mod Pain Or Temp >/= 101 Hydrocodone Bitart/Acetaminophen (Hydrocodone-Acetaminophen 5-325 Mg Tablet) 1 tab PO Q8H PRN PRN Reason: pain Last Admin: 11/07/22 21:40 Dose: 1 tab Albuterol/Ipratropium (Ipratropium-Albuterol 3 Ml Neb) 3 ml INHALATION Q4H.RESPIRATORY JORGE LUIS Last Admin: 11/08/22 09:05 Dose: 3 ml Alprazolam (Alprazolam 0.5 Mg Tablet) 0.25 mg PO TID PRN PRN Reason: ANXIETY Aspirin (Aspirin 81 Mg Ec Tablet) 81 mg PO DAILY@0900 [facility] Last Admin: 11/07/22 09:27 Dose: Not Given Atorvastatin Calcium (Atorvastatin 40 Mg Tablet) 20 mg PO DAILY@0900 [facility] Last Admin: 11/07/22 09:23 Dose: 20 mg Budesonide (Budesonide 0.5 Mg/2 Ml Neb) 0.5 mg INHALATION BID.RESPIRATORY [facility] Last Admin: 11/08/22 09:05 Dose: Not Given Dextrose (Dextrose 50% Syringe 50 Ml) 25 ml IVP ONCE PRN; Protocol PRN Reason: hypoglycemia protocol Dextrose (Dextrose 50% Syringe 50 Ml) 50 ml IVP PRN PRN; Protocol PRN Reason: hypoglycemia protocol Diltiazem HCl (Diltiazem Er (24hr) 120 Mg Capsule) 120 mg PO DAILY [facility] Last Admin: 11/07/22 09:23 Dose: 120 mg Doxycycline Monohydrate (Doxycycline 100 Mg Tablet) 100 mg PO BID [facility]; Protocol Last Admin: 11/07/22 18:23 Dose: 100 mg Duloxetine HCl (Duloxetine 60 Mg Capsule) 60 mg PO DAILY@0900 [facility] Last Admin: 11/07/22 09:23 Dose: 60 mg Glucagon (Glucagon 1 Mg/Ml Inj 1 Ml) 1 mg IM ONCE PRN; Protocol PRN Reason: Adult Acute Hypoglycemia Prot. Dextrose (D5w) 500 mls @ 100 mls/hr IV ONCE PRN; Protocol PRN Reason: Adult Acute Hypoglycemia Prot Sodium Chloride (Sodium Chloride 0.9%) 1,000 mls @ 100 mls/hr IV .Q10H [facility] Last Infusion: 11/08/22 05:00 Dose: Infused Insulin Human Lispro (Insulin Lispro 100 Unit/1 Ml) 0 unit SUBCUT WM&BEDTIME [facility]; Protocol Last Admin: 11/07/22 21:34 Dose: 14 unit Metoprolol Succinate (Metoprolol Succinate Er (24 Hr) 100 Mg Tablet) 100 mg PO DAILY@0900 [facility] Last Admin: 11/07/22 09:24 Dose: 100 mg Nitroglycerin (Nitroglycerin 1 Gm/Inch Oint Pkt) 1 inch TOPICAL Q6H [facility] Last Admin: 11/08/22 06:00 Dose: Not Given Ondansetron HCl (Ondansetron 2 Mg/Ml Sdv 2 Ml) 4 mg IVP Q6H PRN PRN Reason: vomiting, or N/V if npo Pantoprazole Sodium (Pantoprazole Dr 40 Mg Tablet) 40 mg PO BID@0900,2200 [facility] Last Admin: 11/07/22 23:26 Dose: 40 mg Potassium Chloride (Potassium Chloride Er 20 Meq Tablet) 20 meq PO QAM [facility] Last Admin: 11/08/22 06:20 Dose: 20 meq Prednisone (Prednisone 20 Mg Tablet) 40 mg PO DAILY [facility] Last Admin: 11/07/22 09:23 Dose: 40 mg Vitals/I&O/Wt Last Vital Signs Temp 98.2 F 11/13/22 16:00 Pulse 106 H 11/13/22 16:00 Resp 20 H 11/13/22 16:00 BP 154/90 11/13/22 16:00 Pulse Ox 98 11/13/22 16:00 O2 Del Method 11/13/22 16:00 O2 Flow Rate 1 11/13/22 15:52 11/13/22 11/13/22 11/13/22 06:59 14:59 22:59 Intake Total 360 / 360 Output Total 1350 / 3550 Balance -1350 / -2350 360 / 360 Weight last 48 hrs Weight 96.071 kg Weight 97.341 kg Physical Exam Narrative: Leaning forward in bed, tripod position, coughing, dyspneic. Crying. Const: COMMON NORMALS: patient oriented x3 and alert GENERAL APPEARANCE: cooperative ORIENTATION/CONSCIOUSNESS: Yes awake HENMT: COMMON NORMALS: oropharynx normal Neck/C-Spine: COMMON NORMALS: no JVD Resp: EFFORT & INSPECTION: Yes tachypneic, Yes labored, Yes Actively coughing, Yes retractions and Yes uses accessory muscles AUSCULTATION: diminished lung sounds and other (Coarse breath sounds) Cardio: COMMON NORMALS: no JVD, regular rhythm, S1 normal heart sound present, S2 normal heart sound present and No murmurs present (Cardio) RHYTHM: regular rhythm HEART SOUNDS: S1 normal heart sound present and S2 normal heart sound present GI: COMMON NORMALS: Normal to inspection, nondistended, normoactive bowel sounds present, Soft to palpation and non-tender PALPATION: Yes Soft to palpation Extremity: COMMON NORMALS: no joint enlargement and no pedal edema Neuro: COMMON NORMALS: patient oriented x3 and moves all extremities SENSORIUM/ORIENTATION: Yes alert Skin: COMMON NORMALS: no rashes or lesions noted GENERAL SKIN EXAM: no rashes or lesions noted Data 11/11/22 04:12 11/13/22 07:31 Micro: Microbiology 11/10/22 09:11 Sputum Culture - Final Sputum - Expectorated Sputum Klebsiella pneumonia esbl A&P Assessment and plan (1) COPD (chronic obstructive pulmonary disease): Oxygenation is not worse, but subjectively and on examination appears to be doing worse. No wheezing. Slightly diminished sounds, coarse breath, but feels quite short of breath, tachypneic, tripoding. Requested Xopenex. Additionally sitting up in bed causes her heart rate to go to 140s-150s with atrial fibrillation and then persisting 120s-130s causing her to feel even worse. Chest x-ray results reviewed, resolution of pulmonary opacity. This appears to be mostly bronchial/COPD. Requested additional as needed Xopenex nebs. Will change to IV steroid. 60 mg IV Solu-Medrol. Requires close monitoring for further respiratory deterioration as well as cardiac monitoring and optimization of symptomatic A-fib with RVR. Continue prednisone. As she does tend to be improving, will not change to IV steroids for now, reassess in the morning. Possible discharge in the morning if continues to improve. Continue DuoNebs, budesonide. Doxycycline. Patient with metapneumovirus in her sputum. Currently having COPD exacerbation. (2) Atrial fibrillation with rapid ventricular response: Just sitting up in bed to get her heart rate going to 147 150 stay there for a while, subsequently persisting in 120s-130s, making her feel even worse. Given a dose of 2.5 mg metoprolol push IV x1 with transient mild improvement, but tachycardia persists on reassessment. Then given additional portion of 10 mg IV Cardizem. Requested magnesium level. Reviewed. Appreciated low at 1.6. Will give magnesium replacement. Follow-up morning chemistry and magnesium requested. Cardizem dose was increased to 180 mg every 24 hours. Depending on response, blood pressures, may need to increase further. Continue her metoprolol 100 mg daily Continue home Xarelto (3) Acute combined systolic and diastolic heart failure: Switched to to oral 80 mg Lasix daily. Monitor intake and output. Is in negative balance. Noted mild JOSHUA, creatinine up to 1.3. Reassess creatinine in the morning. Will hold diuretic for now, resume if no further worsening of renal function. Continue GABRIELLA, measure weights. Metolazone has been discontinued. -Need to continually diuresis, monitor output monitor creatinine monitor BNP -Fluid restrictions 1500 cc (4) Chest pain: So far without recurrence. Patient has had recurrent chest discomfort. She has known disease with an angiogram in 2020 demonstrating LAD disease. It was 40-50 percent at that time. Continue aspirin, beta-ana,, statin. Nitroglycerin paste discontinued iker forrest to lower blood pressures Elevation his troponin is likely type II elevation considering angiogram results Monitor on telemetry Status post coronary angiography, no obstructive CAD. Cardiology they would like to see the patient in approximately 10 days, Liane Sanz. (5) Diabetes type 2, controlled: Continue sliding scale insulin Qualifiers: Diabetes mellitus correction insulin use: without correction use Diabetes mellitus complication status: with hyperglycemia Qualified Code(s): E11.65 - Type 2 diabetes mellitus with hyperglycemia (6) Chronic low back pain: Continue patient's chronic home pain medications (7) Bilateral pleural effusion: - Will consider thoracocentesis based on clinical progress Follow-up chest x-ray requested. (8) Opacity of lung on imaging study: - Bilateral pulmonary opacities seen on CT scan, could be fluid, could be angie gnant -We will adequately diuresis, have her follow with pulm as outpatient -Unlikely to be infectious as no significant Pro-Ricky or CRP elevation leukocytosis afebrile (9) Bilateral hilar adenopathy syndrome: - Will need to refer to hematology oncology and pulmonary as outpatient for further evaluation (10) Gastric band slippage: - Seen on CT scan Stable from 2019. Follow-up with PCP (11) Aspiration pneumonia: Question of possible aspiration. Continue Augmentin. ST note reviewed. She did well with speech apart from some difficulty with mastication due to poorly fitting dentures. Should be less likely for ongoing a spiration. (12) Aspiration pneumonitis: Plan Full code Lovenox for DVT prophylaxis Attestations Medical Necessity Statement*: Continue admission for treatment of COPD exacerbation with respiratory distress, A-fib with RVR. Diagnoses COPD (chronic obstructive pulmonary disease) J44.9 Atrial fibrillation with rapid ventricular response I48.91 Acute combined systolic and diastolic heart failure I50.41 Chest pain R07.9 Diabetes type 2, controlled E11.65 Diabetes mellitus correction insulin use: without supervisor intermediates use Diabetes mellitus complication status: with hyperglycemia Chronic low back pain M54.5; G89.29 Bilateral pleural effusion J90 Opacity of lung on imaging study R91.8 Bilateral hilar adenopathy syndrome R59.0 Gastric band slippage K95.09 Aspiration pneumonia J69.0 Aspiration pneumonitis J69.0
[2022-11-13 17:17] LABS: Glucose Point of Care 278 mg/dL (70-110)
[2022-11-13] MEDS: magnesium sulfate premix 2 GM/50 ML PIGGYBACK IV (18:07)
[2022-11-13] MEDS: rivaroxaban 10 mg Tablet PO (19:46)
[2022-11-13] MEDS: ALPRAZolam 0.5 mg Tablet 0.25 MG PO (19:46)
[2022-11-13 20:45] LABS: Glucose Point of Care 385 mg/dL (70-110)
[2022-11-14] VITALS (7 sets, daily range): BP systolic 113–159; BP diastolic 62–92; PULSE 75–97; RESP 14–23; TEMP 36.6–36.7; O2SAT 94–100
[2022-11-14 02:54] LABS: Anion Gap 17.9 (5-19); Blood Urea Nitrogen 39 mg/dL (8-23); Calcium 9.2 mg/dL (8.5-10.5); Carbon Dioxide 36 mmol/L (22-29); Chloride 82 mmol/L (98-107); Glucose 321 mg/dL (65-115); Magnesium 2.2 mg/dL (1.7-2.3); Osmolality Calculated 296 mOsm/kg (285-295); Potassium 3.9 mmol/L (3.5-5.1); Sodium 132 mmol/L (136-145)
[2022-11-14] MEDS: insulin glargine 100 units/1 mL 5 UNIT SUBCUT (05:34)
[2022-11-14] MEDS: potassium chloride ER 20 mEq Tablet PO (05:34)
[2022-11-14 06:19] LABS: Glucose Point of Care 295 mg/dL (70-110)
[2022-11-14] MEDS: atorvastatin 40 mg Tablet 20 MG PO (08:50)
[2022-11-14] MEDS: aspirin 81 mg EC Tablet PO (08:50)
[2022-11-14] MEDS: amoxicillin-clav 875-125 mg Tablet 1 TAB PO (08:50)
[2022-11-14] MEDS: duloxetine 60 mg Capsule PO (08:50)
[2022-11-14] MEDS: metoprolol succinate ER (24 HR) 100 mg Tablet PO (08:51)
[2022-11-14] MEDS: dilTIAZem ER (24HR) 180 mg Capsule PO (08:51)
[2022-11-14] MEDS: pantoprazole DR 40 mg Tablet PO (09:01)
[2022-11-14 11:32] LABS: Glucose Point of Care 429 mg/dL (70-110)
[2022-11-14] MEDS: insulin lispro 100 unit/1 mL SUBCUT (12:02)
[2022-11-14] MEDS: ALPRAZolam 0.5 mg Tablet 0.25 MG PO (12:43)
--- NOTE | 2022-11-14 14:18 | PC.NURSE ---
discharged home with spouse. belongings sent home with pt. IVs removed and cathlons intact.
--- NOTE | 2022-11-14 15:11 | PC.SOCIAL ---
IMM updated IMM dated and initialed and copy given to patient
--- NOTE | 2022-11-14 22:16 | P.DS_ITS ---
Discharge Providers Date of Admission: 11/05/22 17:30 Date of Discharge: November 14, 2022 Attending Provider at Admission: Galen Alcala MD Attending Provider at Discharge: Norberto Medina Primary Care Provider: Bobby Atkinson MD Diagnoses at Discharge Discharge Diagnosis (1) COPD (chronic obstructive pulmonary disease): Status: Acute (2) Atrial fibrillation with rapid ventricular response: Status: Acute (3) Acute combined systolic and diastolic heart failure: Status: Acute (4) Chest pain: Status: Acute (5) Diabetes type 2, controlled: Status: Acute Qualifiers: Diabetes mellitus complication status: with hyperglycemia Diabetes mellitus keno terminal operator insulin use: without keno terminal operator use Qualified Code(s): E11.65 - Type 2 diabetes mellitus with hyperglycemia (6) Chronic low back pain: Status: Acute (7) Bilateral pleural effusion: Status: Acute (8) Opacity of lung on imaging study: Status: Acute (9) Bilateral hilar adenopathy syndrome: Status: Acute (10) Gastric band slippage: Status: Acute (11) Aspiration pneumonia: Status: Acute (12) Aspiration pneumonitis: Status: Acute Reason for Visit Reason for Visit: SOB Hospital Course Hospital Course 72-year-old lady was admitted at presenting with chest pain and shortness of breath, with finding of abnormal stress test, was assessed by cardiology, underwent assessment including coronary angiography which showed nonobstructive CAD not significant enough by FFR to stent, with recommendation for continued management medically. Was found to have A-fib with RVR , Improving with treatment and doing well with metoprolol 100 mg twice daily and diltiazem 180 mg daily. Hospitalization complicated by shortness of breath and hypoxia with new oxygen requirement during pneumonia and COPD. Received treatment with Levaquin, initially oral steroids, but this had to be increased to IV steroids transiently, breathing treatments. With consideration of aspiration pneumonia was assessed by speech therapy. In the hospital received Augmentin. Additionally received diuretics including brief course of metolazone for systolic and diastolic CHF exacerbation. On TTE EF found newly decreased to 40%, moderate diffuse hypokinesia of the LV apex. Mild biatrial enlargement. Trace TVR. Mild to moderate MVR. Thickened aortic valve. Additionally assessed by CT angiogram chest which showed no PE, acute on chronic bilateral pulmonary opacity. Probable pulmonary edema versus infection super imposed upon chronic scarring in left lungs. Subsegmental atelectasis. Bilateral hilar lymphadenopathy, greater on the right side, new since 2020. May be reactive, neoplastic or related to CHF. Moderate left pleural effusion. Cardiac enlargement and severe coronary calcification. Malpositioned gastric band surrounding the gastric fundus, stable since 2020. With treatment her condition improved, shortness of breath significantly improved. She weaned off oxygen down to room air. Reassessment chest x-ray showed resolution of opacities and pleural effusion. He is noted to have some worsening renal function and thus Lasix dose is de- escalating down to 40 mg. She is asked to stop diclofenac, avoid NSAIDs. Please follow-up respiratory function, recovery from pneumonia and COPD, volume status, as well as renal function. Please follow-up atrial fibrillation control. Please reassess hilar lymphadenopathy. Follow-up regarding slipped gastric band. Follow-up regarding other chronic problems including diabetes, low back pain, anxiety. Physical Exam Narrative: Today she is sitting up in chair. Reports she is feeling much much better. Reports she is breathing quite easier. Denies cough. Has weaned off oxygen. Feels much stronger. Feels ready to go home. Const: COMMON NORMALS: patient oriented x3 and alert GENERAL APPEARANCE: cooperative ORIENTATION/CONSCIOUSNESS: Yes awake HENMT: COMMON NORMALS: oropharynx normal Neck/C-Spine: COMMON NORMALS: no JVD Resp: COMMON NORMALS: normal respiratory effort and clear to auscultation bilaterally EFFORT & INSPECTION: Yes able to speak in complete sentences AUSCULTATION: clear to auscultation bilaterally and no wheezes Cardio: COMMON NORMALS: no JVD, regular rhythm, S1 normal heart sound present, S2 normal heart sound present and No murmurs present (Cardio) RHYTHM: regular rhythm HEART SOUNDS: S1 normal heart sound present and S2 normal heart sound present GI: COMMON NORMALS: Normal to inspection, nondistended, normoactive bowel sounds present, Soft to palpation and non-tender PALPATION: Yes Soft to palpation Extremity: COMMON NORMALS: no joint enlargement and no pedal edema Neuro: COMMON NORMALS: patient oriented x3 and moves all extremities SENSORIUM/ORIENTATION: Yes alert Skin: COMMON NORMALS: no rashes or lesions noted GENERAL SKIN EXAM: no rashes or lesions noted Discharge Data Studies Completed and Pending Completed Studies During Hospitalization Category Date Time Status CT angio chest PE protcl [id number] Stat Cat Scan 11/10/22 10:55 Completed [employer] request for service Routine Exams 11/07/22 16:09 Completed XR chest 1V portable [id number] Routine Exams 11/13/22 06:00 Completed XR chest 1V portable [id number] Stat Exams 11/05/22 07:11 Completed CV. echo complete* [id number] Routine Ultrasound 11/06/22 06:26 Completed Radiology Impressions Chest CTA 11/10/22 10:55 IMPRESSION: 1. No pulmonary embolism. 2. Acute on chronic bilateral pulmonary opacity. Probable pulmonary edema versus infection superimposed upon chronic scarring in the upper lungs. Subsegmental atelectasis is also present. 3. Bilateral hilar lymphadenopathy, greater on the right, new since 2019. This may be reactive, neoplastic, or related to CHF. 4. Moderate left pleural effusion. 5. Cardiac enlargement and severe coronary calcification. 6. Malpositioned gastric band surrounding the gastric fundus, stable since 08/03/2020. Chest X-Ray 11/13/22 06:00 IMPRESSION: 1. No acute findings. 2. Pulmonary opacity visible on 11/05/2022 has resolved. Laboratory Results WBC 9.5 10^3/uL (4.0-10.0) 11/11/22 04:12 RBC 4.01 10^6/uL (4.1-5.3) L 11/11/22 04:12 Hgb 12.6 g/dL (11.5-15.3) 11/11/22 04:12 Hct 38.5 % (37.0-47.0) 11/11/22 04:12 MCV 96.0 fl (81-99) D 11/11/22 04:12 MCH 31.4 pg (28.0-34.0) 11/11/22 04:12 MCHC 32.7 g/dL (30.0-36.0) D 11/11/22 04:12 RDW 13.2 % (12.1-15.1) 11/11/22 04:12 Plt Count 205 10^3/cmm (130-400) 11/11/22 04:12 MPV 10.8 fL (7.4-10.4) H 11/11/22 04:12 Neut % (Auto) 71.8 % 11/11/22 04:12 Lymph % (Auto) 18.5 % 11/11/22 04:12 Colbert % (Auto) 7.7 % 11/11/22 04:12 Eos % (Auto) 0.1 % 11/11/22 04:12 Baso % (Auto) 0.2 % 11/11/22 04:12 Neut # (Auto) 6.79 10^3/uL (1.8-7.7) 11/11/22 04:12 Lymph # (Auto) 1.8 10^3/uL (0.8-4.8) 11/11/22 04:12 Colbert # (Auto) 0.7 10^3/uL (0.2-0.9) 11/11/22 04:12 Eos # (Auto) 0.0 10^3/uL (0.0-0.8) 11/11/22 04:12 Baso # (Auto) 0.0 10^3/uL (0.0-0.1) 11/11/22 04:12 Nucleated RBC % (auto) 0 % 11/11/22 04:12 Nucleated RBCs # 0.0 /100WBC 11/11/22 04:12 APTT 32.1 SECONDS (23.9-36.7) 11/07/22 19:30 Specimen Type Arterial 11/05/22 08:17 Sample Site Brachial, right 11/05/22 08:17 ABG pH 7.44 (7.35-7.45) 11/05/22 08:17 ABG pCO2 40.6 mmHg (35-45) 11/05/22 08:17 ABG pO2 71.4 mmHg (80.0-100.0) L 11/05/22 08:17 ABG HCO3 27.6 mmol/L (22-26) H 11/05/22 08:17 ABG O2 Saturation 96.3 11/05/22 08:17 ABG Base Excess 3.1 mmol/L (-2.0-2.0) H 11/05/22 08:17 Adolfo Test N/a 11/05/22 08:17 A-a O2 Gradient 17.6 mmHg (5-10) H 11/05/22 08:17 Hematocrit 42.0 % (37-47) 11/05/22 08:17 Hgb O2 Saturation 93.9 % (95-100) L 11/05/22 08:17 Carboxyhemoglobin 1.8 %THgb (0.4-20.1) 11/05/22 08:17 Methemoglobin 0.6 % (0.4-1.5) 11/05/22 08:17 Total Hemoglobin 13.7 g/dL (12-16) 11/05/22 08:17 Sodium 140.0 mmol/L (131-143) 11/05/22 08:17 Potassium 3.8 mmol/L (3.5-5.0) 11/05/22 08:17 Glucose 153.0 mg/dL (70-115) H 11/05/22 08:17 Ionized Calcium 1.2 mmol/L (1.1-1.4) 11/05/22 08:17 O2 Delivery Device Nc 11/05/22 08:17 O2 Liters/Min 4.0 % 11/05/22 08:17 FiO2 36.0 % 11/05/22 08:17 Yard Jockey ID Amh 11/05/22 08:17 Sodium 132 mmol/L (136-145) L 11/14/22 01:58 Potassium 3.9 mmol/L (3.5-5.1) 11/14/22 01:58 Chloride 82 mmol/L (98-107) L 11/14/22 01:58 Carbon Dioxide 36 mmol/L (22-29) H 11/14/22 01:58 Anion Gap 17.9 (5-19) 11/14/22 01:58 BUN 39 mg/dL (8-23) H 11/14/22 01:58 Creatinine 1.5 mg/dL (0.5-0.9) H 11/14/22 01:58 GFR Calculation Not Reportable 11/14/22 01:58 Glucose 321 mg/dL (65-115) H 11/14/22 01:58 POC Glucose 429 mg/dL (70-110) H 11/14/22 10:57 Calculated Osmolality 296 mOsm/kg (285-295) H 11/14/22 01:58 Calcium 9.2 mg/dL (8.5-10.5) 11/14/22 01:58 Magnesium 2.2 mg/dL (1.7-2.3) 11/14/22 01:58 Total Bilirubin 0.8 mg/dL (0.15-1.2) 11/05/22 07:25 AST 19 U/L (0-32) 11/05/22 07:25 ALT 11 U/L (0-33) 11/05/22 07:25 Alkaline Phosphatase 73 U/L (35-105) 11/05/22 07:25 Troponin T Baseline 22 ng/L (0-10) H 11/05/22 07:25 Troponin T 120 Minute 45.05 ng/L (0-10) H 11/05/22 09:35 Delta Troponin T 23.05 ABS# (0-10) H* 11/05/22 09:35 Troponin T Hi Sens 6Hr 111.7 ng/L (0-10) H 11/05/22 13:45 Troponin T Hi Sens 6Hr Delta 89.7 ng/L (0-12) H* 11/05/22 13:45 C-Reactive Protein 16.4 mg/L (0.0-4.9) H 11/10/22 02:25 C-Reactive Protein Cancelled 11/10/22 02:25 NT-Pro-B Natriuret Pep 6893 pg/mL (0-125) H 11/12/22 02:59 Total Protein 5.7 g/dL (6.6-8.7) L 11/05/22 07:25 Albumin 3.5 g/dL (3.5-5.2) 11/05/22 07:25 Globulin 2.2 g/dL (1.3-4.6) 11/05/22 07:25 Procalcitonin 0.08 ng/mL (0-0.5) 11/10/22 02:25 TSH 1.75 uIU/mL (0.27-4.20) 11/05/22 07:25 Urine Color Yellow (Yellow) 11/05/22 08:55 Urine Appearance Clear (CLEAR) 11/05/22 08:55 Urine pH 6 (5-7) 11/05/22 08:55 Ur Specific [place] 1.010 (1.005-1.030) 11/05/22 08:55 Urine Protein 1+ (Negative) H 11/05/22 08:55 Urine Glucose (UA) Norm (Normal) 11/05/22 08:55 Urine Ketones 1+ (Negative) H 11/05/22 08:55 Urine Blood Neg (Negative) 11/05/22 08:55 Urine Nitrate Negative (Negative) 11/05/22 08:55 Urine Bilirubin Neg (Negative) 11/05/22 08:55 Urine Urobilinogen Norm mg/dL (Negative) 11/05/22 08:55 Ur Leukocyte Esterase Negative (Negative) 11/05/22 08:55 Urine RBC 0-4 /hpf (0-2) H 11/05/22 08:55 Urine WBC 0-4 /hpf (0-5) H 11/05/22 08:55 Ur Squamous Epith Cells 10-15 /hpf (0-5) H 11/05/22 08:55 Amorphous Sediment Not Reportable 11/05/22 08:55 Urine Bacteria Trace /hpf (NONE) 11/05/22 08:55 Coarse Granular Casts 0-4 /lpf H 11/05/22 08:55 Coronavirus 229E (PCR) Not detected (NOT DETECT) 11/05/22 08:43 Human Metapneumovir PCR Detected (NOT DETECT) A 11/05/22 11:12 Entero/Rhino (PCR) Not detected (NOT DETECT) 11/05/22 11:12 SARS-CoV-2 (PCR) Not detected (NOT DETECT) 11/05/22 08:43 Vitals Last Vital Signs Temp 98.0 F 11/14/22 12:00 Pulse 97 11/14/22 12:00 Resp 21 H 11/14/22 12:00 BP 159/92 11/14/22 12:00 Pulse Ox 96 11/14/22 13:58 O2 Del Method 11/14/22 12:00 O2 Flow Rate 1 11/14/22 04:00 Discharge Plan Discharge Patient Disposition: Home Condition: Stable Prescriptions: New levofloxacin 750 mg tablet 750 mg PO DAILY Qty: 4 0RF prednisone 10 mg tablet See Rx Instructions .ROUTE .COMPLEX Qty: 20 0RF Rx Instructions: 3 tab daily for 3 days, then 2 tab for 3 days, then 1 tab for 3 days, then 1/2 tab for 3 days. diltiazem HCl 180 mg capsule,extended release 24 hr 180 mg PO DAILY Qty: 90 0RF Continued biotin 10,000 mcg capsule 10,000 mcg PO QAM ascorbate calcium (vitamin C) 500 mg tablet 500 mg PO QAM Medical Marijuana See Rx Instructions .ROUTE .COMPLEX Rx Instructions: prn aspirin [Adult Low Dose Aspirin] 81 mg tablet,delayed release (DR/EC) 81 mg PO DAILY@0900 Qty: 90 3RF metoprolol succinate 100 mg tablet extended release 24 hr 100 mg PO DAILY@0900 Qty: 90 3RF ranolazine 500 mg tablet extended release 12 hr 500 mg PO BID@0900,2200 Qty: 180 3RF pantoprazole 40 mg tablet,delayed release (DR/EC) 40 mg PO BID@0900,2200 Qty: 180 3RF nitroglycerin [Nitrostat] 0.4 mg tablet, sublingual 0.4 mg SUBLINGUAL Q5M PRN (Reason: chest pain) Qty: 30 3RF Xarelto 10 mg tablet 10 mg PO DAILY@2200 Qty: 90 3RF Crestor 5 mg tablet 5 mg PO DAILY@0900 Qty: 90 3RF duloxetine 60 mg capsule,delayed release(DR/EC) 60 mg PO DAILY@0900 Qty: 90 3RF Klor-Con 10 10 mEq tablet extended release 20 meq PO QAM Qty: 180 3RF Rx Instructions: *take additional dose w/Furosemide as needed for wt gain > 3lbs hydrocodone-acetaminophen 5-325 mg tablet 1 tab PO Q8H PRN (Reason: pain) 30 Days Qty: 30 0RF multivitamin Tablet 1 tab PO QAM albuterol sulfate [ProAir HFA] 90 mcg/actuation Hfa Aerosol Inhaler 2 puff INHALATION Q6H PRN (Reason: Shortness Of Breath) isosorbide mononitrate 60 mg tablet extended release 24 hr 60 mg PO QAM glimepiride 4 mg tablet 4 mg PO BID escitalopram oxalate 20 mg tablet 20 mg PO QAM Changed furosemide 80 mg tablet 40 mg PO QAM Qty: 135 3RF Rx Instructions: *may take extra dose as needed for wt gain > 3lbs Held olmesartan 20 mg tablet 20 mg PO DAILY@0900 Qty: 90 3RF Hold Instructions: Resume on 11/28/22. Discontinued diclofenac sodium 1 % gel 2 g TOPICAL QID@09,13,17,21 PRN (Reason: Pain) cefdinir 300 mg capsule 300 mg PO BID Qty: 14 0RF Rx Instructions: rx filled 10/28/22 7d/s Discharge Orders: Discharge Order (Routine); Ordered 11/14/22 Ordered By: Norberto Medina Other Ambulatory Orders: Basic Metabolic Panel (Routine) Timeframe: 20221118 Facility: [facility] - Location: Lab - Main Lab Ordered By: Norberto Medina Referrals: Liane Sanz FNP [Nurse Practitioner] - 1 week Bobby Atkinson MD [Primary Care Provider] - 11/18/22 11:15 am (You have a follow up appointment with Dr atkinson on Nov.18 at 11:15. If you are not able to keep this appointment please contact the clinic to arrange your follow up care.) Discharge Diet: As Directed and Diabetic Discharge Activity: Increase activity as tolerated and As per PT/OT instructions Patient Instructions: Heart Failure (GEN), A-fib (Atrial Fibrillation) (GEN), Acute Kidney Injury (GEN), Urinary Tract Infection in Women (GEN), Aspiration Pneumonia (GEN), COPD (Chronic Obstructive Pulmonary Disease) (GEN), Chronic Lung Disease and Infection Prevention (GEN), Coronary Artery Disease in Women (GEN), Urinary Tract Infection in Older Adults (GEN), Diabetes and Nutrition (GEN), Prevent Cardiovascular Disease (GEN), CHF Stoplight, COPD Stoplight, Opioid Safety Activity Restrictions/Additional Instructions: Let us know in case you change your mind about home health. Maintain strict aspiration precautions. Follow-up with your primary doctor for reassessment for resolution of COPD exacerbation, aspiration pneumonia, CHF exacerbation, for reassessment of coronary artery disease. Continue 1500 mL daily fluid restriction. Have your primary doctor follow-up your kidney function for reassessment of acute kidney injury. Please stop diclofenac and avoid any NSAIDs as a day contribute to kidney injury. Follow-up with your primary doctor for reassessment of enlarged lymph nodes in bilateral hilar regions of your lungs. Discussed follow-up with lung specialist. Follow-up with your primary doctor regarding slipped gastric band which appears stable from 2019. Discharge Attestations Time Spent in Discharge Care*: greater than 30 min Quality Metrics Clinical Quality Measures [ No reported AMI, CVA or VTE this stay] Coding Level of Care Code Acute Code for Chg Fwd Diagnoses COPD (chronic obstructive pulmonary disease) J44.9 Atrial fibrillation with rapid ventricular response I48.91 Acute combined systolic and diastolic heart failure I50.41 Chest pain R07.9 Diabetes type 2, controlled E11.65 Diabetes mellitus complication status: with hyperglycemia Diabetes mellitus group home insulin use: without keno terminal operator use Chronic low back pain M54.5; G89.29 Bilateral pleural effusion J90 Opacity of lung on imaging study R91.8 Bilateral hilar adenopathy syndrome R59.0 Gastric band slippage K95.09 Aspiration pneumonia J69.0 Aspiration pneumonitis J69.0
== END 2022-11-14 14:16 | disposition home or self-care (01) | DRG 286 ==
LOC: ER 12:10 → CSU 23:08
PROVIDERS: Family Medicine; Internal Medicine Cardiovascular Disease; Physician Assistant; Admitting Provider Internal Medicine; Emergency Provider Family Medicine; PCP Family Medicine; Visit Provider Internal Medicine
PROC: 4A023N7 Measurement of Cardiac Sampling and Pressure, Left Heart, Percutaneous Approach (ICD-10-PCS; principal; 2022-11-07 16:30)
DX: I11.0 Hypertensive heart disease with heart failure (principal); I50.43 Acute on chronic combined systolic (congestive) and diastolic (congestive) heart failure; J69.0 Pneumonitis due to inhalation of food and vomit; J44.1 Chronic obstructive pulmonary disease with (acute) exacerbation; I48.20 Chronic atrial fibrillation, unspecified; K95.09 Other complications of gastric band procedure; E11.65 Type 2 diabetes mellitus with hyperglycemia; G89.29 Other chronic pain; M54.50 Low back pain, unspecified; I25.10 Atherosclerotic heart disease of native coronary artery without angina pectoris; I34.0 Nonrheumatic mitral (valve) insufficiency; Y73.8 Miscellaneous gastroenterology and urology devices associated with adverse incidents, not elsewhere classified; R59.0 Localized enlarged lymph nodes; Z79.82 Long term (current) use of aspirin; E78.00 Pure hypercholesterolemia, unspecified; Z88.2 Allergy status to sulfonamides; F41.9 Anxiety disorder, unspecified; G47.33 Obstructive sleep apnea (adult) (pediatric); I42.8 Other cardiomyopathies; Z87.891 Personal history of nicotine dependence; Z98.84 Bariatric surgery status; F32.9 Major depressive disorder, single episode, unspecified; F12.10 Cannabis abuse, uncomplicated; Z79.84 Long term (current) use of oral hypoglycemic drugs; Z79.891 Long term (current) use of opiate analgesic; Z79.01 Long term (current) use of anticoagulants; Z79.51 Long term (current) use of inhaled steroids
CPT/HCPCS: 36415; 36416; 36600; 71045; 71275; 80048; 80051; 80053; 81001; 82330; 82805; 82962; 83735; 83880; 84145; 84443; 84484; 85025; 85730; 86140; 87040; 87070; 87077; 87186; 87635; 87801; 92523; 92610; 93005; 93306; 93458; 93571; 93572; 94640; 94760; 96365; 96366; 96372; 96374; 96375; 96376; 97116; 97161; 97165; 97530; 99152; 99153; 99285; C1769; C1887; C1894; J0360; J1644; J1650; J1815; J1940; J2250; J2405; J2930; J3010; J3475; J3490; J7030; J7512; J7626; Q9967

== ENCOUNTER 2022-11-18 07:34 | Outpatient (CLI) | payer MEDICARE, MEDICAID, SELFPAY ==
[2022-11-18 08:43] LABS: Blood Urea Nitrogen 45 mg/dL (8-23); Calcium 9.1 mg/dL (8.5-10.5); Carbon Dioxide 29 mmol/L (22-29); Chloride 84 mmol/L (98-107); Glucose 225 mg/dL (65-115); Osmolality Calculated 281 mOsm/kg (285-295); Sodium 126 mmol/L (136-145)
[2022-11-18 08:48] LABS: Anion Gap 17.9 (5-19); Potassium 4.9 mmol/L (3.5-5.1)
== END 2022-11-18 07:35 | disposition home or self-care (01) ==
LOC: LAB 07:37
PROVIDERS: Internal Medicine; PCP Family Medicine; Visit Provider Family Medicine
DX: N17.9 Acute kidney failure, unspecified (principal)
CPT/HCPCS: 36415; 80048

== ENCOUNTER → 2022-11-22 11:20 | Outpatient (BNVA) | payer MEDICARE, MEDICAID, SELFPAY | PROVIDERS: PCP Family Medicine; Visit Provider Family Medicine | DX: N17.9 Acute kidney failure, unspecified (principal); E11.65 Type 2 diabetes mellitus with hyperglycemia; I50.40 Unspecified combined systolic (congestive) and diastolic (congestive) heart failure; E87.1 Hypo-osmolality and hyponatremia; J69.0 Pneumonitis due to inhalation of food and vomit; I48.20 Chronic atrial fibrillation, unspecified; F32.1 Major depressive disorder, single episode, moderate; L29.9 Pruritus, unspecified | CPT/HCPCS: 80053; 83036 ==

== ENCOUNTER 2022-11-29 12:17 | Emergency (ER) | payer MEDICARE, MEDICAID, SELFPAY ==
[2022-11-29 12:25] VITALS: BP 145/76; PULSE 74; RESP 18; TEMP 36.8; O2SAT 94
[2022-11-29 13:55] LABS: Basophils % 0.3 %; Eosinophils # 0.1 10^3/uL (0.0-0.8); Eosinophils % 1.4 %; Hematocrit 38.6 % (37.0-47.0); Hemoglobin 12.8 g/dL (11.5-15.3); Lymphocytes # 2.2 10^3/uL (0.8-4.8); Lymphocytes % 30.4 %; Mean Corpuscular HGB Conc 33.2 g/dL (30.0-36.0); Mean Corpuscular Hemoglobin 32.3 pg (28.0-34.0); Mean Corpuscular Volume 97.5 fl (81-99); Mean Platelet Volume 10.1 fL (7.4-10.4); Monocytes # 0.4 10^3/uL (0.2-0.9); Monocytes % 6.2 %; Neutrophils # 4.34 10^3/uL (1.8-7.7); Neutrophils % 61.3 %; Nucleated Red Blood Cells % 0 %; Platelet Count 127 10^3/cmm (130-400); Red Blood Count 3.96 10^6/uL (4.1-5.3); Red Cell Distribution Width 14.5 % (12.1-15.1); White Blood Count 7.1 10^3/uL (4.0-10.0)
[2022-11-29 14:24] LABS: Alanine Aminotransferase 14 U/L (0-33); Albumin Level 3.1 g/dL (3.5-5.2); Alkaline Phosphatase 66 U/L (35-105); Aspartate Amino Transferase 17 U/L (0-32); Blood Urea Nitrogen 8 mg/dL (8-23); Calcium 8.4 mg/dL (8.5-10.5); Carbon Dioxide 29 mmol/L (22-29); Chloride 99 mmol/L (98-107); Creatinine Clr Calc Pharmacy 67.2784; Globulin 2.3 g/dL (1.3-4.6); Glucose 253 mg/dL (65-115); NT Pro B Type Natriuretic Pept 1186 pg/mL (0-125); Osmolality Calculated 293 mOsm/kg (285-295); Sodium 138 mmol/L (136-145); Total Bilirubin 0.3 mg/dL (0.15-1.2); Total Protein 5.4 g/dL (6.6-8.7)
[2022-11-29 14:25] LABS: Anion Gap 14.3 (5-19); Potassium 4.3 mmol/L (3.5-5.1)
--- NOTE | 2022-11-29 14:54 | XRR_ITS ---
PROCEDURE INFORMATION: Exam: XR Chest Exam date and time: 11/29/2022 3:02 PM Age: 72 years old Clinical indication: Shortness of breath; Additional info: Chest pain. She is having shortness of breath with activity but denies orthopnea. She states she has a full sensation in her chest that is chronic and unchanged. TECHNIQUE: Imaging protocol: Radiologic exam of the chest. Views: 1 view. COMPARISON: CR XR chest 1V portable [id number] 11/13/2022 6:20 AM FINDINGS: Lungs: Unremarkable. No consolidation. Pleural spaces: Unremarkable. No pleural effusion. No pneumothorax. Heart/Mediastinum: Unremarkable. No cardiomegaly. Bones/joints: Unremarkable. XR/XR chest 1V portable [id number] IMPRESSION: No acute findings.
--- NOTE | 2022-11-29 15:06 | W.ED.GENADLT ---
Documented by User: Dulce Mckay MD 11/29/22 22:20 HPI - General Adult General: Chief complaint: General Medical Stated complaint: Vaisler sent for fluid retention Time Seen by Provider: 11/29/22 14:15 Source: patient Mode of arrival: ambulatory History of Present Illness: 72-year-old female who comes in complaining of depression over her chronic medical ailments. She has a history of congestive heart failure, hypertension, chronic pain, atrial fibrillation, coronary artery disease. She states that she has been having increasing abdominal swelling due to fluid retention. On Friday she had gained 3 pounds that she took 2 of her 40 mg Lasix. She weighed herself the following day and she had gained an additional 3 pounds. She took 2 more Lasix that day. She states today she feels like her abdomen is more distended. She has not really weighed herself. She is having shortness of breath with activity but denies orthopnea. She states she has a full sensation in her chest that is chronic and unchanged. She is having abdominal swelling but no peripheral edema. She had a recent admission for pneumonia. She denies cough. She denies fever. She states she is depressed and thinks about suicide but does not have a definite plan. She has had no previous psychiatric admissions. Per her , she cries all the time. She states she does not want to live any longer. She is requesting to be admitted to a psychiatric facility. Review of Systems Narrative: See HPI PFS ED PFSH: Medical History ASHD (arteriosclerotic heart disease) Last angiogram with LAD 40-50 percent narrowing Cannabis abuse Cardiomyopathy Chronic atrial fibrillation Chronic pain Chronic thoracic back pain COPD (chronic obstructive pulmonary disease) Diabetes type 2, controlled Encounter for weight loss counseling Discussed close follow-up due to episodes of hypoglycemia in the past when starting a weight loss program. GERD (gastroesophageal reflux disease) HTN (hypertension) Hypercholesterolemia Moderate major depression Recent weight gain Surgical History Gastric bypass status for obesity H/O cataract extraction H/O hernia repair H/O tubal ligation History of back surgery History of foot surgery History of oral surgery Hx of appendectomy Hx of cholecystectomy S/P knee replacement Family History Father Emphysema lung Mother COPD (chronic obstructive pulmonary disease) Brother Cancer lung nodule Emphysema lung Lung disease Chronic kidney disease (CKD) Family/Other Cancer Nephew--jaw Stroke Other CAD (coronary artery disease) CHF (congestive heart failure) Diabetes Hyperlipidemia Hypertension Psychiatric illness Denies family history of Clotting disorder Dementia Suicide Anesthesia complication Bleeding disorder Social History (Updated 11/22/22 @ 10:34 by María Fernandez LPN) Smoking and tobacco status: former smoker Quit status (tobacco): has quit using tobacco Alcohol intake: current Alcohol intake frequency: 0-2 Drinks per Day Lives independently: Yes Household members: spouse Marital status: Number of children: 3 Current occupational status: retired and disabled Tejal/Amish: Nondenominational Special tejal needs: No Physical Exam Const: COMMON NORMALS: no acute distress, patient oriented x3 and well nourished HENMT: COMMON NORMALS: normocephalic, atraumatic, Normal external nose present and moist oral mucous membranes HEAD & SCALP: normocephalic and atraumatic NOSE: Normal external nose present Eye: COMMON NORMALS: Equal, round and reactive pupils present, EOMs intact bilaterally, conjunctivae normal and no scleral icterus CONJUNCTIVA: Yes conjunctivae normal PUPIL: Yes Equal, round and reactive pupils present Neck/C-Spine: OTHER: Supple, no JVD Resp: OTHER: Breath sounds are clear bilaterally. Cardio: OTHER: Irregularly irregular. GI: OTHER: Moderate abdominal distention, soft, nontender Extremity: OTHER: Trace edema bilaterally, no calf tenderness. Neuro: COMMON NORMALS: patient oriented x3 and moves all extremities Psych: OTHER: Patient has a depressed affect, cries easily, admits to having suicidal thoughts but no definite plan. She denies homicidal ideations. She is not having any hallucinations or delusions. Skin: OTHER: No rash noted Course Reevaluation(s): Reevaluation #1: Patient continues to be resting comfortably. Serial troponins have been negative. EKGs continued to show atrial fibrillation which is chronic and stable for the patient. Patient is awaiting psychiatric placement. She is medically clear for psychiatric transfer. Time: 22:20 Vital Signs: Vital signs: Vital Signs Temperature 98.2 F 11/29/22 12:25 Pulse Rate 70 11/30/22 09:31 Respiratory Rate 18 11/30/22 09:31 Blood Pressure 111/79 11/30/22 09:36 Pulse Oximetry 97 11/30/22 09:31 Oxygen Delivery Me thod 11/30/22 08:46 MDM - General Adult Medical Decision Making 72-year-old female with multiple chronic medical problems who comes in today stating that she does not feel like living any longer because of her chronic medical problems. She has had at least a 6 pound weight gain over the past 3 to 4 days not responding to Lasix and does not feel like she has any reason to continue living. Patient's laboratory studies, chest x-ray and EKG are stable. Her initial troponin was 14 and repeat 2-hour troponin remains unchanged at 14. BNP is 1108 86. TSH is 2.03. Urinalysis is negative. Patient was given 40 mg of Lasix IV. She is laying down in no respiratory distress. She has been able to urinate while here. At this time I feel she is medically stable and do not feel she meets criteria for medical admission. Have discussed this with the patient. She is still feeling depressed, having ideas of suicide and asking for psychiatric admission. Patient is voluntary as she has no plan. If the patient decides she does not want to stay for admission, I feel she stable to be discharged home. Lab Data 11/29/22 13:35 11/29/22 13:35 Radiology Impressions Chest X-Ray 11/29/22 14:54 IMPRESSION: No acute findings. Laboratory Results WBC 7.1 10^3/uL (4.0-10.0) 11/29/22 13:35 RBC 3.96 10^6/uL (4.1-5.3) L 11/29/22 13:35 Hgb 12.8 g/dL (11.5-15.3) 11/29/22 13:35 Hct 38.6 % (37.0-47.0) 11/29/22 13:35 MCV 97.5 fl (81-99) 11/29/22 13:35 MCH 32.3 pg (28.0-34.0) 11/29/22 13:35 MCHC 33.2 g/dL (30.0-36.0) 11/29/22 13:35 RDW 14.5 % (12.1-15.1) 11/29/22 13:35 Plt Count 127 10^3/cmm (130-400) L 11/29/22 13:35 MPV 10.1 fL (7.4-10.4) 11/29/22 13:35 Neut % (Auto) 61.3 % 11/29/22 13:35 Lymph % (Auto) 30.4 % 11/29/22 13:35 Chilton % (Auto) 6.2 % 11/29/22 13:35 Eos % (Auto) 1.4 % 11/29/22 13:35 Baso % (Auto) 0.3 % 11/29/22 13:35 Neut # (Auto) 4.34 10^3/uL (1.8-7.7) 11/29/22 13:35 Lymph # (Auto) 2.2 10^3/uL (0.8-4.8) 11/29/22 13:35 [place] # (Auto) 0.4 10^3/uL (0.2-0.9) 11/29/22 13:35 Eos # (Auto) 0.1 10^3/uL (0.0-0.8) 11/29/22 13:35 Baso # (Auto) 0.0 10^3/uL (0.0-0.1) 11/29/22 13:35 Nucleated RBC % (auto) 0 % 11/29/22 13:35 Nucleated RBCs # 0.0 /100WBC 11/29/22 13:35 Sodium 138 mmol/L (136-145) 11/29/22 13:35 Potassium 4.3 mmol/L (3.5-5.1) 11/29/22 13:35 Chloride 99 mmol/L (98-107) 11/29/22 13:35 Carbon Dioxide 29 mmol/L (22-29) 11/29/22 13:35 Anion Gap 14.3 (5-19) 11/29/22 13:35 BUN 8 mg/dL (8-23) 11/29/22 13:35 Creatinine 0.9 mg/dL (0.5-0.9) 11/29/22 13:35 GFR Calculation Not Reportable 11/29/22 13:35 Glucose 253 mg/dL (65-115) H 11/29/22 13:35 Calculated Osmolality 293 mOsm/kg (285-295) 11/29/22 13:35 Calcium 8.4 mg/dL (8.5-10.5) L 11/29/22 13:35 Total Bilirubin 0.3 mg/dL (0.15-1.2) 11/29/22 13:35 AST 17 U/L (0-32) 11/29/22 13:35 ALT 14 U/L (0-33) 11/29/22 13:35 Alkaline Phosphatase 66 U/L (35-105) 11/29/22 13:35 Troponin T Baseline 14 ng/L (0-10) H 11/29/22 13:35 Troponin T 120 Minute 14.26 ng/L (0-10) H 11/29/22 16:09 Delta Troponin T 0.26 ABS# (0-10) 11/29/22 16:09 Troponin T Hi Sens 6Hr 13.90 ng/L (0-10) H 11/29/22 19:12 Troponin T Hi Sens 6Hr Delta -0.10 ng/L (0-12) L 11/29/22 19:12 NT-Pro-B Natriuret Pep 1186 pg/mL (0-125) H 11/29/22 13:35 Total Protein 5.4 g/dL (6.6-8.7) L 11/29/22 13:35 Albumin 3.1 g/dL (3.5-5.2) L 11/29/22 13:35 Globulin 2.3 g/dL (1.3-4.6) 11/29/22 13:35 TSH 2.03 uIU/mL (0.27-4.20) 11/29/22 13:35 Urine Color Yellow (Yellow) 11/29/22 15:15 Urine Appearance Clear (CLEAR) 11/29/22 15:15 Urine pH 7 (5-7) 11/29/22 15:15 Ur Specific Majestic 1.010 (1.005-1.030) 11/29/22 15:15 Urine Protein Neg (Negative) 11/29/22 15:15 Urine Glucose (UA) 1+ (Normal) H 11/29/22 15:15 Urine Ketones Negative (Negative) 11/29/22 15:15 Urine Blood Neg (Negative) 11/29/22 15:15 Urine Nitrate Negative (Negative) 11/29/22 15:15 Urine Bilirubin Neg (Negative) 11/29/22 15:15 Urine Urobilinogen Neg mg/dL (Negative) 11/29/22 15:15 Ur Leukocyte Esterase Negative (Negative) 11/29/22 15:15 Urine Opiates Screen Positive ng/mL (Negative) H 11/29/22 15:15 Ur Barbiturates Screen Negative ng/mL (Negative) 11/29/22 15:15 Ur Phencyclidine Scrn Negative ng/mL (Negative) 11/29/22 15:15 Ur Amphetamines Screen Negative ng/mL (Negative) 11/29/22 15:15 U Benzodiazepines Scrn Negative ng/mL (Negative) 11/29/22 15:15 Urine Cocaine Screen Negative ng/mL (Negative) 11/29/22 15:15 U Marijuana (THC) Screen Positive ng/mL (Negative) H 11/29/22 15:15 Ethyl Alcohol < 10 mg/dL (0-10) 11/29/22 13:35 SARS-CoV-2 Ag (Rapid) negative (Negative) 11/29/22 17:39 EKG Data EKG 1: I personally reviewed and interpreted this EKG as follows: EKG interpretation date: 11/29/22 EKG interpretation time: 15:23 Interpretation: Atrial fibrillation, no ST segment elevation or depression. Incomplete right bundle branch block, prolonged QT interval. Computer generated interpretation: Chest X-Ray 11/29/22 14:54 IMPRESSION: No acute findings. EKG 2: I personally reviewed and interpreted this EKG as follows: EKG interpretation date: 11/29/22 EKG interpretation time: 17:02 Interpretation: Atrial fibrillation, incomplete right bundle branch block, no ST segment elevation or depression. No abnormal intervals Computer generated interpretation: Chest X-Ray 11/29/22 14:54 IMPRESSION: No acute findings. Discharge Plan Discharge Patient Disposition: Xfer Psychiatric Hosp Clinical Impression: Depression, Passive suicidal ideations, Congestive heart failure, Diabetes Condition: Stable Referrals: Bobby Ingram MD [Primary Care Provider] - Sign Out Sign Out Data: Patient Sign Out occurred on 11/30/22 at 06:40. Patient's care was discussed, and care was transferred from to Jos Smart MD. Coding Level of Care Code ED Coupler for Chg Fwd Documented by User: Donnell Ponce DO 11/30/22 06:32 HPI - General Adult General: Chief complaint: General Medical Stated complaint: Vaisler sent for fluid retention Time Seen by Provider: 11/29/22 14:15 PFSH ED PFSH: Medical History ASHD (arteriosclerotic heart disease) Last angiogram with LAD 40-50 percent narrowing Cannabis abuse Cardiomyopathy Chronic atrial fibrillation Chronic pain Chronic thoracic back pain COPD (chronic obstructive pulmonary disease) Diabetes type 2, controlled Encounter for weight loss counseling Discussed close follow-up due to episodes of hypoglycemia in the past when starting a weight loss program. GERD (gastroesophageal reflux disease) HTN (hypertension) Hypercholesterolemia Moderate major depression Recent weight gain Surgical History Gastric bypass status for obesity H/O cataract extraction H/O hernia repair H/O tubal ligation History of back surgery History of foot surgery History of oral surgery Hx of appendectomy Hx of cholecystectomy S/P knee replacement Family History Father Emphysema lung Mother COPD (chronic obstructive pulmonary disease) Brother Cancer lung nodule Emphysema lung Lung disease Chronic kidney disease (CKD) Family/Other Cancer Nephew--jaw Stroke Other CAD (coronary artery disease) CHF (congestive heart failure) Diabetes Hyperlipidemia Hypertension Psychiatric illness Denies family history of Clotting disorder Dementia Suicide Anesthesia complication Bleeding disorder Social History (Updated 11/22/22 @ 10:34 by María Fernandez LPN) Smoking and tobacco status: former smoker Quit status (tobacco): has quit using tobacco Alcohol intake: current Alcohol intake frequency: 0-2 Drinks per Day Lives independently: Yes Household members: spouse Marital status: Number of children: 3 Current occupational status: retired and disabled Tejla/Amish: Nondenominational Special tejal needs: No Course Vital Signs: Vital signs: Vital Signs Temperature 98.2 F 11/29/22 12:25 Pulse Rate 70 11/30/22 09:31 Respiratory Rate 18 11/30/22 09:31 Blood Pressure 111/79 11/30/22 09:36 Pulse Oximetry 97 11/30/22 09:31 Oxygen Delivery Me thod 11/30/22 08:46 MDM - General Adult Medical Decision Making 72-year-old female with multiple chronic medical problems who comes in today stating that she does not feel like living any longer because of her chronic medical problems. She has had at least a 6 pound weight gain over the past 3 to 4 days not responding to Lasix and does not feel like she has any reason to continue living. Patient's laboratory studies, chest x-ray and EKG are stable. Her initial troponin was 14 and repeat 2-hour troponin remains unchanged at 14. BNP is 1108 86. TSH is 2.03. Urinalysis is negative. Patient was given 40 mg of Lasix IV. She is laying down in no respiratory distress. She has been able to urinate while here. At this time I feel she is medically stable and do not feel she meets criteria for medical admission. Have discussed this with the patient. She is still feeling depressed, having ideas of suicide and asking for psychiatric admission. Patient is voluntary as she has no plan. If the patient decides she does not want to stay for admission, I feel she stable to be discharged home. 72-year-old female checked out to me by the previous physician at shift change. She has remained medically stable with good rate control since here. We do not have geriatric psychiatry services at this institution. She is stable for transfer, but have not found a bed at an appropriate facility as of yet. We are currently awaiting a call back from Yasmeen in [facility] regarding medical clearance and potential admit. She will be checked out to the oncoming physician at shift change. Lab Data 11/29/22 13:35 11/29/22 13:35 Radiology Impressions Chest X-Ray 11/29/22 14:54 IMPRESSION: No acute findings. Laboratory Results WBC 7.1 10^3/uL (4.0-10.0) 11/29/22 13:35 RBC 3.96 10^6/uL (4.1-5.3) L 11/29/22 13:35 Hgb 12.8 g/dL (11.5-15.3) 11/29/22 13:35 Hct 38.6 % (37.0-47.0) 11/29/22 13:35 MCV 97.5 fl (81-99) 11/29/22 13:35 MCH 32.3 pg (28.0-34.0) 11/29/22 13:35 MCHC 33.2 g/dL (30.0-36.0) 11/29/22 13:35 RDW 14.5 % (12.1-15.1) 11/29/22 13:35 Plt Count 127 10^3/cmm (130-400) L 11/29/22 13:35 MPV 10.1 fL (7.4-10.4) 11/29/22 13:35 Neut % (Auto) 61.3 % 11/29/22 13:35 Lymph % (Auto) 30.4 % 11/29/22 13:35 Chilton % (Auto) 6.2 % 11/29/22 13:35 Eos % (Auto) 1.4 % 11/29/22 13:35 Baso % (Auto) 0.3 % 11/29/22 13:35 Neut # (Auto) 4.34 10^3/uL (1.8-7.7) 11/29/22 13:35 Lymph # (Auto) 2.2 10^3/uL (0.8-4.8) 11/29/22 13:35 [place] # (Auto) 0.4 10^3/uL (0.2-0.9) 11/29/22 13:35 Eos # (Auto) 0.1 10^3/uL (0.0-0.8) 11/29/22 13:35 Baso # (Auto) 0.0 10^3/uL (0.0-0.1) 11/29/22 13:35 Nucleated RBC % (auto) 0 % 11/29/22 13:35 Nucleated RBCs # 0.0 /100WBC 11/29/22 13:35 Sodium 138 mmol/L (136-145) 11/29/22 13:35 Potassium 4.3 mmol/L (3.5-5.1) 11/29/22 13:35 Chloride 99 mmol/L (98-107) 11/29/22 13:35 Carbon Dioxide 29 mmol/L (22-29) 11/29/22 13:35 Anion Gap 14.3 (5-19) 11/29/22 13:35 BUN 8 mg/dL (8-23) 11/29/22 13:35 Creatinine 0.9 mg/dL (0.5-0.9) 11/29/22 13:35 GFR Calculation Not Reportable 11/29/22 13:35 Glucose 253 mg/dL (65-115) H 11/29/22 13:35 Calculated Osmolality 293 mOsm/kg (285-295) 11/29/22 13:35 Calcium 8.4 mg/dL (8.5-10.5) L 11/29/22 13:35 Total Bilirubin 0.3 mg/dL (0.15-1.2) 11/29/22 13:35 AST 17 U/L (0-32) 11/29/22 13:35 ALT 14 U/L (0-33) 11/29/22 13:35 Alkaline Phosphatase 66 U/L (35-105) 11/29/22 13:35 Troponin T Baseline 14 ng/L (0-10) H 11/29/22 13:35 Troponin T 120 Minute 14.26 ng/L (0-10) H 11/29/22 16:09 Delta Troponin T 0.26 ABS# (0-10) 11/29/22 16:09 Troponin T Hi Sens 6Hr 13.90 ng/L (0-10) H 11/29/22 19:12 Troponin T Hi Sens 6Hr Delta -0.10 ng/L (0-12) L 11/29/22 19:12 NT-Pro-B Natriuret Pep 1186 pg/mL (0-125) H 11/29/22 13:35 Total Protein 5.4 g/dL (6.6-8.7) L 11/29/22 13:35 Albumin 3.1 g/dL (3.5-5.2) L 11/29/22 13:35 Globulin 2.3 g/dL (1.3-4.6) 11/29/22 13:35 TSH 2.03 uIU/mL (0.27-4.20) 11/29/22 13:35 Urine Color Yellow (Yellow) 11/29/22 15:15 Urine Appearance Clear (CLEAR) 11/29/22 15:15 Urine pH 7 (5-7) 11/29/22 15:15 Ur Specific Majestic 1.010 (1.005-1.030) 11/29/22 15:15 Urine Protein Neg (Negative) 11/29/22 15:15 Urine Glucose (UA) 1+ (Normal) H 11/29/22 15:15 Urine Ketones Negative (Negative) 11/29/22 15:15 Urine Blood Neg (Negative) 11/29/22 15:15 Urine Nitrate Negative (Negative) 11/29/22 15:15 Urine Bilirubin Neg (Negative) 11/29/22 15:15 Urine Urobilinogen Neg mg/dL (Negative) 11/29/22 15:15 Ur Leukocyte Esterase Negative (Negative) 11/29/22 15:15 Urine Opiates Screen Positive ng/mL (Negative) H 11/29/22 15:15 Ur Barbiturates Screen Negative ng/mL (Negative) 11/29/22 15:15 Ur Phencyclidine Scrn Negative ng/mL (Negative) 11/29/22 15:15 Ur Amphetamines Screen Negative ng/mL (Negative) 11/29/22 15:15 U Benzodiazepines Scrn Negative ng/mL (Negative) 11/29/22 15:15 Urine Cocaine Screen Negative ng/mL (Negative) 11/29/22 15:15 U Marijuana (THC) Screen Positive ng/mL (Negative) H 11/29/22 15:15 Ethyl Alcohol < 10 mg/dL (0-10) 11/29/22 13:35 SARS-CoV-2 Ag (Rapid) negative (Negative) 11/29/22 17:39 EKG Data EKG 1: Computer generated interpretation: Chest X-Ray 11/29/22 14:54 IMPRESSION: No acute findings. EKG 2: Computer generated interpretation: Chest X-Ray 11/29/22 14:54 IMPRESSION: No acute findings. Discharge Plan Discharge Patient Disposition: Xfer Psychiatric Hosp Clinical Impression: Depression, Passive suicidal ideations, Congestive heart failure, Diabetes Condition: Stable Referrals: Bobby Ingram MD [Primary Care Provider] - Sign Out Sign Out Data: Patient Sign Out occurred on 11/30/22 at 06:40. Patient's care was discussed, and care was transferred from to Jos Smart MD. Coding Level of Care Code ED Coupler for Chg Fwd Documented by User: Jos Smart MD 11/30/22 17:10 HPI - General Adult General: Chief complaint: General Medical Stated complaint: Vaisler sent for fluid retention Time Seen by Provider: 11/29/22 14:15 PFSH ED PFSH: Medical History ASHD (arteriosclerotic heart disease) Last angiogram with LAD 40-50 percent narrowing Cannabis abuse Cardiomyopathy Chronic atrial fibrillation Chronic pain Chronic thoracic back pain COPD (chronic obstructive pulmonary disease) Diabetes type 2, controlled Encounter for weight loss counseling Discussed close follow-up due to episodes of hypoglycemia in the past when starting a weight loss program. GERD (gastroesophageal reflux disease) HTN (hypertension) Hypercholesterolemia Moderate major depression Recent weight gain Surgical History Gastric bypass status for obesity H/O cataract extraction H/O hernia repair H/O tubal ligation History of back surgery History of foot surgery History of oral surgery Hx of appendectomy Hx of cholecystectomy S/P knee replacement Family History Father Emphysema lung Mother COPD (chronic obstructive pulmonary disease) Brother Cancer lung nodule Emphysema lung Lung disease Chronic kidney disease (CKD) Family/Other Cancer Nephew--jaw Stroke Other CAD (coronary artery disease) CHF (congestive heart failure) Diabetes Hyperlipidemia Hypertension Psychiatric illness Denies family history of Clotting disorder Dementia Suicide Anesthesia complication Bleeding disorder Social History (Updated 11/22/22 @ 10:34 by María Fernandez LPN) Smoking and tobacco status: former smoker Quit status (tobacco): has quit using tobacco Alcohol intake: current Alcohol intake frequency: 0-2 Drinks per Day Lives independently: Yes Household members: spouse Marital status: Number of children: 3 Current occupational status: retired and disabled Tejal/Amish: Nondenominational Special tejal needs: No Course Vital Signs: Vital signs: Vital Signs Temperature 98.2 F 11/29/22 12:25 Pulse Rate 70 11/30/22 09:31 Respiratory Rate 18 11/30/22 09:31 Blood Pressure 111/79 11/30/22 09:36 Pulse Oximetry 97 11/30/22 09:31 Oxygen Delivery Me thod 11/30/22 08:46 MDM - General Adult Medical Decision Making 72-year-old female with multiple chronic medical problems who comes in today stating that she does not feel like living any longer because of her chronic medical problems. She has had at least a 6 pound weight gain over the past 3 to 4 days not responding to Lasix and does not feel like she has any reason to continue living. Patient's laboratory studies, chest x-ray and EKG are stable. Her initial troponin was 14 and repeat 2-hour troponin remains unchanged at 14. BNP is 1108 86. TSH is 2.03. Urinalysis is negative. Patient was given 40 mg of Lasix IV. She is laying down in no respiratory distress. She has been able to urinate while here. At this time I feel she is medically stable and do not feel she meets criteria for medical admission. Have discussed this with the patient. She is still feeling depressed, having ideas of suicide and asking for psychiatric admission. Patient is voluntary as she has no plan. If the patient decides she does not want to stay for admission, I feel she stable to be discharged home. 72-year-old female checked out to me by the previous physician at shift change. She has remained medically stable with good rate control since here. We do not have geriatric psychiatry services at this institution. She is stable for transfer, but have not found a bed at an appropriate facility as of yet. We are currently awaiting a call back from Yasmeen in [facility] regarding medical clearance and potential admit. She will be checked out to the oncoming physician at shift change. Patient care hand off received from overnight ED physician Dr. Ponce pending placement. Continued to look for placement and at time of note we still have not found a accepting geriatric psych facility. Patient remains calm and cooperative. Home medications given. She remains medically satisfactory for inpatient geriatric psych placement. She did make a statement to the nurse that she will have to go home and try and kill herself to get any attention or real help. She will require psychiatric service assessment if she expresses desire to leave. Jos Smart MD Emergency Medicine 11/30/2022 1547 Lab Data 11/29/22 13:35 11/29/22 13:35 Radiology Impressions Chest X-Ray 11/29/22 14:54 IMPRESSION: No acute findings. Laboratory Results WBC 7.1 10^3/uL (4.0-10.0) 11/29/22 13:35 RBC 3.96 10^6/uL (4.1-5.3) L 11/29/22 13:35 Hgb 12.8 g/dL (11.5-15.3) 11/29/22 13:35 Hct 38.6 % (37.0-47.0) 11/29/22 13:35 MCV 97.5 fl (81-99) 11/29/22 13:35 MCH 32.3 pg (28.0-34.0) 11/29/22 13:35 MCHC 33.2 g/dL (30.0-36.0) 11/29/22 13:35 RDW 14.5 % (12.1-15.1) 11/29/22 13:35 Plt Count 127 10^3/cmm (130-400) L 11/29/22 13:35 MPV 10.1 fL (7.4-10.4) 11/29/22 13:35 Neut % (Auto) 61.3 % 11/29/22 13:35 Lymph % (Auto) 30.4 % 11/29/22 13:35 Chilton % (Auto) 6.2 % 11/29/22 13:35 Eos % (Auto) 1.4 % 11/29/22 13:35 Baso % (Auto) 0.3 % 11/29/22 13:35 Neut # (Auto) 4.34 10^3/uL (1.8-7.7) 11/29/22 13:35 Lymph # (Auto) 2.2 10^3/uL (0.8-4.8) 11/29/22 13:35 [place] # (Auto) 0.4 10^3/uL (0.2-0.9) 11/29/22 13:35 Eos # (Auto) 0.1 10^3/uL (0.0-0.8) 11/29/22 13:35 Baso # (Auto) 0.0 10^3/uL (0.0-0.1) 11/29/22 13:35 Nucleated RBC % (auto) 0 % 11/29/22 13:35 Nucleated RBCs # 0.0 /100WBC 11/29/22 13:35 Sodium 138 mmol/L (136-145) 11/29/22 13:35 Potassium 4.3 mmol/L (3.5-5.1) 11/29/22 13:35 Chloride 99 mmol/L (98-107) 11/29/22 13:35 Carbon Dioxide 29 mmol/L (22-29) 11/29/22 13:35 Anion Gap 14.3 (5-19) 11/29/22 13:35 BUN 8 mg/dL (8-23) 11/29/22 13:35 Creatinine 0.9 mg/dL (0.5-0.9) 11/29/22 13:35 GFR Calculation Not Reportable 11/29/22 13:35 Glucose 253 mg/dL (65-115) H 11/29/22 13:35 Calculated Osmolality 293 mOsm/kg (285-295) 11/29/22 13:35 Calcium 8.4 mg/dL (8.5-10.5) L 11/29/22 13:35 Total Bilirubin 0.3 mg/dL (0.15-1.2) 11/29/22 13:35 AST 17 U/L (0-32) 11/29/22 13:35 ALT 14 U/L (0-33) 11/29/22 13:35 Alkaline Phosphatase 66 U/L (35-105) 11/29/22 13:35 Troponin T Baseline 14 ng/L (0-10) H 11/29/22 13:35 Troponin T 120 Minute 14.26 ng/L (0-10) H 11/29/22 16:09 Delta Troponin T 0.26 ABS# (0-10) 11/29/22 16:09 Troponin T Hi Sens 6Hr 13.90 ng/L (0-10) H 11/29/22 19:12 Troponin T Hi Sens 6Hr Delta -0.10 ng/L (0-12) L 11/29/22 19:12 NT-Pro-B Natriuret Pep 1186 pg/mL (0-125) H 11/29/22 13:35 Total Protein 5.4 g/dL (6.6-8.7) L 11/29/22 13:35 Albumin 3.1 g/dL (3.5-5.2) L 11/29/22 13:35 Globulin 2.3 g/dL (1.3-4.6) 11/29/22 13:35 TSH 2.03 uIU/mL (0.27-4.20) 11/29/22 13:35 Urine Color Yellow (Yellow) 11/29/22 15:15 Urine Appearance Clear (CLEAR) 11/29/22 15:15 Urine pH 7 (5-7) 11/29/22 15:15 Ur Specific Majestic 1.010 (1.005-1.030) 11/29/22 15:15 Urine Protein Neg (Negative) 11/29/22 15:15 Urine Glucose (UA) 1+ (Normal) H 11/29/22 15:15 Urine Ketones Negative (Negative) 11/29/22 15:15 Urine Blood Neg (Negative) 11/29/22 15:15 Urine Nitrate Negative (Negative) 11/29/22 15:15 Urine Bilirubin Neg (Negative) 11/29/22 15:15 Urine Urobilinogen Neg mg/dL (Negative) 11/29/22 15:15 Ur Leukocyte Esterase Negative (Negative) 11/29/22 15:15 Urine Opiates Screen Positive ng/mL (Negative) H 11/29/22 15:15 Ur Barbiturates Screen Negative ng/mL (Negative) 11/29/22 15:15 Ur Phencyclidine Scrn Negative ng/mL (Negative) 11/29/22 15:15 Ur Amphetamines Screen Negative ng/mL (Negative) 11/29/22 15:15 U Benzodiazepines Scrn Negative ng/mL (Negative) 11/29/22 15:15 Urine Cocaine Screen Negative ng/mL (Negative) 11/29/22 15:15 U Marijuana (THC) Screen Positive ng/mL (Negative) H 11/29/22 15:15 Ethyl Alcohol < 10 mg/dL (0-10) 11/29/22 13:35 SARS-CoV-2 Ag (Rapid) negative (Negative) 11/29/22 17:39 EKG Data EKG 1: Computer generated interpretation: Chest X-Ray 11/29/22 14:54 IMPRESSION: No acute findings. EKG 2: Computer generated interpretation: Chest X-Ray 11/29/22 14:54 IMPRESSION: No acute findings. Discharge Plan Discharge Patient Disposition: Xfer Psychiatric Hosp Clinical Impression: Depression, Passive suicidal ideations, Congestive heart failure, Diabetes Condition: Stable Referrals: Bobby Ingram MD [Primary Care Provider] - Sign Out Sign Out Data: Patient Sign Out occurred on 11/30/22 at 06:40. Patient's care was discussed, and care was transferred from to Jos Smart MD. Coding Level of Care Code ED Coupler for Hattie Toro
--- NOTE | 2022-11-29 15:23 | ECG_ITS ---
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 Measurements Intervals [place] Rate: 62 P: 0 MS: 0 QRS: 4 QRSD: 104 T: 109 QT: 472 QTc: 480 Interpretive Statements ATRIAL FIBRILLATION NONSPECIFIC T-WAVE ABNORMALITY PROLONGED QT INTERVAL Compared to ECG 11/06/2022 13:22:19 T-wave abnormality now present Prolonged QT interval now present Ventricular premature complex(es) no longer present Aberrant conduction of supraventricular beat(s) no longer present Myocardial infarct finding no longer present Electronically Signed On 11-29-2022 21:46:11 MEDICAL RECEPTIONIST BILLER by Leonardo Nix M.D. [id number]
[2022-11-29 15:27] LABS: Troponin(5th) Baseline 14 ng/L (0-10)
[2022-11-29 15:36] LABS: Thyroid Stimulating Hormone 2.03 uIU/mL (0.27-4.20)
[2022-11-29 15:38] LABS: Alcohol Level < 10 mg/dL (0-10)
--- NOTE | 2022-11-29 15:40 | PC.NURSE ---
PT PLACED ON CONTINUOUS SPO2, NIBP, AND CM.
[2022-11-29 15:48] LABS: Add Urine Microscopic? NO; Charge for UA Resulting for Rev
[2022-11-29] MEDS: FUROsemide 10 mg/mL SDV 4mL 40 MG IVP (15:48)
[2022-11-29 15:53] LABS: Bilirubin Urine Neg (Negative); Blood Urine Neg (Negative); Glucose Urine UA 1+ (Normal); Ketones Urine Negative (Negative); Leukocyte Esterase Urine Negative (Negative); Nitrate Urine Negative (Negative); Protein Urine Neg (Negative); Urine Appearance Clear (CLEAR); Urine Color Yellow (Yellow); Urobilinogen Urine Neg (Negative); pH Urine 7 (5-7)
[2022-11-29 16:00] LABS: Amphetamines Screen Urine Negative (Negative); Barbiturates Screen Urine Negative (Negative); Benzodiazepines Screen Urine Negative (Negative); Cocaine Screen Urine Negative (Negative); Opiate Screen Urine Positive (Negative); PCP Screen Urine Negative (Negative); THC Screen Urine Positive (Negative)
[2022-11-29 16:35] LABS: Troponin 5 2HR 14.26 ng/L (0-10)
[2022-11-29 16:39] LABS: Troponin 5 2HR Delta 0.26 ABS# (0-10)
--- NOTE | 2022-11-29 17:02 | ECG_ITS ---
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 Measurements Intervals [place] Rate: 61 P: 0 RI: 0 QRS: -2 QRSD: 97 T: 111 QT: 425 QTc: 430 Interpretive Statements ATRIAL FIBRILLATION INCOMPLETE RIGHT BUNDLE BRANCH BLOCK [90+ ms QRS DURATION, TERMINAL R IN V1/V2, 40+ ms S IN I/aVL/V4/V5/V6] NONSPECIFIC T-WAVE ABNORMALITY Compared to ECG 11/29/2022 15:23:03 Incomplete right bundle-branch block now present Prolonged QT interval no longer present T-wave abnormality still present Electronically Signed On 11-29-2022 22:01:01 PIANO SOUNDING BOARD MATCHER by Leonardo Nix M.D. [id number]
[2022-11-29 18:29] LABS: SARS Covid-2 Antigen negative (Negative)
--- NOTE | 2022-11-29 20:58 | ECG_ITS ---
[facility] Test Date: 2022-11-29 Pat Name: Chiqui Arias Department: Room: Gender: Female Pediatric Hospitalist: : 1950 Requested By: Dulce Mckay Order Number: [id number] Elver MD: Leonardo Nix M.D. Measurements Intervals [place] Rate: 48 P: 0 NM: 0 QRS: 22 QRSD: 98 T: 110 QT: 469 QTc: 421 Interpretive Statements ATRIAL FIBRILLATION WITH SLOW VENTRICULAR RESPONSE INCOMPLETE RIGHT BUNDLE BRANCH BLOCK [90+ ms QRS DURATION, TERMINAL R IN V1/V2, 40+ ms S IN I/aVL/V4/V5/V6] NONSPECIFIC T-WAVE ABNORMALITY Compared to ECG 11/29/2022 17:02:43 No significant changes Electronically Signed On 11-29-2022 22:01:47 TOP FRAME FITTER by Leonardo Nix M.D. [id number]
--- NOTE | 2022-11-29 23:40 | PC.NURSE ---
Sleep Difficulties- Pt requesting medication to help her sleep. States that she usually puffs her thc vap pen. Provider asked for something to help her sleep. Orders placed.
[2022-11-29 23:50] VITALS: BP 115/61; PULSE 61; RESP 18; O2SAT 95
[2022-11-29] MEDS: zolpidem 5 mg Tablet PO (23:54)
[2022-11-30] MEDS: albuterol 8 gm MDI 2 PUFF INHALATION (08:44)
[2022-11-30 08:46] VITALS: PULSE 87; RESP 16; O2SAT 97
[2022-11-30 09:31] VITALS: BP 162/79; PULSE 70; RESP 18; O2SAT 97
[2022-11-30] MEDS: duloxetine 60 mg Capsule PO (09:35)
[2022-11-30 09:36] VITALS: BP 111/79
[2022-11-30] MEDS: aspirin 81 mg EC Tablet PO (09:36)
[2022-11-30] MEDS: metoprolol succinate ER (24 HR) 100 mg Tablet PO (09:36)
[2022-11-30] MEDS: atorvastatin 40 mg Tablet 20 MG PO (09:36)
[2022-11-30] MEDS: dilTIAZem ER (24HR) 180 mg Capsule PO (09:36)
[2022-11-30] MEDS: losartan 50 mg Tablet PO (09:36)
[2022-11-30] MEDS: loratadine 10 mg Tablet PO (09:37)
[2022-11-30] MEDS: glimepiride 2 mg Tablet 4 MG PO ×2 (10:04→18:54)
[2022-11-30] MEDS: pantoprazole DR 40 mg Tablet PO (10:04)
[2022-11-30] MEDS: ranolazine (12HR) 500 mg Tablet PO (10:05)
--- NOTE | 2022-11-30 14:53 | PC.NURSE ---
Pt told me she was going to go home and just fucking kill herself, then people will start caring . She said she has a plan on what she would do but did not tell me what it was, she told me several times she was going to kill herself when she gets home.
[2022-11-30 18:56] VITALS: BP 126/62; PULSE 55; RESP 16; O2SAT 97
--- NOTE | 2022-11-30 19:32 | PC.NURSE ---
Per pt request I called pt Bryant to update of her transfer to [place] in [facility]
== END 2022-11-30 20:05 ==
PROVIDERS: Emergency Medicine; Emergency Provider Emergency Medicine; PCP Family Medicine
DX: I11.0 Hypertensive heart disease with heart failure (principal); I50.9 Heart failure, unspecified; E11.9 Type 2 diabetes mellitus without complications; F32.A Depression, unspecified; R45.851 Suicidal ideations; J44.9 Chronic obstructive pulmonary disease, unspecified; Z87.891 Personal history of nicotine dependence; Z20.822 Contact with and (suspected) exposure to COVID-19
CPT/HCPCS: 36415; 71045; 80053; 80306; 80307; 81003; 83880; 84443; 84484; 85025; 87426; 93005; 94640; 96374; 99285; J1940; J3535

== ENCOUNTER → 2023-01-20 09:28 | Outpatient (BNVA) | payer MEDICARE, MEDICAID, SELFPAY | PROVIDERS: PCP Family Medicine; Referring Provider Family Medicine; Visit Provider Anesthesiology Pain Medicine | DX: G89.29 Other chronic pain (principal); M47.816 Spondylosis without myelopathy or radiculopathy, lumbar region; M54.16 Radiculopathy, lumbar region; M47.814 Spondylosis without myelopathy or radiculopathy, thoracic region; M47.812 Spondylosis without myelopathy or radiculopathy, cervical region; M16.0 Bilateral primary osteoarthritis of hip; M25.511 Pain in right shoulder | CPT/HCPCS: 72170; 99205 ==

== ENCOUNTER → 2023-02-18 10:37 | Outpatient (BNVA) | payer MEDICARE, SELFPAY | PROVIDERS: PCP Family Medicine; Visit Provider Nurse Practitioner Family | DX: I11.0 Hypertensive heart disease with heart failure (principal); I50.40 Unspecified combined systolic (congestive) and diastolic (congestive) heart failure; E78.00 Pure hypercholesterolemia, unspecified; I48.20 Chronic atrial fibrillation, unspecified; Z79.01 Long term (current) use of anticoagulants; Z87.891 Personal history of nicotine dependence; Z79.82 Long term (current) use of aspirin | CPT/HCPCS: 99214 ==

== ENCOUNTER 2023-02-25 13:44 | Outpatient (CLI) | payer MEDICARE, MEDICAID, SELFPAY ==
--- NOTE | 2023-02-25 13:45 | MR_ITS ---
WS: [id number] MRI LUMBAR SPINE NONCONTRAST TECHNIQUE: Sagittal T1, T2 and STIR imaging. Axial T1 and T2 imaging. CLINICAL INFORMATION: M54.50 - Low back pain, unspecified COMPARISON: MRI 2006 FINDINGS: Mild lumbar curve. No acute compression. Pedicle screw fixation L4-L5. Grade 1 anterolisthesis L4 on L5. Disc space narrowing L3-L4 has progressed slightly. Disc bulging L1-L2 has progressed. Anterior w edging at T11 and T12 progressed. Grade 1 anterolisthesis L4 on L5 slightly progressed. L1-L2: Slight retrolisthesis. Progressed disc bulging at this level with mild/moderate central canal stenosis. Narrowing subarticular recess. Mild RIGHT foraminal narrowing. Moderate facet arthropathy. L2-L3: Mild annular bulging. Mild central canal stenosis. Narrowing of the subarticular recess bilate rally. Moderate facet arthropathy. Mild LEFT foraminal narrowing. L3-L4: Progressed disc space narrowing at this level. Disc osteophyte complex with mild central canal stenosis. Narrowing of the subarticular recess. Moderate RIGHT and mild LEFT foraminal narrowing. L4-L5: Postoperative changes pedicle screw fixation. Grade 1 anterolisthesis. Laminectomy defects. Sp inal canal and foramen are patent. L5-S1: Mild disc bulging with narrowing of the subarticular recess bilaterally. Mild to moderate RIGH T and mild LEFT foraminal narrowing. Mild facet arthropathy. Visualized pelvic bony structures: Normal. Paravertebral soft tissues: Normal. MR/MR lumbar spine wo con* [id number] IMPRESSION: 1. Mild lumbar curve. No acute compression. 2. Grade 1 anterolisthesis L4 on L5 is slightly progressed. Pedicle screw fixa tion L4-L5 laminectomy defects. 3. Mild to moderate central canal stenosis L1-L2 with broad-based central disc osteophyte protrusion progressed compared to previous. 4. Mild central canal stenosis L2-L3. 5. Progressed disc desiccation L3-L4 with mild central canal stenosis. 6. Multilevel mild to moderate foraminal narrowing worse at RIGHT L1-L2, RIGHT L3-L4, and RIGHT L5-S1.
== END 2023-02-25 13:45 | disposition home or self-care (01) ==
PROVIDERS: PCP Family Medicine; Visit Provider Anesthesiology Pain Medicine
DX: M48.07 Spinal stenosis, lumbosacral region (principal); M25.78 Osteophyte, vertebrae; M47.816 Spondylosis without myelopathy or radiculopathy, lumbar region; M54.50 Low back pain, unspecified; G89.29 Other chronic pain
CPT/HCPCS: 72148; 72170

== ENCOUNTER → 2023-03-04 09:11 | Outpatient (BNVA) | payer MEDICARE, MEDICAID, SELFPAY | PROVIDERS: PCP Family Medicine; Visit Provider Anesthesiology Pain Medicine | DX: G89.29 Other chronic pain (principal); M47.816 Spondylosis without myelopathy or radiculopathy, lumbar region; M54.16 Radiculopathy, lumbar region; M47.812 Spondylosis without myelopathy or radiculopathy, cervical region; M47.814 Spondylosis without myelopathy or radiculopathy, thoracic region; M25.511 Pain in right shoulder; M43.16 Spondylolisthesis, lumbar region; M48.061 Spinal stenosis, lumbar region without neurogenic claudication | CPT/HCPCS: 99214 ==

== ENCOUNTER → 2023-03-25 13:20 | Outpatient (BNVA) | payer MEDICARE, MEDICAID, SELFPAY | PROVIDERS: PCP Family Medicine; Visit Provider Anesthesiology Pain Medicine | DX: G89.29 Other chronic pain (principal); M54.16 Radiculopathy, lumbar region; Z79.84 Long term (current) use of oral hypoglycemic drugs | CPT/HCPCS: 36416; 64483; 64484; 82962; J1100; J3490 ==

== ENCOUNTER → 2023-04-07 14:48 | Outpatient (BNVA) | payer MEDICARE, MEDICAID, SELFPAY | PROVIDERS: PCP Family Medicine; Visit Provider Anesthesiology Pain Medicine | DX: G89.29 Other chronic pain (principal); M54.16 Radiculopathy, lumbar region; M54.6 Pain in thoracic spine | CPT/HCPCS: 64483; 64484; J1100; J3490 ==

== ENCOUNTER → 2023-04-10 08:15 | Outpatient (BNVA) | payer MEDICARE, MEDICAID, SELFPAY | PROVIDERS: PCP Family Medicine; Visit Provider Family Medicine | DX: I25.10 Atherosclerotic heart disease of native coronary artery without angina pectoris (principal); E11.65 Type 2 diabetes mellitus with hyperglycemia | CPT/HCPCS: 80053; 80061; 83036 ==

== ENCOUNTER → 2023-04-21 10:01 | Outpatient (BNVA) | payer MEDICARE, MEDICAID, SELFPAY | PROVIDERS: PCP Family Medicine; Visit Provider Anesthesiology Pain Medicine | DX: G89.29 Other chronic pain (principal); M47.816 Spondylosis without myelopathy or radiculopathy, lumbar region; M54.16 Radiculopathy, lumbar region; M47.812 Spondylosis without myelopathy or radiculopathy, cervical region; M47.814 Spondylosis without myelopathy or radiculopathy, thoracic region; M25.511 Pain in right shoulder | CPT/HCPCS: 99214 ==

== ENCOUNTER → 2023-07-30 15:32 | Outpatient (BNVA) | payer MEDICARE, MEDICAID, SELFPAY | PROVIDERS: PCP Family Medicine; Visit Provider Nurse Practitioner Family | DX: I50.40 Unspecified combined systolic (congestive) and diastolic (congestive) heart failure (principal); I10 Essential (primary) hypertension | CPT/HCPCS: 36415; 80048; 83880; 99214 ==

== ENCOUNTER 2023-10-06 14:07 | Outpatient (CLI) | payer MEDICARE, MEDICAID, SELFPAY | END 2023-10-06 14:08 | disposition home or self-care (01) | LOC: LAB 14:08 | PROVIDERS: PCP Family Medicine; Visit Provider Family Medicine | DX: I50.40 Unspecified combined systolic (congestive) and diastolic (congestive) heart failure (principal); E11.65 Type 2 diabetes mellitus with hyperglycemia; Z01.810 Encounter for preprocedural cardiovascular examination | CPT/HCPCS: 80053; 83036; 83880; 85025; 93005 ==

== ENCOUNTER 2023-10-27 09:50 | Outpatient (CLI) | payer MEDICARE, MEDICAID, SELFPAY ==
--- NOTE | 2023-10-27 10:15 | USCV_ITS ---
Chiqui Arias Age: 72 Gender: F : 1950 Exam Date: 10/27/2023 10:09 Ordering Phys: Bobby Ingram MD Technologist: Kelsey Gates Exam Location: [facility] – [place] Indication: stress induced cardiomyopathy, takotsubo syndrome, afib, HTN BP: 124 / 78 HR: 64 Rhythm: Sinus Technical Quality: Adequate MEASUREMENTS (Male / Female) Normal Values 2D ECHO LV Diastolic Diameter PLAX 3.5 cm 4.2 - 5.9 / 3.9 - 5.3 cm LV Systolic Diameter PLAX 2.0 cm IVS Diastolic Thickness 1.7 cm 0.6 - 1.0 / 0.6 - 0.9 cm IVS Systolic Thickness 1.8 cm LVPW Diastolic Thickness 1.0 cm 0.6 - 1.0 / 0.6 - 0.9 cm LVPW Systolic Thickness 1.6 cm LVOT Diameter 2.2 cm LV Ejection Fraction 2D Teich 75.3 % LV Ejection Fraction MOD 2C 68.1 % LV Ejection Fraction 2C AL 72.0 % LA Diameter 4.1 cm LA Width 4.1 cm LA Height 5.6 cm RA Width 4.3 cm RA Height 6.2 cm Aorta at Sinotubular Diameter 2.9 cm IVC Diameter 1.7 cm M-MODE Aortic Annulus Diameter 3.3 cm LA Ao Ratio MM 1.3 MV E Point Septal Separation 0.3 cm DOPPLER AV Peak Velocity 129.0 cm/s LVOT Peak Velocity 64.0 cm/s AV Area Cont Eq vti 2.1 cm squared AV Area Cont Eq pk 1.8 cm squared MV Peak Velocity 123.0 cm/s MV Area PHT 4.0 cm squared Mitral E to A Ratio 5.6 MV E' Velocity 63.5 cm/s Mitral E to MV E' Ratio 10.2 Mitral E to LV E' Lateral Ratio 11.4 Mitral E to LV E' Septal Ratio 9.2 TR Peak Velocity 158.8 cm/s TR Peak Gradient 10.1 mmHg Right Atrial Pressure 5.0 mmHg Pulmonary Artery Systolic Pressu 15.1 mmHg PV Peak Velocity 74.0 cm/s RV Acceleration Time 0.1 s RV Ejection Time 0.4 s RV AcT/ET 0.2 FINDINGS Left Ventricle Left ventricle is normal in size. LV systolic function is normal with EF of 55-60%. No regional wall motion abnormalities are seen. Right Ventricle Normal in size and function Right Atrium Normal in size Left Atrium Dilated Mitral Valve Mild mitral annular calcification is seen. Mild mitral regurgitation. Aortic Valve Structurally normal aortic valve. No significant stenosis. Tricuspid Valve Mild tricuspid regurgitation. Pulmonary artery systolic pressure is normal. Pulmonic Valve Not well visualized Pericardium Normal in size Aorta Normal in size IVC Appears to be normal CONCLUSIONS LV systolic function is normal with EF of 55-60% Left atrial dilation Mild mitral regurgitation Mild tricuspid regurgitation Compared to prior echocardiogram from 2020, no significant changes are noted Jett Márquez MD (Electronically Signed) Final Date: 27 October 2023 12:40 S
== END 2023-10-27 09:51 | disposition home or self-care (01) ==
LOC: RAD 09:50
PROVIDERS: PCP Family Medicine; Visit Provider Family Medicine
DX: I08.1 Rheumatic disorders of both mitral and tricuspid valves (principal); I48.91 Unspecified atrial fibrillation; I10 Essential (primary) hypertension
CPT/HCPCS: 93306

== ENCOUNTER 2024-02-08 09:15 | Emergency (ER) | payer MEDICARE, SELFPAY ==
[2024-02-08 09:21] VITALS: BP 170/89; PULSE 87; RESP 16; TEMP 36.9; O2SAT 95; BMI 33.5
[2024-02-08 09:25] VITALS: BP 170/89; O2SAT 91
--- NOTE | 2024-02-08 09:30 | W.ED.ABDPA2 ---
HPI - Abdominal Pain General: Chief Complaint: Abdominal Pain Stated Complaint: abd pain Time Seen by Provider: 02/08/24 09:18 Source: patient Mode of arrival: ambulatory Limitations: no limitations History of Present Illness: 73-year-old female who states that she has had some sharp pains to her left upper abdomen wrapping around her back states they have been painful for the last 2 to 3 days. She had some nausea with the pain pain sharp in nature rates it a 6 out of 10 denies any vomiting or diarrhea Associated Symptoms: Reports nausea; Denies chills, diarrhea, dysuria, fever(s) and vomiting Review of Systems Const: Denies: fever(s), chills, body aches or change in appetite ENMT: Denies: throat pain or dental pain Card: Denies: chest pain Resp: Denies: dyspnea GI: Reports: abdominal pain and nausea; Denies: vomiting or diarrhea : Denies: dysuria Musc: Reports: back pain; Denies: neck pain Skin/Breast: Reports: rash PFSH ED PFSH: Medical History Generalized anxiety disorder Psychiatric care COPD (chronic obstructive pulmonary disease) Cardiomyopathy Chronic pain Moderate major depression GERD (gastroesophageal reflux disease) Chronic atrial fibrillation Chronic thoracic back pain Cannabis abuse Recent weight gain Encounter for weight loss counseling Discussed close follow-up due to episodes of hypoglycemia in the past when starting a weight loss program. Hypercholesterolemia ASHD (arteriosclerotic heart disease) Last angiogram with LAD 40-50 percent narrowing HTN (hypertension) Diabetes type 2, controlled Surgical History History of back surgery History of foot surgery H/O tubal ligation Hx of cholecystectomy H/O hernia repair History of oral surgery S/P knee replacement Hx of appendectomy H/O cataract extraction Gastric bypass status for obesity Family History Father Emphysema lung Mother COPD (chronic obstructive pulmonary disease) Brother Cancer lung nodule Emphysema lung Lung disease Chronic kidney disease (CKD) Family/Other Cancer Nephew--jaw Stroke Other CAD (coronary artery disease) Congestive heart failure (CHF) Diabetes Hyperlipidemia Hypertension Psychiatric illness Denies family history of Clotting disorder Dementia Suicide Anesthesia complication Bleeding disorder Social History Smoking and tobacco/nicotine status: former use of tobacco/nicotine Quit status (tobacco/nicotine): has quit using Alcohol intake: current Alcohol intake frequency: 3 or more drinks per day Substance/Drug Use: current Substance/Drug use frequency: daily Lives independently: Yes Household members: spouse Marital status: Number of children: 3 Current occupational status: retired and disabled Tejal/Jehovah'S Witness: Zoroastrianism Special tejal needs: No Physical Exam Const: COMMON NORMALS: no acute distress, patient oriented x3 and healthy appearing HENMT: COMMON NORMALS: normocephalic and atraumatic HEAD & SCALP: normocephalic and atraumatic Neck/C-Spine: COMMON NORMALS: full ROM and supple Chest: COMMONS NORMALS: normal inspection of the chest Resp: COMMON NORMALS: normal respiratory effort, No retractions, No use of accessory muscles and clear to auscultation bilaterally AUSCULTATION: clear to auscultation bilaterally Cardio: COMMON NORMALS: regular rate, regular rhythm and No murmurs present (Cardio) RATE: regular rate RHYTHM: regular rhythm GI: COMMON NORMALS: Soft to palpation, non-tender and no masses PALPATION: Yes Soft to palpation OTHER: Vesicular rash to left upper abdomen that does wrap around to her back consistent with shingles Extremity: COMMON NORMALS: normal to inspection and full ROM Neuro: COMMON NORMALS: patient oriented x3, moves all extremities and no focal motor deficits Psych: COMMON NORMALS: mental status grossly normal, Normal thought process present and cooperative THOUGHT PROCESS: Normal thought process present Skin: COMMON NORMALS: no wounds Course Vital Signs: Vital signs: Vital Signs Temperature 98.5 F 02/08/24 09:21 Pulse Rate 87 02/08/24 09:21 Respiratory Rate 17 02/08/24 09:35 Blood Pressure 170/89 02/08/24 09:45 Pulse Oximetry 91 02/08/24 09:45 Oxygen Delivery Me thod Room Air 02/08/24 09:21 MDM - Abdominal Pain Medical Decision Making Patient presents with abdominal pain she does have shingles likely causing her pain we will start her on Valtrex steroids and pain medicine she stable for discharge Medical Records I reviewed the patient's medical records. Lab Data I reviewed the patient's lab results. 02/08/24 09:30 02/08/24 09:30 Labs/Radiology: Laboratory Results WBC 8.12 10^3/uL (3.29-11.43) 02/08/24 09:30 RBC 4.64 10^6/uL (3.85-5.65) 02/08/24 09:30 Hgb 15.90 g/dL (11.27-16.99) 02/08/24 09:30 Hct 46.1 % (36-47) 02/08/24 09:30 MCV 99.4 fl (85-98) H 02/08/24 09:30 MCH 34.3 pg (27-33) H 02/08/24 09:30 MCHC 34.5 g/dL (30-55) 02/08/24 09:30 RDW 11.9 % (12.1-15.1) L 02/08/24 09:30 Plt Count 171 10^3/cmm (157-399) 02/08/24 09:30 MPV 10.0 fL (7.4-10.4) 02/08/24 09:30 Neut % (Auto) 56.6 % 02/08/24 09:30 Lymph % (Auto) 31.2 % 02/08/24 09:30 [place] % (Auto) 7.0 % 02/08/24 09:30 Eos % (Auto) 3.9 % 02/08/24 09:30 Baso % (Auto) 0.9 % 02/08/24 09:30 Neut # (Auto) 4.60 10^3/uL (1.8-7.7) 02/08/24 09:30 Lymph # (Auto) 2.5 10^3/uL (0.8-4.8) 02/08/24 09:30 [place] # (Auto) 0.6 10^3/uL (0.2-0.9) 02/08/24 09:30 Eos # (Auto) 0.3 10^3/uL (0.0-0.8) 02/08/24 09:30 Baso # (Auto) 0.1 10^3/uL (0.0-0.1) 02/08/24 09:30 Nucleated RBC % (auto) 0 % 02/08/24 09:30 Nucleated RBCs # 0.0 /100WBC 02/08/24 09:30 Sodium 136 mmol/L (136-145) 02/08/24 09:30 Potassium 4.2 mmol/L (3.5-5.1) 02/08/24 09:30 Carbon Dioxide 29 mmol/L (22-29) 02/08/24 09:30 Anion Gap 14.2 (5-19) 02/08/24 09:30 BUN 8 mg/dL (8-23) 02/08/24 09:30 Creatinine 0.7 mg/dL (0.5-0.9) 02/08/24 09:30 GFR Calculation Not Reportable 02/08/24 09:30 Calcium 9.4 mg/dL (8.5-10.5) 02/08/24 09:30 Total Bilirubin 0.6 mg/dL (0.15-1.2) 02/08/24 09:30 AST 20 U/L (0-32) 02/08/24 09:30 ALT 15 U/L (0-33) 02/08/24 09:30 Alkaline Phosphatase 76 U/L (35-105) 02/08/24 09:30 Total Protein 6.9 g/dL (6.6-8.7) 02/08/24 09:30 Albumin 3.9 g/dL (3.5-5.2) 02/08/24 09:30 Globulin 3.0 g/dL (1.3-4.6) 02/08/24 09:30 Lipase 33 U/L (13-60) 02/08/24 09:30 No radiology studies performed this visit Discharge Plan Discharge Patient Disposition: Home Clinical Impression: Shingles Condition: Stable Prescriptions: New hydrocodone-acetaminophen 5-325 mg tablet 1 tab PO Q6H PRN (Reason: pain) Qty: 14 0RF prednisone 50 mg tablet 50 mg PO DAILY Qty: 5 0RF ondansetron 4 mg tablet,disintegrating 4 mg PO Q6H PRN (Reason: nausea and vomiting) Qty: 14 0RF valacyclovir 1 gram tablet 1,000 mg PO TID 7 Days Qty: 21 0RF No Action biotin 10,000 mcg capsule 10,000 mcg PO QAM ascorbate calcium (vitamin C) 500 mg tablet 500 mg PO QAM minoxidil 5 % foam See Rx Instructions topical .COMPLEX Qty: 60 0RF Rx Instructions: 1/2 cap full daily in hair topically; escitalopram oxalate 20 mg tablet See Rx Instructions .ROUTE .COMPLEX Qty: 90 0RF Dose Instruction: TAKE 1 TABLET BY MOUTH EVERY DAY Rx Instructions: TAKE 1 TABLET BY MOUTH EVERY DAY duloxetine 60 mg capsule,delayed release(DR/EC) 120 mg PO DAILY@0900 90 Days Qty: 180 0RF Rx Instructions: Take with 30 mg capsule for daily total of 90 mg mirabegron 25 mg tablet extended release 24 hr 25 mg PO DAILY Qty: 30 2RF aripiprazole [Abilify] 5 mg tablet 5 mg PO DAILY Qty: 60 1RF aspirin [Adult Low Dose Aspirin] 81 mg tablet,delayed release (DR/EC) 81 mg PO DAILY@0900 Qty: 90 3RF nitroglycerin [Nitrostat] 0.4 mg tablet, sublingual 0.4 mg SUBLINGUAL Q5M PRN (Reason: chest pain) Qty: 30 3RF Xarelto 10 mg tablet 10 mg PO DAILY@2200 Qty: 90 3RF Klor-Con 10 10 mEq tablet extended release 20 meq PO QAM Qty: 180 3RF Rx Instructions: *take additional dose w/Furosemide as needed for wt gain > 3lbs hydrocodone-acetaminophen 5-325 mg tablet 1 tab PO BID PRN (Reason: pain) 7 Days Qty: 14 0RF Crestor 5 mg tablet 5 mg PO DAILY@0900 Qty: 90 3RF Hold Instructions: wants to try to go off it metoprolol succinate 100 mg tablet extended release 24 hr See Rx Instructions .ROUTE .COMPLEX Qty: 90 2RF Dose Instruction: TAKE 1 TABLET BY MOUTH EVERY DAY AT 9.A.M Rx Instructions: TAKE 1 TABLET BY MOUTH EVERY DAY AT 9.A.M (DME) Rollaid walker with seat See Rx Instructions .Route .MEDSUPPLY Qty: 1 0RF Rx Instructions: As directed loratadine 10 mg tablet 10 mg PO DAILY Qty: 90 0RF glimepiride 4 mg tablet See Rx Instructions .ROUTE .COMPLEX Qty: 180 1RF Dose Instruction: TAKE 1 TABLET BY MOUTH TWICE A DAY Rx Instructions: TAKE 1 TABLET BY MOUTH TWICE A DAY pantoprazole 40 mg tablet,delayed release (DR/EC) 40 mg PO BID@0900,2200 Qty: 180 3RF ranolazine 500 mg tablet extended release 12 hr See Rx Instructions .ROUTE .COMPLEX Qty: 180 3RF Dose Instruction: TAKE 1 TABLET BY MOUTH TWICE A DAY AT 9AM AND 10PM Rx Instructions: TAKE 1 TABLET BY MOUTH TWICE A DAY AT 9AM AND 10PM furosemide 40 mg tablet See Rx Instructions .ROUTE .COMPLEX Qty: 180 3RF Dose Instruction: TAKE 1 TABLET BY MOUTH DAILY IN THE MORNING, MAY TAKE AN EXTRA DOSE DAILY IF NEEDED FOR WEIGHT GAIN Rx Instructions: TAKE 1 TABLET BY MOUTH DAILY IN THE MORNING, MAY TAKE AN EXTRA DOSE DAILY IF NEEDED FOR WEIGHT GAIN diltiazem HCl [Tiadylt ER] 180 mg capsule,extended release 24 hr See Rx Instructions .ROUTE .COMPLEX Qty: 90 0RF Dose Instruction: TAKE 1 CAPSULE BY MOUTH DAILY Rx Instructions: TAKE 1 CAPSULE BY MOUTH DAILY isosorbide mononitrate 30 mg tablet extended release 24 hr See Rx Instructions .ROUTE .COMPLEX Qty: 90 3RF Dose Instruction: TAKE 1 TABLET BY MOUTH EVERY DAY IN THE EVENING, TAKE WITH 60MG DOSE Rx Instructions: TAKE 1 TABLET BY MOUTH EVERY DAY IN THE EVENING, TAKE WITH 60MG DOSE isosorbide mononitrate 60 mg tablet extended release 24 hr See Rx Instructions .ROUTE .COMPLEX Qty: 90 3RF Dose Instruction: TAKE 1 TABLET BY MOUTH EVERY DAY Rx Instructions: TAKE 1 TABLET BY MOUTH EVERY DAY albuterol sulfate [ProAir HFA] 90 mcg/actuation Hfa Aerosol Inhaler 2 puff INHALATION Q6H PRN (Reason: Shortness Of Breath) Women's 50 Plus Multivitamin 400 mcg-500 mg calcium-20 mcg Tablet 1 tab PO DAILY Discharge Orders: Discharge ED (Routine); Ordered 02/08/24 Ordered By: Dino Quinn Referrals: Bobby Ingram MD [Primary Care Provider] - 4-7 days Discharge Diet: Advance as tolerated Discharge Activity: Resume usual activity Patient Instructions: Jennifer (ED), Opioid Safety Coding Level of Care Code ED Screen Printing Inspector for Hattie Toro
[2024-02-08] MEDS: sodium chloride 0.9% 1,000 ML 999 ML IV (09:32)
[2024-02-08 09:35] VITALS: RESP 17; O2SAT 94
[2024-02-08] MEDS: morphine 4 mg/mL SDV 1 mL IVP (09:35)
[2024-02-08] MEDS: ondansetron 2 mg/ML SDV 2 mL 4 MG IVP (09:35)
[2024-02-08 09:40] VITALS: BP 170/89; O2SAT 91
[2024-02-08 09:44] LABS: Basophils # 0.1 10^3/uL (0.0-0.1); Basophils % 0.9 %; Eosinophils # 0.3 10^3/uL (0.0-0.8); Eosinophils % 3.9 %; Hematocrit 46.1 % (36-47); Lymphocytes # 2.5 10^3/uL (0.8-4.8); Lymphocytes % 31.2 %; Mean Corpuscular HGB Conc 34.5 g/dL (30-55); Mean Corpuscular Hemoglobin 34.3 pg (27-33); Mean Corpuscular Volume 99.4 fl (85-98); Monocytes # 0.6 10^3/uL (0.2-0.9); Neutrophils % 56.6 %; Nucleated Red Blood Cells % 0 %; Platelet Count 171 10^3/cmm (157-399); Red Blood Count 4.64 10^6/uL (3.85-5.65); Red Cell Distribution Width 11.9 % (12.1-15.1); White Blood Count 8.12 10^3/uL (3.29-11.43)
[2024-02-08 09:45] VITALS: BP 170/89; O2SAT 91
[2024-02-08 09:56] LABS: Alanine Aminotransferase 15 U/L (0-33); Albumin Level 3.9 g/dL (3.5-5.2); Alkaline Phosphatase 76 U/L (35-105); Anion Gap 14.2 (5-19); Aspartate Amino Transferase 20 U/L (0-32); Blood Urea Nitrogen 8 mg/dL (8-23); Calcium 9.4 mg/dL (8.5-10.5); Carbon Dioxide 29 mmol/L (22-29); Chloride 97 mmol/L (98-107); Creatinine Clr Calc Pharmacy 77.6051; Glucose 170 mg/dL (65-115); Lipase 33 U/L (13-60); Osmolality Calculated 284 mOsm/kg (285-295); Potassium 4.2 mmol/L (3.5-5.1); Sodium 136 mmol/L (136-145); Total Bilirubin 0.6 mg/dL (0.15-1.2); Total Protein 6.9 g/dL (6.6-8.7)
== END 2024-02-08 10:16 | disposition home or self-care (01) ==
PROVIDERS: Emergency Provider Emergency Medicine; PCP Family Medicine
DX: B02.9 Zoster without complications (principal); Z79.82 Long term (current) use of aspirin; Z79.84 Long term (current) use of oral hypoglycemic drugs; Z87.891 Personal history of nicotine dependence; J44.9 Chronic obstructive pulmonary disease, unspecified; I11.9 Hypertensive heart disease without heart failure; I43 Cardiomyopathy in diseases classified elsewhere; E11.9 Type 2 diabetes mellitus without complications
CPT/HCPCS: 80053; 83690; 85025; 96374; 96375; 99284; J2270; J2405; J7030

== ENCOUNTER → 2024-05-27 14:50 | Outpatient (BNVA) | payer MEDICARE, SELFPAY | PROVIDERS: PCP Family Medicine; Visit Provider Podiatrist Foot & Ankle Surgery | DX: E11.621 Type 2 diabetes mellitus with foot ulcer (principal); E11.65 Type 2 diabetes mellitus with hyperglycemia; M21.619 Bunion of unspecified foot; M20.40 Other hammer toe(s) (acquired), unspecified foot; L97.512 Non-pressure chronic ulcer of other part of right foot with fat layer exposed | CPT/HCPCS: 99203 ==

== ENCOUNTER → 2024-06-03 09:41 | Outpatient (BNVA) | payer MEDICARE, SELFPAY | PROVIDERS: PCP Family Medicine; Visit Provider Podiatrist Foot & Ankle Surgery | DX: Z51.89 Encounter for other specified aftercare (principal); E11.621 Type 2 diabetes mellitus with foot ulcer; E11.65 Type 2 diabetes mellitus with hyperglycemia; M21.619 Bunion of unspecified foot; M20.40 Other hammer toe(s) (acquired), unspecified foot; L97.512 Non-pressure chronic ulcer of other part of right foot with fat layer exposed | CPT/HCPCS: 99213 ==

== ENCOUNTER 2024-07-13 10:37 | Outpatient (CLI) | payer MEDICARE, SELFPAY ==
--- NOTE | 2024-07-13 10:48 | MR_ITS ---
WS: [id number] MRI LUMBAR SPINE WITH CONTRAST TECHNIQUE: Sagittal T1, T2 and STIR imaging. Axial T1 and T2 imaging. Post gadolinium imaging was obt ained. CLINICAL INFORMATION: DEGENERATIVE DISC DISEASE COMPARISON: MRI 02/25/2023 FINDINGS: Mild lumbar curve. Prior postoperative changes pedicle screw fixation L4-5. Stable grade 1 anterolist hesis L4 on L5. Disc desiccation with endplate degenerative changes at L1-L2 has progressed. Degenera tive edema involving the L1 and L2 endplates is new compared to previous. T12-L1: Mild LEFT bony foraminal narrowing. Mild facet arthropathy. L1-L2: Mild disc bulging with a shallow central disc protrusion. Moderate central canal stenosis. Mod erate facet arthropathy. Mild RIGHT greater than LEFT foraminal narrowing. L2-L3: Mild annular bulging. Mild central canal stenosis. Moderate facet arthropathy. L3-L4: Disc desiccation with endplate ridging. Slight retrolisthesis. Mild LEFT foraminal narrowing. Spinal canal and RIGHT foramen are patent. Mild facet arthropathy. L4-L5: Grade 1 anterolisthesis. Pedicle screw fixation. Mild LEFT and no significant RIGHT foraminal narrowing. Spinal canal is patent. Laminectomy defects. L5-S1: Mild disc bulging with osteophytic ridging. Mild bilateral bony foraminal narrowing. Moderate facet arthropathy. Visualized pelvic bony structures: Normal. Paravertebral soft tissues: Normal. MR/MR lumbar spine wo/w con [id number] IMPRESSION: 1. Disc desiccation with endplate degenerative changes at L1-2 is progressed c ompared to previous. 2. Otherwise no significant interval changes. 3. Stable moderate central canal stenosis L1-2 with central disc broad-based p rotrusion. 4. Mild central canal stenosis L2-3 appears stable. 5. Stable pedicle screw fixation L4-5 with laminectomy defects. Stable grade 1 anterolisthesis L4 on L5. 6. Slight retrolisthesis L3 on L4. 7. Mild LEFT L4-5 bony foraminal narrowing. 8. Stable mild bilateral L5-S1 bony foraminal narrowing.
--- NOTE | 2024-07-13 10:48 | MR_ITS ---
WS: [id number] MRI THORACIC SPINE WITHOUT CONTRAST TECHNIQUE: Sagittal T1, T2 and STIR imaging. Axial T2 imaging. Noncontrast imaging obtained. CLINICAL INFORMATION: DEGENERATIVE DISC DISEASE COMPARISON: None. FINDINGS: Moderate thoracic kyphosis. Mild chronic anterior wedging in the midthoracic spine. No acute compress ion fractures. Mild central canal stenosis in the cervical spine on the purchasing officer imaging with slight anterolisthesis C4 on C5. Slight grade 1 anterolisthesis C7 on T1 and T1 on T2. Normal caliber thoracic aorta. Tiny syrinx in the mid thoracic cord. This measures approximately 1.5 mm maximum dimension. This extends from approximately T2-T11 and is most prominent at T6-T10. This is stable in appearance since 2020. Mild to moderate bony foraminal narrowing right T6-T7, left T9-T10, RIGHT T10-T11, RIGHT T11-T12, and bilateral T12-L1 stable compared to previous. Disc space narrowing worse at T12-L1 and L1-L2. Modera te facet arthropathy lower thoracic spine. Small facet effusions T11-T12. MR/MR thoracic spin wo con* [id number] IMPRESSION: 1. Small syrinx in the mid thoracic cord most prominent at T6-T10 appears stab le compared to previous. 2. Cord signal is otherwise normal. 3. Moderate thoracic kyphosis. No acute compression fractures. 4. Bony foraminal narrowing described above. 5. No other acute findings.
[2024-07-13] MEDS: gadobenate dimeglumine 20 mL vial IV (12:23)
== END 2024-07-13 10:38 | disposition home or self-care (01) ==
PROVIDERS: PCP Family Medicine; Visit Provider General Practice
DX: M51.369 Other intervertebral disc degeneration, lumbar region without mention of lumbar back pain or lower extremity pain (principal); M51.34 Other intervertebral disc degeneration, thoracic region; M96.1 Postlaminectomy syndrome, not elsewhere classified; G95.0 Syringomyelia and syringobulbia; M99.62 Osseous and subluxation stenosis of intervertebral foramina of thoracic region; M46.94 Unspecified inflammatory spondylopathy, thoracic region
CPT/HCPCS: 72146; 72158

== ENCOUNTER → 2024-07-30 08:36 | Outpatient (BNVA) | payer MEDICARE, SELFPAY | PROVIDERS: PCP Family Medicine; Visit Provider Family Medicine | DX: E11.65 Type 2 diabetes mellitus with hyperglycemia (principal) | CPT/HCPCS: 80053; 83036 ==

== ENCOUNTER → 2024-08-05 10:59 | Outpatient (BNVA) | payer MEDICARE, SELFPAY | PROVIDERS: PCP Family Medicine; Visit Provider Podiatrist Foot & Ankle Surgery | DX: L60.3 Nail dystrophy (principal); E11.65 Type 2 diabetes mellitus with hyperglycemia; G62.9 Polyneuropathy, unspecified | CPT/HCPCS: 11721; 99212 ==

== ENCOUNTER → 2024-08-13 11:29 | Outpatient (BNVA) | payer MEDICARE, SELFPAY | PROVIDERS: PCP Family Medicine; Visit Provider Nurse Practitioner | DX: Z79.899 Other long term (current) drug therapy (principal); F32.9 Major depressive disorder, single episode, unspecified; F41.1 Generalized anxiety disorder | CPT/HCPCS: 80061 ==

== ENCOUNTER → 2024-09-01 09:18 | Outpatient (BNVA) | payer MEDICARE, SELFPAY | PROVIDERS: PCP Family Medicine; Visit Provider Internal Medicine | DX: I50.40 Unspecified combined systolic (congestive) and diastolic (congestive) heart failure (principal); I11.0 Hypertensive heart disease with heart failure; I48.20 Chronic atrial fibrillation, unspecified; Z79.01 Long term (current) use of anticoagulants | CPT/HCPCS: 99213 ==

== ENCOUNTER → 2024-10-14 11:26 | Outpatient (BNVA) | payer MEDICARE, SELFPAY | PROVIDERS: PCP Family Medicine; Visit Provider Podiatrist Foot & Ankle Surgery | DX: L60.3 Nail dystrophy (principal); E11.65 Type 2 diabetes mellitus with hyperglycemia; G62.9 Polyneuropathy, unspecified; L84 Corns and callosities | CPT/HCPCS: 11056; 11721 ==

== ENCOUNTER 2024-10-23 02:38 | Emergency (ER) | payer MEDICARE, SELFPAY ==
[2024-10-23] VITALS (20 sets, daily range): BP systolic 110–136; BP diastolic 53–72; PULSE 38–77; RESP 13–20; TEMP 37.1; O2SAT 92–96; BMI 31.9
[2024-10-23 02:55] LABS: Glucose Point of Care 48 mg/dL (70-110)
[2024-10-23 03:10] LABS: Basophils % 0.3 %; Eosinophils # 0.1 10^3/uL (0.0-0.8); Eosinophils % 0.9 %; Lymphocytes # 2.8 10^3/uL (0.8-4.8); Mean Corpuscular HGB Conc 34.1 g/dL (30-55); Mean Corpuscular Hemoglobin 33.9 pg (27-33); Mean Corpuscular Volume 99.5 fl (85-98); Mean Platelet Volume 10.6 fL (7.4-10.4); Monocytes # 0.7 10^3/uL (0.2-0.9); Monocytes % 7.7 %; Neutrophils # 5.67 10^3/uL (1.8-7.7); Neutrophils % 60.7 %; Nucleated Red Blood Cells % 0 %; Platelet Count 184 10^3/cmm (157-399); Red Blood Count 4.42 10^6/uL (3.85-5.65); Red Cell Distribution Width 12.6 % (12.1-15.1); White Blood Count 9.34 10^3/uL (3.29-11.43)
--- NOTE | 2024-10-23 03:16 | ED_ITS ---
HPI - Weakness 2 General: Chief complaint: Weakness Stated complaint: WEAKNESS Time Seen by Provider: 10/23/24 03:15 History of Present Illness: Patient reports improvement in symptoms. Currently taking Glimepiride 4mg one tablet daily, taken this morning. Recent medication adjustment from twice daily to once daily dosing due to consistently low blood sugar readings. Patient denies any prior significant hypoglycemic episodes before this incident. Reports normal eating and drinking patterns. Denies fever or acute illness. Patient mentions using a TENS unit for nerve-related symptoms. Reports checking blood pressure this morning but is unsure of exact heart rate, estimating it to be in the 70s. Associated symptoms: Denies headache(s) Review of Systems 2 Neuro: Reports: weakness in extremities and difficulty walking; Denies: headache(s) or frequent falls PFSH ED 2 PFSH: Medical History On combination antipsychotic drug therapy Generalized anxiety disorder Psychiatric care COPD (chronic obstructive pulmonary disease) Cardiomyopathy Chronic pain Moderate major depression GERD (gastroesophageal reflux disease) Chronic atrial fibrillation Chronic thoracic back pain Cannabis abuse Recent weight gain Encounter for weight loss counseling Discussed close follow-up due to episodes of hypoglycemia in the past when starting a weight loss program. Hypercholesterolemia ASHD (arteriosclerotic heart disease) Last angiogram with LAD 40-50 percent narrowing HTN (hypertension) Diabetes type 2, controlled Surgical History History of back surgery History of foot surgery H/O tubal ligation Hx of cholecystectomy H/O hernia repair History of oral surgery S/P knee replacement Hx of appendectomy H/O cataract extraction Gastric bypass status for obesity Family History Father Emphysema lung Mother COPD (chronic obstructive pulmonary disease) Brother Cancer lung nodule Emphysema lung Lung disease Chronic kidney disease (CKD) Family/Other Cancer Nephew--jaw Stroke Other CAD (coronary artery disease) Congestive heart failure (CHF) Diabetes Hyperlipidemia Hypertension Psychiatric illness Denies family history of Clotting disorder Dementia Suicide Anesthesia complication Bleeding disorder Social History Smoking and tobacco/nicotine status: former use of tobacco/nicotine Quit status (tobacco/nicotine): has quit using Alcohol intake: current Alcohol intake frequency: 3 or more drinks per day Substance/Drug Use: current Substance/Drug use frequency: daily Lives independently: Yes Household members: spouse Marital status: Number of children: 3 Current occupational status: retired and disabled Tejal/Mandaeism: Jehovah'S Witness Special tejal needs: No Physical Exam 2 Const: COMMON NORMALS: no acute distress, patient oriented x3, alert and well nourished HENMT: COMMON NORMALS: normocephalic HEAD & SCALP: normocephalic Eye: COMMON NORMALS: EOMs intact bilaterally Neck/C-Spine: COMMON NORMALS: full ROM, no lymphadenopathy, supple, no meningeal signs and Thyroid normal THYROID: Thyroid normal Resp: COMMON NORMALS: normal respiratory effort, No retractions, No use of accessory muscles and clear to auscultation bilaterally AUSCULTATION: clear to auscultation bilaterally GI: COMMON NORMALS: Normal to inspection, nondistended, normoactive bowel sounds present, Soft to palpation, non-tender, No hepatosplenomegaly present, no masses and no bruits PALPATION: Yes Soft to palpation and Yes No hepatosplenomegaly present : COMMON NORMALS: Yes no CVA tenderness BLADDER/KIDNEY EXAM: Yes no CVA tenderness Back/Pelvis: COMMON NORMALS: no CVA tenderness Extremity: COMMON NORMALS: normal to inspection, full ROM, capillary refill normal, no joint enlargement, no clubbing, cyanosis or edema, no calf tenderness and no pedal edema Neuro: COMMON NORMALS: patient oriented x3 SENSORIUM/ORIENTATION: Yes alert MENINGEAL SIGNS: Yes no meningeal signs Skin: COMMON NORMALS: no rashes or lesions noted, turgor normal and no jaundice GENERAL SKIN EXAM: no rashes or lesions noted and turgor normal Course 2 ED course: Patient reports total resolution of her symptoms while in the department. She did remain bradycardic at times. I have recommended that she hold her oral hypoglycemic as well as her calcium channel ana and follow-up with primary care. Vital Signs: Vital signs: Vital Signs Temperature 98.8 F 10/23/24 02:45 Pulse Rate 38 L 10/23/24 04:00 Respiratory Rate 13 10/23/24 04:00 Blood Pressure 127/58 10/23/24 04:00 Pulse Oximetry 93 10/23/24 03:30 Oxygen Delivery Me thod Room Air 10/23/24 02:45 MDM - Weakness Medical Decision Making Discussed differential and sounds like she is hypoglycemic on a fingerstick this may explain some of her symptoms she is little bit bradycardic. Will do a standard workup. Lab Data 10/23/24 02:50 10/23/24 02:50 Laboratory Results WBC 9.34 10^3/uL (3.29-11.43) 10/23/24 02:50 RBC 4.42 10^6/uL (3.85-5.65) 10/23/24 02:50 Hgb 15.00 g/dL (11.27-16.99) 10/23/24 02:50 Hct 44.0 % (36-47) 10/23/24 02:50 MCV 99.5 fl (85-98) H 10/23/24 02:50 MCH 33.9 pg (27-33) H 10/23/24 02:50 MCHC 34.1 g/dL (30-55) 10/23/24 02:50 RDW 12.6 % (12.1-15.1) 10/23/24 02:50 Plt Count 184 10^3/cmm (157-399) 10/23/24 02:50 MPV 10.6 fL (7.4-10.4) H 10/23/24 02:50 Neut % (Auto) 60.7 % 10/23/24 02:50 Lymph % (Auto) 30.0 % 10/23/24 02:50 Dickinson % (Auto) 7.7 % 10/23/24 02:50 Eos % (Auto) 0.9 % 10/23/24 02:50 Baso % (Auto) 0.3 % 10/23/24 02:50 Neut # (Auto) 5.67 10^3/uL (1.8-7.7) 10/23/24 02:50 Lymph # (Auto) 2.8 10^3/uL (0.8-4.8) 10/23/24 02:50 Dickinson # (Auto) 0.7 10^3/uL (0.2-0.9) 10/23/24 02:50 Eos # (Auto) 0.1 10^3/uL (0.0-0.8) 10/23/24 02:50 Baso # (Auto) 0.0 10^3/uL (0.0-0.1) 10/23/24 02:50 Nucleated RBC % (auto) 0 % 10/23/24 02:50 Nucleated RBCs # 0.0 /100WBC 10/23/24 02:50 Sodium 139 mmol/L (136-145) 10/23/24 02:50 Potassium 3.4 mmol/L (3.5-5.1) L 10/23/24 02:50 Chloride 99 mmol/L (98-107) 10/23/24 02:50 Carbon Dioxide 28 mmol/L (22-29) 10/23/24 02:50 Anion Gap 15.4 (5-19) 10/23/24 02:50 BUN 9 mg/dL (8-23) 10/23/24 02:50 Creatinine 0.7 mg/dL (0.5-0.9) 10/23/24 02:50 GFR Calculation Not Reportable 10/23/24 02:50 Glucose 41 mg/dL (65-115) L 10/23/24 02:50 POC Glucose 122 mg/dL (70-110) H 10/23/24 04:21 Calculated Osmolality 283 mOsm/kg (285-295) L 10/23/24 02:50 Calcium 9.3 mg/dL (8.5-10.5) 10/23/24 02:50 All radiology interpretation(s) finalized by discharge Discharge Plan Discharge Patient Disposition: Home Clinical Impression: Hypoglycemia, Bradycardia Condition: Stable Prescriptions: Held glimepiride 4 mg tablet 4 mg PO DAILY Qty: 90 1RF Hold Instructions: Resume on 11/02/24. Hold until talk with PCP diltiazem HCl [Tiadylt ER] 180 mg capsule,extended release 24 hr See Rx Instructions .ROUTE .COMPLEX Qty: 90 0RF Hold Instructions: Resume on 11/02/24. Hold until talk with pcp Dose Instruction: TAKE 1 CAPSULE BY MOUTH EVERY DAY Rx Instructions: TAKE 1 CAPSULE BY MOUTH EVERY DAY No Action biotin 10,000 mcg capsule 10,000 mcg PO QAM ascorbate calcium (vitamin C) 500 mg tablet 500 mg PO QAM (DME) diabetic shoes w/ 3 inserts See Rx Instructions .Route .MEDSUPPLY Qty: 1 0RF Rx Instructions: As directed by the jason dobson minoxidil 5 % foam See Rx Instructions topical .COMPLEX Qty: 60 0RF Rx Instructions: 1/2 cap full daily in hair topically; nitroglycerin [Nitrostat] 0.4 mg tablet, sublingual 0.4 mg SUBLINGUAL Q5M PRN (Reason: chest pain) Qty: 30 3RF (DME) Rollaid walker with seat See Rx Instructions .Route .MEDSUPPLY Qty: 1 0RF Rx Instructions: As directed loratadine 10 mg tablet 10 mg PO DAILY Qty: 90 0RF furosemide 40 mg tablet See Rx Instructions .ROUTE .COMPLEX Qty: 180 3RF Dose Instruction: TAKE 1 TABLET BY MOUTH DAILY IN THE MORNING, MAY TAKE AN EXTRA DOSE DAILY IF NEEDED FOR WEIGHT GAIN Rx Instructions: TAKE 1 TABLET BY MOUTH DAILY IN THE MORNING, MAY TAKE AN EXTRA DOSE DAILY IF NEEDED FOR WEIGHT GAIN isosorbide mononitrate 30 mg tablet extended release 24 hr See Rx Instructions .ROUTE .COMPLEX Qty: 90 3RF Dose Instruction: TAKE 1 TABLET BY MOUTH EVERY DAY IN THE EVENING, TAKE WITH 60MG DOSE Rx Instructions: TAKE 1 TABLET BY MOUTH EVERY DAY IN THE EVENING, TAKE WITH 60MG DOSE isosorbide mononitrate 60 mg tablet extended release 24 hr See Rx Instructions .ROUTE .COMPLEX Qty: 90 3RF Dose Instruction: TAKE 1 TABLET BY MOUTH EVERY DAY Rx Instructions: TAKE 1 TABLET BY MOUTH EVERY DAY (DME) blood-glucose meter [Accu-Chek Guide Glucose Meter] Misc See Rx Instructions .Route Qty: 1 3RF Rx Instructions: As directed. check 3x/day (DME) Accu-Chek Guide test strips Strip See Rx Instructions .Route Qty: 100 8RF Rx Instructions: check glucose 3 times/day (DME) lancets [Accu-Chek Softclix Lancets] Misc See Rx Instructions .Route Qty: 200 5RF Rx Instructions: use 3 times/day metoprolol succinate 100 mg tablet extended release 24 hr See Rx Instructions .ROUTE .COMPLEX Qty: 90 2RF Dose Instruction: TAKE 1 TABLET BY MOUTH EVERY DAY AT 9.A.M Rx Instructions: TAKE 1 TABLET BY MOUTH EVERY DAY AT 9.A.M potassium chloride 10 mEq tablet extended release See Rx Instructions .ROUTE .COMPLEX Qty: 180 3RF Dose Instruction: TAKE 2 TABLETS BY MOUTH EVERY MORNING *TAKE ADDITIONAL DOSE W/FUROSEMIDE NEEDED FOR WT GAIN >3LBS Rx Instructions: TAKE 2 TABLETS BY MOUTH EVERY MORNING *TAKE ADDITIONAL DOSE W/FUROSEMIDE NEEDED FOR WT GAIN >3LBS rosuvastatin 5 mg tablet See Rx Instructions .ROUTE .COMPLEX Qty: 90 3RF Hold Instructions: wants to try to go off it Dose Instruction: TAKE 1 TABLET BY MOUTH EVERY DAY AT 9 AM Rx Instructions: TAKE 1 TABLET BY MOUTH EVERY DAY AT 9 AM duloxetine 60 mg capsule,delayed release(DR/EC) 120 mg PO DAILY@0900 90 Days Qty: 180 0RF meloxicam 15 mg tablet See Rx Instructions .ROUTE .COMPLEX Qty: 90 0RF Dose Instruction: TAKE 1 TABLET BY MOUTH EVERY DAY Rx Instructions: TAKE 1 TABLET BY MOUTH EVERY DAY mirabegron [Myrbetriq] 25 mg tablet extended release 24 hr See Rx Instructions .ROUTE .COMPLEX Qty: 90 0RF Dose Instruction: TAKE 1 TABLET BY MOUTH EVERY DAY Rx Instructions: TAKE 1 TABLET BY MOUTH EVERY DAY aripiprazole [Abilify] 10 mg tablet 10 mg PO DAILY Qty: 90 0RF escitalopram oxalate 20 mg tablet See Rx Instructions .ROUTE .COMPLEX Qty: 90 0RF Dose Instruction: TAKE 1 TABLET BY MOUTH EVERY DAY Rx Instructions: TAKE 1 TABLET BY MOUTH EVERY DAY pantoprazole 40 mg tablet,delayed release (DR/EC) 40 mg PO BID@0900,2200 Qty: 180 3RF ranolazine 500 mg tablet extended release 12 hr See Rx Instructions .ROUTE .COMPLEX Qty: 180 3RF Dose Instruction: TAKE 1 TABLET BY MOUTH TWICE A DAY AT 9AM AND 10PM Rx Instructions: TAKE 1 TABLET BY MOUTH TWICE A DAY AT 9AM AND 10PM Xarelto 10 mg tablet 10 mg PO DAILY@2200 Qty: 90 0RF albuterol sulfate [ProAir HFA] 90 mcg/actuation Hfa Aerosol Inhaler 2 puff INHALATION Q6H PRN (Reason: Shortness Of Breath) Women's 50 Plus Multivitamin 400 mcg-500 mg calcium-20 mcg Tablet 1 tab PO DAILY hydrocodone-acetaminophen 5-325 mg tablet 1 tab PO Q6H PRN (Reason: pain) Qty: 14 0RF ondansetron 4 mg tablet,disintegrating 4 mg PO Q6H PRN (Reason: nausea and vomiting) Qty: 14 0RF Discharge Orders: Discharge ED (Routine); Ordered 10/23/24 Ordered By: Michele Fink Referrals: Bobby Ingram MD [Primary Care Provider] - Discharge Diet: Diabetic Discharge Activity: Limit activity as instructed Patient Instructions: Opioid Safety, Pain Management Activity Restrictions/Additional Instructions: 1. Eat small frequent meals and drink plenty of fluids Coding Level of Care Code ED Research Director for Chg Fwd Related Data Home Medications Medication Instructions Recorded Confirmed ascorbate calcium (vitamin C) 500 500 mg PO QAM 03/07/21 10/14/24 mg tablet biotin 10,000 mcg capsule 10,000 mcg PO QAM 03/07/21 10/14/24 albuterol sulfate 90 mcg/actuation 2 puff inhalation Q6H PRN 04/28/21 10/14/24 aerosol inhaler (ProAir HFA) Shortness Of Breath wnejrqgj-fiu-wfxct ac 400 1 tab PO DAILY 11/29/22 10/14/24 mcg-calcium carb 500 mg-vit K1 20 mcg tablet (Women's 50 Plus Multivitamin) Previous Rx's Medication Instructions Recorded nitroglycerin 0.4 mg sublingual 0.4 mg sublingual Q5M PRN chest 01/21/22 tablet (Nitrostat) pain #30 tabs minoxidil 5 % topical foam See Rx Instructions topical 03/03/23 .COMPLEX #60 grams Rollaid walker with seat #1 ea 10/16/23 loratadine 10 mg tablet 10 mg PO DAILY #90 tabs 10/22/23 furosemide 40 mg tablet See Rx Instructions .Route 12/25/23 .COMPLEX #180 tabs isosorbide mononitrate 30 mg See Rx Instructions .Route 01/23/24 tablet,extended release 24 hr .COMPLEX #90 tabs isosorbide mononitrate 60 mg See Rx Instructions .Route 01/23/24 tablet,extended release 24 hr .COMPLEX #90 tabs hydrocodone 5 mg-acetaminophen 325 1 tab PO Q6H PRN pain #14 tabs 02/08/24 mg tablet ondansetron 4 mg disintegrating 4 mg PO Q6H PRN nausea and 02/08/24 tablet vomiting #14 tabs blood sugar diagnostic (Accu-Chek #100 ea 03/02/24 Guide test strips) blood-glucose meter (Accu-Chek #1 ea 03/02/24 Guide Glucose Meter) lancets (Accu-Chek Softclix #200 ea 03/02/24 Lancets) metoprolol succinate 100 mg See Rx Instructions .Route 05/12/24 tablet,extended release 24 hr .COMPLEX #90 tabs potassium chloride 10 mEq See Rx Instructions .Route 05/26/24 tablet,extended release .COMPLEX #180 tabs diabetic shoes w/ 3 inserts #1 ea 06/03/24 rosuvastatin 5 mg tablet See Rx Instructions .Route 07/15/24 .COMPLEX #90 tabs glimepiride 4 mg tablet 4 mg PO DAILY #90 tabs 08/02/24 duloxetine 60 mg capsule,delayed 120 mg (2 x 60 mg) PO DAILY@0900 08/05/24 release 90 days #180 caps meloxicam 15 mg tablet See Rx Instructions .Route 08/17/24 .COMPLEX #90 tabs mirabegron 25 mg tablet,extended See Rx Instructions .Route 08/17/24 release 24 hr (Myrbetriq) .COMPLEX #90 tabs aripiprazole 10 mg tablet (Abilify) 10 mg PO DAILY #90 tabs 08/19/24 escitalopram oxalate 20 mg tablet See Rx Instructions .Route 08/19/24 .COMPLEX #90 tabs diltiazem HCl 180 mg capsule,24 See Rx Instructions .Route 10/01/24 hr,extended release (Tiadylt ER) .COMPLEX #90 caps pantoprazole 40 mg tablet,delayed 40 mg PO BID@0900,2200 #180 tabs 10/01/24 release ranolazine 500 mg tablet,extended See Rx Instructions .Route 10/04/24 release,12 hr .COMPLEX #180 tabs rivaroxaban 10 mg tablet (Xarelto) 10 mg PO DAILY@2200 #90 tabs 10/12/24 Allergies Allergy/AdvReac Type Severity Reaction Status Date / Time amlodipine Allergy edema Verified 10/14/24 11:38 Sulfa (Sulfonamide Allergy ALGY-Difficulty Verified 10/14/24 11:38 Antibiotics) Breathing
[2024-10-23] MEDS: dextrose 10% 250 ML 1000 ML IV ×2 (03:20→05:34)
--- NOTE | 2024-10-23 03:20 | ECG_ITS ---
[facility] Test Date: 2024-10-23 Pat Name: Chiqui Arias Department: Room: Gender: Female Authorization Specialist: : [id number] Requested By: Michele Fink Order Number: [id number] Elver MD: Jett Márquez M.D. Measurements Intervals [place] Rate: 53 P: 65 ND: 222 QRS: 44 QRSD: 118 T: 63 QT: 411 QTc: 388 Interpretive Statements SUPRAVENTRICULAR RHYTHM WITH BASELINE ARTIFACT Electronically Signed On 10-23-2024 23:24:50 CONFIGURATION SPECIALIST by Jett Márquez M.D. [email or web address]
[2024-10-23 03:27] LABS: Blood Urea Nitrogen 9 mg/dL (8-23); Calcium 9.3 mg/dL (8.5-10.5); Carbon Dioxide 28 mmol/L (22-29); Chloride 99 mmol/L (98-107); Creatinine Clr Calc Pharmacy 73.3229; Glucose 41 mg/dL (65-115); Osmolality Calculated 283 mOsm/kg (285-295); Sodium 139 mmol/L (136-145)
[2024-10-23 03:28] LABS: Anion Gap 15.4 (5-19); Potassium 3.4 mmol/L (3.5-5.1)
[2024-10-23 03:41] LABS: Glucose Point of Care 52 mg/dL (70-110)
[2024-10-23 04:26] LABS: Glucose Point of Care 122 mg/dL (70-110)
[2024-10-23 05:15] LABS: Glucose Point of Care 153 mg/dL (70-110)
--- NOTE | 2024-10-23 07:15 | PC.NURSE ---
0520: Discontinue order for maintenance D10 per Dr. Fink. Patient explained to this nurse that she was concerned her blood glucose level would decrease again after being discharged from the hospital. Dr. Fink notified of patient's blood glucose and verbal orders received for an additional 250ml IV bolus of dextrose 10%.
== END 2024-10-23 07:25 | disposition home or self-care (01) ==
PROVIDERS: Orthopaedic Surgery Sports Medicine; Emergency Provider Family Medicine; PCP Family Medicine
DX: E11.649 Type 2 diabetes mellitus with hypoglycemia without coma (principal); J44.9 Chronic obstructive pulmonary disease, unspecified; I10 Essential (primary) hypertension; Z87.891 Personal history of nicotine dependence; R00.1 Bradycardia, unspecified
CPT/HCPCS: 36416; 80048; 82962; 85025; 93005; 99284; J7799

== ENCOUNTER 2024-11-25 14:20 | Emergency (ER) | payer MEDICARE, SELFPAY ==
[2024-11-25 14:26] VITALS: BP 150/88; PULSE 93; TEMP 37.3; O2SAT 95; BMI 32.2
--- NOTE | 2024-11-25 15:11 | W.ED.URI ---
HPI - URI/Sore Throat General: Chief Complaint: Upper Respiratory Infection Stated Complaint: dizzy, nausea, fever Time Seen by Provider: 11/25/24 15:10 History of Present Illness: 74-year-old female comes in today for complaints on fever, sore throat, cough, and shortness of breath for about 1 week. Patient has a history of COPD, CH F, diabetes, A-fib. Patient appears nontoxic. Patient is taking Tylenol prior to coming to the ER and is afebrile. Related Data Home Medications ?Medication ?Instructions ?Recorded ?Confirmed ascorbate calcium (vitamin C) 500 500 mg PO QAM 03/07/21 11/23/24 mg tablet biotin 10,000 mcg capsule 10,000 mcg PO QAM 03/07/21 11/23/24 nbefkjxk-rbl-kylse ac 400 1 tab PO DAILY 11/29/22 11/23/24 mcg-calcium carb 500 mg-vit K1 20 mcg tablet (Women's 50 Plus Multivitamin) Previous Rx's ?Medication ?Instructions ?Recorded nitroglycerin 0.4 mg sublingual 0.4 mg sublingual Q5M PRN chest 01/21/22 tablet (Nitrostat) pain #30 tabs minoxidil 5 % topical foam See Rx Instructions topical 03/03/23 .COMPLEX #60 grams Rollaid walker with seat #1 ea 10/16/23 loratadine 10 mg tablet 10 mg PO DAILY #90 tabs 10/22/23 furosemide 40 mg tablet See Rx Instructions .Route 12/25/23 .COMPLEX #180 tabs isosorbide mononitrate 30 mg See Rx Instructions .Route 01/23/24 tablet,extended release 24 hr .COMPLEX #90 tabs isosorbide mononitrate 60 mg See Rx Instructions .Route 01/23/24 tablet,extended release 24 hr .COMPLEX #90 tabs hydrocodone 5 mg-acetaminophen 325 1 tab PO Q6H PRN pain #14 tabs 02/08/24 mg tablet ondansetron 4 mg disintegrating 4 mg PO Q6H PRN nausea and 02/08/24 tablet vomiting #14 tabs blood sugar diagnostic (Accu-Chek #100 ea 03/02/24 Guide test strips) blood-glucose meter (Accu-Chek #1 ea 03/02/24 Guide Glucose Meter) lancets (Accu-Chek Softclix #200 ea 03/02/24 Lancets) metoprolol succinate 100 mg See Rx Instructions .Route 05/12/24 tablet,extended release 24 hr .COMPLEX #90 tabs potassium chloride 10 mEq See Rx Instructions .Route 05/26/24 tablet,extended release .COMPLEX #180 tabs diabetic shoes w/ 3 inserts #1 ea 06/03/24 rosuvastatin 5 mg tablet See Rx Instructions .Route 07/15/24 .COMPLEX #90 tabs duloxetine 60 mg capsule,delayed 120 mg (2 x 60 mg) PO DAILY@0900 08/05/24 release 90 days #180 caps meloxicam 15 mg tablet See Rx Instructions .Route 08/17/24 .COMPLEX #90 tabs aripiprazole 10 mg tablet (Abilify) 10 mg PO DAILY #90 tabs 08/19/24 escitalopram oxalate 20 mg tablet See Rx Instructions .Route 08/19/24 .COMPLEX #90 tabs pantoprazole 40 mg tablet,delayed 40 mg PO BID@0900,2200 #180 tabs 10/01/24 release ranolazine 500 mg tablet,extended See Rx Instructions .Route 10/04/24 release,12 hr .COMPLEX #180 tabs rivaroxaban 10 mg tablet (Xarelto) 10 mg PO DAILY@2200 #90 tabs 10/12/24 albuterol sulfate 90 mcg/actuation 1 inh inhalation QID PRN shortness 10/27/24 aerosol inhaler of breath or wheezing #6.7 grams diltiazem HCl 120 mg capsule,24 120 mg PO QAM #30 caps 10/27/24 hr,extended release glimepiride 2 mg tablet 2 mg PO QAM #60 tabs 10/27/24 oxybutynin chloride 5 mg 5 mg PO DAILY #90 tabs 11/11/24 tablet,extended release 24 hr doxycycline hyclate 100 mg capsule 100 mg PO BID 7 days #14 caps 11/25/24 Allergies Allergy/AdvReac Type Severity Reaction Status Date / Time amlodipine Allergy edema Verified 11/25/24 14:31 Sulfa (Sulfonamide Allergy ALGY-Difficulty Verified 11/25/24 14:31 Antibiotics) Breathing Review of Systems General: Reports: 10 or more systems reviewed and unremarkable except in HPI and below PFSH ED PFSH: Medical History (Updated 11/25/24 @ 16:02 by ELLEN Patel) On combination antipsychotic drug therapy Generalized anxiety disorder Psychiatric care COPD (chronic obstructive pulmonary disease) Cardiomyopathy Chronic pain Moderate major depression GERD (gastroesophageal reflux disease) Chronic atrial fibrillation Chronic thoracic back pain Cannabis abuse Recent weight gain Encounter for weight loss counseling Discussed close follow-up due to episodes of hypoglycemia in the past when starting a weight loss program. Hypercholesterolemia ASHD (arteriosclerotic heart disease) Last angiogram with LAD 40-50 percent narrowing HTN (hypertension) Diabetes type 2, controlled Surgical History History of back surgery History of foot surgery H/O tubal ligation Hx of cholecystectomy H/O hernia repair History of oral surgery S/P knee replacement Hx of appendectomy H/O cataract extraction Gastric bypass status for obesity Family History Father Emphysema lung Mother COPD (chronic obstructive pulmonary disease) Brother Cancer lung nodule Emphysema lung Lung disease Chronic kidney disease (CKD) Family/Other Cancer Nephew--jaw Stroke Other CAD (coronary artery disease) Congestive heart failure (CHF) Diabetes Hyperlipidemia Hypertension Psychiatric illness Denies family history of Clotting disorder Dementia Suicide Anesthesia complication Bleeding disorder Social History Smoking and tobacco/nicotine status: former use of tobacco/nicotine Quit status (tobacco/nicotine): has quit using Alcohol intake: current Alcohol intake frequency: 3 or more drinks per day Substance/Drug Use: current Substance/Drug use frequency: daily Lives independently: Yes Household members: spouse Marital status: Number of children: 3 Current occupational status: retired and disabled Tejal/Hinduism: Pentecostal Special tejal needs: No Physical Exam Const: COMMON NORMALS: alert HENMT: COMMON NORMALS: normocephalic HEAD & SCALP: normocephalic NOSE: Nasal discharge present Neck/C-Spine: COMMON NORMALS: full ROM Resp: COMMON NORMALS: normal respiratory effort and clear to auscultation bilaterally AUSCULTATION: clear to auscultation bilaterally Cardio: COMMON NORMALS: regular rate and regular rhythm RATE: regular rate RHYTHM: regular rhythm GI: COMMON NORMALS: non-tender Back/Pelvis: COMMON NORMALS: thoracic and lumbar spine normal to inspection Extremity: COMMON NORMALS: full ROM Neuro: SENSORIUM/ORIENTATION: Yes alert Skin: COMMON NORMALS: turgor normal GENERAL SKIN EXAM: turgor normal Course Vital Signs: Vital signs: Vital Signs Temperature 99.1 F 11/25/24 14:26 Pulse Rate 93 11/25/24 14:26 Blood Pressure 150/88 11/25/24 14:26 Pulse Oximetry 95 11/25/24 14:26 Oxygen Delivery Me thod Room Air 11/25/24 14:26 MDM - URI/Sore Throat Medical Decision Making 74-year-old female here today with complaints of illness starting about 1 week ago. Patient appears nontoxic. Patient appears in no pain. Respirations are even. Lungs are clear to auscultation. Abdomen soft nontender. Skin is warm and dry. Heart rate is irregular in the 80s. Differential diagnosis upper respiratory infection, pneumonia, CHF, exacerbation of COPD. Chest x-ray was normal. Patient was negative for flu, COVID, and RSV. Will go ahead and treat with doxycycline 100 mg twice a day for 7 days for probable secondary bacterial infection to upper respiratory illness. Patient was recommended to monitor for worsening symptoms such as severe chest pain or shortness of breath and return to the ER for the symptoms. Patient was stable and discharged home. Lab Data Radiology Impressions Chest X-Ray 11/25/24 15:15 Impression: Atherosclerosis. Laboratory Results Influenza A (PCR) Negative (Negative) 11/25/24 14:30 Influenza Type B (PCR) Negative (Negative) 11/25/24 14:30 RSV (PCR) Negative (Negative) 11/25/24 14:30 SARS-CoV-2 (PCR) Negative (Negative) 11/25/24 14:30 All radiology interpretation(s) finalized by discharge Discharge Plan Discharge Patient Disposition: Home Clinical Impression: URI (upper respiratory infection) Qualifiers: URI type: unspecified URI Qualified Code(s): J06.9 - Acute upper respiratory infection, unspecified COPD (chronic obstructive pulmonary disease) Qualifiers: COPD type: unspecified COPD Qualified Code(s): J44.9 - Chronic obstructive pulmonary disease, unspecified Condition: Stable Prescriptions: New doxycycline hyclate 100 mg capsule 100 mg PO BID 7 Days Qty: 14 0RF No Action biotin 10,000 mcg capsule 10,000 mcg PO QAM ascorbate calcium (vitamin C) 500 mg tablet 500 mg PO QAM (DME) diabetic shoes w/ 3 inserts See Rx Instructions .Route .MEDSUPPLY Qty: 1 0RF Rx Instructions: As directed by the jason alvarezphoebe glimepiride 2 mg tablet 2 mg PO QAM Qty: 60 1RF Rx Instructions: administer with breakfast diltiazem HCl 120 mg capsule,extended release 24 hr 120 mg PO QAM Qty: 30 2RF albuterol sulfate 90 mcg/actuation HFA aerosol inhaler 1 inh inhalation QID PRN (Reason: shortness of breath or wheezing) Qty: 6.7 4RF minoxidil 5 % foam See Rx Instructions topical .COMPLEX Qty: 60 0RF Rx Instructions: 1/2 cap full daily in hair topically; nitroglycerin [Nitrostat] 0.4 mg tablet, sublingual 0.4 mg SUBLINGUAL Q5M PRN (Reason: chest pain) Qty: 30 3RF (DME) Rollaid walker with seat See Rx Instructions .Route .MEDSUPPLY Qty: 1 0RF Rx Instructions: As directed loratadine 10 mg tablet 10 mg PO DAILY Qty: 90 0RF furosemide 40 mg tablet See Rx Instructions .ROUTE .COMPLEX Qty: 180 3RF Dose Instruction: TAKE 1 TABLET BY MOUTH DAILY IN THE MORNING, MAY TAKE AN EXTRA DOSE DAILY IF NEEDED FOR WEIGHT GAIN Rx Instructions: TAKE 1 TABLET BY MOUTH DAILY IN THE MORNING, MAY TAKE AN EXTRA DOSE DAILY IF NEEDED FOR WEIGHT GAIN isosorbide mononitrate 30 mg tablet extended release 24 hr See Rx Instructions .ROUTE .COMPLEX Qty: 90 3RF Dose Instruction: TAKE 1 TABLET BY MOUTH EVERY DAY IN THE EVENING, TAKE WITH 60MG DOSE Rx Instructions: TAKE 1 TABLET BY MOUTH EVERY DAY IN THE EVENING, TAKE WITH 60MG DOSE isosorbide mononitrate 60 mg tablet extended release 24 hr See Rx Instructions .ROUTE .COMPLEX Qty: 90 3RF Dose Instruction: TAKE 1 TABLET BY MOUTH EVERY DAY Rx Instructions: TAKE 1 TABLET BY MOUTH EVERY DAY (DME) blood-glucose meter [Accu-Chek Guide Glucose Meter] [facility] [place] See Rx Instructions .Route Qty: 1 3RF Rx Instructions: As directed. check 3x/day (DME) Accu-Chek Guide test strips Strip See Rx Instructions .Route Qty: 100 8RF Rx Instructions: check glucose 3 times/day (DME) lancets [Accu-Chek Softclix Lancets] Mis See Rx Instructions .Route Qty: 200 5RF Rx Instructions: use 3 times/day metoprolol succinate 100 mg tablet extended release 24 hr See Rx Instructions .ROUTE .COMPLEX Qty: 90 2RF Dose Instruction: TAKE 1 TABLET BY MOUTH EVERY DAY AT 9.A.M Rx Instructions: TAKE 1 TABLET BY MOUTH EVERY DAY AT 9.A.M potassium chloride 10 mEq tablet extended release See Rx Instructions .ROUTE .COMPLEX Qty: 180 3RF Dose Instruction: TAKE 2 TABLETS BY MOUTH EVERY MORNING *TAKE ADDITIONAL DOSE W/FUROSEMIDE NEEDED FOR WT GAIN >3LBS Rx Instructions: TAKE 2 TABLETS BY MOUTH EVERY MORNING *TAKE ADDITIONAL DOSE W/FUROSEMIDE NEEDED FOR WT GAIN >3LBS rosuvastatin 5 mg tablet See Rx Instructions .ROUTE .COMPLEX Qty: 90 3RF Dose Instruction: TAKE 1 TABLET BY MOUTH EVERY DAY AT 9 AM Rx Instructions: TAKE 1 TABLET BY MOUTH EVERY DAY AT 9 AM duloxetine 60 mg capsule,delayed release(DR/EC) 120 mg PO DAILY@0900 90 Days Qty: 180 0RF meloxicam 15 mg tablet See Rx Instructions .ROUTE .COMPLEX Qty: 90 0RF Dose Instruction: TAKE 1 TABLET BY MOUTH EVERY DAY Rx Instructions: TAKE 1 TABLET BY MOUTH EVERY DAY aripiprazole [Abilify] 10 mg tablet 10 mg PO DAILY Qty: 90 0RF escitalopram oxalate 20 mg tablet See Rx Instructions .ROUTE .COMPLEX Qty: 90 0RF Dose Instruction: TAKE 1 TABLET BY MOUTH EVERY DAY Rx Instructions: TAKE 1 TABLET BY MOUTH EVERY DAY pantoprazole 40 mg tablet,delayed release (DR/EC) 40 mg PO BID@0900,2200 Qty: 180 3RF ranolazine 500 mg tablet extended release 12 hr See Rx Instructions .ROUTE .COMPLEX Qty: 180 3RF Dose Instruction: TAKE 1 TABLET BY MOUTH TWICE A DAY AT 9AM AND 10PM Rx Instructions: TAKE 1 TABLET BY MOUTH TWICE A DAY AT 9AM AND 10PM Xarelto 10 mg tablet 10 mg PO DAILY@2200 Qty: 90 0RF oxybutynin chloride 5 mg tablet extended release 24hr 5 mg PO DAILY Qty: 90 0RF Women's 50 Plus Multivitamin 400 mcg-500 mg calcium-20 mcg Tablet 1 tab PO DAILY hydrocodone-acetaminophen 5-325 mg tablet 1 tab PO Q6H PRN (Reason: pain) Qty: 14 0RF ondansetron 4 mg tablet,disintegrating 4 mg PO Q6H PRN (Reason: nausea and vomiting) Qty: 14 0RF Discharge Orders: Discharge ED (Routine); Ordered 11/25/24 Ordered By: Clovis Yao Referrals: Bobby Ingram MD [Primary Care Provider] - Discharge Diet: Usual diet Discharge Activity: Increase activity as tolerated Patient Instructions: COPD (Chronic Obstructive Pulmonary Disease) (ED) Activity Restrictions/Additional Instructions: Home and rest. Drink plenty of water and fluids. Take medications as directed. Follow-up with primary care in 3 to 5 days for recheck. Return to ED for worsening symptoms such as severe chest pain, or severe shortness of breath. 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
--- NOTE | 2024-11-25 15:15 | XR_ITS ---
WS: [id number] Portable AP upright chest, 11/25/2024 Clinical Data: cough Comparison: PA chest, 12/12/2022 Findings: No nodules, masses or effusions are seen. The heart is normal. The pulmonary vascularity is not increased. No pneumonia or pneumothorax is seen. There is a fibrotic strand extending from the right hilum to the periphery of the right lung unchanged. The aortic arch and descending thoracic aorta show mild tortuosity. 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 XR/XR chest 1V portable [id number] Impression: Atherosclerosis.
[2024-11-25 15:55] LABS: Influenza A NEGATIVE (Negative); Influenza B NEGATIVE (Negative); Respiratory Syncytial Virus Ce NEGATIVE (Negative); SARS-CoV-2 PCR NEGATIVE (Negative)
[2024-11-25 16:43] VITALS: BP 137/84; PULSE 92; O2SAT 92
== END 2024-11-25 16:25 | disposition home or self-care (01) ==
PROVIDERS: Emergency Provider Nurse Practitioner Family; PCP Family Medicine
DX: J06.9 Acute upper respiratory infection, unspecified (principal); J44.9 Chronic obstructive pulmonary disease, unspecified; Z11.52 Encounter for screening for COVID-19; Z87.891 Personal history of nicotine dependence; E11.9 Type 2 diabetes mellitus without complications; I10 Essential (primary) hypertension
CPT/HCPCS: 71045; 87637; 99284

== ENCOUNTER 2024-12-21 13:02 | Outpatient (CLI) | payer MEDICARE, SELFPAY ==
--- NOTE | 2024-12-21 13:30 | MM_ITS ---
WS: [id number] DIAGNOSTIC BILATERAL DIGITAL BREAST TOMOSYNTHESIS MAMMOGRAPHY WITH CAD RIGHT breast ultrasound, limited HISTORY: R breast pain 8 o'clock position COMPARISON: 12/26/2009 TECHNIQUE: Bilateral craniocaudad, mediolateral oblique, and mediolateral views are submitted with tomosynthesis and SM. Spot compression RIGHT CC and MLO. Computer aided detection utilized. Breast composition: There are scattered areas of fibroglandular density. New slightly spiculated high density mass in the lateral RIGHT breast near 9-10 o'clock. Mass measures 8 x 7 x 9 mm. Margins are slightly spiculated. There are additional bilateral partially calcified masses within each breast. Arterial calcifications are also noted. RIGHT breast ultrasound, limited. Ultrasound at 9:00, 6 cm from the nipple demonstrates a hypoechoic irregular mass which is taller than wide measuring 0.5 x 0.8 x 0.7 cm. Minimal increased vascularity. Additional masses with calcifications consistent with fibroadenomas. MM/MM diag BI tomosynthesis [id number] IMPRESSION: BI-RADS: 4 - Suspicious Finding - Biopsy Should Be Considered. FOLLOW UP: Biopsy Recommended Ultrasound-guided biopsy recommended RIGHT breast mass at 9:00. Notified Bobby Ingram MD at 12/21/2024 3:02 PM.
--- NOTE | 2024-12-21 14:17 | US_ITS ---
WS: [id number] DIAGNOSTIC BILATERAL DIGITAL BREAST TOMOSYNTHESIS MAMMOGRAPHY WITH CAD RIGHT breast ultrasound, limited HISTORY: R breast pain 8 o'clock position COMPARISON: 12/26/2009 TECHNIQUE: Bilateral craniocaudad, mediolateral oblique, and mediolateral views are submitted with tomosynthesis and SM. Spot compression RIGHT CC and MLO. Computer aided detection utilized. Breast composition: There are scattered areas of fibroglandular density. New slightly spiculated high density mass in the lateral RIGHT breast near 9-10 o'clock. Mass measures 8 x 7 x 9 mm. Margins are slightly spiculated. There are additional bilateral partially calcified masses within each breast. Arterial calcifications are also noted. RIGHT breast ultrasound, limited. Ultrasound at 9:00, 6 cm from the nipple demonstrates a hypoechoic irregular mass which is taller than wide measuring 0.5 x 0.8 x 0.7 cm. Minimal increased vascularity. Additional masses with calcifications consistent with fibroadenomas. US/US breast RT limited* [id number] IMPRESSION: BI-RADS: 4 - Suspicious Finding - Biopsy Should Be Considered. FOLLOW UP: Biopsy Recommended Ultrasound-guided biopsy recommended RIGHT breast mass at 9:00. Notified Bobby Ingram MD at 12/21/2024 3:02 PM.
== END 2024-12-21 13:03 | disposition home or self-care (01) ==
PROVIDERS: PCP Family Medicine; Visit Provider Family Medicine
DX: N64.4 Mastodynia (principal); R92.323 Mammographic fibroglandular density, bilateral breasts; N63.15 Unspecified lump in the right breast, overlapping quadrants; R92.1 Mammographic calcification found on diagnostic imaging of breast
CPT/HCPCS: 76642; 77062; G0279

== ENCOUNTER 2025-01-05 12:40 | Outpatient (CLI) | payer MEDICARE, SELFPAY ==
--- NOTE | 2025-01-05 13:15 | US_ITS ---
WS: [id number] ULTRASOUND-GUIDED RIGHT BREAST BIOPSY HISTORY: breast mass COMPARISON: 12/21/2024 ultrasound and mammogram Procedure, risks and complications are explained to the patient. Medications are reviewed. Consent is obtained. The mass in the RIGHT breast is localized with ultrasound. Mass localizes to 9:00, 6 cm from the nipple. Skin is cleansed with ChloraPrep and anesthetized with 1% buffered lidocaine. Small dermatome is made. Under sterile conditions mass is biopsied with a 14-gauge Achieve needle. Multiple core biopsies are performed. Material placed in formalin and sent to pathology for review. No complications encountered. Breast tissue marker (Thing5 ultrasound enhanced ribbon): Single. Patient left the radiology suite with no complications. Patient is instructed to return to [facility] [place] or call with any concerns. US/[place] [id number] IMPRESSION: 1. Uncomplicated core needle biopsy RIGHT breast mass at 9:00. 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 RECOMMENDATION: Follow-up with breast surgeon and oncology. Mammogram, ultrasound and pathology findings are concordant.
[2025-01-10 12:56] LABS: Breast Profile ER,PR,HER2,Ki-6 See Report
== END 2025-01-05 12:41 | disposition home or self-care (01) ==
LOC: RAD 12:42
PROVIDERS: PCP Family Medicine; Visit Provider Family Medicine
DX: C50.811 Malignant neoplasm of overlapping sites of right female breast (principal)
CPT/HCPCS: 19083; 88305; 88361; 88374

== ENCOUNTER 2025-01-24 10:29 | Oncology outpatient (recurring) (ONCR) | payer MEDICARE, SELFPAY | END 2025-01-26 23:59 | disposition home or self-care (01) | LOC: ONCMED 10:29 | PROVIDERS: PCP Family Medicine; Visit Provider Internal Medicine Medical Oncology | DX: C50.911 Malignant neoplasm of unspecified site of right female breast (principal); Z17.0 Estrogen receptor positive status [ER+]; Z87.891 Personal history of nicotine dependence | CPT/HCPCS: 99205 ==

== ENCOUNTER → 2025-01-31 09:20 | Outpatient (BNVA) | payer MEDICARE, SELFPAY | PROVIDERS: PCP Family Medicine; Visit Provider Family Medicine | DX: F41.9 Anxiety disorder, unspecified (principal); E11.65 Type 2 diabetes mellitus with hyperglycemia; C50.911 Malignant neoplasm of unspecified site of right female breast; F32.1 Major depressive disorder, single episode, moderate; N32.81 Overactive bladder; G89.29 Other chronic pain; I48.20 Chronic atrial fibrillation, unspecified; M54.50 Low back pain, unspecified; G47.00 Insomnia, unspecified | CPT/HCPCS: 80053; 83036; 85025 ==

== ENCOUNTER → 2025-03-09 15:07 | Outpatient (BNVA) | payer MEDICARE, SELFPAY | PROVIDERS: PCP Family Medicine; Visit Provider Internal Medicine | DX: I11.0 Hypertensive heart disease with heart failure (principal); I50.40 Unspecified combined systolic (congestive) and diastolic (congestive) heart failure; I48.20 Chronic atrial fibrillation, unspecified; Z79.01 Long term (current) use of anticoagulants; Z87.891 Personal history of nicotine dependence; G47.00 Insomnia, unspecified | CPT/HCPCS: 99214 ==

== ENCOUNTER 2025-03-28 09:38 | Oncology outpatient (recurring) (ONCR) | payer MEDICARE, SELFPAY ==
--- NOTE | 2025-02-28 11:17 | N.ONRAD NP_ITS ---
Radiation Oncology New Patient Visit Patient: Chiqui Arias MR#: [id number] : 1950 Age: 74 Sex: Female Dictated by: Lee Cruz DO/GRIS Date of Service: 02/28/2025 Referring Physician(s) : DR ARGUETA Diagnosis: C50.411 - malignant neoplasm of upper-outer quadrant of right female breast, Diagnosed 01/05/2025 (active). RT BREAST, MD-IDC, 0.9CM, HG-DCIS,-EIC, 0/2SLN+, -CLSI, INV MARK 0.5MMsUPERIOR, DCIS 3MM INFERIOR, SPECIMEN SIZE 4.7X4X2.5CM, BRA SIZE 48C, SULFA ALLERGY. STAGE: [id number] ICD 10: C50.411 Radiotherapy to date: Summary > No prior radiation therapy. Chief Complaint / History of Present Illness: I have breast cancer. This is a pleasant 74-year-old female who is noted on mammogram to have a right sided spiculated mass BAL MAMMOGRAM on 12/21/2024's showed slightly spiculated high density mass right UOQ measuring 8 x 7 x 9 mm. Breast ultrasound on 12/21/2024 showed a hypoechoic irregularly shaped mass taller than wider measuring 0.5 x 0.8 x 0.7 cm with minimally increased vascularity. US Guided BX on 01/05/2025 return PD-IDC measuring 0.8 cm that was ER-100/AL-95+ and H2N-, K67 5%. BREAST PROFILE Menarche age 12, first age 19 4 pregnancies, 3 live births and 1 miscarriage, no breast-feeding and control pills for 20 years. Patient has not had a hysterectomy but had a tubal ligation. Patient did not use hormone replacement therapy is not of [place] descent and has no family positive history. Breast conserving therapy was performed on 02/09/2025 which returned MD-IDC measuring 0.9 cm with high-grade DCIS with no extensive intraductal component. 0 out of 2 sentinel lymph nodes were positive. Negative CLS, invasive margin was 0.5 mm superiorly and DCIS was 3 mm inferiorly and specimen size was 4.7 x 4 x 2.5 cm. Current Medications: albuterol sulfate 90 mcg/actuation 1 inh inhalation QID PRN anastrozole 1 mg PO DAILY aripiprazole (Abilify) 10 mg PO DAILY ascorbate calcium (vitamin C) 500 mg PO QAM blood sugar diagnostic (Accu-Chek Guide test strips) check glucose 3 times/day blood-glucose meter (Accu-Chek Guide Glucose Meter) As directed. check 3x/day [diabetic shoes w/ 3 inserts As directed by the jason dobson ] diltiazem HCl ER 120 mg PO QAM doxycycline hyclate mg PO duloxetine 120 mg (2 x 60 mg) PO DAILY@0900 90 days escitalopram oxalate TAKE 1 TABLET BY MOUTH EVERY DAY furosemide TAKE 1 TABLET BY MOUTH DAILY IN THE MORNING, MAY TAKE AN EXTRA DOSE DAILY IF NEEDED FOR WEIGHT GAIN glimepiride 1 mg PO QAM hydrocodone-acetaminophen 5-325 mg 1 tab PO Q6H PRN hydroxyzine HCl 25 mg PO TID PRN isosorbide mononitrate ER TAKE 1 TABLET BY MOUTH EVERY DAY isosorbide mononitrate ER TAKE 1 TABLET BY MOUTH EVERY DAY IN THE EVENING, TAKE WITH 60MG DOSE lancets (Accu-Chek Softclix Lancets) use 3 times/day loratadine 10 mg PO DAILY meloxicam TAKE 1 TABLET BY MOUTH EVERY DAY metoprolol succinate ER TAKE 1 TABLET BY MOUTH EVERY DAY AT 9.A.M minoxidil 5% 1/2 cap full daily in hair topically; ps-mjv-frhyp-calcium carb-K1 400 mcg-500 mg calcium-20 mcg (Women's 50 Plus Multivitamin) 1 tab PO DAILY nitroglycerin (Nitrostat) 0.4 mg sublingual Q5M PRN ondansetron 4 mg PO Q6H PRN oxybutynin chloride ER 10 mg PO DAILY pantoprazole 40 mg PO BID@0900,2200 potassium chloride ER TAKE 2 TABLETS BY MOUTH EVERY MORNING *TAKE ADDITIONAL DOSE W/FUROSEMIDE NEEDED FOR WT GAIN >3LBS ranolazine ER TAKE 1 TABLET BY MOUTH TWICE A DAY AT 9AM AND 10PM rivaroxaban (Xarelto) 10 mg PO DAILY@2200 [Rollaid walker with seat As directed] rosuvastatin TAKE 1 TABLET BY MOUTH EVERY DAY AT 9 AM trazodone 50 mg PO .qhs Allergies: amlodipine Allergy (Verified 02/28/25 09:30) edema Sulfa (Sulfonamide Antibiotics) Allergy (Verified 02/28/25 09:30) ALGY-Difficulty Breathing Medical History: No history of collagen vascular disease. No previous radiation therapy. Invasive ductal carcinoma of right breast On combination antipsychotic drug therapy Generalized anxiety disorder Psychiatric care COPD (chronic obstructive pulmonary disease) Cardiomyopathy Chronic pain Moderate major depression GERD (gastroesophageal reflux disease) Chronic atrial fibrillation Chronic thoracic back pain Cannabis abuse Recent weight gain Encounter for weight loss counseling Discussed close follow-up due to episodes of hypoglycemia in the past when starting a weight loss program. Hypercholesterolemia ASHD (arteriosclerotic heart disease) Last angiogram with LAD 40-50 percent narrowing HTN (hypertension) Diabetes type 2, controlled Surgical History: History of back surgery History of foot surgery H/O tubal ligation Hx of cholecystectomy H/O hernia repair History of oral surgery S/P knee replacement Hx of appendectomy H/O cataract extraction Gastric bypass status for obesity Family History: Father Emphysema lung Mother COPD (chronic obstructive pulmonary disease) Brother Cancer lung nodule Emphysema lung Lung disease Chronic kidney disease (CKD) Family/Other Cancer Nephew--jaw Stroke Other CAD (coronary artery disease) Congestive heart failure (CHF) Diabetes Hyperlipidemia Hypertension Psychiatric illness Denies family history of Clotting disorder Dementia Suicide Anesthesia complication Bleeding disorder Social History: Smoking and tobacco/nicotine status: former use of tobacco/nicotine Quit status (tobacco/nicotine): has quit using Alcohol intake: current Alcohol intake frequency: 3 or more drinks per day Substance/Drug Use: current Substance/Drug use frequency: daily Lives independently: Yes Household members: spouse Marital status: Number of children: 3 Current occupational status: retired and disabled Tejal/Jew: [employer] Special tejal needs: No Dietary Habits Caffeine: Yes Caffeine intake frequency: carbonated beverages Current Complaints / Review of Systems: . Vital Signs: Performed on 02/28/2025 10:18 AM BMI - 31.626 kg/m2 (high), Height - 68 in, Weight - 208 lbs, Temperature - 98.2 f, Pulse - 97 /min, Respiration - 16 /min, O2 Sat - 91 % (low), Pain - 5, Fatigue - 0 and BP - 147/ 76 mm(hg)(high/). Physical Exam: Patient is alert and oriented and answers questions appropriately. Head is normocephalic without masses. Neck is supple thyroid midline. Lungs clear to auscultation no intercostal retraction abdomen soft nontender. Extremities intact x 4. Chest breasts intact x 2. Faded rows tattoo left chest right breast showed no masses. A lateral incision measuring 7 cm is healing without signs of infection. No masses of the left breast appreciated. Performance Status: KPS 90 pathology: Primary, c50.411 - malignant neoplasm of upper-outer quadrant of right female breast, Diagnosed 01/05/2025 (active) . Lab: Imaging: See HPI Impression: C50.411 - malignant neoplasm of upper-outer quadrant of right female breast, Diagnosed 01/05/2025 (active). RT BREAST, MD-IDC, 0.9CM, HG-DCIS,-EIC, 0/2SLN+, -CLSI, INV MARK 0.5MMsUPERIOR, DCIS 3MM INFERIOR, SPECIMEN SIZE 4.7X4X2.5CM, BRA SIZE 48C, SULFA ALLERGY. STAGE: [id number] ICD 10: C50.411 Plan: Options regarding the treatment of this disease were discussed in detail with the patient. Patient had her questions answered. Patient wishes to proceed with adjuvant XRT We will wait for further healing at this time. CT simulation of right tangents is scheduled for 03/21/2025. Patient will receive 4256 cGy in 16 fractions with no boost. Patient will commence treatment on 03/28/2025. She will then undergo hormone receptor therapy after completion of XRT Signed by: 02/28/2025 11:16:16 AM <<Signature on File>> Time spent with patient: 45 MINUTES CPT Code: CPT Code:
== END 2025-03-28 23:59 | disposition home or self-care (01) ==
PROVIDERS: PCP Family Medicine; Visit Provider Internal Medicine Medical Oncology
DX: Z51.0 Encounter for antineoplastic radiation therapy (principal); C50.411 Malignant neoplasm of upper-outer quadrant of right female breast; Z17.0 Estrogen receptor positive status [ER+]
CPT/HCPCS: 77290; 77295; 77300; 77334; 77387; 77412; 99205; 99214

== ENCOUNTER 2025-05-18 13:28 | Outpatient (CLI) | payer MEDICARE, SELFPAY | END 2025-05-18 13:29 | disposition home or self-care (01) | LOC: SLEEP 13:29 | PROVIDERS: PCP Family Medicine; Referring Provider Internal Medicine; Visit Provider Internal Medicine Pulmonary Disease | DX: G47.33 Obstructive sleep apnea (adult) (pediatric) (principal); G47.36 Sleep related hypoventilation in conditions classified elsewhere | CPT/HCPCS: G0399 ==

== ENCOUNTER 2025-05-23 08:37 | Oncology outpatient (recurring) (ONCR) | payer MEDICARE, SELFPAY ==
--- NOTE | 2025-05-23 09:23 | ONCRAD EPV_ITS ---
Radiation Oncology Established Patient Visit Patient: Chiqui Arias [id number] : 1950 Age: 74 Sex: Female Dictated by: Aram Cruz Date of Service: 05/23/2025 Referring Physician(s) : Diagnosis: C50.411 - Malignant neoplasm of upper-outer quadrant of right female breast, Diagnosed 01/05/2025 (Active) Radiotherapy to Date: Course: RT BREAST, Treatment Site: Breast Rt, Ref. ID: Breast_R, Energy: 15X/6X, Dose/Fx (cGy): 266, #Fx: 16 / 16, Dose Correction (cGy): 0, Total Dose Delivered (cGy): 4,256, Start Date: 03/28/2025, End Date: 04/20/2025, Elapsed Days: Current History: This is a pleasant 74-year-old female who is 1 month from being treated for adjuvant XRT for right UOQ breast cancer. She is ER 100/AL 95/H2 N-. She is on anastrozole. She is complaining of her hair falling out She is to see Dr. Blake on June 06 with labs at 1115 and an appointment at 1230. She has mammogram scheduled in [place] by her surgeon in in August of this year. Current Medications: albuterol sulfate 90 mcg/actuation 1 inh inhalation QID PRN anastrozole 1 mg PO DAILY aripiprazole (Abilify) 10 mg PO DAILY ascorbate calcium (vitamin C) 500 mg PO QAM blood sugar diagnostic (Accu-Chek Guide test strips) check glucose 3 times/day blood-glucose meter (Accu-Chek Guide Glucose Meter) As directed. check 3x/day [diabetic shoes w/ 3 inserts As directed by the jason dobson ] diltiazem HCl ER 120 mg PO QAM duloxetine 120 mg (2 x 60 mg) PO DAILY@0900 90 days escitalopram oxalate TAKE 1 TABLET BY MOUTH EVERY DAY furosemide TAKE 1 TABLET BY MOUTH DAILY IN THE MORNING, MAY TAKE AN EXTRA DOSE DAILY IF NEEDED FOR WEIGHT GAIN glimepiride 1 mg PO QAM hydrocodone-acetaminophen 5-325 mg 1 tab PO Q6H PRN hydroxyzine HCl 25 mg PO TID PRN isosorbide mononitrate ER TAKE 1 TABLET BY MOUTH EVERY DAY isosorbide mononitrate ER TAKE 1 TABLET BY MOUTH EVERY DAY IN THE EVENING, TAKE WITH 60MG DOSE lancets (Accu-Chek Softclix Lancets) use 3 times/day loratadine 10 mg PO DAILY losartan 25 mg PO DAILY meloxicam TAKE 1 TABLET BY MOUTH EVERY DAY metoprolol succinate ER TAKE 1 TABLET BY MOUTH EVERY DAY AT 9.A.M rc-oxq-sdwuc-calcium carb-K1 400 mcg-500 mg calcium-20 mcg (Women's 50 Plus Multivitamin) 1 tab PO DAILY nitroglycerin (Nitrostat) 0.4 mg sublingual Q5M PRN ondansetron 4 mg PO Q6H PRN oxybutynin chloride ER 10 mg PO DAILY pantoprazole 40 mg PO BID@0900,2200 potassium chloride ER TAKE 2 TABLETS BY MOUTH EVERY MORNING *TAKE ADDITIONAL DOSE W/FUROSEMIDE NEEDED FOR WT GAIN >3LBS ranolazine ER TAKE 1 TABLET BY MOUTH TWICE A DAY AT 9AM AND 10PM rivaroxaban (Xarelto) 10 mg PO DAILY@2200 [Rollaid walker with seat As directed] rosuvastatin TAKE 1 TABLET BY MOUTH EVERY DAY AT 9 AM trazodone 50 mg PO .qhs Allergies: amlodipine Allergy edema Sulfa (Sulfonamide Antibiotics) Allergy ALGY-Difficulty Breathing Current Complaints / Review of Systems: . Vital Signs: Performed on 05/23/2025 8:52 AM BMI - 29.559 kg/m2 (high), Height - 68 in, Weight - 194.4 lbs, Temperature - 97.4 f, Pulse - 59 /min (low), Respiration - 18 /min, O2 Sat - 96 %, Pain - 0, Fatigue - 0 and BP - 187/ 75 mm(hg)(high/). Physical Exam: General: Alert and oriented x 3. No acute distress. HEENT: Normocephalic, atraumatic. Extraocular Movements Intact: Pupils Equal, Round, Reactive to Light and Accommodation: Sclerae anicteric. Oral cavity is clear without lesions, masses or ulcers. NECK: Supple without supraclavicular or jugular lymphadenopathy. LUNGS: Clear to auscultation bilaterally without rales, rhonchi or wheeze. HEART: Regular rate and rhythm, normal S1 and S2 without murmur, gallop or rub. BREAST: Left breast pendulous with no apparent masses. Right breast is hyperpigmented with no masses appreciated. Scar line without nodularity. MUSCULOSKELETAL: No tenderness or percussion pain over the axial skeleton, scapulae or pelvis. ABDOMEN: Soft, nontender, nondistended without masses or organomegaly. Bowell sounds are present. EXTREMITIES: No peripheral edema is identified. Limited motor and sensory examination are grossly intact and symmetric bilaterally. NEUROLOGIC: Cranial nerves II ???XII are grossly intact. Normal sensation, strength 5/5 in all extremities, normal gait, no ataxia. Performance Status: KPS 90 Lab: None pending. Pathology: Primary, c50.411 - malignant neoplasm of upper-outer quadrant of right female breast, Diagnosed 01/05/2025 (active) . Imaging: See HPI Impression: ER/AL +/H2 N- RIGHT UOQ breast cancer COREY PLAN: Dr. Paz on June 06 RTC in 3 months on August 22 at 10 AM or sooner if need be Mammogram in [place] in August of this year Continue receptor therapy. Signed by: 05/23/2025 9:21:42 AM <<Signature on File>> Time spent with patient: 20 minutes Global coverage CPT Code: CPT Code:
== END 2025-05-29 23:59 | disposition home or self-care (01) ==
PROVIDERS: PCP Family Medicine; Visit Provider Radiology Radiation Oncology
DX: C50.911 Malignant neoplasm of unspecified site of right female breast (principal); Z17.0 Estrogen receptor positive status [ER+]; R03.0 Elevated blood-pressure reading, without diagnosis of hypertension; Z87.891 Personal history of nicotine dependence; Z79.811 Long term (current) use of aromatase inhibitors; E11.65 Type 2 diabetes mellitus with hyperglycemia; L60.3 Nail dystrophy; L84 Corns and callosities; G62.9 Polyneuropathy, unspecified; R07.89 Other chest pain; I11.0 Hypertensive heart disease with heart failure; I50.40 Unspecified combined systolic (congestive) and diastolic (congestive) heart failure; I48.20 Chronic atrial fibrillation, unspecified; Z79.01 Long term (current) use of anticoagulants; F12.10 Cannabis abuse, uncomplicated; R07.9 Chest pain, unspecified; I25.10 Atherosclerotic heart disease of native coronary artery without angina pectoris
CPT/HCPCS: 99024

== ENCOUNTER 2025-05-24 11:33 | Inpatient (IN) | payer MEDICARE, SELFPAY ==
--- OUTSIDE RECORDS SUMMARY | 2025-05-24 11:39 | XMS_ITS | Patient Health Record ---
Author Organization [facility] Address [address] [place], [place] [id number] Care Team Providers Care Hereditary Cancer Program Coordinator Name Role Phone Stephon Contreras MD Primary Care Provider Un available Mariela WARE, Aram Unavailable [phone] Allergies Allergen (clinical drug ingredient) Drug/Non Drug Allergy documented on EMR Reaction Allergy Type Onset Date Status Sulfa drugs (uncoded) Unknown Allergy Active amlodipine-benazepril edema Drug Allergy Active Reason For Referral No Information Medications Medication SIG (Take, Route, Frequency, Duration) Notes Start Date End Date Status Nitrostat 0.4 mg 1 tab sublingually a s directed Active Salonpas 0.025%-1.25% 1 PATCH applied to pically 3 times a day Active Invokana 300 mg 1 tab orally once a day Active FLUoxetine 20 mg 3 cap(s) orally once a day Active Acetaminophen/Butalbital/C affeine 325 mg-50 mg-40 mg 1 tab PO orally Q4H prn headache; Duration: 7 days 07/19/2015 Activ e furosemide 40 mg 1 tab orally 2 times a day Active Icy Hot - 1 alex applied topica lly 2 times a day Active Mag-Ox 400 as directed Active Imdur 30 mg 2 tabs orally once a day (in the morning) Active glimepiride 4 mg 1 tab orally 2 times a day Active Pradaxa 150 mg 1 cap orally 2 times a day Active meloxicam 15 mg 1 tab orally once a day Active K-Dur 20 1 tab once a day Act kaylene pantoprazole 40 mg 1 tab orally 2 times a day Active lisinopril 40 mg 1 tab orally once a day Active tiZANidine 2 mg 1 tab orally at bedtime Active Metoprolol Succinate ER 100 mg 1 1/2 tab(s) orally once a day Active [place] 325 mg-7.5 mg 1 tab orally every 4 hours, as needed for pain Active Social History Tobacco Use: Social History Observation Description Date Details (start date - stop date) Never Smoker NA - NA Tobacco use: Question Answer Notes : nonsmoker Problems Problem Type SNOMED Code ICD Code Onset Dates Problem Status W/U Status Risk Notes Problem Thoracic spondylosis without myelopathy (717526207) Thoracic spondylosis without myelopathy (721.2) Active confirmed Problem Spinal stenosis of thoracic region (26316175) Spinal stenosis of thoracic region (724.01) Active confirmed Problem Spasm (93417862) Muscle spasm (728.85) Active confirmed Problem Hypersomnia (44058912) Hypersomnia (780.54) Active confirmed Problem Pain in thoracic spine (305846955) Thoracic pain (724.1) Active confirmed Problem Long-term drug therapy (061273153) LONG-TERM USE MEDS NEC (V58.69) Active confirmed r/o substance abuse Problem Displacement of thoracic intervertebral disc without myelopathy (46279975) 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) Active confirmed Problem Anxiety disorder (050562070) Other specified anxiety disorders (F41.8) Active confirmed Problem Hypersomnia (91280540) Hypersomnia, unspecified (G47.10) Active confirmed Problem Thoracic spondylosis without myelopathy (237382532) Spondylosis without myelopathy or radiculopathy, thoracic region (M47.814) Active confirmed Problem Spinal stenosis of thoracic region (01750254) Spinal stenosis, thoracic region (M48.04) Active confirmed Problem Thoracic radiculopathy (61281278) Intervertebral disc disorders with radiculopathy, thoracic region (M51.14) Active confirmed Problem Displacement of thoracic intervertebral disc without myelopathy (35769197) Other intervertebral disc displacement, thoracic region (M51.24) Active confirmed Problem Pain in thoracic spine (244133927) Pain in thoracic spine (M54.6) Active confirmed Problem Myalgia (98351107) Myalgia (M79.1) Active confirmed Plan Of Treatment No Information Insurance Providers Payer Name Payer Address Payer Phone Subscriber Number Group Number Insured Name Patient Relationship to Insured Coverage Start Date Coverage End Date [employer] Medicare Part B Claims Department [address] [address] [place] [address] [id number] Chiqui Rosenberg Self - patient is the insured [place] [address] [place] [address] [id number] Chet Chiqui Self - patient is the insured Medical (General) History Medical History History ICD Code Diabetes mellitus Hypertension Thoracic pain Pill dysphagia Hepatitis C Neuropathy Subscapular bursitis Bronchitis Chest pain Shortness of breath Arteriosclerotic heart disease Edema, BLE Depression Gastroesophageal reflux disease Atrial fibrillation Surgical History Surgery Date(Month/Year) section Tubal ligation Cholecystectomy Back surgery - fusion L4-5 at [facility] 1999 Foot surgery (right) Lung surgery Ovarian Surgery (cyst removal) Cyst removal (Ganglion - right wrist) Eye surgery Angiogram 2014 Lap Band surgery 1985 Hospitalization History Reason Date(Month/Year) pneumonia Chest pain
--- OUTSIDE RECORDS SUMMARY | 2025-05-24 11:39 | XMS_ITS | Patient Health Record ---
Author Organization [facility] Deena cardoza Billing Info Address [address] [place], [place] [address] [place] [address] Support Name Relationship Address Phone Chiqui Rosenberg Guarantor Unknown [phone] Reason For Referral No Information Medications Medication SIG (Take, Route, Frequency, Duration) Notes Start Date End Date Status Omeprazole 40 MG 1 capsule Orally Onc e a day for 30 day(s) Active Alendronate Sodium 70 MG 1 tablet Orally for 30 day(s) Active Amlodipine Besylate 5 MG 1 tablet Orally Once a day for 30 day(s) Active Lisinopril 40 MG 1 tablet Orally Once a day for 30 day(s) Active Ibuprofen 200 MG 1 tablet as needed Orally every 6 hrs Active Metformin HCl 500 MG 1 tablet with meals Orally Twice a day for 30 day(s) Active Walking Boot as directed 11/11/2012 Acti ve Hiynrddirrt-IXDP-Nxqvcoq Pro d 5-500 MG as directed Orally Active Meloxicam 15 MG 1 tablet Orally Once a day for 30 day(s) Active Atenolol 100 MG 1 tablet Orally Once a day for 30 day(s) Active Hydrochlorothiazide 25 MG 1 tablet Orall y Once a day for 30 day(s) Active Problems No Known Problems Plan Of Treatment Pending Test Test Name Order Date XRAY- FOOT AP AND LAT W/OBLIQ LT (94009) ([facility]) 10/07/2012 XRAY- FOOT AP AND LAT W/OBLIQ RT (70508) ([facility]) 10/07/2012 Insurance Providers Payer Name Payer Address Payer Phone Subscriber Number Group Number Insured Name Patient Relationship to Insured Coverage Start Date Coverage End Date [place]ARE [place] PART [place] [address] [address] [place], [place] [id number] Chiqui Rosenberg Self - patient is the insured 3 3 MEDICAID [place] [address] [place], [place] [id number] Chiqui Rosenberg Self - patient is the insured 3 3
--- OUTSIDE RECORDS SUMMARY | 2025-05-24 11:39 | XMS_ITS | Patient Health Record ---
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 Name Role Phone Bobby Parker Primary Care Provider Unavailela TrevinoKim sahu Unavailable [phone] Migration, Provider Unavailable Unavailable Bobby Parker Unavailable [phone] Kian Auguste Unavailable [phone] Allergies Allergen (clinical drug ingredient) Drug/Non Drug Allergy documented on EMR Reaction Allergy Type Onset Date Status amlodipine Amlodipine swelling Drug Allergy Activ e Substance with sulfonamide structure and antibacterial mechanism of action (substance) Sulfa Antibiotics Shortness of breath/difficult y breathing Drug Allergy Active Results Component Value Reference Range Notes Fluoro Needle For Placement - Spine 28622 Reviewed date:10/19/2024 02:20:44 PM Interpretation: Performing Lab: Notes/Report: Urine Drug Screen (cup read) - 78455 Reviewed date:10/25/2024 11:05:28 AM Interpretation:Negative Performing Lab: Notes/Report: Negative Pre-Procedure Blood Glucose Test - 69144 Reviewed date:10/19/2024 02:20:57 PM Interpretation:163 Performing Lab: Notes/Report: 163 zzzUrine Drug Screen (confir mation by instrument) - 43047 Reviewed date:11/01/2024 03:19:25 PM Interpretation: Performing Lab: Notes/Report: Reason For Referral No Information Medications Medication SIG (Take, Route, Frequency, Duration) Notes Start Date End Date Status Albuterol Active Loratadine 10 MG Tablet 1 tablet Orally Once a day Active Isosorbide Mononitrate 20 MG Tablet 1 tablet Orally Twice a day Active Ranolazine Active ARIPiprazole 10 MG Tablet 1 tablet Orall y Once a day Active Meloxicam 15 MG Tablet 1 tablet Orally O nce a day Active Rosuvastatin Calcium 5 MG Tablet 1 tablet Orally Once a day Active Rivaroxaban 10 MG Tablet 1 tablet with f ood Orally Once a day Active Furosemide 40 MG Tablet 1 tablet Orally Once a day Active Ondansetron 4 MG Tablet Disintegrating 1 tablet on the tongue and allow to dissolve Orally Once a day Active Folic Acid 1 MG Tablet 1 tablet Orally O nce a day Active Nitroglycerin 0.4 MG Tablet Sublingual 1 tablet under the tongue and allow to dissolve as needed. Take every 5 minutes up to 3 times if chest pain persists Sublingual Three times a day Active HYDROcodone-Acetaminophen 5-325 MG Tablet 2 tablet as needed Orally every 4- 6 hrs Active Potassimin Active Glimepiride 2 MG Tablet 1 tablet with br eakfast or the first main meal of the day Orally Once a day Active Pantoprazole Sodium 40 MG Tablet Delayed Release 1 tablet 1/2 to 1 hour before morning meal Orally Once a day Active dilTIAZem HCl 125 MG/25ML Solution as directed Intravenous Acti ve Minoxidil 5 % Foam 0.5 application Externally Once a day Active Biotin 58896 MCG Tablet 1 tablet Orally Once a day Active Metoprolol Succinate 100 MG Capsule ER 24 Hour Sprinkle 1 capsule Orally Once a day Active Escitalopram Oxalate 20 MG Tablet 1 tablet Orally Once a day Active Multivitamin - Tablet 1 tablet Orally On ce a day Active DULoxetine HCl 60 MG Capsule Delayed Release Particles 1 capsule Orally Once a day Active Mirabegron ER 25 MG Tablet Extended Release 24 Hour 1 tablet Orally Once a day Active Social History Sex Assigned At : Social [...] Smoking - No, Working currently? - No Problems Problem Type SNOMED Code ICD Code Onset Dates Problem Status W/U Status Risk Notes Problem Obesity (463695358) Obesity, unspecified (E66.9) 05/29/20 22 Active confirmed Problem Chronic pain syndrome (684743177) Chronic pain syndrome (G89.4) Active confirmed Problem Syringomyelia and syringobulbia (437165476) Syringomyelia and syringobulbia (G95.0) 05/29/20 Active confirmed Problem Lumbosacral spondylosis without myelopathy (67993476) Other spondylosis with radiculopathy, lumbosacral region (M47.27) 05/29/20 Active confirmed Problem Degeneration of cervical intervertebral disc (77219665) Other cervical disc degeneration, unspecified cervical region (M50.30) 05/29/20 Active confirmed Problem Degeneration of thoracic intervertebral disc (52386101) Other intervertebral disc degeneration, thoracic region (M51.34) 05/29/20 Active confirmed Problem Degeneration of lumbar intervertebral disc (61116127) Other intervertebral disc degeneration, lumbar region (M51.36) 05/29/20 Active confirmed Problem Post-laminectomy syndrome (62515113) Postlaminectomy syndrome, not elsewhere classified (M96.1) 05/29/20 Active confirmed Problem Abnormal gait (48137748) Unspecified abnormalities of gait and mobility (R26.9) 05/29/20 Active confirmed Problem High risk drug monitoring status (662252673) FDC (current) use of opiate analgesic (Z79.891) Active confirmed Vital Signs Height-cm 172.72 cm 11/11/2024 Weight-kg 94.8 kg 10/25/2024 Height 68.00 in 11/11/2024 Weight 209 lbs 10/25/2024 BMI 31.77 kg/m2 10/25/2024 Procedures Procedure Date Ordered Date Performed Result Body Sit e Implant Spinal Cord Stimulat or Trial - 68752 10/19/2024 10/19/2024 N/A Encounters Encounter Location Date Provider Diagnosis [facility] [place] [address] [place] [address] 06/09/2024 Bobby Parker [facility] [place] [address] [place] [address] 07/21/2024 Bobby Parker [facility] [address] [place] [address], [place] [address] 10/19/2024 Bobby Parker Chronic pain syndrom e G89.4 ; Postlaminectomy syndrome, not elsewhere classified M96.1 and Other spondylosis with radiculopathy, lumbosacral region M47.27 [facility] [address] [place] [address] 10/25/2024 Kian Auguste Chronic pain syndrom e G89.4 ; Other spondylosis with radiculopathy, lumbosacral region M47.27 ; Postlaminectomy syndrome, not elsewhere classified M96.1 ; Syringomyelia and syringobulbia G95.0 and ocean transportation intermediary (current) use of opiate analgesic Z79.891 [facility] [place] [address] [place] [address] 11/11/2024 Kim Chavez Chronic pain syndrom e G89.4 ; Syringomyelia and syringobulbia G95.0 ; Other spondylosis with radiculopathy, lumbosacral region M47.27 ; Postlaminectomy syndrome, not elsewhere classified M96.1 and ocean transportation intermediary (current) use of opiate analgesic Z79.891 [facility] 0 0 07/24/2024 Provider Migration [facility] 0 07/25/2024 Provider Migration [facility] [address] [place] [address] [facility] [address] [place] [address] 09/09/2024 Bobby Marianojesus [facility] [address] [place] [address] 10/05/2024 Bobby Parker Chronic pain syndrom e G89.4 and Postlaminectomy syndrome, not elsewhere classified M96.1 Assessments Encounter Date Diagnosis (ICD Code) Assessment Notes Treatment Notes Treatment Clinical Notes Section Notes 10/05/2024 Chronic pain syndrome (ICD-10 - G89.4) 10/25/2024 Chronic pain syndrome (ICD-10 - G89.4) I had a nice discussion with the patient today in regard to her chronic pain and current treatment plan. Patient reports that she did receive adequate relief from her spinal cord stimulator trial, but she is hesitant to proceed with the permanent. She states that she would like to take the next couple weeks to consider her options before proceeding with the permanent. We will continue her current medication regimen at this time. Patient will return to clinic in 2 weeks to continue assessment and evaluation and to discuss further options for the possibility of spinal cord stimulator placement. The patient continues with chronic pain requiring treatment to help restore function and improve quality of life. Risks of opioid therapy as well as interaction of opioids with alcohol, illicit drugs, muscle relaxers, and other sedative medications are reviewed briefly with patient again today. The patient has trialed all other reasonable treatment options and uses the medication to alleviate pain in order to remain active and rest with less pain. No clinically relevant medication side effects are noted. Last UDS and [place] [employer] reviewed today. Patient is advised that best long-term goals include increased activity, core strengthening, proper weight management, coping strategies, avoidance of painful triggers, and targeted interventional therapy. We will see the patient for routine follow up in accordance with all clinic policies. We did remind patient today of current guidelines to decrease opioid when possible. We will continue to stress nonopioid treatment. RECOMMEND URINE TESTING TODAY Urine drug screening will be performed today to monitor compliance with opioid therapy or to serve as a baseline screen for a patient who may be a candidate for opioid therapy in the future, pending UDS results. We will monitor with in-office testing (rapid testing) today and review the results prior to dispensing prescription. All positive results will be sent for quantitative analysis to ensure accuracy and quantify amounts. Any expected positive results that return negative will also be sent for quantitative analysis. Any questionable read or any medication we cannot test for in the office confidently will be sent for quantitative analysis, as well. Patient has been made aware of this policy and agrees to abide by our urine testing policy. 10/25/2024 Other spondylosis with radiculopathy, lumbosacral region (ICD-10 - M47.27) 11/11/2024 Chronic pain syndrome (ICD-10 - G89.4) I had a nice discussion with the patient today regarding her chronic pain complaints. She had previously completed a lumbar spinal cord stimulator trial. She had reported at that time that it helped relieve her pain at least 80% and she was able to function better overall. However the patient wished to take some time to think about if she wanted to proceed with the permanent implant and she also does not like the idea of having to travel to [place] for the procedure. However, the patient states after she was done with the trial she has realized traveling to [place] for the procedure will not be that big of a deal as the trial did help her a great deal. She was previously prescribed some hydrocodone and states she still has quite a bit of this at home. She takes it very sparingly and only on her really bad days with her pain. We will start the PA process for the permanent implant and she will return to clinic after surgery. The patient continues with chronic pain requiring treatment to help restore function and improve quality of life. Risks of opioid therapy as well as interaction of opioids with alcohol, illicit drugs, muscle relaxers, and other sedative medications are reviewed briefly with patient again today. The patient has trialed all other reasonable treatment options and uses the medication to alleviate pain in order to remain active and rest with less pain. No clinically relevant medication side effects are noted. Last UDS and [place] [employer] reviewed today. Patient is advised that best long-term goals include increased activity, core strengthening, proper weight management, coping strategies, avoidance of painful triggers, and targeted interventional therapy. We will see the patient for routine follow up in accordance with all clinic policies. We did remind patient today of current guidelines to decrease opioid when possible. We will continue to stress nonopioid treatment. 11/11/2024 Syringomyelia and syringobulbia (ICD-10 - G95.0) 10/19/2024 Chronic pain syndrome (ICD-10 - G89.4) 10/19/2024 Postlaminectomy syndrome, not elsewhere classified (ICD-10 - M96.1) 10/19/2024 Other spondylosis with radiculopathy, lumbosacral region (ICD-10 - M47.27) 11/11/2024 Other spondylosis with radiculopathy, lumbosacral region (ICD-10 - M47.27) 10/25/2024 Postlaminectomy syndrome, not elsewhere classified (ICD-10 - M96.1) 10/05/2024 Postlaminectomy syndrome, not elsewhere classified (ICD-10 - M96.1) 10/25/2024 Syringomyelia and syringobulbia (ICD-10 - G95.0) 11/11/2024 Postlaminectomy syndrome, not elsewhere classified (ICD-10 - M96.1) 11/11/2024 FDC (current) use of opiate analgesic (ICD-10 - Z79.891) 10/25/2024 ocean transportation intermediary (current) use of opiate analgesic (ICD-10 - Z79.891) Plan Of Treatment Future Test Test Name Order Date IPMA SCS Implant, Permanent - 04636, 636 50 11/16/2024 Insurance Providers Payer Name Payer Address Payer Phone Subscriber Number Group Number Insured Name Patient Relationship to Insured Coverage Start Date Coverage End Date [facility] [employer] [address] [address] [place] [phone] [id number] Chiqui Arias Self - patient is the insured 4
[2025-05-24 12:00] VITALS: BP 148/85; RESP 16; TEMP 37.3; O2SAT 89
--- NOTE | 2025-05-24 12:04 | XR_ITS ---
WS: [id number] Exam: XR chest 1V portable [id number] Date/Time of Exam: 05/24/2025 12:16 PM Reason For Exam: dyspnea/cough Comparison 11/25/2024. There is patchy infiltrate in the medial and mid LEFT lung zone suspicious for pneumonia. The RIGHT lung is clear. No pneumothorax or pleural effusion. Normal cardiomediastinal silhouette. Unremarkable bony structures. XR/XR chest 1V portable [id number] IMPRESSION: 1. Patchy infiltrate in the medial and mid LEFT lung suggesting pneumonia.
--- NOTE | 2025-05-24 12:04 | ECG_ITS ---
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 Measurements Intervals Broad Top Rate: 119 P: 0 WI: 0 QRS: 3 QRSD: 106 T: 32 QT: 334 QTc: 471 Interpretive Statements ATRIAL FIBRILLATION WITH RAPID VENTRICULAR RESPONSE MINIMAL ST DEPRESSION [0.025+ mV ST DEPRESSION] ABNORMAL RHYTHM ECG INTERPRETATION BASED ON A DEFAULT AGE OF 40 YEARS Compared to ECG 04/06/2025 10:12:06 ST (T wave) deviation now present Indeterminate axis no longer present Electronically Signed On 05-24-2025 18:07:35 CDT by Leonardo Nix M.D. [email or web address]
[2025-05-24 12:27] LABS: Hematocrit 44.5 % (36-47); Hemoglobin 15.30 g/dL (11.27-16.99); Mean Corpuscular HGB Conc 34.4 g/dL (30-55); Mean Corpuscular Hemoglobin 33.1 pg (27-33); Mean Corpuscular Volume 96.3 fl (85-98); Nucleated Red Blood Cells % 0 %; Platelet Count 172 10^3/cmm (157-399); Red Blood Count 4.62 10^6/uL (3.85-5.65); White Blood Count 12.05 10^3/uL (3.29-11.43)
--- NOTE | 2025-05-24 12:54 | W.ED.CHESTPA ---
HPI - Chest Pain General: Chief Complaint: Chest Pain Stated Complaint: sob high blood pressure Time Seen by Provider: 05/24/25 12:16 History of Present Illness: 74-year-old female presents to the emergency room complaining of shortness of breath elevated blood pressure. She has a history of hypertension. She normally does not use oxygen at home she is not requiring 2 L by nasal cannula when she arrived. She was saturating 88 to 89% in triage. She has had some nonproductive cough slight pressure in her chest she has a history of atrial fibrillation she is on Xarelto she taken all of her medications there heart rate is mildly elevated at the bedside. She is in A-fib. Associated symptoms: Reports palpitations; Deny abdominal pain, dyspnea or fever(s) Related Data Home Medications ?Medication ?Instructions ?Recorded ?Confirmed ascorbate calcium (vitamin C) 500 500 mg PO QAM 03/07/21 05/24/25 mg tablet kdjlaacu-[id number]-pmkpn ac 400 1 tab PO DAILY 11/29/22 05/13/25 mcg-calcium carb 500 mg-vit K1 20 mcg tablet (Women's 50 Plus Multivitamin) anastrozole 1 mg tablet 1 mg PO DAILY 02/25/25 05/24/25 Previous Rx's ?Medication ?Instructions ?Recorded nitroglycerin 0.4 mg sublingual 0.4 mg sublingual Q5M PRN chest 01/21/22 tablet (Nitrostat) pain #30 tabs Rollaid walker with seat #1 ea 10/16/23 loratadine 10 mg tablet 10 mg PO DAILY #90 tabs 10/22/23 ondansetron 4 mg disintegrating 4 mg PO Q6H PRN nausea and 02/08/24 tablet vomiting #14 tabs blood-glucose meter (Accu-Chek #1 ea 03/02/24 Guide Glucose Meter) lancets (Accu-Chek Softclix #200 ea 03/02/24 Lancets) diabetic shoes w/ 3 inserts #1 ea 06/03/24 rosuvastatin 5 mg tablet See Rx Instructions .Route 07/15/24 .COMPLEX #90 tabs pantoprazole 40 mg tablet,delayed 40 mg PO BID@0900,2200 #180 tabs 10/01/24 release ranolazine 500 mg tablet,extended See Rx Instructions .Route 10/04/24 release,12 hr .COMPLEX #180 tabs albuterol sulfate 90 mcg/actuation 1 inh inhalation QID PRN shortness 10/27/24 aerosol inhaler of breath or wheezing #6.7 grams furosemide 40 mg tablet See Rx Instructions .Route 12/27/24 .COMPLEX #180 tabs metoprolol succinate 100 mg See Rx Instructions .Route 01/31/25 tablet,extended release 24 hr .COMPLEX #90 tabs glimepiride 1 mg tablet 1 mg PO QAM #90 tabs 02/02/25 oxybutynin chloride 10 mg 10 mg PO DAILY #90 tabs 02/02/25 tablet,extended release 24 hr isosorbide mononitrate 60 mg See Rx Instructions .Route 02/16/25 tablet,extended release 24 hr .COMPLEX #90 tabs isosorbide mononitrate 30 mg See Rx Instructions .Route 02/22/25 tablet,extended release 24 hr .COMPLEX #90 tabs meloxicam 15 mg tablet See Rx Instructions .Route 02/22/25 .COMPLEX #90 tabs potassium chloride 10 mEq See Rx Instructions .Route 02/22/25 tablet,extended release .COMPLEX #180 tabs aripiprazole 10 mg tablet (Abilify) 10 mg PO DAILY #90 tabs 02/24/25 duloxetine 60 mg capsule,delayed 120 mg (2 x 60 mg) PO DAILY@0900 02/24/25 release 90 days #180 caps escitalopram oxalate 20 mg tablet See Rx Instructions .Route 02/24/25 .COMPLEX #90 tabs blood sugar diagnostic (Accu-Chek #100 ea 03/21/25 Guide test strips) trazodone 50 mg tablet 50 mg PO .qhs #30 tabs 04/06/25 hydroxyzine HCl 25 mg tablet 25 mg PO TID PRN itching #90 tabs 05/16/25 losartan 25 mg tablet 25 mg PO DAILY #30 tabs 05/16/25 rivaroxaban 10 mg tablet (Xarelto) 10 mg PO DAILY@2200 #90 tabs 05/23/25 Allergies Allergy/AdvReac Type Severity Reaction Status Date / Time amlodipine Allergy edema Verified 05/13/25 10:26 Sulfa (Sulfonamide Allergy ALGY-Difficulty Verified 05/13/25 10:26 Antibiotics) Breathing Review of Systems Const: Denies: fever(s) or chills Card: Reports: palpitations, irregular heart rhythm and dyspnea on exertion; Denies: chest pain Resp: Reports: non-productive cough; Denies: dyspnea GI: Denies: abdominal pain : Denies: dysuria, urinary frequency or urinary urgency Musc: Denies: neck pain or back pain Skin/Breast: Denies: rash PFSH ED PFSH: Medical History Invasive ductal carcinoma of right breast On combination antipsychotic drug therapy Generalized anxiety disorder Psychiatric care COPD (chronic obstructive pulmonary disease) Cardiomyopathy Chronic pain Moderate major depression GERD (gastroesophageal reflux disease) Chronic atrial fibrillation Chronic thoracic back pain Cannabis abuse Recent weight gain Encounter for weight loss counseling Discussed close follow-up due to episodes of hypoglycemia in the past when starting a weight loss program. Hypercholesterolemia ASHD (arteriosclerotic heart disease) Last angiogram with LAD 40-50 percent narrowing Primary hypertension Diabetes type 2, controlled Surgical History History of back surgery History of foot surgery H/O tubal ligation Hx of cholecystectomy H/O hernia repair History of oral surgery S/P knee replacement Hx of appendectomy H/O cataract extraction Gastric bypass status for obesity Family History Father Emphysema lung Mother COPD (chronic obstructive pulmonary disease) Brother Cancer lung nodule Emphysema lung Lung disease Chronic kidney disease (CKD) Family/Other Cancer Nephew--jaw Stroke Other CAD (coronary artery disease) Congestive heart failure (CHF) Diabetes Hyperlipidemia Hypertension Psychiatric illness Denies family history of Clotting disorder Dementia Suicide Anesthesia complication Bleeding disorder Social History Smoking and tobacco/nicotine status: former use of tobacco/nicotine Quit status (tobacco/nicotine): has quit using Alcohol intake: current Alcohol intake frequency: 3 or more drinks per day Substance/Drug Use: current Substance/Drug use frequency: daily Lives independently: Yes Household members: spouse Marital status: Number of children: 3 Current occupational status: retired and disabled Tejal/Zoroastrianism: Hindu Special tejal needs: No Physical Exam Const: GENERAL APPEARANCE: cooperative ORIENTATION/CONSCIOUSNESS: Yes awake, Yes oriented to person, Yes oriented to place and Yes oriented to time HENMT: COMMON NORMALS: normocephalic, atraumatic and hearing grossly normal bilaterally HEAD & SCALP: normocephalic and atraumatic Resp: COMMON NORMALS: normal respiratory effort, No retractions and No use of accessory muscles AUSCULTATION: rhonchi and wheezes Cardio: COMMON NORMALS: regular rate, regular rhythm and No murmurs present (Cardio) RATE: regular rate RHYTHM: regular rhythm GI: COMMON NORMALS: Soft to palpation and No hepatosplenomegaly present AUSCULTATION: Yes normoactive bowel sounds PALPATION: Yes Soft to palpation, No Tenderness to palpation present (GI), No Guarding due to palpation present (GI) and Yes No hepatosplenomegaly present Extremity: COMMON NORMALS: normal to inspection, capillary refill normal, no clubbing, cyanosis or edema, no calf tenderness and no pedal edema Neuro: SENSORIUM/ORIENTATION: Yes oriented to person, Yes oriented to place and Yes oriented to time Skin: COMMON NORMALS: no rashes or lesions noted GENERAL SKIN EXAM: no rashes or lesions noted Course Vital Signs: Vital signs: Vital Signs Temperature 99.2 F 05/24/25 12:00 Respiratory Rate 16 05/24/25 12:00 Blood Pressure 148/85 05/24/25 12:00 Pulse Oximetry 89 L 05/24/25 12:00 Oxygen Delivery Me thod Room Air 05/24/25 12:00 MDM - Chest Pain Medical Decision Making Left lower lobe pneumonia with hypoxia will admit mild leukocytosis. Cultures done antibiotics initiated ceftriaxone and Zithromax cussed with the hospitalist orders written. Initially rate was rapid with IV fluids improved. Continue regular home medications for rate control. Medical Records I reviewed the patient's medical records. Lab Data I reviewed the patient's lab results. 05/24/25 12:16 05/24/25 13:20 Radiology Impressions Chest X-Ray 05/24/25 12:04 IMPRESSION: 1. Patchy infiltrate in the medial and mid LEFT lung suggesting pneumonia. Laboratory Results WBC 12.05 10^3/uL (3.29-11.43) H 05/24/25 12:16 RBC 4.62 10^6/uL (3.85-5.65) 05/24/25 12:16 Hgb 15.30 g/dL (11.27-16.99) 05/24/25 12:16 Hct 44.5 % (36-47) 05/24/25 12:16 MCV 96.3 fl (85-98) 05/24/25 12:16 MCH 33.1 pg (27-33) H 05/24/25 12:16 MCHC 34.4 g/dL (30-55) 05/24/25 12:16 RDW 13.0 % (12.1-15.1) 05/24/25 12:16 Plt Count 172 10^3/cmm (157-399) 05/24/25 12:16 MPV 11.0 fL (7.4-10.4) H 05/24/25 12:16 Neut % (Auto) 90.1 % 05/24/25 12:16 Lymph % (Auto) 5.1 % 05/24/25 12:16 [place] % (Auto) 4.1 % 05/24/25 12:16 Eos % (Auto) 0.2 % 05/24/25 12:16 Baso % (Auto) 0.2 % 05/24/25 12:16 Neut # (Auto) 10.84 10^3/uL (1.8-7.7) H 05/24/25 12:16 Lymph # (Auto) 0.6 10^3/uL (0.8-4.8) L 05/24/25 12:16 [place] # (Auto) 0.5 10^3/uL (0.2-0.9) 05/24/25 12:16 Eos # (Auto) 0.0 10^3/uL (0.0-0.8) 05/24/25 12:16 Baso # (Auto) 0.0 10^3/uL (0.0-0.1) 05/24/25 12:16 Nucleated RBC % (auto) 0 % 05/24/25 12:16 Nucleated RBCs # 0.0 /100WBC 05/24/25 12:16 Sodium 139 mmol/L (136-145) 05/24/25 13:20 Potassium 4.2 mmol/L (3.5-5.1) 05/24/25 13:20 Chloride 101 mmol/L (98-107) 05/24/25 13:20 Carbon Dioxide 23 mmol/L (22-29) 05/24/25 13:20 Anion Gap 19.2 (5-19) H 05/24/25 13:20 BUN 12 mg/dL (8-23) 05/24/25 13:20 Creatinine 0.7 mg/dL (0.5-0.9) 05/24/25 13:20 GFR Calculation Not Reportable 05/24/25 13:20 Glucose 199 mg/dL (65-115) H 05/24/25 13:20 Calculated Osmolality 293 mOsm/kg (285-295) 05/24/25 13:20 Lactic Acid 2.2 mmol/L (0.5-2.2) 05/24/25 13:23 Calcium 9.4 mg/dL (8.5-10.5) 05/24/25 13:20 Total Bilirubin 0.7 mg/dL (0.15-1.2) 05/24/25 13:20 AST 19 U/L (0-32) 05/24/25 13:20 ALT 12 U/L (0-33) 05/24/25 13:20 Alkaline Phosphatase 73 U/L (35-105) 05/24/25 13:20 Total Protein 6.6 g/dL (6.6-8.7) 05/24/25 13:20 Albumin 3.9 g/dL (3.5-5.2) 05/24/25 13:20 Globulin 2.7 g/dL (1.3-4.6) 05/24/25 13:20 Urine Color Yellow (Yellow) 05/24/25 14:52 Urine Appearance Clear (CLEAR) 05/24/25 14:52 Urine pH 5.5 (5-7) 05/24/25 14:52 Ur Specific [place] 1.015 (1.005-1.030) 05/24/25 14:52 Urine Protein Negative (Negative) 05/24/25 14:52 Urine Glucose (UA) Negative (Normal) 05/24/25 14:52 Urine Ketones 2+ (Negative) H 05/24/25 14:52 Urine Blood Negative (Negative) 05/24/25 14:52 Urine Nitrate Negative (Negative) 05/24/25 14:52 Urine Bilirubin Negative (Negative) 05/24/25 14:52 Urine Urobilinogen 0.2 mg/dL (Negative) 05/24/25 14:52 Ur Leukocyte Esterase Negative (Negative) 05/24/25 14:52 Urine RBC 0-2 /hpf (0-2) 05/24/25 14:52 Urine WBC 0-5 /hpf (0-5) 05/24/25 14:52 Ur Squamous Epith Cells 0-5 /hpf (0-5) 05/24/25 14:52 Amorphous Sediment Not Reportable 05/24/25 14:52 Urine Bacteria None seen /hpf (NONE) 05/24/25 14:52 Hyaline Casts 0-4 /lpf H 05/24/25 14:52 All radiology interpretation(s) finalized by discharge EKG Data EKG 1: Interpretation: EKG 05/24/2025 A-fib rate of 119 QTc 471. Discharge Plan Discharge Patient Disposition: Admitted As Inpatient Clinical Impression: Left lower lobe pneumonia, Diabetes type 2, controlled, Chronic atrial fibrillation Condition: Stable Coding Level of Care Code ED [employer] In[employer] for Hattie Toro
[2025-05-24 13:49] LABS: Lactic Sepsis W/Reflex 2.2 mmol/L (0.5-2.2)
[2025-05-24 13:52] LABS: Alanine Aminotransferase 12 U/L (0-33); Albumin Level 3.9 g/dL (3.5-5.2); Alkaline Phosphatase 73 U/L (35-105); Aspartate Amino Transferase 19 U/L (0-32); Blood Urea Nitrogen 12 mg/dL (8-23); Calcium 9.4 mg/dL (8.5-10.5); Carbon Dioxide 23 mmol/L (22-29); Chloride 101 mmol/L (98-107); Creatinine Clr Calc Pharmacy 67.8073; Globulin 2.7 g/dL (1.3-4.6); Glucose 199 mg/dL (65-115); Osmolality Calculated 293 mOsm/kg (285-295); Sodium 139 mmol/L (136-145); Total Protein 6.6 g/dL (6.6-8.7)
[2025-05-24 14:05] LABS: Anion Gap 19.2 (5-19); Potassium 4.2 mmol/L (3.5-5.1)
[2025-05-24] MEDS: cefTRIAXone 1,000 mg SDV 1000 MG IVP (14:32)
[2025-05-24 15:01] LABS: Glucose Urine UA Negative (Normal); Nitrate Urine Negative (Negative); Specific Gravity, Urine 1.015 (1.005-1.030)
[2025-05-24 15:03] LABS: Add Urine Microscopic? YES
--- NOTE | 2025-05-24 15:05 | PM.HP ---
Providers/Chief Complaint Primary Care Provider: Bobby Ingram MD Chief Complaint: sob high blood pressure History of Present Illness Chiqui Arias is a 74 year old female With past medical history of diabetes mellitus, hypertension, breast cancer previously on radiation, atrial fibrillation, GERD, depression, CAD presented to the hospital today for complaint of weakness and tiredness. Denies fever. Not on any oxygen at home however at this time requiring nasal cannula 2 L. States had a lot of phlegm from upper airway. Denies nausea vomiting diarrhea. Son is at bedside. In ER was noted to be in A-fib with RVR. At the time of my evaluation patient has rate controlled. Medications/Allergies Home Medications ?Medication ?Instructions ?Recorded ?Confirmed ?Last Taken ?Type ascorbate calcium (vitamin C) 500 500 mg PO QAM 03/07/21 05/24/25 05/24/25 09:00 History mg tablet nitroglycerin 0.4 mg sublingual 0.4 mg sublingual Q5M PRN chest 01/21/22 05/24/25 Unknown Rx tablet (Nitrostat) pain #30 tabs dlluxygv-vay-pgqci ac 400 1 tab PO DAILY 11/29/22 05/24/25 05/24/25 09:00 History mcg-calcium carb 500 mg-vit K1 20 mcg tablet (Women's 50 Plus Multivitamin) Rollaid walker with seat #1 ea 10/16/23 05/24/25 Unknown Rx loratadine 10 mg tablet 10 mg PO DAILY #90 tabs 10/22/23 05/24/25 05/24/25 09:00 Rx blood-glucose meter (Accu-Chek #1 ea 03/02/24 05/24/25 Unknown Rx Guide Glucose Meter) lancets (Accu-Chek Softclix #200 ea 03/02/24 05/24/25 Unknown Rx Lancets) diabetic shoes w/ 3 inserts #1 ea 06/03/24 05/24/25 Unknown Rx rosuvastatin 5 mg tablet See Rx Instructions .Route 07/15/24 05/24/25 05/24/25 09:00 Rx .COMPLEX #90 tabs pantoprazole 40 mg tablet,delayed 40 mg PO BID@0900,2200 #180 tabs 10/01/24 05/24/25 05/24/25 09:00 Rx release ranolazine 500 mg tablet,extended See Rx Instructions .Route 10/04/24 05/24/25 05/24/25 09:00 Rx release,12 hr .COMPLEX #180 tabs albuterol sulfate 90 mcg/actuation 1 inh inhalation QID PRN shortness 10/27/24 05/24/25 05/24/25 08:00 Rx aerosol inhaler of breath or wheezing #6.7 grams furosemide 40 mg tablet See Rx Instructions .Route 12/27/24 05/24/25 05/24/25 09:00 Rx .COMPLEX #180 tabs metoprolol succinate 100 mg See Rx Instructions .Route 01/31/25 05/24/25 05/24/25 09:00 Rx tablet,extended release 24 hr .COMPLEX #90 tabs glimepiride 1 mg tablet 1 mg PO QAM #90 tabs 02/02/25 05/24/25 05/24/25 09:00 Rx oxybutynin chloride 10 mg 10 mg PO DAILY #90 tabs 02/02/25 05/24/25 05/24/25 09:00 Rx tablet,extended release 24 hr isosorbide mononitrate 60 mg See Rx Instructions .Route 02/16/25 05/24/25 05/24/25 09:00 Rx tablet,extended release 24 hr .COMPLEX #90 tabs meloxicam 15 mg tablet See Rx Instructions .Route 02/22/25 05/24/25 05/23/25 Rx .COMPLEX #90 tabs potassium chloride 10 mEq See Rx Instructions .Route 02/22/25 05/24/25 05/24/25 Rx tablet,extended release .COMPLEX #180 tabs aripiprazole 10 mg tablet (Abilify) 10 mg PO DAILY #90 tabs 02/24/25 05/24/25 05/24/25 09:00 Rx duloxetine 60 mg capsule,delayed 120 mg (2 x 60 mg) PO DAILY@0900 02/24/25 05/24/25 05/24/25 09:00 Rx release 90 days #180 caps escitalopram oxalate 20 mg tablet See Rx Instructions .Route 02/24/25 05/24/25 05/24/25 09:00 Rx .COMPLEX #90 tabs anastrozole 1 mg tablet 1 mg PO DAILY 02/25/25 05/24/25 05/24/25 09:00 History blood sugar diagnostic (Accu-Chek #100 ea 03/21/25 05/24/25 Unknown Rx Guide test strips) trazodone 50 mg tablet 50 mg PO .qhs #30 tabs 04/06/25 05/24/25 05/23/25 20:00 Rx hydroxyzine HCl 25 mg tablet 25 mg PO TID PRN itching #90 tabs 05/16/25 05/24/25 05/24/25 Rx losartan 25 mg tablet 25 mg PO DAILY #30 tabs 05/16/25 05/24/25 05/23/25 09:00 Rx rivaroxaban 10 mg tablet (Xarelto) 10 mg PO DAILY@2200 #90 tabs 05/23/25 05/24/25 05/23/25 22:00 Rx isosorbide mononitrate 30 mg 30 mg PO QPM 05/24/25 05/24/25 05/23/25 19:00 History tablet,extended release 24 hr Allergies Allergy/AdvReac Type Severity Reaction Status Date / Time amlodipine Allergy edema Verified 05/13/25 10:26 Sulfa (Sulfonamide Allergy ALGY-Difficulty Verified 05/13/25 10:26 Antibiotics) Breathing PFSH Acute PFSH: Medical History (Updated 05/24/25 @ 15:16 by Mendoza Corona DO) Invasive ductal carcinoma of right breast On combination antipsychotic drug therapy Generalized anxiety disorder Psychiatric care COPD (chronic obstructive pulmonary disease) Cardiomyopathy Chronic pain Moderate major depression GERD (gastroesophageal reflux disease) Chronic atrial fibrillation Chronic thoracic back pain Cannabis abuse Recent weight gain Encounter for weight loss counseling Discussed close follow-up due to episodes of hypoglycemia in the past when starting a weight loss program. Hypercholesterolemia ASHD (arteriosclerotic heart disease) Last angiogram with LAD 40-50 percent narrowing Primary hypertension Diabetes type 2, controlled Surgical History History of back surgery History of foot surgery H/O tubal ligation Hx of cholecystectomy H/O hernia repair History of oral surgery S/P knee replacement Hx of appendectomy H/O cataract extraction Gastric bypass status for obesity Family History Father Emphysema lung Mother COPD (chronic obstructive pulmonary disease) Brother Cancer lung nodule Emphysema lung Lung disease Chronic kidney disease (CKD) Family/Other Cancer Nephew--jaw Stroke Other CAD (coronary artery disease) Congestive heart failure (CHF) Diabetes Hyperlipidemia Hypertension Psychiatric illness Denies family history of Clotting disorder Dementia Suicide Anesthesia complication Bleeding disorder Social History Smoking and tobacco/nicotine status: former use of tobacco/nicotine Quit status (tobacco/nicotine): has quit using Alcohol intake: current Alcohol intake frequency: 3 or more drinks per day Substance/Drug Use: current Substance/Drug use frequency: daily Lives independently: Yes Household members: spouse Marital status: Number of children: 3 Current occupational status: retired and disabled Tejal/Methodist: Rastafarian Special tejal needs: No Vitals/I&O/Wt Last Vital Signs Temp 99.2 F 05/24/25 12:00 Resp 16 05/24/25 12:00 BP 148/85 05/24/25 12:00 Pulse Ox 89 L 05/24/25 12:00 O2 Del Method Room Air 05/24/25 12:00 Weight last 48 hrs Weight 87.09 kg Physical Exam Narrative: General: Alert oriented x3, patient seen laying in bed appearing comfortable at this time no acute distress no conversational dyspnea, son at bedside. On 2 L nasal cannula at this time. HEENT: Normocephalic, atraumatic, EOMI, Cardio: Irregularly irregular, no tachycardia, normal S1-S2 Respiratory: Clear to auscultation bilaterally no wheezing or rhonchi. Diminished at bases. GI: Abdomen soft, nontender, bowel sounds + Extremities: 1+ edema bilateral remedies, patient wearing compression stockings. Data 05/25/25 04:41 05/25/25 04:41 Micro: Microbiology 05/24/25 13:20 Blood Culture - Preliminary Blood SPECIMEN COLLECTED 05/24/25 13:15 Blood Culture - Preliminary Blood SPECIMEN COLLECTED A&P Assessment and plan 1. Left lower lobe pneumonia: 2. Moderate major depression: 3. Generalized anxiety disorder: 4. Primary hypertension: 5. Heart failure with reduced ejection fraction and diastolic dysfunction: 6. Chronic atrial fibrillation: 7. Coronary artery disease: 8. Diabetes type 2, controlled: 9. GERD (gastroesophageal reflux disease): 10. COPD (chronic obstructive pulmonary disease): 11. Hypercholesterolemia: 12. Overactive bladder: Plan: #Community acquired pneumonia #Supplemental oxygen requirement #Afib RVR #CAD #Diabetes mellitus type 2 #Hypertension #History of breast cancer status post radiation #GERD # Chronic pain #Generalized anxiety disorder #COPD - Continue anastrozole, duloxetine, escitalopram and Imdur, losartan, metoprolol succinate ? Continue pantoprazole 40 twice daily, hydralazine, rivaroxaban, rosuvastatin ? Wean off oxygen as able ? Placed on ceftriaxone azithromycin - Check blood cultures, sputum culture Gram stain ?continue on telemetry - chest xray shows pneumonia - afib now controlled, continue metoprolol - confirm home meds, once confirmed, above to be restarted. nursing staff to confirm meds. full code dvt: on xarelto PDMP PDMP Reviewed: Not Reviewed Attestations Medical Necessity Statement*: > 2 midnight stay for pneumonia Diagnoses Left lower lobe pneumonia J18.9 Moderate major depression F32.1 Generalized anxiety disorder F41.1 Primary hypertension I10 Hypertension type: primary hypertension Heart failure with reduced ejection fraction and diastolic dysfunction I50.40 Chronic atrial fibrillation I48.20 Coronary artery disease I25.10 Diabetes type 2, controlled E11.9 GERD (gastroesophageal reflux disease) K21.9 COPD (chronic obstructive pulmonary disease) J44.9 Hypercholesterolemia E78.00 Overactive bladder N32.81
[2025-05-24 15:13] LABS: Reflex Lactate Order REFLEX LACTIC ORDERD
[2025-05-24 15:29] LABS: Estmated Average Glucose 111; Hemoglobin A1C 5.5 % (4.0-6.0)
[2025-05-24 15:38] LABS: NT Pro B Type Natriuretic Pept 2051 pg/mL (0-450); Procalcitonin 0.29 ng/mL (0-0.5); Thyroid Stimulating Hormone 1.28 uIU/mL (0.27-4.20)
[2025-05-24 15:58] LABS: Respiratory Syncytial Virus Ce NEGATIVE (Negative); SARS-CoV-2 PCR NEGATIVE (Negative)
[2025-05-24 16:41] LABS: Lactic Acid level (Lactate) 2.1 mmol/L (0.5-2.2)
[2025-05-24 20:00] VITALS: BP 108/67; PULSE 61; RESP 17; TEMP 36.7; O2SAT 90
[2025-05-24 22:00] VITALS: PULSE 59
[2025-05-25] VITALS (7 sets, daily range): BP systolic 98–157; BP diastolic 57–79; PULSE 56–74; RESP 14–17; TEMP 36.4–36.8; O2SAT 91–97
[2025-05-25 05:20] LABS: Hematocrit 36.0 % (36-47); Hemoglobin 12.40 g/dL (11.27-16.99); Mean Corpuscular HGB Conc 34.4 g/dL (30-55); Mean Corpuscular Hemoglobin 33.4 pg (27-33); Mean Corpuscular Volume 97.0 fl (85-98); Nucleated Red Blood Cells % 0 %; Platelet Count 100 10^3/cmm (157-399); Red Blood Count 3.71 10^6/uL (3.85-5.65); White Blood Count 9.81 10^3/uL (3.29-11.43)
[2025-05-25 05:49] LABS: Alanine Aminotransferase 9 U/L (0-33); Albumin Level 3.3 g/dL (3.5-5.2); Alkaline Phosphatase 58 U/L (35-105); Aspartate Amino Transferase 15 U/L (0-32); Blood Urea Nitrogen 13 mg/dL (8-23); Calcium 8.4 mg/dL (8.5-10.5); Carbon Dioxide 25 mmol/L (22-29); Chloride 101 mmol/L (98-107); Creatinine Clr Calc Pharmacy 59.7554; Globulin 1.7 g/dL (1.3-4.6); Glucose 66 mg/dL (65-115); Magnesium 1.7 mg/dL (1.7-2.3); Osmolality Calculated 284 mOsm/kg (285-295); Sodium 138 mmol/L (136-145); Total Protein 5.0 g/dL (6.6-8.7)
[2025-05-25 05:54] LABS: Anion Gap 15.6 (5-19); Potassium 3.6 mmol/L (3.5-5.1)
[2025-05-25 05:59] LABS: Slide Review Slide Review Perform
[2025-05-25] MEDS: cefTRIAXone 1,000 mg SDV 1000 MG IVP (09:50)
[2025-05-25] MEDS: ranolazine (12HR) 500 mg Tablet PO (09:52)
--- NOTE | 2025-05-25 11:36 | P.DS_ITS ---
Discharge Providers Date of Admission: 05/24/25 16:06 Date of Discharge: May 25, 2025 Attending Provider at Admission: Anjana Hernandez MD Attending Provider at Discharge: Anjana Hernandez MD Primary Care Provider: Bobby Ingram MD Diagnoses at Discharge Discharge Diagnosis 1. Left lower lobe pneumonia: 2. Moderate major depression: 3. Generalized anxiety disorder: 4. Primary hypertension: 5. Heart failure with reduced ejection fraction and diastolic dysfunction: 6. Chronic atrial fibrillation: 7. Coronary artery disease: 8. Controlled type 2 diabetes mellitus with hyperglycemia, without long-term current use of insulin: 9. GERD (gastroesophageal reflux disease): 10. COPD (chronic obstructive pulmonary disease): 11. Hypercholesterolemia: 12. Overactive bladder: Reason for Visit Reason for Visit: sob high blood pressure Hospital Course Hospital Course Presented to the hospital for A-fib with RVR and was found to have community- acquired pneumonia. Treated with IV antibiotics. Patient was requiring oxygen upon admission however was on room air after she went to the floor. She did really well and was discharged home on antibiotics orally. Patient to be discharged home in stable condition at this time to follow-up with primary care doctor as an outpatient. Physical Exam Narrative: General: Alert oriented x3, patient seen laying in bed appearing comfortable at this time no acute distress no conversational dyspnea, son at bedside. On 2 L nasal cannula at this time. HEENT: Normocephalic, atraumatic, EOMI, Cardio: Rate controlled, no tachycardia, normal S1-S2 Respiratory: Clear to auscultation bilaterally no wheezing or rhonchi. Diminished at bases. GI: Abdomen soft, nontender, bowel sounds + Extremities: 1+ edema bilateral remedies, patient wearing compression stockings. Discharge Data Studies Completed and Pending Completed Studies During Hospitalization Category Date Time Status XR chest 1V portable [id number] Stat Exams 05/24/25 12:04 Completed Pending at discharge Category Date Time Status Blood Culture Stat Lab 05/24/25 13:20 Results Sputum Culture and Gram Stain Stat Lab 05/24/25 14:59 Uncollected Radiology Impressions Chest X-Ray 05/24/25 12:04 IMPRESSION: 1. Patchy infiltrate in the medial and mid LEFT lung suggesting pneumonia. Laboratory Results WBC 9.81 10^3/uL (3.29-11.43) 05/25/25 04:41 RBC 3.71 10^6/uL (3.85-5.65) L 05/25/25 04:41 Hgb 12.40 g/dL (11.27-16.99) 05/25/25 04:41 Hct 36.0 % (36-47) 05/25/25 04:41 MCV 97.0 fl (85-98) 05/25/25 04:41 MCH 33.4 pg (27-33) H 05/25/25 04:41 MCHC 34.4 g/dL (30-55) 05/25/25 04:41 RDW 13.2 % (12.1-15.1) 05/25/25 04:41 Plt Count 100 10^3/cmm (157-399) L D 05/25/25 04:41 MPV 11.0 fL (7.4-10.4) H 05/25/25 04:41 Neut % (Auto) 73.6 % 05/25/25 04:41 Lymph % (Auto) 17.4 % 05/25/25 04:41 [place] % (Auto) 6.3 % 05/25/25 04:41 Eos % (Auto) 2.0 % 05/25/25 04:41 Baso % (Auto) 0.4 % 05/25/25 04:41 Neut # (Auto) 7.21 10^3/uL (1.8-7.7) 05/25/25 04:41 Lymph # (Auto) 1.7 10^3/uL (0.8-4.8) 05/25/25 04:41 [place] # (Auto) 0.6 10^3/uL (0.2-0.9) 05/25/25 04:41 Eos # (Auto) 0.2 10^3/uL (0.0-0.8) 05/25/25 04:41 Baso # (Auto) 0.0 10^3/uL (0.0-0.1) 05/25/25 04:41 Nucleated RBC % (auto) 0 % 05/25/25 04:41 Nucleated RBCs # 0.0 /100WBC 05/25/25 04:41 Sodium 138 mmol/L (136-145) 05/25/25 04:41 Potassium 3.6 mmol/L (3.5-5.1) 05/25/25 04:41 Chloride 101 mmol/L (98-107) 05/25/25 04:41 Carbon Dioxide 25 mmol/L (22-29) 05/25/25 04:41 Anion Gap 15.6 (5-19) 05/25/25 04:41 BUN 13 mg/dL (8-23) 05/25/25 04:41 Creatinine 0.9 mg/dL (0.5-0.9) 05/25/25 04:41 GFR Calculation Not Reportable 05/25/25 04:41 Glucose 66 mg/dL (65-115) 05/25/25 04:41 POC Glucose 125 mg/dL (70-110) H 05/25/25 11:28 Estimat Average Glucose 111 05/24/25 12:16 Hemoglobin A1c 5.5 % (4.0-6.0) 05/24/25 12:16 Calculated Osmolality 284 mOsm/kg (285-295) L 05/25/25 04:41 Lactic Acid 2.2 mmol/L (0.5-2.2) 05/24/25 13:23 Lactic Acid (Sepsis) 2.1 mmol/L (0.5-2.2) 05/24/25 16:06 Calcium 8.4 mg/dL (8.5-10.5) L 05/25/25 04:41 Magnesium 1.7 mg/dL (1.7-2.3) 05/25/25 04:41 Total Bilirubin 0.6 mg/dL (0.15-1.2) 05/25/25 04:41 AST 15 U/L (0-32) 05/25/25 04:41 ALT 9 U/L (0-33) 05/25/25 04:41 Alkaline Phosphatase 58 U/L (35-105) 05/25/25 04:41 NT-Pro-B Natriuret Pep 2051 pg/mL (0-450) H 05/24/25 13:20 Total Protein 5.0 g/dL (6.6-8.7) L D 05/25/25 04:41 Albumin 3.3 g/dL (3.5-5.2) L 05/25/25 04:41 Globulin 1.7 g/dL (1.3-4.6) 05/25/25 04:41 Procalcitonin 0.29 ng/mL (0-0.5) 05/24/25 13:20 TSH 1.28 uIU/mL (0.27-4.20) 05/24/25 13:20 Urine Color Yellow (Yellow) 05/24/25 14:52 Urine Appearance Clear (CLEAR) 05/24/25 14:52 Urine pH 5.5 (5-7) 05/24/25 14:52 Ur Specific [place] 1.015 (1.005-1.030) 05/24/25 14:52 Urine Protein Negative (Negative) 05/24/25 14:52 Urine Glucose (UA) Negative (Normal) 05/24/25 14:52 Urine Ketones 2+ (Negative) H 05/24/25 14:52 Urine Blood Negative (Negative) 05/24/25 14:52 Urine Nitrate Negative (Negative) 05/24/25 14:52 Urine Bilirubin Negative (Negative) 05/24/25 14:52 Urine Urobilinogen 0.2 mg/dL (Negative) 05/24/25 14:52 Ur Leukocyte Esterase Negative (Negative) 05/24/25 14:52 Urine RBC 0-2 /hpf (0-2) 05/24/25 14:52 Urine WBC 0-5 /hpf (0-5) 05/24/25 14:52 Ur Squamous Epith Cells 0-5 /hpf (0-5) 05/24/25 14:52 Amorphous Sediment Not Reportable 05/24/25 14:52 Urine Bacteria None seen /hpf (NONE) 05/24/25 14:52 Hyaline Casts 0-4 /lpf H 05/24/25 14:52 Influenza A (PCR) Negative (Negative) 05/24/25 13:15 Influenza Type B (PCR) Negative (Negative) 05/24/25 13:15 RSV (PCR) Negative (Negative) 05/24/25 13:15 SARS-CoV-2 (PCR) Negative (Negative) 05/24/25 13:15 Vitals Last Vital Signs Temp 98.0 F 05/25/25 07:57 Pulse 64 05/25/25 07:57 Resp 16 05/25/25 07:57 BP 119/72 05/25/25 09:49 Pulse Ox 91 05/25/25 07:57 O2 Del Method Room Air 05/25/25 04:00 O2 Flow Rate 2 05/24/25 20:00 Discharge Plan Discharge Patient Disposition: Home Condition: Stable Prescriptions: New azithromycin 250 mg Tablet 500 mg PO DAILY Qty: 7 0RF cefdinir 300 mg capsule 300 mg PO BID Qty: 14 0RF metoprolol succinate 50 mg tablet extended release 24 hr 50 mg PO DAILY Qty: 30 0RF Continued ascorbate calcium (vitamin C) 500 mg tablet 500 mg PO QAM (DME) diabetic shoes w/ 3 inserts See Rx Instructions .Route .MEDSUPPLY Qty: 1 0RF Rx Instructions: As directed by the jason dobson albuterol sulfate 90 mcg/actuation HFA aerosol inhaler 1 inh inhalation QID PRN (Reason: shortness of breath or wheezing) Qty: 6.7 4RF anastrozole 1 mg tablet 1 mg PO DAILY nitroglycerin [Nitrostat] 0.4 mg tablet, sublingual 0.4 mg SUBLINGUAL Q5M PRN (Reason: chest pain) Qty: 30 3RF (DME) Rollaid walker with seat See Rx Instructions .Route .MEDSUPPLY Qty: 1 0RF Rx Instructions: As directed loratadine 10 mg tablet 10 mg PO DAILY Qty: 90 0RF (DME) blood-glucose meter [Accu-Chek Guide Glucose Meter] Misc See Rx Instructions .Route Qty: 1 3RF Rx Instructions: As directed. check 3x/day (DME) lancets [Accu-Chek Softclix Lancets] Misc See Rx Instructions .Route Qty: 200 5RF Rx Instructions: use 3 times/day rosuvastatin 5 mg tablet See Rx Instructions .ROUTE .COMPLEX Qty: 90 3RF Dose Instruction: TAKE 1 TABLET BY MOUTH EVERY DAY AT 9 AM Rx Instructions: TAKE 1 TABLET BY MOUTH EVERY DAY AT 9 AM pantoprazole 40 mg tablet,delayed release (DR/EC) 40 mg PO BID@0900,2200 Qty: 180 3RF ranolazine 500 mg tablet extended release 12 hr See Rx Instructions .ROUTE .COMPLEX Qty: 180 3RF Dose Instruction: TAKE 1 TABLET BY MOUTH TWICE A DAY AT 9AM AND 10PM Rx Instructions: TAKE 1 TABLET BY MOUTH TWICE A DAY AT 9AM AND 10PM furosemide 40 mg tablet See Rx Instructions .ROUTE .COMPLEX Qty: 180 3RF Dose Instruction: TAKE 1 TABLET BY MOUTH DAILY IN THE MORNING, MAY TAKE AN EXTRA DOSE DAILY IF NEEDED FOR WEIGHT GAIN Rx Instructions: TAKE 1 TABLET BY MOUTH DAILY IN THE MORNING, MAY TAKE AN EXTRA DOSE DAILY IF NEEDED FOR WEIGHT GAIN oxybutynin chloride 10 mg tablet extended release 24hr 10 mg PO DAILY Qty: 90 1RF glimepiride 1 mg tablet 1 mg PO QAM Qty: 90 1RF Rx Instructions: administer with breakfast isosorbide mononitrate 60 mg tablet extended release 24 hr See Rx Instructions .ROUTE .COMPLEX Qty: 90 3RF Dose Instruction: TAKE 1 TABLET BY MOUTH EVERY DAY Rx Instructions: TAKE 1 TABLET BY MOUTH EVERY DAY meloxicam 15 mg tablet See Rx Instructions .ROUTE .COMPLEX Qty: 90 0RF Dose Instruction: TAKE 1 TABLET BY MOUTH EVERY DAY Rx Instructions: TAKE 1 TABLET BY MOUTH EVERY DAY potassium chloride 10 mEq tablet extended release See Rx Instructions .ROUTE .COMPLEX Qty: 180 3RF Dose Instruction: TAKE 2 TABLETS BY MOUTH EVERY MORNING *TAKE ADDITIONAL DOSE W/FUROSEMIDE NEEDED FOR WT GAIN >3LBS Rx Instructions: TAKE 2 TABLETS BY MOUTH EVERY MORNING *TAKE ADDITIONAL DOSE W/FUROSEMIDE NEEDED FOR WT GAIN >3LBS aripiprazole [Abilify] 10 mg tablet 10 mg PO DAILY Qty: 90 0RF escitalopram oxalate 20 mg tablet See Rx Instructions .ROUTE .COMPLEX Qty: 90 0RF Dose Instruction: TAKE 1 TABLET BY MOUTH EVERY DAY Rx Instructions: TAKE 1 TABLET BY MOUTH EVERY DAY duloxetine 60 mg capsule,delayed release(DR/EC) 120 mg PO DAILY@0900 90 Days Qty: 180 0RF (DME) Accu-Chek Guide test strips Strip See Rx Instructions .Route Qty: 100 8RF Rx Instructions: check glucose 3 times/day trazodone 50 mg tablet 50 mg PO .qhs Qty: 30 2RF hydroxyzine HCl 25 mg tablet 25 mg PO TID PRN (Reason: itching) Qty: 90 1RF losartan 25 mg tablet 25 mg PO DAILY Qty: 30 1RF Xarelto 10 mg tablet 10 mg PO DAILY@2200 Qty: 90 0RF Women's 50 Plus Multivitamin 400 mcg-500 mg calcium-20 mcg Tablet 1 tab PO DAILY isosorbide mononitrate 30 mg tablet extended release 24 hr 30 mg PO QPM Discontinued metoprolol succinate 100 mg tablet extended release 24 hr See Rx Instructions .ROUTE .COMPLEX Qty: 90 2RF Dose Instruction: TAKE 1 TABLET BY MOUTH EVERY DAY AT 9.A.M Rx Instructions: TAKE 1 TABLET BY MOUTH EVERY DAY AT 9.A.M Discharge Order = DC NOW: Discharge Order (Routine); Ordered 05/25/25 Ordered By: Anjana Hernandez Referrals: Bobby Ingram MD [Primary Care Provider, [facility]] - 07/05/25 9:30 am Referral Note: Discharge Diet: Cardiac Discharge Activity: Resume usual activity Patient Instructions: Metoprolol (By mouth), Azithromycin (By mouth), Cefdinir (By mouth), Opioid Safety, Pneumonia Stoplight, Patient Portal & Davi Instructions Discharge Attestations Time Spent in Discharge Care*: less than 30 min Quality Metrics Clinical Quality Measures [ No reported AMI, CVA or VTE this stay] Coding Level of Care Code Acute Code for Chg Fwd Diagnoses Left lower lobe pneumonia J18.9 Moderate major depression F32.1 Generalized anxiety disorder F41.1 Primary hypertension I10 Hypertension type: primary hypertension Heart failure with reduced ejection fraction and diastolic dysfunction I50.40 Chronic atrial fibrillation I48.20 Coronary artery disease I25.10 Controlled type 2 diabetes mellitus with hyperglycemia, without long-term current use of insulin E11.9 GERD (gastroesophageal reflux disease) K21.9 COPD (chronic obstructive pulmonary disease) J44.9 COPD type: unspecified COPD Hypercholesterolemia E78.00 Overactive bladder N32.81
== END 2025-05-25 14:30 | disposition home or self-care (01) | DRG 194 ==
LOC: ER 15:16 → MEDSURG 16:06
PROVIDERS: Admitting Provider Internal Medicine; Emergency Provider Family Medicine; PCP Family Medicine; Visit Provider Internal Medicine
DX: J18.9 Pneumonia, unspecified organism (principal); I42.9 Cardiomyopathy, unspecified; I48.20 Chronic atrial fibrillation, unspecified; J44.0 Chronic obstructive pulmonary disease with (acute) lower respiratory infection; I50.40 Unspecified combined systolic (congestive) and diastolic (congestive) heart failure; F32.9 Major depressive disorder, single episode, unspecified; F41.1 Generalized anxiety disorder; I11.0 Hypertensive heart disease with heart failure; I25.10 Atherosclerotic heart disease of native coronary artery without angina pectoris; E11.65 Type 2 diabetes mellitus with hyperglycemia; K21.9 Gastro-esophageal reflux disease without esophagitis; E78.00 Pure hypercholesterolemia, unspecified; N32.81 Overactive bladder; C50.911 Malignant neoplasm of unspecified site of right female breast; G89.29 Other chronic pain; M54.6 Pain in thoracic spine; Z79.811 Long term (current) use of aromatase inhibitors; Z79.84 Long term (current) use of oral hypoglycemic drugs; Z79.891 Long term (current) use of opiate analgesic; Z79.01 Long term (current) use of anticoagulants; Z92.3 Personal history of irradiation; Z87.891 Personal history of nicotine dependence; Z98.84 Bariatric surgery status
CPT/HCPCS: 36415; 36416; 71045; 80053; 81001; 82962; 83036; 83605; 83735; 83880; 84145; 84443; 85025; 86403; 87040; 87449; 87637; 93005; 96365; 96375; 99285; J0456; J0696; J7040; J7050; J9999; Q0144

== ENCOUNTER 2025-06-09 14:00 | Oncology outpatient (recurring) (ONCR) | payer MEDICARE, SELFPAY ==
[2025-06-06 10:46] LABS: Hematocrit 41.6 % (36-47); Hemoglobin 14.00 g/dL (11.27-16.99); Mean Corpuscular HGB Conc 33.7 g/dL (30-55); Mean Corpuscular Hemoglobin 32.6 pg (27-33); Mean Corpuscular Volume 97.0 fl (85-98); Nucleated Red Blood Cells % 0 %; Platelet Count 175 10^3/cmm (157-399); Red Blood Count 4.29 10^6/uL (3.85-5.65); White Blood Count 6.64 10^3/uL (3.29-11.43)
[2025-06-06 11:03] LABS: Alanine Aminotransferase 11 U/L (0-33); Albumin Level 3.9 g/dL (3.5-5.2); Alkaline Phosphatase 64 U/L (35-105); Anion Gap 16.3 (5-19); Aspartate Amino Transferase 19 U/L (0-32); Blood Urea Nitrogen 11 mg/dL (8-23); Calcium 9.4 mg/dL (8.5-10.5); Carbon Dioxide 28 mmol/L (22-29); Chloride 99 mmol/L (98-107); Globulin 2.5 g/dL (1.3-4.6); Glucose 156 mg/dL (65-115); Osmolality Calculated 291 mOsm/kg (285-295); Potassium 4.3 mmol/L (3.5-5.1); Sodium 139 mmol/L (136-145); Total Protein 6.4 g/dL (6.6-8.7)
--- NOTE | 2025-06-09 14:00 | XR_ITS ---
WS: [id number] SCREENING DEXA SCAN [employer] CLINICAL INFORMATION: AI use COMPARISON: None. FINDINGS: The LEFT forearm bone mineral density measures 0.63. This corresponds to a T score score of -2.8 and Z score of -0.4. Left femoral neck bone mineral density measures 0.759 g/cm2. This corresponds to a T score of -2.0 and Z score of -0.7. Right femoral neck bone mineral density measures 0.784 g/cm2. This corresponds to a T score -1.8of and Z score of -0.5. Mean femoral neck bone mineral density measures 0.772 g/cm2. This corresponds to a T score of -1.9 and Z score of -0.6. XR/XR DEXA axial skeleton* [id number] IMPRESSION: Osteoporosis LEFT forearm. Osteopenia femoral necks. Patient's FRAX calculated 10 year probability for major osteoporotic fracture i s 11.8% and osteoporotic hip fracture is 2.5%.
== END 2025-06-28 23:59 | disposition home or self-care (01) ==
LOC: RAD 06-10 → ONCMED 06-10 08:12
PROVIDERS: Internal Medicine Medical Oncology; PCP Family Medicine; Visit Provider Nurse Practitioner Family
DX: Z53.9 Procedure and treatment not carried out, unspecified reason; C50.911 Malignant neoplasm of unspecified site of right female breast; Z78.0 Asymptomatic menopausal state; M81.0 Age-related osteoporosis without current pathological fracture; M85.851 Other specified disorders of bone density and structure, right thigh; M85.852 Other specified disorders of bone density and structure, left thigh
CPT/HCPCS: 36415; 77080; 80053; 82306; 85025; 99214

== ENCOUNTER 2025-07-21 09:35 | Observation (INO) | payer MEDICARE, SELFPAY ==
[2025-07-21] VITALS (11 sets, daily range): BP systolic 95–197; BP diastolic 52–124; PULSE 63–137; RESP 13–19; TEMP 36.2–37; O2SAT 90–96; BMI 28.5
--- NOTE | 2025-07-21 09:39 | XR_ITS ---
WS: [id number] Portable AP upright chest, 07/21/2025 Clinical Data: chest pain Comparison: Portable chest, 05/24/2025 Findings: Bilateral patchy opacities remain the same. These may represent chronic interstitial changes rather than an acute pneumonia. The heart is normal. The aortic arch shows mild calcification and tortuosity of the. No nodules, masses or effusions are seen. No pneumothorax is present. Monitor leads are on the chest wall. The superior aspect of posterior lumbar fusion is visible. XR/XR chest 1V portable [id number] Impression: 1. No change in bilateral patchy opacities which may represent a chronic inters titial infiltrate. 2. Atherosclerosis.
--- NOTE | 2025-07-21 09:39 | ECG_ITS ---
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
--- NOTE | 2025-07-21 10:05 | W.ED.CHESTPA ---
HPI - Chest Pain General: Chief Complaint: Chest Pain Stated Complaint: CP SOB BP High Time Seen by Provider: 07/21/25 09:56 History of Present Illness: 74-year-old female presents emergency room complaining of chest pain shortness of breath began overnight. She has a history of atrial fibrillation she did take all of her home medications states she has not had any recent changes in her medicines. She had a slight cough all of this persists seems to correlate when her heart rate increased. She has not been doing any exertional activities. She is on oral anticoagulants no history of any coronary artery disease Associated symptoms: Reports dyspnea and palpitations; Deny abdominal pain or fever(s) Related Data Home Medications ?Medication ?Instructions ?Recorded ?Confirmed ascorbate calcium (vitamin C) 500 500 mg PO QAM 03/07/21 07/21/25 mg tablet rzffagru-znr-ekafg ac 400 1 tab PO DAILY 11/29/22 07/21/25 mcg-calcium carb 500 mg-vit K1 20 mcg tablet (Women's 50 Plus Multivitamin) isosorbide mononitrate 30 mg 30 mg PO QAM 05/24/25 07/21/25 tablet,extended release 24 hr alendronate 70 mg tablet See Rx Instructions .Route .COMPLEX 07/21/25 07/21/25 escitalopram oxalate 20 mg tablet 20 mg PO DAILY 07/21/25 07/21/25 isosorbide mononitrate 60 mg 60 mg PO QPM 07/21/25 07/21/25 tablet,extended release 24 hr losartan 100 mg tablet 100 mg PO DAILY 07/21/25 07/21/25 meloxicam 15 mg tablet 15 mg PO DAILY 07/21/25 07/21/25 metoprolol succinate 100 mg 100 mg PO QAM 07/21/25 07/21/25 tablet,extended release 24 hr ranolazine 500 mg tablet,extended 500 mg PO BID 07/21/25 07/21/25 release,12 hr rosuvastatin 5 mg tablet 5 mg PO QAM 07/21/25 07/21/25 Previous Rx's ?Medication ?Instructions ?Recorded Rollaid walker with seat #1 ea 10/16/23 loratadine 10 mg tablet 10 mg PO DAILY #90 tabs 10/22/23 blood-glucose meter (Accu-Chek #1 ea 03/02/24 Guide Glucose Meter) lancets (Accu-Chek Softclix #200 ea 03/02/24 Lancets) diabetic shoes w/ 3 inserts #1 ea 06/03/24 pantoprazole 40 mg tablet,delayed 40 mg PO BID@0900,2200 #180 tabs 10/01/24 release albuterol sulfate 90 mcg/actuation 1 inh inhalation QID PRN shortness 10/27/24 aerosol inhaler of breath or wheezing #6.7 grams furosemide 40 mg tablet See Rx Instructions .Route 12/27/24 .COMPLEX #180 tabs glimepiride 1 mg tablet 1 mg PO QAM #90 tabs 02/02/25 oxybutynin chloride 10 mg 10 mg PO DAILY #90 tabs 02/02/25 tablet,extended release 24 hr potassium chloride 10 mEq See Rx Instructions .Route 02/22/25 tablet,extended release .COMPLEX #180 tabs blood sugar diagnostic (Accu-Chek #100 ea 03/21/25 Guide test strips) rivaroxaban 10 mg tablet (Xarelto) 10 mg PO DAILY@2200 #90 tabs 05/23/25 anastrozole 1 mg tablet 1 mg PO DAILY #30 tabs 06/06/25 CPAP 6-16 cm mmHg setting machine, #1 ea 06/08/25 with mask, tubing and supplies nitroglycerin 0.4 mg sublingual 0.4 mg sublingual Q5M PRN chest 06/08/25 tablet (Nitrostat) pain #30 tabs aripiprazole 10 mg tablet (Abilify) 10 mg PO DAILY #90 tabs 06/30/25 duloxetine 60 mg capsule,delayed 120 mg (2 x 60 mg) PO DAILY@0900 06/30/25 release 90 days #180 caps trazodone 100 mg tablet 100 mg PO .HS #90 tabs 06/30/25 hydroxyzine HCl 25 mg tablet 25 mg PO TID PRN itching #90 tabs 07/04/25 Allergies Allergy/AdvReac Type Severity Reaction Status Date / Time amlodipine Allergy edema Verified 06/30/25 10:50 Sulfa (Sulfonamide Allergy ALGY-Difficulty Verified 06/30/25 10:50 Antibiotics) Breathing Review of Systems Const: Denies: fever(s) or chills Card: Reports: palpitations and irregular heart rhythm; Denies: chest pain, edema or swelling of feet/ankles Resp: Reports: dyspnea GI: Denies: abdominal pain : Denies: dysuria, urinary frequency or urinary urgency Musc: Denies: neck pain or back pain Skin/Breast: Denies: rash PFSH ED PFSH: Medical History Invasive ductal carcinoma of right breast On combination antipsychotic drug therapy Generalized anxiety disorder Psychiatric care COPD (chronic obstructive pulmonary disease) Cardiomyopathy Chronic pain Moderate major depression GERD (gastroesophageal reflux disease) Chronic atrial fibrillation Chronic thoracic back pain Cannabis abuse Recent weight gain Encounter for weight loss counseling Discussed close follow-up due to episodes of hypoglycemia in the past when starting a weight loss program. Hypercholesterolemia ASHD (arteriosclerotic heart disease) Last angiogram with LAD 40-50 percent narrowing Primary hypertension Diabetes type 2, controlled Surgical History History of gastric bypass History of back surgery History of foot surgery H/O tubal ligation Hx of cholecystectomy H/O hernia repair History of oral surgery S/P knee replacement Hx of appendectomy H/O cataract extraction Gastric bypass status for obesity Family History Father Emphysema lung Mother COPD (chronic obstructive pulmonary disease) Brother Cancer lung nodule Emphysema lung Lung disease Chronic kidney disease (CKD) Family/Other Cancer Nephew--jaw Stroke Other CAD (coronary artery disease) Congestive heart failure (CHF) Diabetes Hyperlipidemia Hypertension Psychiatric illness Denies family history of Clotting disorder Dementia Suicide Anesthesia complication Bleeding disorder Social History Quit status (tobacco/nicotine): has quit using Alcohol intake: current Alcohol intake frequency: holidays/special occasions only Alcohol use comment: Used to drink 3 drinks a day with her until he now none in 2 m Substance/Drug Use: current Substance/Drug use frequency: daily Substance/Drug use type: Marijuana Other substance/drug use details: THC cartridge Additional social history: Patient vapes THC 2-3 hits at night. Patient wants full code no prolong life support Lives independently: Yes Household members: spouse Marital status: Number of children: 3 Current occupational status: retired and disabled Tejal/Sikhism: Holiness Special tejal needs: No Physical Exam Const: COMMON NORMALS: no acute distress GENERAL APPEARANCE: cooperative and comfortable ORIENTATION/CONSCIOUSNESS: Yes awake, Yes oriented to person, Yes oriented to place and Yes oriented to time HENMT: COMMON NORMALS: normocephalic, atraumatic and hearing grossly normal bilaterally HEAD & SCALP: normocephalic and atraumatic Resp: COMMON NORMALS: normal respiratory effort, No retractions, No use of accessory muscles and clear to auscultation bilaterally AUSCULTATION: clear to auscultation bilaterally Cardio: COMMON NORMALS: regular rate, regular rhythm and No murmurs present (Cardio) RATE: regular rate RHYTHM: regular rhythm GI: COMMON NORMALS: Soft to palpation and No hepatosplenomegaly present AUSCULTATION: Yes normoactive bowel sounds PALPATION: Yes Soft to palpation, No Tenderness to palpation present (GI), No Guarding due to palpation present (GI) and Yes No hepatosplenomegaly present Extremity: COMMON NORMALS: normal to inspection, capillary refill normal, no clubbing, cyanosis or edema, no calf tenderness and no pedal edema Neuro: SENSORIUM/ORIENTATION: Yes oriented to person, Yes oriented to place and Yes oriented to time Skin: COMMON NORMALS: no rashes or lesions noted GENERAL SKIN EXAM: no rashes or lesions noted Course Vital Signs: Vital signs: Vital Signs Temperature 98.6 F 07/21/25 09:44 Pulse Rate 70 07/21/25 15:08 Respiratory Rate 18 07/21/25 12:49 Blood Pressure 163/87 07/21/25 15:08 Pulse Oximetry 96 07/21/25 15:08 Oxygen Delivery Me thod Nasal Cannula 07/21/25 13:39 Oxygen Flow Rate 2 07/21/25 13:00 MDM - Chest Pain Medical Decision Making Patient presented in A-fib with RVR we were able to get her rate controlled with Cardizem however with any attempts to get up move patient increase of heart rate up above 100 again. White count mildly elevated at 13. She is now requiring oxygen at 2 L. Lactic acid is 2. Will admit for COPD exacerbation. Aggressive pulmonary toilet steroids nebulizers. Chest x-ray shows bilateral opacities which may represent chronic interstitial infiltrate. Will cover with antibiotics Levaquin. Continue Cardizem drip at 5. Will admit to CSU discussed Dr. Diaz orders written Medical Records I reviewed the patient's medical records. Lab Data I reviewed the patient's lab results. 07/21/25 10:04 07/21/25 10:04 Radiology Impressions Chest X-Ray 07/21/25 09:39 Impression: 1. No change in bilateral patchy opacities which may represent a chronic interstitial infiltrate. 2. Atherosclerosis. Laboratory Results WBC 13.02 10^3/uL (3.29-11.43) H 07/21/25 10:04 RBC 4.73 10^6/uL (3.85-5.65) 07/21/25 10:04 Hgb 15.30 g/dL (11.27-16.99) 07/21/25 10:04 Hct 46.1 % (36-47) 07/21/25 10:04 MCV 97.5 fl (85-98) 07/21/25 10:04 MCH 32.3 pg (27-33) 07/21/25 10:04 MCHC 33.2 g/dL (30-55) 07/21/25 10:04 RDW 12.7 % (12.1-15.1) 07/21/25 10:04 Plt Count 126 10^3/cmm (157-399) L 07/21/25 10:04 MPV 9.9 fL (7.4-10.4) 07/21/25 10:04 Neut % (Auto) 87.9 % 07/21/25 10:04 Lymph % (Auto) 6.8 % 07/21/25 10:04 [place] % (Auto) 3.8 % 07/21/25 10:04 Eos % (Auto) 0.8 % 07/21/25 10:04 Baso % (Auto) 0.4 % 07/21/25 10:04 Neut # (Auto) 11.45 10^3/uL (1.8-7.7) H 07/21/25 10:04 Lymph # (Auto) 0.9 10^3/uL (0.8-4.8) 07/21/25 10:04 [place] # (Auto) 0.5 10^3/uL (0.2-0.9) 07/21/25 10:04 Eos # (Auto) 0.1 10^3/uL (0.0-0.8) 07/21/25 10:04 Baso # (Auto) 0.1 10^3/uL (0.0-0.1) 07/21/25 10:04 Nucleated RBC % (auto) 0 % 07/21/25 10:04 Nucleated RBCs # 0.0 /100WBC 07/21/25 10:04 Sodium 140 mmol/L (136-145) 07/21/25 10:04 Potassium 4.6 mmol/L (3.5-5.1) 07/21/25 10:04 Chloride 100 mmol/L (98-107) 07/21/25 10:04 Carbon Dioxide 26 mmol/L (22-29) 07/21/25 10:04 Anion Gap 18.6 (5-19) 07/21/25 10:04 BUN 16 mg/dL (8-23) 07/21/25 10:04 Creatinine 0.9 mg/dL (0.5-0.9) 07/21/25 10:04 GFR Calculation Not Reportable 07/21/25 10:04 Glucose 216 mg/dL (65-115) H 07/21/25 10:04 Calculated Osmolality 298 mOsm/kg (285-295) H 07/21/25 10:04 Lactic Acid 2.0 mmol/L (0.5-2.2) 07/21/25 10:04 Calcium 9.5 mg/dL (8.5-10.5) 07/21/25 10:04 Magnesium 1.9 mg/dL (1.7-2.3) 07/21/25 10:04 Total Bilirubin 0.8 mg/dL (0.15-1.2) 07/21/25 10:04 AST 20 U/L (0-32) 07/21/25 10:04 ALT 13 U/L (0-33) 07/21/25 10:04 Alkaline Phosphatase 78 U/L (35-105) 07/21/25 10:04 Troponin T Baseline 14 ng/L (0-10) H 07/21/25 10:04 Troponin T 120 Minute 14.15 ng/L (0-10) H 07/21/25 11:58 Delta Troponin T 0.15 ABS# (0-10) 07/21/25 11:58 NT-Pro-B Natriuret Pep 1798 pg/mL (0-450) H 07/21/25 11:58 Total Protein 6.2 g/dL (6.6-8.7) L 07/21/25 10:04 Albumin 4.3 g/dL (3.5-5.2) 07/21/25 10:04 Globulin 1.9 g/dL (1.3-4.6) 07/21/25 10:04 Procalcitonin 0.20 ng/mL (0-0.5) 07/21/25 11:58 All radiology interpretation(s) finalized by discharge EKG Data EKG 1: I personally reviewed and interpreted this EKG as follows: EKG interpretation date: 07/21/25 Prior EKG tracings: available for review Interpretation: EKG 07/21/2025 9:39 AM atrial fibrillation with rapid ventricular sponsor rate of [address] changes elevation some rate related nonspecific changes. Compared to EKG 05/24/2025 EKG 2: I personally reviewed and interpreted this EKG as follows: EKG interpretation date: 07/21/25 Interpretation: EKG 1023 2025-08-28 atrial fibrillation rate controlled at 89 QTc 372. Q waves in V1 and 2. Compared EKG done earlier same day incomplete right bundle branch block not present. 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
[2025-07-21 10:10] LABS: Hematocrit 46.1 % (36-47); Hemoglobin 15.30 g/dL (11.27-16.99); Mean Corpuscular HGB Conc 33.2 g/dL (30-55); Mean Corpuscular Hemoglobin 32.3 pg (27-33); Mean Corpuscular Volume 97.5 fl (85-98); Nucleated Red Blood Cells % 0 %; Platelet Count 126 10^3/cmm (157-399); Red Blood Count 4.73 10^6/uL (3.85-5.65); White Blood Count 13.02 10^3/uL (3.29-11.43)
[2025-07-21] MEDS: dilTIAZem 5 mg/mL SDV 5 mL 20 MG IVP (10:19)
[2025-07-21 10:28] LABS: Alanine Aminotransferase 13 U/L (0-33); Albumin Level 4.3 g/dL (3.5-5.2); Alkaline Phosphatase 78 U/L (35-105); Aspartate Amino Transferase 20 U/L (0-32); Blood Urea Nitrogen 16 mg/dL (8-23); Calcium 9.5 mg/dL (8.5-10.5); Carbon Dioxide 26 mmol/L (22-29); Chloride 100 mmol/L (98-107); Creatinine Clr Calc Pharmacy 58.7500; Globulin 1.9 g/dL (1.3-4.6); Glucose 216 mg/dL (65-115); Osmolality Calculated 298 mOsm/kg (285-295); Sodium 140 mmol/L (136-145); Total Protein 6.2 g/dL (6.6-8.7); Troponin(5th) Baseline 14 ng/L (0-10)
[2025-07-21 10:35] LABS: Anion Gap 18.6 (5-19); Potassium 4.6 mmol/L (3.5-5.1)
[2025-07-21] MEDS: DILTIAZEM HCL/D5W 125 MG/125 ML BAG IV (10:36)
--- NOTE | 2025-07-21 11:39 | ECG_ITS ---
[facility] Test Date: 2025-07-21 Pat Name: Chiqui Arias Department: Room: Gender: Female Thermodynamicist: : 1950 Requested By: Mendoza Mueller Order Number: [id number] Elver MD: Leonardo Nix M.D. Measurements Intervals [place] Rate: 89 P: 0 AK: 0 QRS: 22 QRSD: 102 T: 16 QT: 305 QTc: 372 Interpretive Statements ATRIAL FIBRILLATION WITH ABERRANT CONDUCTION OR VENTRICULAR PREMATURE COMPLEXES INCOMPLETE RIGHT BUNDLE BRANCH BLOCK [90+ ms QRS DURATION, TERMINAL R IN V1/V2, 40+ ms S IN I/aVL/V4/V5/V6] NONSPECIFIC T-WAVE ABNORMALITY ABNORMAL RHYTHM ECG Compared to ECG 07/21/2025 09:39:31 Incomplete right bundle-branch block now present T-wave abnormality now present Myocardial infarct finding no longer present Electronically Signed On 07-22-2025 15:29:57 CDT by Leonardo Nix M.D. [email or web address]
[2025-07-21 12:23] LABS: Troponin 5 2HR 14.15 ng/L (0-10); Troponin 5 2HR Delta 0.15 ABS# (0-10)
[2025-07-21] MEDS: methylPREDNISolone sod succ 125 mg/2 mL INJ IVP (12:35)
[2025-07-21] MEDS: levofloxacin-dextrose 5 % 750 MG/150 ML PREMIX 100 MG IV (13:24)
[2025-07-21 13:25] LABS: Lactic Sepsis W/Reflex 2.0 mmol/L (0.5-2.2)
[2025-07-21 13:36] LABS: NT Pro B Type Natriuretic Pept 1798 pg/mL (0-450); Procalcitonin 0.20 ng/mL (0-0.5)
--- NOTE | 2025-07-21 16:13 | PM.HP ---
Providers/Chief Complaint Admitting Physician: Henry Diaz MD Primary Care Provider: Bobby Ingram MD Chief Complaint: CP SOB BP High History of Present Illness Chiqui Arias is a 74 year old female with history of atrial fibrillation chronically noted on EKG since 2020. She does not recall ever being in sinus rhythm she denies ever having cardioversion attempted. She has been on metoprolol 100 mg daily plus Xarelto 10 mg daily long-term. Patient states she got up and had heart racing with stumbling around and felt some fluttering. She has had dry cough for couple days denies edema is any different than usual she had temperature of 99.5 and reports her temperature baseline 97. Patient denies dysuria hematuria she denies abdominal pain she does have some nausea but no vomiting Patient's in December of COPD states he fell off commode and Past surgical history cholecystectomy appendectomy 3 C-sections bilateral knees replacements and right foot surgery. She has had gastric bypass surgery see [facility] Patient states when going home please call her friend Hoda Nickerson phone #[phone] Review of Systems Narrative: General No fevers chills Cardiovascular positive for palpitations no chest pain leg edema is mild and chronic she wears hose Respiratory positive for orthopnea no cough production GI positive for nausea no vomiting she does have constipation uses stool softener no dysuria hematuria she does have incontinence and wears a pad TEARER no vaginal bleeding or discharge Neuro no seizures strokes limb weakness Medications/Allergies Home Medications ?Medication ?Instructions ?Recorded ?Confirmed ?Last Taken ?Type ascorbate calcium (vitamin C) 500 500 mg PO QAM 03/07/21 07/21/25 07/21/25 History mg tablet zsbaoojv-biy-uwrhm ac 400 1 tab PO DAILY 11/29/22 07/21/25 07/21/25 History mcg-calcium carb 500 mg-vit K1 20 mcg tablet (Women's 50 Plus Multivitamin) Rollaid walker with seat #1 ea 10/16/23 07/21/25 Unknown Rx loratadine 10 mg tablet 10 mg PO DAILY #90 tabs 10/22/23 07/21/25 07/21/25 Rx blood-glucose meter (Accu-Chek #1 ea 03/02/24 07/21/25 Unknown Rx Guide Glucose Meter) lancets (Accu-Chek Softclix #200 ea 03/02/24 07/21/25 Unknown Rx Lancets) diabetic shoes w/ 3 inserts #1 ea 06/03/24 07/21/25 Unknown Rx pantoprazole 40 mg tablet,delayed 40 mg PO BID@0900,2200 #180 tabs 10/01/24 07/21/25 07/21/25 Rx release albuterol sulfate 90 mcg/actuation 1 inh inhalation QID PRN shortness 10/27/24 07/21/25 05/24/25 08:00 Rx aerosol inhaler of breath or wheezing #6.7 grams furosemide 40 mg tablet See Rx Instructions .Route 12/27/24 07/21/25 07/21/25 Rx .COMPLEX #180 tabs glimepiride 1 mg tablet 1 mg PO QAM #90 tabs 02/02/25 07/21/25 07/21/25 Rx oxybutynin chloride 10 mg 10 mg PO DAILY #90 tabs 02/02/25 07/21/25 07/21/25 Rx tablet,extended release 24 hr potassium chloride 10 mEq See Rx Instructions .Route 02/22/25 07/21/25 07/21/25 Rx tablet,extended release .COMPLEX #180 tabs blood sugar diagnostic (Accu-Chek #100 ea 03/21/25 07/21/25 Unknown Rx Guide test strips) rivaroxaban 10 mg tablet (Xarelto) 10 mg PO DAILY@2200 #90 tabs 05/23/25 07/21/25 07/20/25 Rx isosorbide mononitrate 30 mg 30 mg PO QAM 05/24/25 07/21/25 07/21/25 History tablet,extended release 24 hr anastrozole 1 mg tablet 1 mg PO DAILY #30 tabs 06/06/25 07/21/25 07/21/25 Rx CPAP 6-16 cm mmHg setting machine, #1 ea 06/08/25 07/21/25 Unknown Rx with mask, tubing and supplies nitroglycerin 0.4 mg sublingual 0.4 mg sublingual Q5M PRN chest 06/08/25 07/21/25 Unknown Rx tablet (Nitrostat) pain #30 tabs aripiprazole 10 mg tablet (Abilify) 10 mg PO DAILY #90 tabs 06/30/25 07/21/25 07/21/25 Rx duloxetine 60 mg capsule,delayed 120 mg (2 x 60 mg) PO DAILY@0900 06/30/25 07/21/25 07/21/25 Rx release 90 days #180 caps trazodone 100 mg tablet 100 mg PO .HS #90 tabs 06/30/25 07/21/25 07/20/25 Rx hydroxyzine HCl 25 mg tablet 25 mg PO TID PRN itching #90 tabs 07/04/25 07/21/25 Unknown Rx alendronate 70 mg tablet See Rx Instructions .Route .COMPLEX 07/21/25 07/21/25 07/18/25 History escitalopram oxalate 20 mg tablet 20 mg PO DAILY 07/21/25 07/21/25 07/21/25 History isosorbide mononitrate 60 mg 60 mg PO QPM 07/21/25 07/21/25 07/21/25 History tablet,extended release 24 hr losartan 100 mg tablet 100 mg PO DAILY 07/21/25 07/21/25 07/21/25 History meloxicam 15 mg tablet 15 mg PO DAILY 07/21/25 07/21/25 07/21/25 History metoprolol succinate 100 mg 100 mg PO QAM 07/21/25 07/21/25 07/21/25 History tablet,extended release 24 hr ranolazine 500 mg tablet,extended 500 mg PO BID 07/21/25 07/21/25 07/21/25 History release,12 hr rosuvastatin 5 mg tablet 5 mg PO QAM 07/21/25 07/21/25 07/21/25 History Allergies Allergy/AdvReac Type Severity Reaction Status Date / Time amlodipine Allergy edema Verified 06/30/25 10:50 Sulfa (Sulfonamide Allergy ALGY-Difficulty Verified 06/30/25 10:50 Antibiotics) Breathing PFSH Acute PFSH: Medical History (Updated 07/21/25 @ 16:23 by Henry Diaz MD) Invasive ductal carcinoma of right breast On combination antipsychotic drug therapy Generalized anxiety disorder Psychiatric care COPD (chronic obstructive pulmonary disease) Cardiomyopathy Chronic pain Moderate major depression GERD (gastroesophageal reflux disease) Chronic atrial fibrillation Chronic thoracic back pain Cannabis abuse Recent weight gain Encounter for weight loss counseling Discussed close follow-up due to episodes of hypoglycemia in the past when starting a weight loss program. Hypercholesterolemia ASHD (arteriosclerotic heart disease) Last angiogram with LAD 40-50 percent narrowing Primary hypertension Diabetes type 2, controlled Surgical History (Updated 07/21/25 @ 16:22 by Henry Diaz MD) History of gastric bypass History of back surgery History of foot surgery H/O tubal ligation Hx of cholecystectomy H/O hernia repair History of oral surgery S/P knee replacement Hx of appendectomy H/O cataract extraction Gastric bypass status for obesity Family History Father Emphysema lung Mother COPD (chronic obstructive pulmonary disease) Brother Cancer lung nodule Emphysema lung Lung disease Chronic kidney disease (CKD) Family/Other Cancer Nephew--jaw Stroke Other CAD (coronary artery disease) Congestive heart failure (CHF) Diabetes Hyperlipidemia Hypertension Psychiatric illness Denies family history of Clotting disorder Dementia Suicide Anesthesia complication Bleeding disorder Social History (Updated 07/21/25 @ 16:17 by Henry Diaz MD) Quit status (tobacco/nicotine): has quit using Alcohol intake: current Alcohol intake frequency: holidays/special occasions only Alcohol use comment: Used to drink 3 drinks a day with her until he now none in 2 m Substance/Drug Use: current Substance/Drug use frequency: daily Substance/Drug use type: Marijuana Other substance/drug use details: THC cartridge Additional social history: Patient vapes THC 2-3 hits at night. Patient wants full code no prolong life support Lives independently: Yes Household members: spouse Marital status: Number of children: 3 Current occupational status: retired and disabled Tejal/Baptist: Religion Special tejal needs: No Vitals/I&O/Wt Last Vital Signs Temp 98.6 F 07/21/25 09:44 Pulse 70 07/21/25 15:08 Resp 18 07/21/25 12:49 BP 163/87 07/21/25 15:08 Pulse Ox 96 07/21/25 15:08 O2 Del Method Nasal Cannula 07/21/25 13:39 O2 Flow Rate 2 07/21/25 13:00 07/21/25 07/21/25 07/21/25 06:59 14:59 22:59 Intake Total 150 / 150 Balance 150 / 150 Weight last 48 hrs Weight 86.5 kg Weight 82.554 kg Physical Exam Narrative: General well-developed well-nourished female modestly overweight Neck no JVD CV irregular rhythm rate is controlled Lungs clear to auscultation bilaterally Abdomen positive bowel tones soft nontender Calves no tenderness cords there is 1+ pretibial edema Skin warm and dry Mood and affect normal Data 07/21/25 10:04 07/21/25 10:04 Micro: Microbiology 07/21/25 13:15 Blood Culture - Preliminary Blood SPECIMEN COLLECTED 07/21/25 13:15 Blood Culture - Preliminary Blood SPECIMEN COLLECTED A&P Assessment and plan 1. Atrial fibrillation with rapid ventricular response: She is already anticoagulated. I considered cardioversion but patient has been chronically in A-fib for at least 4 years and tolerates it well. Additionally her atrium are enlarged. Will check magnesium level and replace that. Diltiazem drip is working well will start 30 mg diltiazem orally every 6 hours. Wean off diltiazem drip if heart rate less than 90. Anticipate discharge home tomorrow on oral long-acting diltiazem plus her metoprolol 2. History of gastric bypass: Check magnesium level 3. Chronic atrial fibrillation: Resume rate control with anticoagulation PDMP PDMP Reviewed: Not Reviewed Attestations Medical Necessity Statement*: Patient observed in the hospital overnight Coding Level of Care Code 32400 Diagnoses Atrial fibrillation with rapid ventricular response I48.91 History of gastric bypass Z98.84 Chronic atrial fibrillation I48.20 Time Spent (min) 55
[2025-07-21 16:27] LABS: Troponin 5 6HR 14.78 ng/L (0-10); Troponin 5 6HR Delta 0.78 ng/L (0-12)
[2025-07-21 16:40] LABS: Magnesium 1.9 mg/dL (1.7-2.3)
[2025-07-21] MEDS: ranolazine (12HR) 500 mg Tablet PO (17:21)
[2025-07-21] MEDS: FUROsemide 10 mg/mL SDV 2mL 20 MG IVP (17:22)
[2025-07-21] MEDS: ATORVASTATIN 20 MG TABLET PO (21:51)
[2025-07-22] MEDS: MELATONIN 3 MG TABLET 6 MG PO (00:46)
[2025-07-22 03:19] VITALS: BP 113/56; PULSE 57; RESP 12; TEMP 35.8; O2SAT 91
[2025-07-22 05:06] VITALS: BMI 29.0
[2025-07-22] MEDS: ranolazine (12HR) 500 mg Tablet PO (05:46)
[2025-07-22] MEDS: LOSARTAN 100 MG TABLET PO (05:46)
[2025-07-22 07:41] VITALS: BP 98/53; PULSE 72; RESP 18; TEMP 36.9; O2SAT 90
[2025-07-22 08:58] VITALS: BP 118/64; PULSE 58; RESP 16; O2SAT 97
[2025-07-22] MEDS: dilTIAZem ER (24HR) 120 mg Capsule PO (09:21)
--- NOTE | 2025-07-22 09:29 | P.DS_ITS ---
Discharge Providers Date of Admission: 07/21/25 13:07 Date of Discharge: July 22, 2025 Attending Provider at Admission: eHnry Diaz MD Attending Provider at Discharge: Henry Diaz MD Primary Care Provider: Bobby Ingram MD Diagnoses at Discharge Discharge Diagnosis 1. Atrial fibrillation with rapid ventricular response: Details from hospital stay: Patient's heart rate was well-controlled easily with diltiazem drip. She was transition to 30 mg short acting diltiazem every 6 hours then finally to 120 mg diltiazem CD. This was overly effective and heart rate down into the high 40s so metoprolol was decreased to 50 mg daily from 100 mg Take metoprolol 50 mg in the morning hold if heart rate less than 60. Take diltiazem CD120 mg in the evening hold if heart rate less than 60 2. History of gastric bypass: Details from hospital stay: Unchanged 3. Chronic atrial fibrillation: Details from hospital stay: Unchanged and on chronic apixaban. I did not proceed with cardioversion despite chronic anticoagulation because she has atrial enlargement and has been in A-fib on rate control and anticoagulation regimen since 2020 proven by serial EKGs 4. Interstitial lung disease: Details from hospital stay: Patient had CTA November 10, 2022 suggestive of some parenchymal scarring but may have been pulmonary edema at that time. X-rays in the interval looked good until April and June which shows some interstitial findings suspicious for interstitial lung disease or inflammation of some unknown cause. I am going to have her see Dr. Crisostomo in clinic Reason for Visit Reason for Visit: CP SOB BP High Brief History: Chiqui Arias is a 74 year old female with history of atrial fibrillation chronically noted on EKG since 2020. She does not recall ever being in sinus rhythm she denies ever having cardioversion attempted. She has been on metoprolol 100 mg daily plus Xarelto 10 mg daily long-term. Patient states she got up and had heart racing with stumbling around and felt some fluttering. She has had dry cough for couple days denies edema is any different than usual she had temperature of 99.5 and reports her temperature baseline 97. Patient denies dysuria hematuria she denies abdominal pain she does have some nausea but no vomiting Patient's in December of COPD states he fell off commode and Past surgical history cholecystectomy appendectomy 3 C-sections bilateral knees replacements and right foot surgery. She has had gastric bypass surgery see [facility] Patient states when going home please call her friend Hoda Nickerson phone #[phone] Hospital Course Hospital Course Patient was admitted already anticoagulated and treated with diltiazem drip followed by diltiazem 30 mg short acting every 6 hours and switching to diltiazem CD120 mg. Metoprolol was decreased to 50 mg due to heart rates in the 50s. I have written further medication regimen with hold parameters for her Decrease losartan to 50 mg daily due to borderline blood pressure. Patient had no chest pain Physical Exam Narrative: General well-developed well-nourished female modestly overweight Neck no JVD CV irregular rhythm rate is controlled Lungs clear to auscultation bilaterally Abdomen positive bowel tones soft nontender Calves no tenderness cords there is no edema Skin warm and dry Mood and affect normal Discharge Data Studies Completed and Pending Completed Studies During Hospitalization Category Date Time Status XR chest 1V portable [id number] Stat Exams 07/21/25 09:39 Completed Pending at discharge Category Date Time Status Blood Culture Stat Lab 07/21/25 13:15 Results Radiology Impressions Chest X-Ray 07/21/25 09:39 Impression: 1. No change in bilateral patchy opacities which may represent a chronic interstitial infiltrate. 2. Atherosclerosis. Laboratory Results WBC 13.02 10^3/uL (3.29-11.43) H 07/21/25 10:04 RBC 4.73 10^6/uL (3.85-5.65) 07/21/25 10:04 Hgb 15.30 g/dL (11.27-16.99) 07/21/25 10:04 Hct 46.1 % (36-47) 07/21/25 10:04 MCV 97.5 fl (85-98) 07/21/25 10:04 MCH 32.3 pg (27-33) 07/21/25 10:04 MCHC 33.2 g/dL (30-55) 07/21/25 10:04 RDW 12.7 % (12.1-15.1) 07/21/25 10:04 Plt Count 126 10^3/cmm (157-399) L 07/21/25 10:04 MPV 9.9 fL (7.4-10.4) 07/21/25 10:04 Neut % (Auto) 87.9 % 07/21/25 10:04 Lymph % (Auto) 6.8 % 07/21/25 10:04 Clark % (Auto) 3.8 % 07/21/25 10:04 Eos % (Auto) 0.8 % 07/21/25 10:04 Baso % (Auto) 0.4 % 07/21/25 10:04 Neut # (Auto) 11.45 10^3/uL (1.8-7.7) H 07/21/25 10:04 Lymph # (Auto) 0.9 10^3/uL (0.8-4.8) 07/21/25 10:04 Clark # (Auto) 0.5 10^3/uL (0.2-0.9) 07/21/25 10:04 Eos # (Auto) 0.1 10^3/uL (0.0-0.8) 07/21/25 10:04 Baso # (Auto) 0.1 10^3/uL (0.0-0.1) 07/21/25 10:04 Nucleated RBC % (auto) 0 % 07/21/25 10:04 Nucleated RBCs # 0.0 /100WBC 07/21/25 10:04 Sodium 140 mmol/L (136-145) 07/21/25 10:04 Potassium 4.6 mmol/L (3.5-5.1) 07/21/25 10:04 Chloride 100 mmol/L (98-107) 07/21/25 10:04 Carbon Dioxide 26 mmol/L (22-29) 07/21/25 10:04 Anion Gap 18.6 (5-19) 07/21/25 10:04 BUN 16 mg/dL (8-23) 07/21/25 10:04 Creatinine 0.9 mg/dL (0.5-0.9) 07/21/25 10:04 GFR Calculation Not Reportable 07/21/25 10:04 Glucose 216 mg/dL (65-115) H 07/21/25 10:04 Calculated Osmolality 298 mOsm/kg (285-295) H 07/21/25 10:04 Lactic Acid 2.0 mmol/L (0.5-2.2) 07/21/25 10:04 Calcium 9.5 mg/dL (8.5-10.5) 07/21/25 10:04 Magnesium 1.9 mg/dL (1.7-2.3) 07/21/25 10:04 Total Bilirubin 0.8 mg/dL (0.15-1.2) 07/21/25 10:04 AST 20 U/L (0-32) 07/21/25 10:04 ALT 13 U/L (0-33) 07/21/25 10:04 Alkaline Phosphatase 78 U/L (35-105) 07/21/25 10:04 Troponin T Baseline 14 ng/L (0-10) H 07/21/25 10:04 Troponin T 120 Minute 14.15 ng/L (0-10) H 07/21/25 11:58 Delta Troponin T 0.15 ABS# (0-10) 07/21/25 11:58 Troponin T Hi Sens 6Hr 14.78 ng/L (0-10) H 07/21/25 16:01 Troponin T Hi Sens 6Hr Delta 0.78 ng/L (0-12) 07/21/25 16:01 NT-Pro-B Natriuret Pep 1798 pg/mL (0-450) H 07/21/25 11:58 Total Protein 6.2 g/dL (6.6-8.7) L 07/21/25 10:04 Albumin 4.3 g/dL (3.5-5.2) 07/21/25 10:04 Globulin 1.9 g/dL (1.3-4.6) 07/21/25 10:04 Procalcitonin 0.20 ng/mL (0-0.5) 07/21/25 11:58 Vitals Last Vital Signs Temp 98.4 F 07/22/25 07:41 Pulse 58 L 07/22/25 08:58 Resp 16 07/22/25 08:58 BP 118/64 07/22/25 08:58 Pulse Ox 97 07/22/25 08:58 O2 Del Method Room Air 07/22/25 07:41 O2 Flow Rate 2 07/21/25 13:00 Discharge Plan Discharge Patient Disposition: Home Condition: Stable Prescriptions: New guaifenesin [Mucinex] 600 mg Tablet Extended Release 12hr 1,200 mg PO BID Qty: 14 0RF metoprolol succinate 50 mg Tablet Extended Release 24 Hr 50 mg PO DAILY Qty: 30 0RF diltiazem HCl 120 mg Capsule,Extended Release 24hr 120 mg PO BEDTIME Qty: 30 0RF losartan 50 mg tablet 50 mg PO DAILY Qty: 30 0RF Continued ascorbate calcium (vitamin C) 500 mg tablet 500 mg PO QAM (DME) diabetic shoes w/ 3 inserts See Rx Instructions .Route .MEDSUPPLY Qty: 1 0RF Rx Instructions: As directed by the jason dobson albuterol sulfate 90 mcg/actuation HFA aerosol inhaler 1 inh inhalation QID PRN (Reason: shortness of breath or wheezing) Qty: 6.7 4RF anastrozole 1 mg tablet 1 mg PO DAILY Qty: 30 3RF trazodone 100 mg tablet 100 mg PO .HS Qty: 90 0RF aripiprazole [Abilify] 10 mg tablet 10 mg PO DAILY Qty: 90 0RF duloxetine 60 mg capsule,delayed release(DR/EC) 120 mg PO DAILY@0900 90 Days Qty: 180 0RF nitroglycerin [Nitrostat] 0.4 mg tablet, sublingual 0.4 mg SUBLINGUAL Q5M PRN (Reason: chest pain) Qty: 30 3RF (DME) CPAP 6-16 cm mmHg setting machine, with mask, tubing and supplies See Rx Instructions .ROUTE .MEDSUPPLY Qty: 1 0RF Rx Instructions: As directed (DME) Rollaid walker with seat See Rx Instructions .Route .MEDSUPPLY Qty: 1 0RF Rx Instructions: As directed loratadine 10 mg tablet 10 mg PO DAILY Qty: 90 0RF (DME) blood-glucose meter [Accu-Chek Guide Glucose Meter] Misc See Rx Instructions .Route Qty: 1 3RF Rx Instructions: As directed. check 3x/day (DME) lancets [Accu-Chek Softclix Lancets] Misc See Rx Instructions .Route Qty: 200 5RF Rx Instructions: use 3 times/day pantoprazole 40 mg tablet,delayed release (DR/EC) 40 mg PO BID@0900,2200 Qty: 180 3RF furosemide 40 mg tablet See Rx Instructions .ROUTE .COMPLEX Qty: 180 3RF Dose Instruction: TAKE 1 TABLET BY MOUTH DAILY IN THE MORNING, MAY TAKE AN EXTRA DOSE DAILY IF NEEDED FOR WEIGHT GAIN Rx Instructions: TAKE 1 TABLET BY MOUTH DAILY IN THE MORNING, MAY TAKE AN EXTRA DOSE DAILY IF NEEDED FOR WEIGHT GAIN. oxybutynin chloride 10 mg tablet extended release 24hr 10 mg PO DAILY Qty: 90 1RF potassium chloride 10 mEq tablet extended release See Rx Instructions .ROUTE .COMPLEX Qty: 180 3RF Dose Instruction: TAKE 2 TABLETS BY MOUTH EVERY MORNING *TAKE ADDITIONAL DOSE W/FUROSEMIDE NEEDED FOR WT GAIN >3LBS Rx Instructions: TAKE 2 TABLETS BY MOUTH EVERY MORNING *TAKE ADDITIONAL DOSE W/FUROSEMIDE NEEDED FOR WT GAIN >3LBS (DME) Accu-Chek Guide test strips Strip See Rx Instructions .Route Qty: 100 8RF Rx Instructions: check glucose 3 times/day Xarelto 10 mg tablet 10 mg PO DAILY@2200 Qty: 90 0RF hydroxyzine HCl 25 mg tablet 25 mg PO TID PRN (Reason: itching) Qty: 90 1RF glimepiride 1 mg tablet 1 mg PO QAM Qty: 90 1RF Rx Instructions: administer with breakfast Women's 50 Plus Multivitamin 400 mcg-500 mg calcium-20 mcg Tablet 1 tab PO DAILY isosorbide mononitrate 30 mg tablet extended release 24 hr 30 mg PO QAM meloxicam 15 mg tablet 15 mg PO DAILY alendronate 70 mg tablet See Rx Instructions .ROUTE .COMPLEX Rx Instructions: 1 tablet weekly with a full glass of water. Do not eat, take other meds, or lie down for 1 hour afterwards. isosorbide mononitrate 60 mg tablet extended release 24 hr 60 mg PO QPM escitalopram oxalate 20 mg tablet 20 mg PO DAILY rosuvastatin 5 mg tablet 5 mg PO QAM ranolazine 500 mg tablet extended release 12 hr 500 mg PO BID Discontinued metoprolol succinate 100 mg tablet extended release 24 hr 100 mg PO QAM losartan 100 mg tablet 100 mg PO DAILY Discharge Order = DC NOW: Discharge Order (Routine); Ordered 07/22/25 Ordered By: Henry Diaz Referrals: Roman Crisostomo MD [Physician, Pulmonology] - 07/26/25 3:45 pm Bobby Ingram MD [Primary Care Provider, Family Practice] - 2 weeks Discharge Diet: Cardiac Discharge Activity: Resume usual activity Patient Instructions: Metoprolol (By mouth), Diltiazem (By mouth), Guaifenesin (By mouth), Losartan (By mouth), A-fib (Atrial Fibrillation) (GEN), Pneumonitis (GEN), Opioid Safety, Patient Portal & Davi Instructions Activity Restrictions/Additional Instructions: Follow-up with Dr. Crisostomo regarding suspected development of inflammatory lung disease. Take your blood pressure and heart rate twice a day. If heart rate is less than 60 hold your morning metoprolol. Take your heart rate before your evening dose of diltiazem and if heart rate less than 60 hold your diltiazem Discharge Attestations Time Spent in Discharge Care*: greater than 30 min Time Spent in Smoking Cessation: Patient is not a smoker Quality Metrics Clinical Quality Measures [ No reported AMI, CVA or VTE this stay] Coding Level of Care Code 49768 Diagnoses Atrial fibrillation with rapid ventricular response I48.91 History of gastric bypass Z98.84 Chronic atrial fibrillation I48.20 Interstitial lung disease J84.9 Time Spent (min) 40
--- NOTE | 2025-07-22 11:23 | PC.NURSE ---
Patient discharged to home. Instruction provided regarding follow up information and new medications with changes. Patient and friend all verbalized complete understanding asking and answering all questions appropriately. Patient received medication via [id number]. Patient denies pain or needs. No distress observed. Patient taken by wheelchair to private vehicle.
[2025-07-22 11:25] VITALS: BP 150/75; PULSE 69; RESP 16; O2SAT 96
== END 2025-07-22 11:10 | disposition home or self-care (01) ==
LOC: ER 10:05 → ER IP 13:07 → CSU 13:09
PROVIDERS: Admitting Provider Internal Medicine; Emergency Provider Family Medicine; PCP Family Medicine; Visit Provider Internal Medicine
DX: I48.20 Chronic atrial fibrillation, unspecified (principal); J84.9 Interstitial pulmonary disease, unspecified; Z98.84 Bariatric surgery status; K21.9 Gastro-esophageal reflux disease without esophagitis; J44.9 Chronic obstructive pulmonary disease, unspecified; Z85.3 Personal history of malignant neoplasm of breast; F41.8 Other specified anxiety disorders; F12.10 Cannabis abuse, uncomplicated; E11.9 Type 2 diabetes mellitus without complications; I10 Essential (primary) hypertension; I25.10 Atherosclerotic heart disease of native coronary artery without angina pectoris
CPT/HCPCS: 36415; 71045; 80053; 83605; 83735; 83880; 84145; 84484; 85025; 87040; 93005; 94640; 96365; 96375; 99285; G0378; J1938; J1956; J2919; J3490; J9999

== ENCOUNTER 2025-07-22 16:46 | Inpatient (IN) | payer MEDICARE, SELFPAY ==
--- OUTSIDE RECORDS SUMMARY | 2024-07-24 04:00 | XMS_ITS ---
Author Organization [facility] Address [address] [place] [address] Care Team Providers Care Block Splitter Operator Name Role Phone Garcíamuriel Bobby Primary Care Provider Kim Brewer Unavailable [phone] Migration, Provider Unavailable Unavailable REASON FOR VISIT EMR-Alonzo Social History Sex Assigned At : Social History Observation Description Sex Assigned At Female Encounters Encounter Location Date Provider Diagnosis Migrated_Facility 0 0 07/24/2024 Provider Migration Plan Of Treatment Medication Medication Name Sig Start Date Stop Date Notes HYDROcodone-Acetaminop hen 7.5-325 MG Oral Tablet 1 Tablet Every 12 hours PRN 05/29/2022 06/28/2022 *Reorder from [facility] an for eRx and Interaction Alerts* Progress Notes * Chiqui ARIASDOB:1950 (74 yo F)Acc No.[id number]:07/24/2024 Patient: Chiqui HILL :1950 A ge:73 Y S ex:Female Address:[address] [place] [address], [id number] * Refills Stop HYDROcodone-Acetaminophen 7.5-325 MG Oral Tablet, 1 Tablet Every 12 hours PRN Subjective: * Chief Complaints: * E MR-Alonzo * * Date:
--- OUTSIDE RECORDS SUMMARY | 2024-07-25 04:00 | XMS_ITS ---
Author Organization [facility] Address [address] [place] [address] Care Team Providers Care Traveling Nurse Name Role Phone Bobby Parker Primary Care Provider Unavailela e Kim Chavez Unavailable [phone] Migration, Provider Unavailable Unavailable Allergies Allergen (clinical drug ingredient) Drug/Non Drug Allergy documented on EMR Reaction Allergy Type Onset Date Status Substance with sulfonamide structure and antibacterial mechanism of action (substance) SULFA (SULFONAMIDE ANTIBIOTICS) (uncoded) Shortness of breath/difficult y breathing Allergy Active amlodipine Amlodipine swelling Drug Allergy Activ e REASON FOR VISIT EMR-Alonzo Social History Sex Assigned At : Social History Observation Description Sex Assigned At Female Social History Additional Details Category Social Info Options Details Migrated Social History Migrated Social History Alcoholic beverages? - Yes, Currently on disability? - Yes, Drug or substance abuse? - No, If yes, frequency of alcoholic beverages - 2-3 drinks per day, Involved in any legal proceedings or lawsuits? - No, Marital Status - , Nonprescription drug use? - Yes : marijuana, Participation in detoxification or rehabilitation - No, Smoking - No, Working currently? - No Encounters Encounter Location Date Provider Diagnosis Migrated_Facility 0 0 07/25/2024 Provider Migration Plan Of Treatment No Information Progress Notes * Chiqui ARIASDOB:1950 (74 yo F)Acc No.[id number]:07/25/2024 Patient: Chiqui HILL :1950 A ge:73 Y S ex:Female Address:[address] [place] [address], [id number] Subjective: * Chief Complaints: * E MR-Alonzo * Medical History: Arthritis, A sthma, B ronchitis, C onstipation, D epression, D iabetes, H eart disease, H igh blood pressure, H istory of measles, mumps, or rubella, K idney infection, K loganney stone, M igraines, * Family History: M igrated Family History: : Diabetes, H eart disease, R heumatoid arthritis, S troke.? * Social History: M igrated Social History: M igrated Social History: Alcoholic beverages? - Yes, C urrently on disability? - Yes, D rug or substance abuse? - No, I f yes, frequency of alcoholic beverages - 2-3 drinks per day, Involved in any legal proceedings or lawsuits? - No, M arital Status - , N onprescription drug use? - Yes : marijuana, P articipation in detoxification or rehabilitation - No, S moking - No, W orking currently? - No. * Allergies: S ULFA (SULFONAMIDE ANTIBIOTICS): Shortness of breath/difficulty breathing - AllergyAmlodipine: swelling - Allergy * * Date:
--- NOTE | 2025-07-22 16:35 | XRR_ITS ---
PROCEDURE INFORMATION: Exam: XR Chest Exam date and time: 07/22/2025 10:20 PM Age: 74 years old Clinical indication: Prior surgery; Surgery date: 6+ months; Surgery type: Gastric bypass. Gb; C/O general weakness TECHNIQUE: Imaging protocol: Radiologic exam of the chest. Views: 1 view. COMPARISON: CR XR chest 1V portable [id number] 07/21/2025 10:04 AM FINDINGS: Lungs: No pulmonary consolidation. Mild interstitial prominence, likely chronic. No pulmonary consolidation. Pleural spaces: No pleural effusion or pneumothorax. Heart/Mediastinum: Stable enlargement of the cardiomediastinal silhouette. Evidence of right atrial enlargement and dilatation of the main pulmonary artery, stable. Diaphragm: Mild elevation of the right hemidiaphragm with probable eventration. Bones/joints: No acute osseous abnormalities are seen. XR/XR chest 1V portable [id number] IMPRESSION: No acute cardiopulmonary disease.
--- NOTE | 2025-07-22 16:35 | ECG_ITS ---
[facility] Date: 2025-07[facility]22 Pat Name: Chiqui Arias Department: Room: Gender: Female [employer]: : 1950 Requested By: Dino Quinn Order Number: [id number] Reading MD: ANTHONY CORONA Measurements Intervals [place] Rate: 71 P: 0 MI: 0 QRS: 26 QRSD: 116 T: 55 QT: 433 QTc: 473 Interpretive Statements ATRIAL FIBRILLATION MODERATE INTRAVENTRICULAR CONDUCTION DELAY [110+ ms QRS DURATION] ABNORMAL RHYTHM ECG Compared to ECG 07/21/2025 11:30:04 Intraventricular conduction delay now present Ventricular premature complex(es) no longer present Aberrant conduction of supraventricular beat(s) no longer present Incomplete right bundle-branch block no longer present T-wave abnormality no longer present Electronically Signed On 07-24-2025 22:27:28 CDT by ANTHONY CORONA [email or web address]
--- OUTSIDE RECORDS SUMMARY | 2025-07-22 16:52 | XMS_ITS | Patient Health Record ---
Author Organization [facility] Deena cardoza Billing Info Address [address] [place], [place] [address] [place] [address] Support Name Relationship Address Phone Chiqui Rosenberg Guarantor Unknown [phone] Reason For Referral No Information Medications Medication [...] Walking Boot as directed 11/11/2012 Acti ve Ihewhkweten-NITI-Lyxsmwt Pro d 5-500 MG as directed Orally [...] XRAY- FOOT AP AND LAT W/OBLIQ LT (01266) ([facility]) 10/07/2012 XRAY- FOOT AP AND LAT W/OBLIQ RT (05131) ([facility]) 10/07/2012 Insurance Providers Payer Name Payer Address Payer Phone Subscriber Number Group Number Insured Name Patient Relationship to Insured Coverage Start Date Coverage End Date [place] [address] [address] [place], [place] [id number] Chiqui Rosenberg Self - patient is the insured 3 3 [place] [address] [place], [place] [id number] Chiqui Rosenberg Self - patient is the insured 3 3
--- OUTSIDE RECORDS SUMMARY | 2025-07-22 16:53 | XMS_ITS | Patient Health Record ---
Author Organization [facility] Address [address] [place] [address] Care Team Providers Care Vice President Of Talent Management Name Role Phone Bobby Parker Primary Care Provider Unavailela TrevinoKim sahu Unavailable [phone] Migration, Provider Unavailable Unavailable Bobby Parker Unavailable [phone] Kian Auguste Unavailable [phone] Allergies Allergen (clinical drug ingredient) Drug/Non Drug Allergy documented on EMR Reaction Allergy Type Onset Date Status amlodipine Amlodipine swelling Drug Allergy Activ e Substance with sulfonamide structure and antibacterial mechanism of action (substance) Sulfa Antibiotics Shortness of breath/difficult y breathing Drug Allergy Active Results Component Value Reference Range Notes zzzUrine Drug Screen (confir mation by instrument) - 91015 Reviewed date:11/01/2024 03:19:25 PM Interpretation: Performing Lab: Notes/Report: Urine Drug Screen (cup read) - 62535 Reviewed date:10/25/2024 11:05:28 AM Interpretation:Negative Performing Lab: Notes/Report: Negative Pre-Procedure Blood Glucose Test - 92037 Reviewed date:10/19/2024 02:20:57 PM Interpretation:163 Performing Lab: Notes/Report: 163 Fluoro Needle For Placement - Spine 77029 Reviewed date:10/19/2024 02:20:44 PM Interpretation: Performing Lab: Notes/Report: Reason For [...] application Externally Once a day Active Biotin 08977 MCG Tablet 1 tablet Orally Once a [...] Status W/U Status Risk Notes Problem Obesity (961697771) Obesity, unspecified (E66.9) 05/29/20 22 Active confirmed Problem Chronic pain syndrome (791365457) Chronic pain syndrome (G89.4) Active confirmed Problem Syringomyelia and syringobulbia (891795308) Syringomyelia and syringobulbia (G95.0) 05/29/20 Active confirmed Problem Lumbosacral spondylosis without myelopathy (43053074) Other spondylosis with radiculopathy, lumbosacral region (M47.27) 05/29/20 Active confirmed Problem Degeneration of cervical intervertebral disc (16498025) Other cervical disc degeneration, unspecified cervical region (M50.30) 05/29/20 Active confirmed Problem Degeneration of thoracic intervertebral disc (15580461) Other intervertebral disc degeneration, thoracic region (M51.34) 05/29/20 Active confirmed Problem Degeneration of lumbar intervertebral disc (46583839) Other intervertebral disc degeneration, lumbar region (M51.36) 05/29/20 Active confirmed Problem Post-laminectomy syndrome (41386578) Postlaminectomy syndrome, not elsewhere classified (M96.1) 05/29/20 Active confirmed Problem Abnormal gait (14768030) Unspecified abnormalities of gait and mobility (R26.9) 05/29/20 Active confirmed Problem High risk drug monitoring status (598741938) 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) Active confirmed Vital Signs Height-cm 172.72 cm 11/11/2024 Weight-kg 94.8 kg 10/25/2024 Height 68.00 in 11/11/2024 Weight 209 lbs 10/25/2024 BMI 31.77 kg/m2 10/25/2024 Procedures Procedure Date Ordered Date Performed Result Body Sit e Implant Spinal Cord Stimulat or Trial - 03473 10/19/2024 10/19/2024 N/A Encounters Encounter Location Date Provider Diagnosis [facility] [address] [place] [address] 11/11/2024 Kim Chavez Chronic pain syndrom e G89.4 ; Syringomyelia and syringobulbia G95.0 ; Other spondylosis with radiculopathy, lumbosacral region M47.27 ; Postlaminectomy syndrome, not elsewhere classified M96.1 and 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 Z79.891 [facility] [address] [address] 10/25/2024 Kian Auguste Chronic pain syndrom e G89.4 ; Other spondylosis with radiculopathy, lumbosacral region M47.27 ; Postlaminectomy syndrome, not elsewhere classified M96.1 ; Syringomyelia and syringobulbia G95.0 and 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 Z79.891 [facility] [address] [place] [address] 10/19/2024 Bobby Parker Chronic pain syndrom e G89.4 ; Postlaminectomy syndrome, not elsewhere classified M96.1 and Other spondylosis with radiculopathy, lumbosacral region M47.27 [facility]Fac[facility] 0 0 07/25/2024 Provider Migration [facility] 0 0 07/24/2024 Provider Migration [facility] [address] [place] [address] 10/05/2024 Bobby Parker Chronic pain syndrom e G89.4 and Postlaminectomy syndrome, not elsewhere classified M96.1 [facility] [address] [facility] [place] [address] 09/09/2024 Bobby Parker [facility] [address] [place] [address] 08/24/2024 Bobby Parker Assessments Encounter Date Diagnosis (ICD Code) Assessment Notes Treatment Notes Treatment Clinical Notes Section Notes 10/05/2024 Chronic pain syndrome (ICD-10 - G89.4) 10/19/2024 Chronic pain syndrome (ICD-10 - G89.4) 10/19/2024 Postlaminectomy syndrome, not elsewhere classified (ICD-10 - M96.1) 10/25/2024 Chronic pain syndrome (ICD-10 - G89.4) [...] effects are noted. Last UDS and AR RATING CLERK reviewed today. Patient is advised that best [...] to abide by our urine testing policy. 11/11/2024 Chronic pain syndrome (ICD-10 - G89.4) [...] the idea of having to travel to [place] for the procedure. However, the patient states after she was done with the trial she has realized traveling to [place] for the procedure will not be that [...] effects are noted. Last UDS and AR RATING CLERK reviewed today. Patient is advised that best [...] 11/11/2024 Syringomyelia and syringobulbia (ICD-10 - G95.0) 10/25/2024 Other spondylosis with radiculopathy, lumbosacral region (ICD-10 - M47.27) 10/25/2024 Postlaminectomy syndrome, not elsewhere classified (ICD-10 - M96.1) 11/11/2024 Other spondylosis with radiculopathy, lumbosacral region (ICD-10 - M47.27) 10/19/2024 Other spondylosis with radiculopathy, lumbosacral region (ICD-10 - M47.27) 10/05/2024 Postlaminectomy syndrome, not elsewhere classified (ICD-10 - M96.1) 10/25/2024 Syringomyelia and syringobulbia (ICD-10 - G95.0) 11/11/2024 Postlaminectomy syndrome, not elsewhere classified (ICD-10 - M96.1) 11/11/2024 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
[2025-07-22 17:03] VITALS: PULSE 85; RESP 18; TEMP 37.1; O2SAT 94
[2025-07-22 17:05] LABS: Hematocrit 41.1 % (36-47); Hemoglobin 14.20 g/dL (11.27-16.99); Mean Corpuscular HGB Conc 34.5 g/dL (30-55); Mean Corpuscular Hemoglobin 33.1 pg (27-33); Mean Corpuscular Volume 95.8 fl (85-98); Nucleated Red Blood Cells % 0 %; Platelet Count 152 10^3/cmm (157-399); Red Blood Count 4.29 10^6/uL (3.85-5.65); White Blood Count 16.20 10^3/uL (3.29-11.43)
[2025-07-22 17:19] LABS: INR 1.67 (0.8-1.2); Prothrombin Time 20.80 SECONDS (12.1-14.9)
[2025-07-22 17:37] LABS: Alanine Aminotransferase 10 U/L (0-33); Albumin Level 4.1 g/dL (3.5-5.2); Alkaline Phosphatase 68 U/L (35-105); Anion Gap 18.5 (5-19); Aspartate Amino Transferase 14 U/L (0-32); Blood Urea Nitrogen 28 mg/dL (8-23); Calcium 9.4 mg/dL (8.5-10.5); Carbon Dioxide 25 mmol/L (22-29); Chloride 95 mmol/L (98-107); Creatinine Clr Calc Pharmacy 49.0652; Globulin 2.8 g/dL (1.3-4.6); Glucose 97 mg/dL (65-115); Osmolality Calculated 283 mOsm/kg (285-295); Potassium 4.5 mmol/L (3.5-5.1); Sodium 134 mmol/L (136-145); Thyroid Stimulating Hormone 2.13 uIU/mL (0.27-4.20); Total Protein 6.9 g/dL (6.6-8.7)
[2025-07-22 21:41] LABS: Glucose Urine UA Negative (Normal); Nitrate Urine Negative (Negative); Specific Gravity, Urine 1.012 (1.005-1.030)
[2025-07-22 21:46] LABS: Add Urine Microscopic? YES
[2025-07-22 22:27] VITALS: BP 167/94; PULSE 72; RESP 17; O2SAT 95
[2025-07-22 22:41] VITALS: BP 171/92; PULSE 69; RESP 16; O2SAT 97
[2025-07-22 23:05] VITALS: BP 166/80; PULSE 74; RESP 23; O2SAT 95
--- NOTE | 2025-07-22 23:35 | CTR_ITS ---
PROCEDURE INFORMATION: Exam: CT Head Without Contrast Exam date and time: 07/22/2025 11:41 PM Age: 74 years old Clinical indication: C/O general weakness; Additional info: Weakness, AMS TECHNIQUE: Imaging protocol: Computed tomography of the head without contrast. Radiation optimization: All CT scans at this facility use at least one of these dose optimization techniques: automated exposure control; mA and/or kV adjustment per patient size (includes targeted exams where dose is matched to clinical indication); or iterative reconstruction. COMPARISON: CT head wo con* [id number] 10/26/2022 8:16 PM RADIATION DOSE METRICS: Total DLP (mGy-cm): 1038.03 FINDINGS: Brain: There is lfeo-ld-jdqweuxk cerebral atrophy. There are bxkk-xu-jgohcfee deep white matter microangiopathic ischemic changes. No acute hemorrhage is identified. No mass or mass effect is identified. Cerebral ventricles: Moderately dilated ventricles secondary to atrophy. Paranasal sinuses: The paranasal sinuses are clear. Mastoid air cells: The mastoid air cells are clear. Bones: No acute osseous abnormalities are seen. Soft tissues: The soft tissues are within normal limits. CT/CT head wo con* [id number] IMPRESSION: 1. No acute intracranial pathology. 2. Senescent changes.
[2025-07-23] VITALS (14 sets, daily range): BP systolic 131–170; BP diastolic 73–101; PULSE 64–105; RESP 15–21; TEMP 36.4–36.7; O2SAT 93–98; BMI 29.5
--- NOTE | 2025-07-23 00:04 | W.ED.DIZZY ---
HPI - Dizziness General: Chief Complaint: Dizziness Stated Complaint: weak - dizzy Time Seen by Provider: 07/22/25 22:28 History of Present Illness: HPI Narrative: The patient is a 74-year-old female who was discharged from the hospital at 11:00 today and returned to the ED with multiple complaints. After discharge, she attempted to drive herself home but became disoriented and couldn't figure out her location or direction. Upon arriving home, she experienced whole-body tremors and significant lower extremity weakness. She reports that her knees shake when standing, and at times she felt like she was going to fall. Her son reports that when she called around 11:49, she couldn't put two words together coherently. At approximately 15:30, she was unable to get up, stating 'I can't feel anything.' The patient reports feeling relatively well while hospitalized but began feeling worse immediately after discharge. She states that she feels fine when sitting but experiences internal chest 'quivering' sensations. She also reports numbness below her knees when attempting to stand and describes whole-body shakiness that required assistance to get into bed. The patient has had no food since hospital discharge at noon, which is concerning given her diabetes. She also reports symptoms consistent with a UTI for approximately one week, including burning during urination, which she experienced again today. The patient was recently hospitalized for uncontrolled atrial fibrillation, which was presumed to be the cause of her weakness. Her son notes that her memory has significantly deteriorated today, with the patient frequently losing track of conversations. The patient reports feeling feverish despite typically having a low baseline temperature (97?F), with one recorded temperature of 99.5?F. Related Data Home Medications ?Medication ?Instructions ?Recorded ?Confirmed ascorbate calcium (vitamin C) 500 500 mg PO QAM 03/07/21 07/21/25 mg tablet obhrbgtt-gtf-yxohi ac 400 1 tab PO DAILY 11/29/22 07/21/25 mcg-calcium carb 500 mg-vit K1 20 mcg tablet (Women's 50 Plus Multivitamin) isosorbide mononitrate 30 mg 30 mg PO QAM 05/24/25 07/21/25 tablet,extended release 24 hr alendronate 70 mg tablet See Rx Instructions .Route .COMPLEX 07/21/25 07/21/25 escitalopram oxalate 20 mg tablet 20 mg PO DAILY 07/21/25 07/21/25 isosorbide mononitrate 60 mg 60 mg PO QPM 07/21/25 07/21/25 tablet,extended release 24 hr meloxicam 15 mg tablet 15 mg PO DAILY 07/21/25 07/21/25 ranolazine 500 mg tablet,extended 500 mg PO BID 07/21/25 07/21/25 release,12 hr rosuvastatin 5 mg tablet 5 mg PO QAM 07/21/25 07/21/25 Previous Rx's ?Medication ?Instructions ?Recorded Rollaid walker with seat #1 ea 10/16/23 loratadine 10 mg tablet 10 mg PO DAILY #90 tabs 10/22/23 blood-glucose meter (Accu-Chek #1 ea 03/02/24 Guide Glucose Meter) lancets (Accu-Chek Softclix #200 ea 03/02/24 Lancets) diabetic shoes w/ 3 inserts #1 ea 06/03/24 pantoprazole 40 mg tablet,delayed 40 mg PO BID@0900,2200 #180 tabs 10/01/24 release albuterol sulfate 90 mcg/actuation 1 inh inhalation QID PRN shortness 10/27/24 aerosol inhaler of breath or wheezing #6.7 grams furosemide 40 mg tablet See Rx Instructions .Route 12/27/24 .COMPLEX #180 tabs oxybutynin chloride 10 mg 10 mg PO DAILY #90 tabs 02/02/25 tablet,extended release 24 hr potassium chloride 10 mEq See Rx Instructions .Route 02/22/25 tablet,extended release .COMPLEX #180 tabs blood sugar diagnostic (Accu-Chek #100 ea 03/21/25 Guide test strips) rivaroxaban 10 mg tablet (Xarelto) 10 mg PO DAILY@2200 #90 tabs 05/23/25 anastrozole 1 mg tablet 1 mg PO DAILY #30 tabs 06/06/25 CPAP 6-16 cm mmHg setting machine, #1 ea 06/08/25 with mask, tubing and supplies nitroglycerin 0.4 mg sublingual 0.4 mg sublingual Q5M PRN chest 06/08/25 tablet (Nitrostat) pain #30 tabs aripiprazole 10 mg tablet (Abilify) 10 mg PO DAILY #90 tabs 06/30/25 duloxetine 60 mg capsule,delayed 120 mg (2 x 60 mg) PO DAILY@0900 06/30/25 release 90 days #180 caps trazodone 100 mg tablet 100 mg PO .HS #90 tabs 06/30/25 hydroxyzine HCl 25 mg tablet 25 mg PO TID PRN itching #90 tabs 07/04/25 diltiazem HCl 120 mg 120 mg PO BEDTIME #30 caps 07/22/25 capsule,extended release 24 hr glimepiride 1 mg tablet 1 mg PO QAM #90 tabs 07/22/25 guaifenesin 600 mg tablet, 1,200 mg (2 x 600 mg) PO BID #14 07/22/25 extended release 12 hr (Mucinex) tabs losartan 50 mg tablet 50 mg PO DAILY #30 tabs 07/22/25 metoprolol succinate 50 mg 50 mg PO DAILY #30 tabs 07/22/25 tablet,extended release 24 hr Allergies Allergy/AdvReac Type Severity Reaction Status Date / Time amlodipine Allergy edema Verified 06/30/25 10:50 Sulfa (Sulfonamide Allergy ALGY-Difficulty Verified 06/30/25 10:50 Antibiotics) Breathing PFSH ED PFS: Medical History (Updated 07/23/25 @ 03:59 by Carolee Bejarano MD) Invasive ductal carcinoma of right breast On combination antipsychotic drug therapy Generalized anxiety disorder Psychiatric care COPD (chronic obstructive pulmonary disease) Cardiomyopathy Chronic pain Moderate major depression GERD (gastroesophageal reflux disease) Chronic atrial fibrillation Chronic thoracic back pain Cannabis abuse Recent weight gain Encounter for weight loss counseling Discussed close follow-up due to episodes of hypoglycemia in the past when starting a weight loss program. Hypercholesterolemia ASHD (arteriosclerotic heart disease) Last angiogram with LAD 40-50 percent narrowing Primary hypertension Diabetes type 2, controlled Surgical History History of gastric bypass History of back surgery History of foot surgery H/O tubal ligation Hx of cholecystectomy H/O hernia repair History of oral surgery S/P knee replacement Hx of appendectomy H/O cataract extraction Gastric bypass status for obesity Family History Father Emphysema lung Mother COPD (chronic obstructive pulmonary disease) Brother Cancer lung nodule Emphysema lung Lung disease Chronic kidney disease (CKD) Family/Other Cancer Nephew--jaw Stroke Other CAD (coronary artery disease) Congestive heart failure (CHF) Diabetes Hyperlipidemia Hypertension Psychiatric illness Denies family history of Clotting disorder Dementia Suicide Anesthesia complication Bleeding disorder Social History Quit status (tobacco/nicotine): has quit using Alcohol intake: current Alcohol intake frequency: holidays/special occasions only Substance/Drug Use: current Substance/Drug use frequency: daily Other substance/drug use details: THC cartridge Additional social history: Patient vapes THC 2-3 hits at night. Patient wants full code no prolong life support Lives independently: Yes Household members: spouse Marital status: Number of children: 3 Current occupational status: retired and disabled Tejal/Protestant: [employer] Special tejal needs: No Physical Exam Const: COMMON NORMALS: alert GENERAL APPEARANCE: cooperative, ill appearing (mildly) and frail appearing HENMT: COMMON NORMALS: normocephalic and atraumatic HEAD & SCALP: normocephalic and atraumatic FACE & SINUS: normal facial exam and face symmetric Eye: COMMON NORMALS: Equal, round and reactive pupils present, EOMs intact bilaterally and conjunctivae normal CONJUNCTIVA: Yes conjunctivae normal PUPIL: Yes Equal, round and reactive pupils present Neck/C-Spine: COMMON NORMALS: full ROM and no meningeal signs GENERAL: Yes trachea midline Chest: CHEST: Yes Symmetrical chest wall rise Resp: COMMON NORMALS: normal respiratory effort, No use of accessory muscles and clear to auscultation bilaterally AUSCULTATION: clear to auscultation bilaterally Cardio: COMMON NORMALS: regular rate RATE: regular rate RHYTHM: abnormal rhythm irregularly irregular GI: COMMON NORMALS: Normal to inspection, nondistended, normoactive bowel sounds present, Soft to palpation and non-tender PALPATION: Yes Soft to palpation Extremity: COMMON NORMALS: no pedal edema Neuro: RAZ COMA SCALE: document GCS findings Raz coma scale eye opening: Spontaneous Raz coma scale verbal response: Confused [place] coma scale motor response: Obey commands [place] coma scale total score: 14 SENSORIUM/ORIENTATION: Yes alert MENINGEAL SIGNS: Yes no meningeal signs CRANIAL NERVES: Yes CN normal except as noted COORDINATION/BALANCE: [id number]-qi-gdcs test normal and dzwi-pi-mpxv test normal SPEECH: speech normal GAIT: No Normal gait present SENSORY EXAM: Yes extremities (Intact) MOTOR EXAM: Pronator motor function not present and Tremors during motor activity present COORDINATION: [id number]-eu-vlqv test normal and jxjr-tt-epcl test normal Course Vital Signs: Vital signs: Vital Signs Temperature 98.7 F 07/22/25 17:03 Pulse Rate 77 07/23/25 01:57 Respiratory Rate 16 07/23/25 01:57 Blood Pressure 143/75 07/23/25 01:57 Pulse Oximetry 96 07/23/25 01:57 Oxygen Delivery Me thod Room Air 07/23/25 02:12 MDM - Dizziness Medical Decision Making 74-year-old female returning to the hospital after being home for only a few hours. The complaint is altered mental status. Her vitals here are stable. She remains in atrial fibrillation. Her white blood cell count is 16 up from prior. Her platelet count is 152. Creatinine is 1.1 with a BUN of 28. Chest x-ray is negative. Head CT shows senescent changes with no acute findings. Urinalysis is negative for UTI. TSH is 2. BNP is slightly above baseline at 2500. With worsening mental status, inability to support her own weight and walk, she will be readmitted. Hospitalist is aware and will see the patient. Lab Data 07/22/25 16:56 07/22/25 16:56 Radiology Impressions Chest X-Ray 07/22/25 16:35 IMPRESSION: No acute cardiopulmonary disease. Head CT 07/22/25 23:35 IMPRESSION: 1. No acute intracranial pathology. 2. Senescent changes. Laboratory Results WBC 16.20 10^3/uL (3.29-11.43) H 07/22/25 16:56 RBC 4.29 10^6/uL (3.85-5.65) 07/22/25 16:56 Hgb 14.20 g/dL (11.27-16.99) 07/22/25 16:56 Hct 41.1 % (36-47) 07/22/25 16:56 MCV 95.8 fl (85-98) 07/22/25 16:56 MCH 33.1 pg (27-33) H 07/22/25 16:56 MCHC 34.5 g/dL (30-55) 07/22/25 16:56 RDW 12.8 % (12.1-15.1) 07/22/25 16:56 Plt Count 152 10^3/cmm (157-399) L 07/22/25 16:56 MPV 10.6 fL (7.4-10.4) H 07/22/25 16:56 Neut % (Auto) 84.0 % 07/22/25 16:56 Lymph % (Auto) 10.1 % 07/22/25 16:56 [place] % (Auto) 5.4 % 07/22/25 16:56 Eos % (Auto) 0.0 % 07/22/25 16:56 Baso % (Auto) 0.1 % 07/22/25 16:56 Neut # (Auto) 13.62 10^3/uL (1.8-7.7) H 07/22/25 16:56 Lymph # (Auto) 1.6 10^3/uL (0.8-4.8) 07/22/25 16:56 [place] # (Auto) 0.9 10^3/uL (0.2-0.9) 07/22/25 16:56 Eos # (Auto) 0.0 10^3/uL (0.0-0.8) 07/22/25 16:56 Baso # (Auto) 0.0 10^3/uL (0.0-0.1) 07/22/25 16:56 Nucleated RBC % (auto) 0 % 07/22/25 16:56 Nucleated RBCs # 0.0 /100WBC 07/22/25 16:56 PT 20.80 SECONDS (12.1-14.9) H 07/22/25 16:56 INR 1.67 (0.8-1.2) H 07/22/25 16:56 Sodium 134 mmol/L (136-145) L 07/22/25 16:56 Potassium 4.5 mmol/L (3.5-5.1) 07/22/25 16:56 Chloride 95 mmol/L (98-107) L 07/22/25 16:56 Carbon Dioxide 25 mmol/L (22-29) 07/22/25 16:56 Anion Gap 18.5 (5-19) 07/22/25 16:56 BUN 28 mg/dL (8-23) H 07/22/25 16:56 Creatinine 1.1 mg/dL (0.5-0.9) H 07/22/25 16:56 GFR Calculation Not Reportable 07/22/25 16:56 Glucose 97 mg/dL (65-115) 07/22/25 16:56 POC Glucose 108 mg/dL (70-110) 07/23/25 00:34 Calculated Osmolality 283 mOsm/kg (285-295) L 07/22/25 16:56 Calcium 9.4 mg/dL (8.5-10.5) 07/22/25 16:56 Total Bilirubin 0.8 mg/dL (0.15-1.2) 07/22/25 16:56 AST 14 U/L (0-32) 07/22/25 16:56 ALT 10 U/L (0-33) 07/22/25 16:56 Alkaline Phosphatase 68 U/L (35-105) 07/22/25 16:56 NT-Pro-B Natriuret Pep 2500 pg/mL (0-450) H 07/22/25 16:56 Total Protein 6.9 g/dL (6.6-8.7) 07/22/25 16:56 Albumin 4.1 g/dL (3.5-5.2) 07/22/25 16:56 Globulin 2.8 g/dL (1.3-4.6) 07/22/25 16:56 TSH 2.13 uIU/mL (0.27-4.20) 07/22/25 16:56 Urine Color Yellow (Yellow) 07/22/25 21:31 Urine Appearance Clear (CLEAR) 07/22/25 21:31 Urine pH 5.0 (5-7) 07/22/25 21:31 Ur Specific [place] 1.012 (1.005-1.030) 07/22/25 21:31 Urine Protein Negative (Negative) 07/22/25 21:31 Urine Glucose (UA) Negative (Normal) 07/22/25 21: Urine Ketones Negative (Negative) 07/22/25 21: Urine Blood Negative (Negative) 07/22/25 21: Urine Nitrate Negative (Negative) 07/22/25 21: Urine Bilirubin Negative (Negative) 07/22/25 21: Urine Urobilinogen 1.0 mg/dL (Negative) 07/22/25 21: Ur Leukocyte Esterase Trace (Negative) A 07/22/25 21:31 Urine RBC 0-2 /hpf (0-2) 07/22/25 21:31 Urine WBC 0-5 /hpf (0-5) 07/22/25 21:31 Ur Squamous Epith Cells 0-5 /hpf (0-5) 07/22/25 21:31 Amorphous Sediment Not Reportable 07/22/25 21:31 Urine Bacteria None seen /hpf (NONE) 07/22/25 21:31 Hyaline Casts 3.71 /lpf 07/22/25 21:31 All radiology interpretation(s) finalized by discharge Discharge Plan Discharge Patient Disposition: Admitted As Inpatient Admit Provider: Carolee Bejarano Clinical Impression: Heart failure with reduced ejection fraction and diastolic dysfunction, Acute alteration in mental status, Atrial fibrillation Condition: Stable Coding Level of Care Code ED Gameplay Engineer for Hattie Toro
[2025-07-23 00:12] LABS: NT Pro B Type Natriuretic Pept 2500 pg/mL (0-450)
--- NOTE | 2025-07-23 03:51 | PM.HP ---
Providers/Chief Complaint Admitting Physician: Carolee Bejarano MD--- patient admitted after 12 midnight Primary Care Provider: Bobby Ingram MD Chief Complaint: weak - dizzy History of Present Illness Chiqui Arias is a 74 year old female with medical history significant for atrial fibrillation who was just admitted to the hospitalist service and discharge just on the same day of coming back to the hospital because of a change in mental status significant for metabolic encephalopathy. Atrial fibrillation is there but controlled. Patient was to be evaluated in the emergency room. At discharge of the patient same day as the patient Ben presenting to the emergency room, she was temporarily disoriented as she was driving and then panicked and then finally regain composure knew where she was going. Patient still shaking because of being afraid of the event got weak trying to get out of the car upon reaching the resident and this fear led the patient to come back today emergency room. Patient had done well workup at this point is negative cannot put much unable white count that could be reactional due to internal system reaction. Evaluation revealed white count was elevated from 13,000 to 16,000 and patient was confused. At discharge patient was to drive herself home got disoriented did not know where She was going. CT of the brain was unremarkable. Chest x-ray unremarkable, urinalysis unremarkable for any infection. The source of infection metabolic encephalopathy is quite unrevealing. Patient was pancultured and was covered with empiric antibiotics such as Zosyn and doxycycline. Workup is at this time negative may further evaluate within 24 hours if patient continue to look good and feel okay patient should be allowed to discharge. This is temporary global amnesia Review of Systems Narrative: External review upon tenogram reviewed were entirely unremarkable in this patient upon my evaluation of the patient. Medications/Allergies Home Medications ?Medication ?Instructions ?Recorded ?Confirmed ?Last Taken ?Type ascorbate calcium (vitamin C) 500 500 mg PO QAM 03/07/21 07/21/25 07/21/25 History mg tablet mhkppdqh-zgw-rpxmi ac 400 1 tab PO DAILY 11/29/22 07/21/25 07/21/25 History mcg-calcium carb 500 mg-vit K1 20 mcg tablet (Women's 50 Plus Multivitamin) Rollaid walker with seat #1 ea 10/16/23 07/21/25 Unknown Rx loratadine 10 mg tablet 10 mg PO DAILY #90 tabs 10/22/23 07/21/25 07/21/25 Rx blood-glucose meter (Accu-Chek #1 ea 03/02/24 07/21/25 Unknown Rx Guide Glucose Meter) lancets (Accu-Chek Softclix #200 ea 03/02/24 07/21/25 Unknown Rx Lancets) diabetic shoes w/ 3 inserts #1 ea 06/03/24 07/21/25 Unknown Rx pantoprazole 40 mg tablet,delayed 40 mg PO BID@0900,2200 #180 tabs 10/01/24 07/21/25 07/21/25 Rx release albuterol sulfate 90 mcg/actuation 1 inh inhalation QID PRN shortness 10/27/24 07/21/25 05/24/25 08:00 Rx aerosol inhaler of breath or wheezing #6.7 grams furosemide 40 mg tablet See Rx Instructions .Route 12/27/24 07/21/25 07/21/25 Rx .COMPLEX #180 tabs oxybutynin chloride 10 mg 10 mg PO DAILY #90 tabs 02/02/25 07/21/25 07/21/25 Rx tablet,extended release 24 hr potassium chloride 10 mEq See Rx Instructions .Route 02/22/25 07/21/25 07/21/25 Rx tablet,extended release .COMPLEX #180 tabs blood sugar diagnostic (Accu-Chek #100 ea 03/21/25 07/21/25 Unknown Rx Guide test strips) rivaroxaban 10 mg tablet (Xarelto) 10 mg PO DAILY@2200 #90 tabs 05/23/25 07/21/25 07/20/25 Rx isosorbide mononitrate 30 mg 30 mg PO QAM 05/24/25 07/21/25 07/21/25 History tablet,extended release 24 hr anastrozole 1 mg tablet 1 mg PO DAILY #30 tabs 06/06/25 07/21/25 07/21/25 Rx CPAP 6-16 cm mmHg setting machine, #1 ea 06/08/25 07/21/25 Unknown Rx with mask, tubing and supplies nitroglycerin 0.4 mg sublingual 0.4 mg sublingual Q5M PRN chest 06/08/25 07/21/25 Unknown Rx tablet (Nitrostat) pain #30 tabs aripiprazole 10 mg tablet (Abilify) 10 mg PO DAILY #90 tabs 06/30/25 07/21/25 07/21/25 Rx duloxetine 60 mg capsule,delayed 120 mg (2 x 60 mg) PO DAILY@0900 06/30/25 07/21/25 07/21/25 Rx release 90 days #180 caps trazodone 100 mg tablet 100 mg PO .HS #90 tabs 06/30/25 07/21/25 07/20/25 Rx hydroxyzine HCl 25 mg tablet 25 mg PO TID PRN itching #90 tabs 07/04/25 07/21/25 Unknown Rx alendronate 70 mg tablet See Rx Instructions .Route .COMPLEX 07/21/25 07/21/25 07/18/25 History escitalopram oxalate 20 mg tablet 20 mg PO DAILY 07/21/25 07/21/25 07/21/25 History isosorbide mononitrate 60 mg 60 mg PO QPM 07/21/25 07/21/25 07/21/25 History tablet,extended release 24 hr meloxicam 15 mg tablet 15 mg PO DAILY 07/21/25 07/21/25 07/21/25 History ranolazine 500 mg tablet,extended 500 mg PO BID 07/21/25 07/21/25 07/21/25 History release,12 hr rosuvastatin 5 mg tablet 5 mg PO QAM 07/21/25 07/21/25 07/21/25 History diltiazem HCl 120 mg 120 mg PO BEDTIME #30 caps 07/22/25 Unknown Rx capsule,extended release 24 hr glimepiride 1 mg tablet 1 mg PO QAM #90 tabs 07/22/25 Unknown Rx guaifenesin 600 mg tablet, 1,200 mg (2 x 600 mg) PO BID #14 07/22/25 Unknown Rx extended release 12 hr (Mucinex) tabs losartan 50 mg tablet 50 mg PO DAILY #30 tabs 07/22/25 Unknown Rx metoprolol succinate 50 mg 50 mg PO DAILY #30 tabs 07/22/25 Unknown Rx tablet,extended release 24 hr Allergies Allergy/AdvReac Type Severity Reaction Status Date / Time amlodipine Allergy edema Verified 06/30/25 10:50 Sulfa (Sulfonamide Allergy ALGY-Difficulty Verified 06/30/25 10:50 Antibiotics) Breathing PFSH Acute PFSH: Medical History Invasive ductal carcinoma of right breast On combination antipsychotic drug therapy Generalized anxiety disorder Psychiatric care COPD (chronic obstructive pulmonary disease) Cardiomyopathy Chronic pain Moderate major depression GERD (gastroesophageal reflux disease) Chronic atrial fibrillation Chronic thoracic back pain Cannabis abuse Recent weight gain Encounter for weight loss counseling Discussed close follow-up due to episodes of hypoglycemia in the past when starting a weight loss program. Hypercholesterolemia ASHD (arteriosclerotic heart disease) Last angiogram with LAD 40-50 percent narrowing Primary hypertension Diabetes type 2, controlled Surgical History History of gastric bypass History of back surgery History of foot surgery H/O tubal ligation Hx of cholecystectomy H/O hernia repair History of oral surgery S/P knee replacement Hx of appendectomy H/O cataract extraction Gastric bypass status for obesity Family History Father Emphysema lung Mother COPD (chronic obstructive pulmonary disease) Brother Cancer lung nodule Emphysema lung Lung disease Chronic kidney disease (CKD) Family/Other Cancer Nephew--jaw Stroke Other CAD (coronary artery disease) Congestive heart failure (CHF) Diabetes Hyperlipidemia Hypertension Psychiatric illness Denies family history of Clotting disorder Dementia Suicide Anesthesia complication Bleeding disorder Social History Quit status (tobacco/nicotine): has quit using Alcohol intake: current Alcohol intake frequency: holidays/special occasions only Substance/Drug Use: current Substance/Drug use frequency: daily Other substance/drug use details: THC cartridge Additional social history: Patient vapes THC 2-3 hits at night. Patient wants full code no prolong life support Lives independently: Yes Household members: spouse Marital status: Number of children: 3 Current occupational status: retired and disabled Tejal/Adventism: Orthodox Special tejal needs: No Vitals/I&O/Wt Last Vital Signs Temp 98.7 F 07/22/25 17:03 Pulse 77 07/23/25 01:57 Resp 16 07/23/25 01:57 BP 143/75 07/23/25 01:57 Pulse Ox 96 07/23/25 01:57 O2 Del Method Room Air 07/23/25 02:12 Weight last 48 hrs Weight 85.36 kg Weight 86.183 kg Physical Exam Narrative: Patient seen and evaluated appear to be entirely unremarkable looks good on room air HEENT normocephalic atraumatic neck neck is supple cardiovascular heart rate is regular lungs are pretty much clear abdomen soft nontender nondistended unremarkable extremities are intact no edema has good pulses neurology has no focality lab studies lab studies reviewed and noted for isolated white count of 16,000 Data 07/22/25 16:56 07/22/25 16:56 A&P Assessment and plan 1. Atrial fibrillation: 2. Acute alteration in mental status: 3. Metabolic encephalopathy: 4. Leukocytosis: Plan: Transient change in mental status with metabolic encephalopathy - Admit to general medical floor for further care and evaluation - Patient completely resolved metabolic encephalopathy, feeling good - There are no sources for any form of infection except for sign of leukocytosis with no fever - Should the repeat white count becomes normal and no positive culture, patient should be allowed to Discharge - Patient had no UTI, no chest x-ray with any acute process except for just isolated white count elevation - Patient had systemic inflammatory reaction likely secondary to intense temporarily disorientation Atrial fibrillation-controlled rate Diabetes type 2-euglycemic Isolated elevated BNP--does not constitute heart failure - Chest x-ray was unremarkable and patient had no symptomatology of shortness of breath or chest pains PDMP PDMP Reviewed: Last Reviewed 07/23/25 06:31 by Carolee Bejarano MD Attestations Medical Necessity Statement*: Patient with transient change in mental status may need 23-hour to 48-hour for optimization and evaluation Coding Level of Care Code 13785 Diagnoses Atrial fibrillation I48.91 Acute alteration in mental status R41.82 Metabolic encephalopathy G93.41 Leukocytosis D72.829 Time Spent (min) 60
[2025-07-23 04:58] LABS: Hematocrit 37.8 % (36-47); Hemoglobin 13.30 g/dL (11.27-16.99); Mean Corpuscular HGB Conc 35.2 g/dL (30-55); Mean Corpuscular Hemoglobin 33.2 pg (27-33); Mean Corpuscular Volume 94.3 fl (85-98); Nucleated Red Blood Cells % 0 %; Platelet Count 137 10^3/cmm (157-399); Red Blood Count 4.01 10^6/uL (3.85-5.65); White Blood Count 12.70 10^3/uL (3.29-11.43)
[2025-07-23] MEDS: heparin 5,000 unit/mL INJ 1 mL 5000 UNIT SUBCUT (05:03)
[2025-07-23] MEDS: doxycycline 100 MG in sodium chloride 0.9% (plus) 100 ML IV (05:04)
[2025-07-23 05:19] LABS: Alanine Aminotransferase 10 U/L (0-33); Albumin Level 3.6 g/dL (3.5-5.2); Alkaline Phosphatase 60 U/L (35-105); Anion Gap 16.3 (5-19); Aspartate Amino Transferase 14 U/L (0-32); Blood Urea Nitrogen 25 mg/dL (8-23); Calcium 9.2 mg/dL (8.5-10.5); Carbon Dioxide 24 mmol/L (22-29); Chloride 98 mmol/L (98-107); Creatinine Clr Calc Pharmacy 59.6922; Globulin 2.5 g/dL (1.3-4.6); Glucose 135 mg/dL (65-115); Magnesium 1.9 mg/dL (1.7-2.3); Osmolality Calculated 284 mOsm/kg (285-295); Potassium 4.3 mmol/L (3.5-5.1); Sodium 134 mmol/L (136-145); Total Protein 6.1 g/dL (6.6-8.7)
[2025-07-23 05:31] LABS: Estmated Average Glucose 123; Hemoglobin A1C 5.9 % (4.0-6.0)
[2025-07-23] MEDS: piperacillin-tazobactam 4.5 GM in sodium chloride 0.9% (plus) 50 ML IV (06:10)
--- NOTE | 2025-07-23 08:37 | USCV_ITS ---
Chiqui Arias Age: 74 Gender: F : 1950 Exam Date: 07/23/2025 16:38 Ordering Phys: Jacob Sanchez MD Technologist: Salvatore Leon [place]am [place] [facility] [place] Indication: ams BP: 155 / 77 HR: 62 Rhythm: Sinus Technical Quality: Adequate MEASUREMENTS (Male / Female) Normal Values 2D ECHO LV Diastolic Diameter PLAX 4.5 cm 4.2 - 5.9 / 3.9 - 5.3 cm IVS Diastolic Thickness 1.1 cm 0.6 - 1.0 / 0.6 - 0.9 cm IVS Systolic Thickness 1.1 cm LVPW Diastolic Thickness 0.9 cm 0.6 - 1.0 / 0.6 - 0.9 cm LVPW Systolic Thickness 0.9 cm LVOT Diameter 2.0 cm LV Ejection Fraction 2D Teich 43.1 % LV Ejection Fraction MOD 4C 50.8 % LV Ejection Fraction MOD 2C 56.1 % LV Ejection Fraction 2C AL 55.9 % LA Diameter 4.6 cm RA Systolic Volume 4C AL 53.0 ml RA Systolic Volume 4C MOD 51.1 ml LA Sys Volume AL 110.4 cm cubed LA Sys Volume Index AL 54.3 cm cubed/m squared Aorta at Sinotubular Diameter 2.3 cm IVC Diameter 1.6 cm M-MODE LA Ao Ratio MM 1.1 AV Cusp Separation MM 1.4 cm DOPPLER AV Peak Velocity 99.0 cm/s LVOT Peak Velocity 57.0 cm/s AV Area Cont Eq vti 2.1 cm squared AV Area Cont Eq pk 1.8 cm squared MV Peak Velocity 120.0 cm/s MV Area PHT 7.5 cm squared Mitral E to A Ratio 3.5 TV Peak Velocity 349.0 cm/s TR Peak Velocity 364.0 cm/s TR Peak Gradient 53.0 mmHg TR Mean Velocity 276.0 cm/s TR Mean Gradient 32.8 mmHg TR Velocity Time Integral 113.5 cm PV Peak Velocity 68.3 cm/s RV Ejection Time 0.3 s FINDINGS Left Ventricle Normal left ventricular size, systolic function and wall thickness, with no regional wall motion abnormalities. Left ventricular ejection fraction is estimated at 55 %. Grade III/IV diastolic dysfunction (restrictive filling pattern), severely elevated filling pressures. Right Ventricle Normal right ventricular size and systolic function. Right Atrium Normal right atrial size. Left Atrium Moderately increased left atrial size. IA Septum Normal appearance of the interatrial septum. Mitral Valve Mildly thickened mitral valve. No mitral valve stenosis. Moderate-severe mitral valve regurgitation. mitral valve regurgitation. Aortic Valve Mild aortic valve calcification. No aortic valve stenosis. Mild aortic valve regurgitation. Tricuspid Valve Mild tricuspid valve regurgitation. Pulmonic Valve Normal pulmonic valve structure. No pulmonic valve stenosis or regurgitation. Pericardium No pericardial effusion. Aorta Normal diameter of the aortic root and ascending thoracic aorta. IVC Normal IVC diameter. CONCLUSIONS Normal left ventricular size, systolic function and wall thickness, with no regional wall motion abnormalities. Left ventricular ejection fraction is estimated at 55 %. Grade III/IV diastolic dysfunction (restrictive filling pattern), severely elevated filling pressures. Moderately increased left atrial size. Mildly thickened mitral valve. No mitral valve stenosis. Moderate-severe mitral valve regurgitation. mitral valve regurgitation. Mild tricuspid valve regurgitation. There is no pericardial effusion. Right atrial pressure is around 10 mm of mercury. Carly Renteria MD (Electronically Signed) Final Date: 23 July 2025 22:42 S
--- NOTE | 2025-07-23 08:37 | USR_ITS ---
PROCEDURE INFORMATION: Exam: US Duplex Bilateral Extracranial Arteries; Complete; Carotid Arteries Exam date and time: 07/23/2025 4:17 PM Age: 74 years old Clinical indication: Altered mental status/memory loss; Additional info: AMS TECHNIQUE: Imaging protocol: Real-time duplex ultrasound scan of the bilateral extracranial arteries combining rodriguez scale, color Doppler and spectral waveform analysis with image documentation. Complete exam. Exam focused on the carotid arteries. COMPARISON: CT head wo con* [id number] 07/22/2025 11:41 PM FINDINGS: Right common carotid artery: Unremarkable. No occlusion or stenosis. Waveforms are normal. Right internal carotid artery: Unremarkable. No occlusion or stenosis. Waveforms are normal. Right ICA/CCA ratio: 2.6. Right external carotid artery: No stenosis in the origin. Right vertebral artery: Unremarkable. Antegrade flow. Left common carotid artery: Unremarkable. No occlusion or stenosis. Waveforms are normal. Left internal carotid artery: Mild plaque proximally. No occlusion or stenosis. Waveforms are normal. Left ICA/CCA ratio: 2.7. Left external carotid artery: No stenosis in the origin. Left vertebral artery: Unremarkable. Antegrade flow. US/CV carotid duplex BI* [id number] IMPRESSION: 1. No carotid arterial stenosis. 2. Increased bilateral ICA/CCA ratios is due to increased measured velocities in the distal internal carotid arteries related to tortuosity of the vessels. REFERENCES: SRU CRITERIA. The degree of internal carotid artery stenosis is based on criteria defined by the Society of Radiologists in Ultrasound (SRU). Normal is no stenosis. Mild is less than 50% stenosis. Moderate is 50-69% stenosis. Severe is greater than 69% stenosis to near occlusion. Near occlusion is a markedly narrowed lumen. Total occlusion is no detectable patent lumen. Nichole Benitez, et al. Carotid Artery Stenosis: Rodriguez-Scale and Doppler US Diagnosis-Society of Radiologists in Ultrasound Consensus Conference. Radiology 2003; 229:340-346.
--- NOTE | 2025-07-23 08:57 | ECG_ITS ---
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
[2025-07-23] MEDS: ranolazine (12HR) 500 mg Tablet PO ×2 (09:02→17:00)
[2025-07-23] MEDS: metoprolol succinate ER (24 HR) 50 mg Tablet PO (09:02)
[2025-07-23 10:11] LABS: Troponin(5th) Baseline 14 ng/L (0-10)
[2025-07-23 10:14] LABS: Ammonia 29 umol/L (11-51)
[2025-07-23 10:18] LABS: Procalcitonin 0.94 ng/mL (0-0.5)
--- NOTE | 2025-07-23 10:37 | ECG_ITS ---
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1950 Requested By: Jacob Sanchez Order Number: [id number] Reading MD: ANTHONY CORONA Measurements Intervals [place] Rate: 79 P: 0 PA: 0 QRS: 47 QRSD: 137 T: 50 QT: 412 QTc: 475 Interpretive Statements ATRIAL FIBRILLATION WITH ABERRANT CONDUCTION OR VENTRICULAR PREMATURE COMPLEXES INTRAVENTRICULAR CONDUCTION DELAY [130+ ms QRS DURATION] Compared to ECG 07/23/2025 08:57:05 Intraventricular conduction delay now present Atrial flutter no longer present Electronically Signed On 07-24-2025 22:29:23 CDT by ANTHONY CORONA [email or web address]
[2025-07-23 12:14] LABS: Troponin 5 2HR 13.74 ng/L (0-10)
--- NOTE | 2025-07-23 12:14 | PC.PHAR ---
Patient couldn't remember if she took morning meds at Discharge 07/22/25 . Patient did state she had not started the new meds she was discharged with .
[2025-07-23 12:15] LABS: Troponin 5 2HR Delta -0.26 ABS# (0-10)
--- NOTE | 2025-07-23 12:36 | CTR_ITS ---
PROCEDURE INFORMATION: Exam: CT Chest Without Contrast; Diagnostic Exam date and time: 07/23/2025 12:45 PM Age: 74 years old Clinical indication: Abdominal tenderness; Dyspnea; Additional info: AMS, leukocytosis, TECHNIQUE: Imaging protocol: Diagnostic computed tomography of the chest without contrast. Radiation optimization: All CT scans at this facility use at least one of these dose optimization techniques: automated exposure control; mA and/or kV adjustment per patient size (includes targeted exams where dose is matched to clinical indication); or iterative reconstruction. COMPARISON: CT angio chest PE prot [id number] 11/10/2022 11:48 AM RADIATION DOSE METRICS: Total DLP (mGy-cm): 865.08 FINDINGS: Lungs: See Soft tissues finding. Pleural spaces: Unremarkable. No pneumothorax. No pleural effusion. Heart: Unremarkable. No cardiomegaly. No pericardial effusion. Coronary arteries: Multivessel coronary artery calcifications. Lymph nodes: Unremarkable. No enlarged lymph nodes. Vasculature: Main pulmonary artery measures 3.7 cm in diameter, similar to prior. The thoracic aorta is nonaneurysmal with atherosclerotic calcifications. Diaphragm: Small sliding-type hiatal hernia. Bones/joints: Degenerative changes of the thoracic spine, similar to prior. Soft tissues: Postlumpectomy changes in the right breast. Multifocal predominantly peribronchovascular ground-glass opacities throughout bilateral lungs with no lobe spared, left slightly more than right. No lobar consolidation. PROCEDURE INFORMATION: Exam: CT Abdomen And Pelvis Without Contrast Exam date and time: 07/23/2025 12:45 PM Age: 74 years old Clinical indication: Abdominal tenderness; Dyspnea; Additional info: AMS, leukocytosis, TECHNIQUE: Imaging protocol: Computed tomography of the abdomen and pelvis without contrast. Radiation optimization: All CT scans at this facility use at least one of these dose optimization techniques: automated exposure control; mA and/or kV adjustment per patient size (includes targeted exams where dose is matched to clinical indication); or iterative reconstruction. COMPARISON: CT angio chest PE prot [id number] 11/10/2022 11:48 AM RADIATION DOSE METRICS: Total DLP (mGy-cm): 865.08 FINDINGS: Liver: Normal. No mass. Gallbladder and biliary ducts: Status post cholecystectomy. Pancreas: Normal. No ductal dilation. Spleen: Normal. No splenomegaly. Adrenal glands: Normal. No mass. Kidneys and ureters: Normal. No hydronephrosis. Stomach and bowel: Moderate stool throughout the colon. No evidence of bowel obstruction. Suture line again seen along the mid gastric body. Appendix: No evidence of appendicitis. Intraperitoneal space: Unremarkable. No free air. No significant fluid collection. Vasculature: Moderate diffuse atherosclerotic aortoiliac calcifications. No abdominal aortic aneurysm. Lymph nodes: Unremarkable. No enlarged lymph nodes. Urinary bladder: Unremarkable as visualized. Reproductive: Unremarkable as visualized. Bones/joints: Posterior instrumented fusion at L4-L5. Advanced multilevel lumbar spondylosis. Soft tissues: Mild anasarca. CT/[place] [id number] IMPRESSION: 1. Findings compatible with multifocal infection throughout bilateral lungs, [id number]-right. Recommend imaging follow-up after clinical treatment to document resolution. 2. Dilated main pulmonary artery can be seen with pulmonary arterial hypertension. IMPRESSION: No acute findings.
[2025-07-23] MEDS: piperacillin-tazobactam 3.375 GM in sodium chloride 0.9% (plus) 50 ML IV ×2 (13:14→21:12)
--- NOTE | 2025-07-23 14:29 | PHA.VACGOAL ---
Vancomycin Goal - Goal Vancomycin Goal:: 15-20 mg/L Vancomycin Indication:: Other - Therapy Current therapy:: Pip/Tazo Day of therpy:: Day []of [] . Actual body weight (kg): 188 lb 8 oz - Data Labs: WBC 12.70 10^3/uL (3.29-11.43) H 07/23/25 04:33 RBC 4.01 10^6/uL (3.85-5.65) 07/23/25 04:33 Hgb 13.30 g/dL (11.27-16.99) 07/23/25 04:33 Hct 37.8 % (36-47) 07/23/25 04:33 MCV 94.3 fl (85-98) 07/23/25 04:33 MCH 33.2 pg (27-33) H 07/23/25 04:33 MCHC 35.2 g/dL (30-55) 07/23/25 04:33 RDW 12.8 % (12.1-15.1) 07/23/25 04:33 Sodium 134 mmol/L (136-145) L 07/23/25 04:33 Potassium 4.3 mmol/L (3.5-5.1) 07/23/25 04:33 Chloride 98 mmol/L (98-107) 07/23/25 04:33 Carbon Dioxide 24 mmol/L (22-29) 07/23/25 04:33 Anion Gap 16.3 (5-19) 07/23/25 04:33 BUN 25 mg/dL (8-23) H 07/23/25 04:33 Creatinine 0.9 mg/dL (0.5-0.9) 07/23/25 04:33 GFR Calculation Not Reportable 07/23/25 04:33 Last dialysis session:: N/A Treatment plan:: new consult Regimen:: LOADING DOSE OF 1500 MG X 1 MAINTENANCE DOSE OF 750 MG Q12H PER DOSING PROTOCOL Follow up:: WILL CONTINUE TO MONITOR AND FOLLOW UP DAILY
--- NOTE | 2025-07-23 14:53 | P.PN_ITS ---
Subjective 2 Subjective: Patient was seen this morning, currently alert to person, to place, not to time, she follows all commands, denies any fevers, chills, no cough, no lightheadedness, no dizziness, no chest pain, no palpitations, no abdominal pain, family was at bedside, worried about progressive forgetfulness, she does have short-term memory loss, Vitals/I&O/Wt Last Vital Signs Temp 97.9 F 07/23/25 11:20 Pulse 85 07/23/25 13:22 Resp 15 07/23/25 11:20 BP 147/90 07/23/25 11:20 Pulse Ox 96 07/23/25 11:20 O2 Del Method Room Air 07/23/25 11:20 07/22/25 07/23/25 07/23/25 22:59 06:59 14:59 Intake Total 340 / 340 410 / 410 Output Total 1000 / 1000 Balance -660 / -660 410 / 410 Weight last 48 hrs Weight 85.502 kg Weight 85.36 kg Weight 86.183 kg Physical Exam 2 Const: COMMON NORMALS: no acute distress ORIENTATION/CONSCIOUSNESS: Yes awake, Yes oriented to person and Yes oriented to place; not oriented to time Resp: COMMON NORMALS: normal respiratory effort, No retractions, No use of accessory muscles and clear to auscultation bilaterally AUSCULTATION: clear to auscultation bilaterally Cardio: COMMON NORMALS: regular rate, regular rhythm, S1 normal heart sound present and S2 normal heart sound present RATE: regular rate RHYTHM: r egular rhythm HEART SOUNDS: S1 normal heart sound present and S2 normal heart sound present GI: COMMON NORMALS: Normal to inspection, nondistended, normoactive bowel sounds present and non-tender Extremity: COMMON NORMALS: no pedal edema Neuro: SENSORIUM/ORIENTATION: Yes oriented to person, Yes oriented to place and No oriented to time Psych: COMMON NORMALS: mental status grossly normal Data 07/23/25 04:33 07/23/25 04:33 A&P Assessment and plan 1. Atrial fibrillation: 2. Acute alteration in mental status: 3. Metabolic encephalopathy: 4. Leukocytosis: Plan: Acute encephalopathy - With leukocytosis - Elevated inflammatory markers - CT chest abdomen pelvis - Continue broad-spectrum antibiotic therapy - Vancomycin - Zosyn -History of atrial fibrillation resume home medication, metoprolol, Xarelto -Resume Cymbalta -Type 2 diabetes mellitus low-dose sliding scale -Full code -Lovenox for DVT prophylaxis PDMP PDMP Reviewed: Not Reviewed Attestations 2 Medical Necessity Statement*: Patient requires hospitalization for acute encephalopathy, inpatient, greater than 2 midnights Diagnoses Atrial fibrillation I48.91 Acute alteration in mental status R41.82 Metabolic encephalopathy G93.41 Leukocytosis D72.829
[2025-07-23 16:20] LABS: Troponin 5 6HR 13.46 ng/L (0-10); Troponin 5 6HR Delta -0.54 ng/L (0-12)
[2025-07-23] MEDS: dilTIAZem ER (24HR) 120 mg Capsule PO (21:11)
[2025-07-23] MEDS: ATORVASTATIN 10 MG TABLET PO (21:12)
[2025-07-24] VITALS (11 sets, daily range): BP systolic 135–170; BP diastolic 72–98; PULSE 60–91; RESP 15–18; TEMP 36.4–36.9; O2SAT 92–96
[2025-07-24] MEDS: oxybutynin chloride XL 5 MG TABLET 10 MG PO (05:40)
[2025-07-24] MEDS: metoprolol succinate ER (24 HR) 50 mg Tablet PO (05:40)
[2025-07-24] MEDS: ranolazine (12HR) 500 mg Tablet PO ×2 (05:41→17:34)
[2025-07-24 05:44] LABS: Hematocrit 40.9 % (36-47); Hemoglobin 13.20 g/dL (11.27-16.99); Mean Corpuscular HGB Conc 32.3 g/dL (30-55); Mean Corpuscular Hemoglobin 31.8 pg (27-33); Mean Corpuscular Volume 98.6 fl (85-98); Nucleated Red Blood Cells % 0 %; Platelet Count 135 10^3/cmm (157-399); Red Blood Count 4.15 10^6/uL (3.85-5.65); White Blood Count 7.92 10^3/uL (3.29-11.43)
[2025-07-24] MEDS: piperacillin-tazobactam 3.375 GM in sodium chloride 0.9% (plus) 50 ML IV ×3 (06:40→21:01)
[2025-07-24 07:36] LABS: Blood Urea Nitrogen 21 mg/dL (8-23); Calcium 8.6 mg/dL (8.5-10.5); Carbon Dioxide 24 mmol/L (22-29); Chloride 104 mmol/L (98-107); Creatinine Clr Calc Pharmacy 67.4303; Glucose 104 mg/dL (65-115); Osmolality Calculated 291 mOsm/kg (285-295); Sodium 139 mmol/L (136-145)
[2025-07-24 07:39] LABS: Anion Gap 15.4 (5-19); Potassium 4.4 mmol/L (3.5-5.1)
--- NOTE | 2025-07-24 15:18 | P.PN_ITS ---
Subjective 2 Subjective: Patient was seen this morning, currently alert oriented x 3, following all commands, no chest pain, no palpitations, no shortness of breath Vitals/I&O/Wt Last Vital Signs Temp 97.9 F 07/24/25 12:25 Pulse 67 07/24/25 12:25 Resp 18 07/24/25 12:25 BP 162/98 07/24/25 12:25 Pulse Ox 94 07/24/25 11:52 O2 Del Method Room Air 07/24/25 11:52 07/24/25 07/24/25 07/24/25 06:59 14:59 22:59 Intake Total 420 / 1180 290 / 290 Output Total 1550 / 1550 Balance 420 / -570 -1260 / -1260 Weight last 48 hrs Weight 86.092 kg Weight 85.502 kg Weight 85.36 kg Weight 86.183 kg Physical Exam 2 Const: COMMON NORMALS: no acute distress and patient oriented x3 Resp: COMMON NORMALS: normal respiratory effort, No retractions, No use of accessory muscles and clear to auscultation bilaterally AUSCULTATION: clear to auscultation bilaterally Cardio: COMMON NORMALS: regular rate, regular rhythm, S1 normal heart sound present and S2 normal heart sound present RATE: regular rate RHYTHM: r egular rhythm HEART SOUNDS: S1 normal heart sound present and S2 normal heart sound present GI: COMMON NORMALS: Normal to inspection, nondistended, normoactive bowel sounds present and non-tender Extremity: COMMON NORMALS: no pedal edema Neuro: COMMON NORMALS: patient oriented x3 Psych: COMMON NORMALS: mental status grossly normal Data 07/24/25 05:22 07/24/25 07:04 A&P Assessment and plan 1. Atrial fibrillation: 2. Acute alteration in mental status: 3. Metabolic encephalopathy: 4. Leukocytosis: Plan: Acute encephalopathy - With leukocytosis -Likely secondary pneumonia -History of atrial fibrillation resume home medication, metoprolol, Xarelto -Resume Cymbalta -Type 2 diabetes mellitus low-dose sliding scale Bilateral pneumonia [place] [id number] IMPRESSION: 1. Findings compatible with multifocal infection throughout bilateral lungs, aozy-psiognp-zsho-right. Recommend imaging follow-up after clinical treatment to document resolution. 2. Dilated main pulmonary artery can be seen with pulmonary arterial hypertension. Plan - Vancomycin -Zosyn -Full code -Lovenox for DVT prophylaxis PDMP PDMP Reviewed: Not Reviewed Attestations 2 Medical Necessity Statement*: Patient reports resolution of her bilateral pneumonia, encephalopathy Diagnoses Atrial fibrillation I48.91 Acute alteration in mental status R41.82 Metabolic encephalopathy G93.41 Leukocytosis D72.829
[2025-07-24] MEDS: ATORVASTATIN 10 MG TABLET PO (20:56)
[2025-07-24] MEDS: dilTIAZem ER (24HR) 120 mg Capsule PO (20:56)
[2025-07-25 03:58] VITALS: BP 159/90; PULSE 80; RESP 15; TEMP 36.8; O2SAT 94
[2025-07-25] MEDS: metoprolol succinate ER (24 HR) 50 mg Tablet PO (04:25)
[2025-07-25] MEDS: ranolazine (12HR) 500 mg Tablet PO (04:25)
[2025-07-25] MEDS: oxybutynin chloride XL 5 MG TABLET 10 MG PO (04:25)
[2025-07-25 04:32] LABS: Hematocrit 39.5 % (36-47); Hemoglobin 13.30 g/dL (11.27-16.99); Mean Corpuscular HGB Conc 33.7 g/dL (30-55); Mean Corpuscular Hemoglobin 32.1 pg (27-33); Mean Corpuscular Volume 95.4 fl (85-98); Nucleated Red Blood Cells % 0 %; Platelet Count 141 10^3/cmm (157-399); Red Blood Count 4.14 10^6/uL (3.85-5.65); White Blood Count 5.64 10^3/uL (3.29-11.43)
[2025-07-25 04:52] LABS: Anion Gap 13.1 (5-19); Blood Urea Nitrogen 19 mg/dL (8-23); Calcium 9.0 mg/dL (8.5-10.5); Carbon Dioxide 26 mmol/L (22-29); Chloride 103 mmol/L (98-107); Creatinine Clr Calc Pharmacy 67.7730; Glucose 124 mg/dL (65-115); Osmolality Calculated 290 mOsm/kg (285-295); Potassium 4.1 mmol/L (3.5-5.1); Sodium 138 mmol/L (136-145)
[2025-07-25 06:00] VITALS: PULSE 60
[2025-07-25] MEDS: piperacillin-tazobactam 3.375 GM in sodium chloride 0.9% (plus) 50 ML IV (06:13)
[2025-07-25 07:54] VITALS: BP 167/71; PULSE 64; RESP 18; TEMP 36.6; O2SAT 96
[2025-07-25 08:00] VITALS: BP 167/71; PULSE 64; RESP 18; TEMP 36.6
--- NOTE | 2025-07-25 08:57 | PC.SOCIAL ---
IMM Update Updated pt on IMM. No questions voiced. Provided pt a copy. Initialed, dated, & timed a copy & placed in chart.
--- NOTE | 2025-07-25 09:24 | PC.CHAP ---
Pastoral Care Encounter/Spiritual Assessment Type of Contact [] Declined wire walker visit [] Patient/Family/Request visit [] Outpatient visit [] Follow-up visit [] Physician referral [] Code/Alert [x] Routine visit [] Staff referral [] Actively dying [] Patient sleeping [] Family support [] [] Out of room [] Palliative care [] [] Receiving care in room [] Pre-surgical visit [] Trauma [] Long length of stay [] ICU visit [] Other: Relational/Emotional Strength [] Patient feels connected with others/family/visitors/staff [] Distress [] Loneliness/isolation [] Abandonment Spirituality of Patient [x] Person of Tejal [] Attends Nondenominational of their [place]jal [x] Believes in Prayer [] Reads Bible or Hinduism materials [] There are Spiritual issues to be addressed 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 Machine 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 Interventions [x] Prayer [x] Active listening [] Non-anxious presence [] Spiritual/emotional support [] Crisis/trauma care [] Spiritual counseling [] Bereavement support [] Provided bereavement packet [x] Provided Bible/devotional materials [] Provided toy/stuffed animal, coloring book to patient or family member [] Provided Communion [] Anointing/[place] [] Salvation [x] Completed spiritual assessment [] Other: Impact on Illness or Injury [] Angry [] Fearful [] Anxious [] Often cries [] Exhaustion [] Unable to work [] Unable to attend restorationism [] Unable to walk/stand [] Unable to read [] Unable to drive [] Unable to eat/drink [] Unable to sleep [] Unable to be with family [] Patient intubated [] Other: Summary Time spent with patient 10 min
[2025-07-25 09:34] VITALS: BP 167/71; PULSE 64; RESP 18; TEMP 36.6; O2SAT 96
--- NOTE | 2025-07-25 10:55 | PC.NURSE ---
Discussed discharge with patient and son. All new medications, stopped medications and all follow up appointments. Went over the pneumonia stop light with patient and son as well. Both parties verbalized understanding.
--- NOTE | 2025-07-25 17:39 | P.DS_ITS ---
Discharge Providers Date of Admission: 07/23/25 00:36 Date of Discharge: July 25, 2025 Attending Provider at Admission: Carolee Bejarano MD Attending Provider at Discharge: Jacob Sanchez MD Primary Care Provider: Bobby Ingram MD Diagnoses at Discharge Discharge Diagnosis 1. Atrial fibrillation: 2. Acute alteration in mental status: 3. Metabolic encephalopathy: 4. Leukocytosis: Reason for Visit Reason for Visit: weak - dizzy Hospital Course Hospital Course This is a 74-year-old female with a past medical history of atrial fibrillation, who presents [facility] for altered mental status Patient was admitted to [facility] for all acute encephalopathy likely secondary bilateral pneumonia received IV antibiotics, overall clinically improved, discharged on oral Levaquin with close follow-up with primary care provider There is a concern for dementia, follow-up with neurology as outpatient For atrial fibrillation, follow-up with cardiology Cardiac echo shows moderate to severe mitral valve regurgitation, follow-up with cardiology as an outpatient Physical Exam Const: COMMON NORMALS: no acute distress and patient oriented x3 Resp: COMMON NORMALS: normal respiratory effort, No retractions, No use of accessory muscles and clear to auscultation bilaterally AUSCULTATION: clear to auscultation bilaterally Cardio: COMMON NORMALS: regular rate, regular rhythm, S1 normal heart sound present and S2 normal heart sound present RATE: regular rate RHYTHM: regular rhythm HEART SOUNDS: S1 normal heart sound present and S2 normal heart sound present GI: COMMON NORMALS: Normal to inspection, nondistended, normoactive bowel sounds present and non-tender Extremity: COMMON NORMALS: no pedal edema Neuro: COMMON NORMALS: patient oriented x3 Psych: COMMON NORMALS: mental status grossly normal Discharge Data Studies Completed and Pending Completed Studies During Hospitalization Category Date Time Status CT chest abdomen pelvis [[place] [id number] Cat Scan 07/23/25 12:36 Completed ] Routine CT head wo con* [id number] Stat Cat Scan 07/22/25 23:35 Completed XR chest 1V portable [id number] Stat Exams 07/22/25 16:35 Completed CV carotid duplex BI* [id number] Routine Ultrasound 07/23/25 08:37 Completed CV. echo complete* [id number] Routine Ultrasound 07/23/25 08:37 Completed Radiology Impressions Chest X-Ray 07/22/25 16:35 IMPRESSION: No acute cardiopulmonary disease. Head CT 07/22/25 23:35 IMPRESSION: 1. No acute intracranial pathology. 2. Senescent changes. Carotid Doppler Study 07/23/25 08:37 IMPRESSION: 1. No carotid arterial stenosis. 2. Increased bilateral ICA/CCA ratios is due to increased measured velocities in the distal internal carotid arteries related to tortuosity of the vessels. REFERENCES: SRU CRITERIA. The degree of internal carotid artery stenosis is based on criteria defined by the Society of Radiologists in Ultrasound (SRU). Normal is no stenosis. Mild is less than 50% stenosis. Moderate is 50-69% stenosis. Severe is greater than 69% stenosis to near occlusion. Near occlusion is a markedly narrowed lumen. Total occlusion is no detectable patent lumen. Nichole Benitez, et al. Carotid Artery Stenosis: Rodriguez-Scale and Doppler US Diagnosis-Society of Radiologists in Ultrasound Consensus Conference. Radiology 2003; 229:340-346. Chest/Abdomen/Pelvis CT 07/23/25 12:36 IMPRESSION: 1. Findings compatible with multifocal infection throughout bilateral lungs, [id number]. Recommend imaging follow-up after clinical treatment to document resolution. 2. Dilated main pulmonary artery can be seen with pulmonary arterial hypertension. IMPRESSION: No acute findings. Laboratory Results WBC 5.64 10^3/uL (3.29-11.43) 07/25/25 04:09 RBC 4.14 10^6/uL (3.85-5.65) 07/25/25 04:09 Hgb 13.30 g/dL (11.27-16.99) 07/25/25 04:09 Hct 39.5 % (36-47) 07/25/25 04:09 MCV 95.4 fl (85-98) 07/25/25 04:09 MCH 32.1 pg (27-33) 07/25/25 04:09 MCHC 33.7 g/dL (30-55) 07/25/25 04:09 RDW 13.1 % (12.1-15.1) 07/25/25 04:09 Plt Count 141 10^3/cmm (157-399) L 07/25/25 04:09 MPV 10.4 fL (7.4-10.4) 07/25/25 04:09 Neut % (Auto) 52.0 % 07/25/25 04:09 Lymph % (Auto) 34.6 % 07/25/25 04:09 [place] % (Auto) 7.4 % 07/25/25 04:09 Eos % (Auto) 4.8 % 07/25/25 04:09 Baso % (Auto) 0.7 % 07/25/25 04:09 Neut # (Auto) 2.93 10^3/uL (1.8-7.7) 07/25/25 04:09 Lymph # (Auto) 2.0 10^3/uL (0.8-4.8) 07/25/25 04:09 [place] # (Auto) 0.4 10^3/uL (0.2-0.9) 07/25/25 04:09 Eos # (Auto) 0.3 10^3/uL (0.0-0.8) 07/25/25 04:09 Baso # (Auto) 0.0 10^3/uL (0.0-0.1) 07/25/25 04:09 Nucleated RBC % (auto) 0 % 07/25/25 04:09 Nucleated RBCs # 0.0 /100WBC 07/25/25 04:09 ESR 4 mm/hr (0-15) 07/23/25 09:35 PT 20.80 SECONDS (12.1-14.9) H 07/22/25 16:56 INR 1.67 (0.8-1.2) H 07/22/25 16:56 Sodium 138 mmol/L (136-145) 07/25/25 04:09 Potassium 4.1 mmol/L (3.5-5.1) 07/25/25 04:09 Chloride 103 mmol/L (98-107) 07/25/25 04:09 Carbon Dioxide 26 mmol/L (22-29) 07/25/25 04:09 Anion Gap 13.1 (5-19) 07/25/25 04:09 BUN 19 mg/dL (8-23) 07/25/25 04:09 Creatinine 0.8 mg/dL (0.5-0.9) 07/25/25 04:09 GFR Calculation Not Reportable 07/25/25 04:09 Glucose 124 mg/dL (65-115) H 07/25/25 04:09 POC Glucose 103 mg/dL (70-110) 07/25/25 06:25 Estimat Average Glucose 123 07/23/25 04:33 Hemoglobin A1c 5.9 % (4.0-6.0) 07/23/25 04:33 Calculated Osmolality 290 mOsm/kg (285-295) 07/25/25 04:09 Calcium 9.0 mg/dL (8.5-10.5) 07/25/25 04:09 Phosphorus 2.5 mg/dL (2.5-4.5) 07/23/25 04:33 Magnesium 1.9 mg/dL (1.7-2.3) 07/23/25 04:33 Total Bilirubin 0.5 mg/dL (0.15-1.2) 07/23/25 04:33 AST 14 U/L (0-32) 07/23/25 04:33 ALT 10 U/L (0-33) 07/23/25 04:33 Alkaline Phosphatase 60 U/L (35-105) 07/23/25 04:33 Ammonia 29 umol/L (11-51) 07/23/25 09:35 Troponin T Baseline 14 ng/L (0-10) H 07/23/25 09:35 Troponin T 120 Minute 13.74 ng/L (0-10) H 07/23/25 11:37 Delta Troponin T -0.26 ABS# (0-10) L 07/23/25 11:37 Troponin T Hi Sens 6Hr 13.46 ng/L (0-10) H 07/23/25 15:51 Troponin T Hi Sens 6Hr Delta -0.54 ng/L (0-12) L 07/23/25 15:51 C-Reactive Protein 34.8 mg/L (0.0-4.9) H 07/23/25 09:35 NT-Pro-B Natriuret Pep 2500 pg/mL (0-450) H 07/22/25 16:56 Total Protein 6.1 g/dL (6.6-8.7) L 07/23/25 04:33 Albumin 3.6 g/dL (3.5-5.2) 07/23/25 04:33 Globulin 2.5 g/dL (1.3-4.6) 07/23/25 04:33 Procalcitonin 0.94 ng/mL (0-0.5) H 07/23/25 09:35 TSH 2.13 uIU/mL (0.27-4.20) 07/22/25 16:56 Urine Color Yellow (Yellow) 07/22/25 21:31 Urine Appearance Clear (CLEAR) 07/22/25 21:31 Urine pH 5.0 (5-7) 07/22/25 21:31 Ur Specific [place] 1.012 (1.005-1.030) 07/22/25 21:31 Urine Protein Negative (Negative) 07/22/25 21:31 Urine Glucose (UA) Negative (Normal) 07/22/25 21: Urine Ketones Negative (Negative) 07/22/25 21: Urine Blood Negative (Negative) 07/22/25 21: Urine Nitrate Negative (Negative) 07/22/25 21:31 Urine Bilirubin Negative (Negative) 07/22/25 21:31 Urine Urobilinogen 1.0 mg/dL (Negative) 07/22/25 21:31 Ur Leukocyte Esterase Trace (Negative) A 07/22/25 21:31 Urine RBC 0-2 /hpf (0-2) 07/22/25 21:31 Urine WBC 0-5 /hpf (0-5) 07/22/25 21:31 Ur Squamous Epith Cells 0-5 /hpf (0-5) 07/22/25 21:31 Amorphous Sediment Not Reportable 07/22/25 21:31 Urine Bacteria None seen /hpf (NONE) 07/22/25 21:31 Hyaline Casts 3.71 /lpf 07/22/25 21:31 Vitals Last Vital Signs Temp 97.9 F 07/25/25 09:34 Pulse 64 07/25/25 09:34 Resp 18 07/25/25 09:34 BP 167/71 07/25/25 09:34 Pulse Ox 96 07/25/25 09:34 O2 Del Method Room Air 07/25/25 07:54 Discharge Plan Discharge Patient Disposition: Home Condition: Stable Prescriptions: New levofloxacin 750 mg tablet 750 mg PO DAILY 5 Days Qty: 5 0RF albuterol sulfate [Ventolin HFA] 90 mcg/actuation HFA aerosol inhaler 1 inh inhalation Q6H PRN (Reason: shortness of breath or wheezing) Qty: 8.5 0RF Continued ascorbate calcium (vitamin C) 500 mg tablet 500 mg PO QAM albuterol sulfate 90 mcg/actuation HFA aerosol inhaler 1 inh inhalation QID PRN (Reason: shortness of breath or wheezing) Qty: 6.7 4RF anastrozole 1 mg tablet 1 mg PO DAILY Qty: 30 3RF trazodone 100 mg tablet 100 mg PO .HS Qty: 90 0RF aripiprazole [Abilify] 10 mg tablet 10 mg PO DAILY Qty: 90 0RF duloxetine 60 mg capsule,delayed release(DR/EC) 120 mg PO DAILY@0900 90 Days Qty: 180 0RF nitroglycerin [Nitrostat] 0.4 mg tablet, sublingual 0.4 mg SUBLINGUAL Q5M PRN (Reason: chest pain) Qty: 30 3RF loratadine 10 mg tablet 10 mg PO DAILY Qty: 90 0RF pantoprazole 40 mg tablet,delayed release (DR/EC) 40 mg PO BID@0900,2200 Qty: 180 3RF furosemide 40 mg tablet See Rx Instructions .ROUTE .COMPLEX Qty: 180 3RF Dose Instruction: TAKE 1 TABLET BY MOUTH DAILY IN THE MORNING, MAY TAKE AN EXTRA DOSE DAILY IF NEEDED FOR WEIGHT GAIN Rx Instructions: TAKE 1 TABLET BY MOUTH DAILY IN THE MORNING, MAY TAKE AN EXTRA DOSE DAILY IF NEEDED FOR WEIGHT GAIN. oxybutynin chloride 10 mg tablet extended release 24hr 10 mg PO DAILY Qty: 90 1RF potassium chloride 10 mEq tablet extended release See Rx Instructions .ROUTE .COMPLEX Qty: 180 3RF Dose Instruction: TAKE 2 TABLETS BY MOUTH EVERY MORNING *TAKE ADDITIONAL DOSE W/FUROSEMIDE NEEDED FOR WT GAIN >3LBS Rx Instructions: TAKE 2 TABLETS BY MOUTH EVERY MORNING *TAKE ADDITIONAL DOSE W/FUROSEMIDE NEEDED FOR WT GAIN >3LBS Xarelto 10 mg tablet 10 mg PO DAILY@2200 Qty: 90 0RF hydroxyzine HCl 25 mg tablet 25 mg PO TID PRN (Reason: itching) Qty: 90 1RF Women's 50 Plus Multivitamin 400 mcg-500 mg calcium-20 mcg Tablet 1 tab PO DAILY alendronate 70 mg tablet See Rx Instructions .ROUTE .COMPLEX Rx Instructions: 1 tablet weekly with a full glass of water. Do not eat, take other meds, or lie down for 1 hour afterwards. isosorbide mononitrate 60 mg tablet extended release 24 hr 60 mg PO QPM Rx Instructions: take with 30mg every evening . escitalopram oxalate 20 mg tablet 20 mg PO DAILY rosuvastatin 5 mg tablet 5 mg PO QAM ranolazine 500 mg tablet extended release 12 hr 500 mg PO BID diltiazem HCl 120 mg Capsule,Extended Release 24hr 120 mg PO BEDTIME Qty: 30 0RF guaifenesin [Mucinex] 600 mg Tablet Extended Release 12hr 1,200 mg PO BID Qty: 14 0RF metoprolol succinate 50 mg Tablet Extended Release 24 Hr 50 mg PO DAILY Qty: 30 0RF losartan 50 mg tablet 50 mg PO DAILY Qty: 30 0RF isosorbide mononitrate 30 mg tablet extended release 24 hr 30 mg PO QPM Discontinued glimepiride 1 mg tablet 1 mg PO QAM Qty: 90 1RF Rx Instructions: administer with breakfast meloxicam 15 mg tablet 15 mg PO DAILY No Action (DME) diabetic shoes w/ 3 inserts See Rx Instructions .Route .MEDSUPPLY Qty: 1 0RF Rx Instructions: As directed by the jason dobson (DME) CPAP 6-16 cm mmHg setting machine, with mask, tubing and supplies See Rx Instructions .ROUTE .MEDSUPPLY Qty: 1 0RF Rx Instructions: As directed (DME) Rollaid walker with seat See Rx Instructions .Route .MEDSUPPLY Qty: 1 0RF Rx Instructions: As directed (DME) blood-glucose meter [Accu[facility]Chek Guide Glucose Meter] [facility] See Rx Instructions .Route Qty: 1 3RF Rx Instructions: As directed. check 3x/day (DME) lancets [Accu-Chek Softclix Lancets] Misc See Rx Instructions .Route Qty: 200 5RF Rx Instructions: use 3 times/day (DME) Accu-Chek Guide test strips Strip See Rx Instructions .Route Qty: 100 8RF Rx Instructions: check glucose 3 times/day Discharge Order = DC NOW: Discharge Order (Routine); Ordered 07/25/25 Ordered By: Jacob Sanchez Referrals: Sybil Palomino [Referring, Neurology] - 1-3 days Referral Note: We have notified your physician's clinic of the need for an appointment to be scheduled. If you have not heard from them within the next 2 business days, please call them directly. Davis Garner MD, MBBS, MPH [Referring, Pulmonology] - 4-7 days Referral Note: We have notified your physician's clinic of the need for an appointment to be scheduled. If you have not heard from them within the next 2 business days, please call them directly. Prince Solomon M.D [Referring, Cardiology] - 4-7 days Referral Note: We have notified your physician's clinic of the need for an appointment to be scheduled. If you have not heard from them within the next 2 business days, please call them directly. Bobby Ingram MD [Primary Care Provider, Family Practice] Referral Note: We have notified your physician's clinic of the need for a follow-up appointment to be scheduled. If you have not heard from them within the next 2 business days, please call them directly. Discharge Diet: Cardiac Discharge Activity: Resume usual activity Patient Instructions: Albuterol (By breathing), Levofloxacin (By mouth) (Levaquin, Levaquin Leva-marcos), Opioid Safety, Pneumonia Stoplight, Patient Portal & Davi Instructions Activity Restrictions/Additional Instructions: - Please discuss with primary care provider of interaction with Lexapro and duloxetine - Would recommend weaning off 1 of these medications due to risk of side effects - Follow-up with neurology for dementia testing Discharge Attestations Time Spent in Discharge Care*: greater than 30 min Quality Metrics Clinical Quality Measures [ No reported AMI, CVA or VTE this stay] Coding Level of Care Code 79828 Total time (in minutes) for Discharge: 45 Diagnoses Atrial fibrillation I48.91 Acute alteration in mental status R41.82 Metabolic encephalopathy G93.41 Leukocytosis D72.829
== END 2025-07-25 09:48 | disposition home or self-care (01) | DRG 193 ==
LOC: ER 07-23 00:44 → MEDSURG 07-23 01:46
PROVIDERS: Emergency Medicine; Admitting Provider Internal Medicine; Emergency Provider Emergency Medicine; PCP Family Medicine; Visit Provider Family Medicine
DX: J18.9 Pneumonia, unspecified organism (principal); G93.41 Metabolic encephalopathy; I48.20 Chronic atrial fibrillation, unspecified; I42.9 Cardiomyopathy, unspecified; F03.90 Unspecified dementia, unspecified severity, without behavioral disturbance, psychotic disturbance, mood disturbance, and anxiety; I34.0 Nonrheumatic mitral (valve) insufficiency; G45.4 Transient global amnesia; C50.911 Malignant neoplasm of unspecified site of right female breast; F41.1 Generalized anxiety disorder; J44.9 Chronic obstructive pulmonary disease, unspecified; G89.29 Other chronic pain; F32.9 Major depressive disorder, single episode, unspecified; K21.9 Gastro-esophageal reflux disease without esophagitis; F12.90 Cannabis use, unspecified, uncomplicated; I10 Essential (primary) hypertension; E11.9 Type 2 diabetes mellitus without complications; E78.00 Pure hypercholesterolemia, unspecified; Z79.811 Long term (current) use of aromatase inhibitors; Z79.891 Long term (current) use of opiate analgesic; Z79.01 Long term (current) use of anticoagulants; Z98.84 Bariatric surgery status
CPT/HCPCS: 36415; 36416; 70450; 71045; 71250; 74176; 80048; 80053; 81001; 82140; 82962; 83036; 83735; 83880; 84100; 84145; 84443; 84484; 85025; 85610; 85651; 86140; 92523; 92610; 93005; 93306; 93880; 94640; 96372; 97116; 97161; 97165; 99285; J1644; J1815; J2543; J3373; J3490; J7050; J8999; J9999